=== PATIENT | female | born 1955 | race African-American/Black ===

== ENCOUNTER 2017-12-29 22:26 | Inpatient (IN) | payer OTHER ==
[~2017-12-29] VITALS: Ht 162.6 cm; Wt 47.7 kg
[2017-12-29] MEDS ORDERED: DAPTOmycin IV 0 MG in SODIUM CHLORIDE 0.9% 50ML 50 ML IV STA (22:41)
[2017-12-29] MEDS ORDERED: KETOROLAC TROMETHAMINE 30 MG/ML VIAL IV STA (22:41)
[2017-12-29] MEDS ORDERED: SODIUM CHLORIDE 0.9% 1000ML 1,000 ML IV ONE (22:41)
[2017-12-29] MEDS ORDERED: PIPERACILLIN/TAZOBACTAM 4.5 GM/100ML D5W IV STA (22:41)
[2017-12-29] MEDS ORDERED: ACETAMINOPHEN 500 MG TAB PO STA (22:41)
[2017-12-29] MEDS ORDERED: CLINDAMYCIN 600 MG/54 ML D5W IV ONE (22:45)
--- NOTE | 2017-12-29 22:45 | EMERGENCY ROOM VISIT NOTE ---
History Report prepared by Louis: Gaye Ford Under the Supervision of: Dr. Kamran Daniel M.D. First contact with patient: 22:35 Chief Complaint: OTHER COMPLAINT Stated Complaint: L SIDE PAIN, L LEG & KNEE SWELLING, NAUSEA, VOMIT History of Present Illness The patient is a 62 year old female who presents to the Emergency Room with complaints of worsening swelling to the left leg beginning yesterday. She states that she has had pain with this leg before, but denies ever being told that she had cellulitis or an infection in that leg. She denies any falls or injuries. The patient states that she was febrile at 102 today and states that she has also had the chills. Per nursing staff, the patient reports feeling nauseous and having abdominal pain. The patient states that she does not take any medications daily. Source of History: patient, nursing staff Onset: yesterday Position: leg (left) Quality: other (swelling) Timing: worsening Associated Symptoms: + fevers, + chills, + nausea, + abdominal pain Review of Systems See HPI for pertinent positives & negatives. A total of 10 systems reviewed and were otherwise negative. Past Medical & Surgical Denies any past medical history. Family History Reports no pertinent family history. Social History Marital Status: single Housing Status: assisted living Current/Historical Medications No Active Prescriptions or Reported Meds Allergies Coded Allergies: Sulfa Antibiotics (Verified Allergy, Unknown, swelling, 12/29/17) Physical Exam Vital Signs Date Time Temp Pulse Resp B/P (MAP) Pulse Ox O2 Delivery O2 Flow Rate FiO2 12/30/17 00:00 36.8 97 18 125/74 97 Room Air 12/29/17 23:30 102 20 126/75 99 Room Air 12/29/17 23:05 106 154/92 100 Room Air 12/29/17 22:46 99 Room Air 12/29/17 22:46 110 12/29/17 22:34 37.6 112 159/102 98 Room Air Physical Exam GENERAL: Patient is in no acute distress. HEENT: No acute trauma, normocephalic atraumatic, mucous membranes moist, no nasal congestion, no scleral icterus. NECK: No stridor, no adenopathy, no meningismus, trachea is midline. LUNGS: Clear to auscultation bilaterally, no wheeze, no rhonchi, breath sounds equal. HEART: Tachycardic with regular rhythm. No murmurs. ABDOMEN: Soft, nontender, bowel sounds positive, no hernias, no peritonitis. EXTREMITIES: Significant swelling and erythema to the left leg from the ankle to the groin with erythema tracking onto the left abdominal wall. No crepitus. The thigh in particular is quite tender and firm. No drainage. Any movement of the leg causes pain. NEUROLOGIC: Oriented x 3, no acute motor or sensory deficits, no focal weakness. SKIN: No rash, no jaundice, no diaphoresis. Medical Decision & Procedures ER Provider Diagnostic Interpretation: Radiology results as stated below per my review and [facility]. CT EXTREMITY LEFT LOWER: Small amount of free fluid in the pelvis partially visualized. Multiple phleboliths in the pelvis. Fat stranding involving the left thigh and about the left knee, most prominently medially, anteriorly, and posteriorly. Subcutaneous fat stranding also noted in the medial aspects of the partially visualized right thigh. No abscess or soft tissue gas. No acute osseous abnormality. Radiology results as stated below per my review and radiologist interpretation: Chest X-Ray: No pneumonia or pneumothorax. Mild cardiomegaly. No mediastinal widening. Laboratory Results 12/29/17 23:44 Red Blood Count 4.19, Mean Corpuscular Volume 82.8, Mean Corpuscular Hemoglobin 28.2, Mean Corpuscular Hemoglobin Concent 34.0, Mean Platelet Volume 11.2, Neutrophils (%) (Auto) 72.5, Lymphocytes (%) (Auto) 19.7, Monocytes (%) (Auto) 6.9, Eosinophils (%) (Auto) 0.7, Basophils (%) (Auto) 0.0, Neutrophils # (Auto) 3.16, Lymphocytes # (Auto) 0.86, Monocytes # (Auto) 0.30, Eosinophils # (Auto) 0.03, Basophils # (Auto) 0.00 12/29/17 22:45 Test 12/29/17 22:45 12/29/17 22:56 12/29/17 23:44 12/30/17 00:30 Prothrombin Time 13.0 SECONDS (9.0-12.0) Prothromb Time International Ratio 1.2 (0.9-1.1) Activated Partial Thromboplast Time 24.7 SECONDS (21.0-31.0) Partial Thromboplastin Ratio 1.0 Anion Gap 12.0 mmol/L (3-11) Est Creatinine Clear Calc Drug Dose 49.2 ml/min Estimated GFR () 76.4 Estimated GFR (Non- 65.9 BUN/Creatinine Ratio 24.7 (10-20) Calcium Level 9.0 mg/dl (8.5-10.1) Magnesium Level 1.7 mg/dl (1.8-2.4) Total Bilirubin 2.0 mg/dl (0.2-1) Aspartate Amino Transf (AST/SGOT) 44 U/L (15-37) Alanine Aminotransferase (ALT/SGPT) 32 U/L (12-78) Alkaline Phosphatase 100 U/L (45-117) Total Protein 6.8 gm/dl (6.4-8.2) Albumin 2.8 gm/dl (3.4-5.0) Globulin 4.0 gm/dl (2.5-4.0) Albumin/Globulin Ratio 0.7 (0.9-2) Chemistry Specimen Hemolysis Bedside Lactic Acid Venous 5.21 mmol/L (0.90-1.70) White Blood Count 4.36 K/uL (4.8-10.8) Red Blood Count 4.19 M/uL (4.2-5.4) Hemoglobin 11.8 g/dL (12.0-16.0) Hematocrit 34.7 % (37-47) Mean Corpuscular Volume 82.8 fL (80-100) Mean Corpuscular Hemoglobin 28.2 pg (25-34) Mean Corpuscular Hemoglobin Concent 34.0 g/dl (32-36) Platelet Count 128 K/uL (130-400) Mean Platelet Volume 11.2 fL (7.4-10.4) Neutrophils (%) (Auto) 72.5 % Lymphocytes (%) (Auto) 19.7 % Monocytes (%) (Auto) 6.9 % Eosinophils (%) (Auto) 0.7 % Basophils (%) (Auto) 0.0 % Neutrophils # (Auto) 3.16 K/uL (1.4-6.5) Lymphocytes # (Auto) 0.86 K/uL (1.2-3.4) Monocytes # (Auto) 0.30 K/uL (0.11-0.59) Eosinophils # (Auto) 0.03 K/uL (0-0.5) Basophils # (Auto) 0.00 K/uL (0-0.2) RDW Standard Deviation 38.6 fL (36.4-46.3) RDW Coefficient of Variation 12.9 % (11.5-14.5) Immature Granulocyte % (Auto) 0.2 % Immature Granulocyte # (Auto) 0.01 K/uL (0.00-0.02) Toxic Vacuolation 3+ Dohle Bodies 1+ Large Platelets 1+ Echinocytes 1+ Transferrin % Saturation % (15-50) Test 12/30/17 00:50 12/30/17 01:04 Absolute Reticulocyte Count 0.06 10^6/uL (0.02-0.10) Percent Reticulocyte Count 1.6 % (0.5-2.0) Laboratory results reviewed by me. Medications Administered Medications (Trade) Dose Ordered Sig/Sera Route Start Time Stop Time Status Last Admin Dose Admin Sodium Chloride 1,000 ml @ 999 mls/hr Q1H1M ONCE IV 12/29/17 22:41 12/29/17 23:41 DC 12/29/17 22:50 999 MLS/HR Piperacillin Sod/ Tazobactam Sod (Zosyn Iv) 4.5 gm ONE STAT IV 12/29/17 22:41 12/29/17 22:46 DC 12/29/17 22:57 4.5 GM Clindamycin Phosphate (Cleocin 600mg/ 54ml D5W) 600 mg ONE ONCE IV 12/29/17 22:45 12/29/17 22:46 DC 12/29/17 23:02 600 MG Acetaminophen (Tylenol Tab) 1,000 mg NOW STAT PO 12/29/17 22:41 12/29/17 22:46 DC 12/29/17 22:51 1,000 MG Ketorolac Tromethamine (Toradol Inj) 30 mg NOW STAT IV 12/29/17 22:41 12/29/17 22:46 DC 12/29/17 22:50 30 MG Ondansetron HCl (Zofran Inj) 4 mg NOW STAT IV 12/29/17 22:46 12/29/17 22:50 DC 12/29/17 23:42 4 MG Daptomycin 300 mg/ Syringe 6 ml @ 3 mls/min TODAY@2246 IV 12/29/17 22:46 12/29/17 23:15 DC 12/29/17 22:59 3 MLS/MIN Miscellaneous Information (Patient'S Allergy Info Needs Entered) 1 ea Q30M N/A 12/29/17 23:00 12/29/17 23:50 DC 12/29/17 23:42 1 EA Sodium Chloride 250 ml @ 999 mls/hr Q16M ONCE IV 12/29/17 23:07 12/29/17 23:22 DC 12/29/17 23:43 999 MLS/HR Sodium Chloride 250 ml @ 999 mls/hr Q16M ONCE IV 12/29/17 23:07 12/29/17 23:22 DC 12/29/17 23:44 999 MLS/HR Morphine Sulfate (MoRPHine SULFATE INJ) 2 mg NOW PRN IV 12/29/17 23:45 01/12/18 23:44 12/29/17 23:46 2 MG Sodium Chloride 500 ml @ 999 mls/hr Q31M STAT IV 12/30/17 00:13 12/30/17 00:43 DC 12/30/17 00:19 999 MLS/HR ECG Per My Interpretation Indication: weakness Rate (beats per minute): 108 Rhythm: sinus tachycardia Findings: other (LVH, biatrial enlargement, no ST elevation, no PVCs) ED Course 2235: The patient was evaluated in room B2. A complete history and physical exam was performed. 2241: Ordered Toradol Inj 30 mg IV, Tylenol Tab 1,000 mg PO, Zosyn Iv 4.5 gm IV , Sodium Chloride 1,000 ml @ 999 mls/hr IV. 2245: Ordered Clindamycin Phosphate 600 mg IV. 2246: Ordered Daptomycin 300 mg/Syringe 6 ml @ 3 mls/,in Protocol IV, Zofran Inj 4 mg IV. 2307: Ordered Sodium Chloride 250 ml @ 999 mls/hr IV, Sodium Chloride 250 ml @ 999 mls/hr IV. 2345: Ordered Morphine Sulfate 2 mg IV. 0011: I spoke to the patient and updated her on her results. 0013: Ordered Sodium Chloride 500 ml @ 999 mls/hr IV. 0016: Upon reexamination the patient is resting. I discussed results and treatment plan with the patient. She verbalizes agreement and understanding. I spoke with Dr. Puente of the [facility] hospitalist service. We discussed the patient's results and findings. The patient will be evaluated for further management. Medical Decision The patient is a 62 year old female who presents to the ED with complaints of left leg swelling. Differential diagnoses considered include necrotizing fasciitis, cellulitis, sepsis or bacteremia, dehydration, electrolyte imbalance , pneumonia, and UTI. Patient has a slightly low white count, platelet count and hemoglobin. No significant electrolyte abnormality, no kidney failure. There were a few mild liver enzyme elevations. No coagulopathy. Lactic acid level was quite elevated at over 5. Blood cultures are pending. Urinalysis result is pending. CT of the left thigh shows cellulitis, no evidence for gas or necrotizing fasciitis. Chest film did not show pneumonia or CHF. The patient was aggressively managed. She received over 30 cc of saline per kilogram. She received IV morphine for pain, she received IV Toradol. She was given oral Tylenol. Patient received IV Zosyn, IV daptomycin and IV clindamycin. Patient received IV Zofran. The patient's heart rate has improved, she is more comfortable. She will require a hospital stay as I do believe she is septic from this cellulitis. I spoke with the patient and her family. I talked with case management. I discussed the case with the on-call hospitalist. Medication Reconcilliation Current Medication List: was personally reviewed by me Blood Pressure Screening Patient's blood pressure: Elevated blood pressure will be monitored by hospitalist Consults Time Called: 2300 Consulting Physician: Dr. Artem Damon Returned Call: 0016 Discussed the patient's case. The patient will be evaluated for further management. Impression Primary Impression: Sepsis Additional Impressions: Left leg cellulitis Left leg pain Critical Care I have personally spent greater than 35 minutes of critical care time in the direct management of this patient. This includes bedside care, interpretation of diagnostic studies, and testing, discussion with consultants, patient, and family members, and other required patient management activities. This 35 minutes is in excess of all separately billable procedures. Scribe Attestation The scribe's documentation has been prepared under my direction and personally reviewed by me in its entirety. I confirm that the note above accurately reflects all work, treatment, procedures, and medical decision making performed by me. Departure Information Dispostion Being Evaluated By Hospitalist Prescriptions No Active Prescriptions or Reported Meds Referrals No Doctor, Assigned (PCP) Patient Instructions My [facility] Problem Qualifiers
[2017-12-29] MEDS ORDERED: ONDANSETRON INJ 2 MG/ML 2 ML VIAL IV STA (22:46)
[2017-12-29] MEDS ORDERED: DAPTOmycin IV 300 MG in SYRINGE 0 ML IV SCH (22:46)
[2017-12-29] MEDS ORDERED: PATIENT'S ALLERGY INFO NEEDS ENTERED SCH (23:00)
[2017-12-29] MEDS ORDERED: SODIUM CHLORIDE 0.9% 1000ML 250 ML IV ONE ×2 (23:07)
[2017-12-29 23:25] LABS: INR 1.2 (0.9-1.1); PTT PATIENT 24.7 SECONDS (21.0-31.0)
[2017-12-29] MEDS ORDERED: MoRPHine SULFATE 2 MG/ML CARP IV PRN (23:45)
[2017-12-29 23:46] LABS: ALBUMIN 2.8 gm/dl (3.4-5.0); CREATININE 0.94 mg/dl (0.60-1.20); POTASSIUM 3.5 mmol/L (3.5-5.1); TOTAL PROTEIN 6.8 gm/dl (6.4-8.2)
[2017-12-29 23:58] LABS: HEMATOCRIT 34.7 % (37-47); HEMOGLOBIN 11.8 g/dL (12.0-16.0); MEAN CELL VOLUME 82.8 fL (80-100); MEAN CORPUSCULAR HEMOGLOBIN 28.2 pg (25-34); MEAN PLATELET VOLUME 11.2 fL (7.4-10.4); PLATELET COUNT 128 K/uL (130-400); RED CELL DISTRIBUTION WIDTH CV 12.9 % (11.5-14.5); RED CELL DISTRIBUTION WIDTH SD 38.6 fL (36.4-46.3); WHITE BLOOD COUNT 4.36 K/uL (4.8-10.8)
[2017-12-30] VITALS (11 sets, daily range): BP systolic 95–120; BP diastolic 63–76; PULSE 88–143; TEMP 36.3–37.2; O2SAT 93–99; BMI 18.6
[2017-12-30] MEDS ORDERED: SODIUM CHLORIDE 0.9% 500ML 500 ML IV STA (00:13)
[2017-12-30 00:23] LABS: EOS % 0.7 %; EOS ABS # 0.03 K/uL (0-0.5); IG# 0.01 K/uL (0.00-0.02); LYMPH % 19.7 %; LYMPH ABS # 0.86 K/uL (1.2-3.4); MONO % 6.9 %; NEUT % 72.5 %; NEUT ABS # 3.16 K/uL (1.4-6.5)
[2017-12-30 01:01] LABS: RETIC COUNT % 1.6 % (0.5-2.0)
[2017-12-30] MEDS ORDERED: OPTIRAY 320 IV PRN (01:30)
[2017-12-30] MEDS ORDERED: NSS + 20MEQ KCL 1000ML 1,000 ML IV SCH (01:45)
[2017-12-30 01:52] LABS: TRANSFERRIN 226 mg/dl (200-360)
[2017-12-30] MEDS ORDERED: NSS + 20MEQ KCL 1000ML 1,000 ML IV ONE ×2 (02:00→06:30)
[2017-12-30] MEDS ORDERED: METHIMAZOLE 5 MG TAB PO ONE (03:01)
[2017-12-30] MEDS ORDERED: CEFEPIME CONSULT ACTIVE PRN (03:03)
[2017-12-30] MEDS ORDERED: PROCHLORPERAZINE INJ 5 MG in SYRINGE 4 ML IV PRN (03:15)
[2017-12-30] MEDS ORDERED: LORAZEPAM 2 MG/ML 1 ML VIAL IV PRN (03:15)
[2017-12-30] MEDS: TRAMADOL HCL 50 MG TAB PO PRN ×2 (04:11→19:12)
[2017-12-30] MEDS ORDERED: MAGNESIUM SULFATE 1GM / D5W 1 GM in PREMIXED IN D5W 100 ML IV ONE (04:15)
[2017-12-30] MEDS ORDERED: CEFEPIME IV 2,000 MG in SYRINGE 7.5 ML IV SCH (04:30)
[2017-12-30] MEDS ORDERED: ALBUMIN HUMAN 25% 12.5 GM/50 ML VIAL IV ONE (04:43)
[2017-12-30] MEDS ORDERED: POTASSIUM CHLORIDE 10 MEQ TABCR PO STA (04:58)
[2017-12-30] MEDS ORDERED: INFLUENZA ADMINISTRATION CHARGE ONE (05:00)
[2017-12-30] MEDS ORDERED: INFLUENZA VIRUS QUAD VACCINE 0.5 ML SYR IM. ONE (05:00)
[2017-12-30] MEDS ORDERED: ALBUMIN HUMAN 25% 12.5 GM/50 ML VIAL IV SCH (06:00)
[2017-12-30 06:14] LABS: HEMATOCRIT 34.6 % (37-47); HEMOGLOBIN 11.7 g/dL (12.0-16.0); MEAN CELL VOLUME 83.2 fL (80-100); MEAN CORPUSCULAR HEMOGLOBIN 28.1 pg (25-34); MEAN CORPUSCULAR HGB CONC 33.8 g/dl (32-36); MEAN PLATELET VOLUME 12.1 fL (7.4-10.4); PLATELET COUNT 132 K/uL (130-400); RED CELL DISTRIBUTION WIDTH CV 13.1 % (11.5-14.5); RED CELL DISTRIBUTION WIDTH SD 39.6 fL (36.4-46.3); WHITE BLOOD COUNT 8.57 K/uL (4.8-10.8)
[2017-12-30] MEDS ORDERED: METRONIDAZOLE / NSS 500 MG in PREMIXED NSS 100 ML IV ONE (06:30)
--- NOTE | 2017-12-30 06:43 | DIAGNOSTIC IMAGING REPORT ---
CHEST ONE VIEW PORTABLE CLINICAL HISTORY: Sepsis dyspnea COMPARISON STUDY: No previous studies for comparison. FINDINGS: Mild cardia megaly. Slight hilar fullness bilaterally. Mild emphysematous change. No focal infiltrate. IMPRESSION: Slight hilar fullness bilaterally. Mild emphysematous change. CT chest should be considered when the patient is able to exclude hilar adenopathy. The above report was generated using voice recognition software. It may contain grammatical, syntax or spelling errors. Electronically signed by: Adi Caldwell M.D. 12/30/2017 6:42 AM Dictated Date/Time: 12/30/2017 6:41 AM
--- NOTE | 2017-12-30 07:00 | DIAGNOSTIC IMAGING REPORT ---
L LOWER EXTREMITY WITHOUT CT DOSE: 323.06 mGy.cm HISTORY: Pain. Edema. poss nec fasc left thigh TECHNIQUE: Multiaxial CT images of the were performed and reformatted in the sagittal and coronal plane without the use of contrast. A dose lowering technique was utilized adhering to the principles of ALARA. COMPARISON: None. FINDINGS: Generalized soft tissue edema about the subcutaneous and to a lesser extent the soft tissues of left thigh. Appearance is nonspecific. Cellulitis is not excluded. No evidence for drainable abscess or collection is present based on the unenhanced exam. Osseous structures show no acute abnormality. IMPRESSION: Generalized diffuse soft tissue edematous change and/or cellulitis. No evidence for abscess or collection. Similar findings may be present on the right that region was not specifically scanned The above report was generated using voice recognition software. It may contain grammatical, syntax or spelling errors. Electronically signed by: Adi Caldwell M.D. 12/30/2017 6:59 AM Dictated Date/Time: 12/30/2017 6:55 AM
--- NOTE | 2017-12-30 07:05 | DIAGNOSTIC IMAGING REPORT ---
L VENOUS DOPP LOWER EXT UNILAT CLINICAL HISTORY: 62 years-old Female presenting with L leg swelling. TECHNIQUE: Real-time grayscale and color and spectral Doppler ultrasound imaging of the veins of the left lower extremity was performed. Compression and augmentation were also utilized. COMPARISON: None. FINDINGS: Left: Common femoral vein: Patent. Pulsatile waveforms evident, which may relate to elevated right heart pressure. Greater saphenous vein: Patent. Deep femoral vein: Patent. Femoral vein: Patent. Popliteal vein: Patent. Calf veins: Patent. Other: Several benign-appearing left inguinal lymph nodes noted. These are likely reactive. IMPRESSION: No evidence of deep venous thrombosis. Electronically signed by: Bill Branch M.D. 12/30/2017 7:03 AM Dictated Date/Time: 12/30/2017 7:02 AM
--- NOTE | 2017-12-30 07:23 | DIAGNOSTIC IMAGING REPORT ---
(CHEST FOR PE) ANGIO WITH CLINICAL HISTORY: 62 years-old Female presenting with shortness of breath, abdominal pain. TECHNIQUE: Multidetector CT angiography of the chest was performed after administration of intravenous contrast. 3-D volumetric and/or maximum intensity projection (MIP) images were subsequently reconstructed for review. IV contrast: 119 mL of Optiray 320. A dose lowering technique was used consistent with the principles of ALARA (as low as reasonably achievable). COMPARISON: Chest x-ray performed earlier the same day. CT DOSE (mGy.cm): The estimated cumulative dose is 470.[address] abdomen and pelvis. FINDINGS: Hop Farmer topogram: Cardiomegaly Pulmonary vasculature: The study is adequate for assessment of the pulmonary vascular tree. No filling defect within the pulmonary arteries to suggest embolus. Main pulmonary artery is not significantly enlarged though the segmental and subsegmental pulmonary arteries are slightly enlarged relative to their adjacent bronchi. No flattening of the interventricular septum. No intracardiac filling defect. Reflux of contrast into the intrahepatic IVC. Remaining chest: On soft tissue windows, normal thyroid and thoracic inlet. No axillary, supraclavicular, hilar, or mediastinal lymphadenopathy. Atherosclerosis of the aorta. Right atrial and right ventricular enlargement. No pericardial or pleural effusion. Diffuse periportal edema and trace perihepatic ascites. Anasarca suggested. On lung windows, minimal subpleural nodularity along the anterolateral right upper lobe (series 4 image 233). No other focal infiltrate or nodule. Central airways patent. On bone windows, normal osseous structures. IMPRESSION: 1. No evidence of pulmonary embolus. No acute intrathoracic pathology. Minimal subpleural nodularity in the right upper lobe, possibly scarring or atypical atelectasis. 2. Pulmonary arterial enlargement could suggest pulmonary hypertension. 3. Right heart enlargement. 4. Anasarca, periportal edema, and trace ascites. This suggests volume overload. Electronically signed by: Bill Branch M.D. 12/30/2017 7:21 AM Dictated Date/Time: 12/30/2017 6:48 AM
--- NOTE | 2017-12-30 07:26 | DIAGNOSTIC IMAGING REPORT ---
HEAD WITHOUT CONTRAST (CT) CLINICAL HISTORY: 62 years-old Female presenting with batres. TECHNIQUE: Multidetector CT imaging of the head was performed without the use of intravenous contrast. IV contrast: None. A dose lowering technique was used consistent with the principles of ALARA (as low as reasonably achievable). COMPARISON: None. CT DOSE (mGy.cm): The estimated cumulative dose is 537.48 mGy.cm. FINDINGS: Hemstitcher topogram: Unremarkable. Ventricles and sulci normal in size. Brain parenchyma normal in appearance with preserved rojas-white differentiation. No mass effect or midline shift. No hemorrhage or acute territorial infarct. No extra-axial fluid collection. Paranasal sinuses and mastoid air cells clear. Calvarium intact. Gas noted within the cavernous sinuses and soft tissues of the face, likely related to injection technique/IV catheter. IMPRESSION: 1. No acute intracranial abnormality. 2. Gas within the cavernous sinuses and soft tissues of the face, also likely intravascular, likely related to injection technique/IV catheter. Electronically signed by: Bill Branch M.D. 12/30/2017 7:24 AM Dictated Date/Time: 12/30/2017 6:47 AM
--- NOTE | 2017-12-30 07:53 | DIAGNOSTIC IMAGING REPORT ---
ABD/PELVIS IV CONTRAST ONLY CLINICAL HISTORY: 62 years-old Female presenting with abd pain. TECHNIQUE: Multidetector CT of the abdomen and pelvis was performed after the administration of intravenous contrast. IV contrast: 119 mL of Optiray 320. A dose lowering technique was used consistent with the principles of ALARA (as low as reasonably achievable). COMPARISON: None. CT DOSE (mGy.cm): The estimated cumulative dose is 470.21 mGy.cm. FINDINGS: Computer Hardware Engineer topogram: Cardiomegaly. Lung bases: Lungs and pleural spaces clear. Enlarged right atrium and right ventricle. No pericardial or pleural effusion. Liver: Normal morphology. Extensive periportal edema. No focal lesion. The liver is borderline enlarged. Patent hepatic vasculature. Engorgement of the intrahepatic IVC and hepatic veins. Biliary: No gross evidence of biliary ductal dilatation of the presence of severe periportal edema makes evaluation difficult. Normal gallbladder. Pancreas: Mild parenchymal atrophy. Mild prominence of the pancreatic duct. Suggestion of pancreas divisum. No gross evidence of a pancreatic head mass. Spleen: Normal. Adrenal glands: Intensely hyperemic adrenal glands. Kidneys and ureters: Hypodensity in the left kidney likely simple cyst. No hydronephrosis. Ureters poorly visualized secondary to diffuse edema. Bladder: Normal. Pelvic organs: Globular uterine fundus suggest the presence of fibroids. Ovaries somewhat prominent for age. Bowel: Mild diffuse wall thickening of the colon. Mucosal hyperenhancement of the stomach with mildly diffuse thickened gastric wall. The duodenum also demonstrates mucosal hyperenhancement in the slightly thick wall as do few additional loops of small bowel more distally. No bowel obstruction. Peritoneal cavity: Small amount of abdominal pelvic ascites, which is simple appearing. No intraperitoneal free gas. Diffuse mesenteric edema. Lymph nodes: Several enlarged bilateral external iliac lymph nodes, the largest on the left measuring 9 mm in the short axis (series 6 image 328). Enlarged bilateral common iliac lymph nodes, again the largest on the left measuring 10 mm in the short axis (series 6 image 247). Borderline enlarged pericaval and periaortic lymph nodes. Vasculature: Aorta and IVC patent and normal in caliber. Abdominal wall: Anasarca. Musculoskeletal: Normal. IMPRESSION: 1. Bilateral adrenal hyperenhancement can be seen in the setting of the CT hypoperfusion complex (shock bowel). CT hypoperfusion complex further evidenced by abdominal pelvic ascites, mesenteric edema, periportal edema, ascites, and evidence of right heart failure. Mild bowel wall thickening with mucosal hyperemia would also be compatible with hypoperfusion. 2. Enlarged retroperitoneal and pelvic lymph nodes, which are of uncertain etiology. Correlate clinically and consider follow-up to resolution. These may be reactive or related to congestive change and less there is a history of underlying malignancy or lymphoproliferative disease. The report will be called/faxed according to standard departmental protocol. Electronically signed by: Bill Branch M.D. 12/30/2017 7:52 AM Dictated Date/Time: 12/30/2017 6:48 AM
[2017-12-30] MEDS ORDERED: DOXYCYCLINE HYCLATE 100 MG CAP PO SCH (08:00)
[2017-12-30] MEDS: DOXYCYCLINE IV 100 MG in DEXTROSE 5% 100ML 100 ML IV SCH ×2 (08:25→20:00)
[2017-12-30 08:54] LABS: HEP C IGG 13 YRS+OLDER_RFLX NEG (NEG)
--- NOTE | 2017-12-30 09:25 | DIAGNOSTIC IMAGING REPORT ---
ASCITES-ABDOMEN LIMITED HISTORY: 62 years-old Female ascites ultrasound of the abdomen to assess for ascites. COMPARISON: CT abdomen and pelvis 12/30/2017 TECHNIQUE: Multiple real-time sonographic images of the abdomen were obtained assessing for ascites. FINDINGS/IMPRESSION: There is only a trace amount amount of ascites seen throughout the abdomen and pelvis without drainable fluid collections identified. The above report was generated using voice recognition software. It may contain grammatical, syntax or spelling errors. Electronically signed by: Luisito Mendoza M.D. 12/30/2017 9:24 AM Dictated Date/Time: 12/30/2017 9:21 AM
[2017-12-30] MEDS: ACETAMINOPHEN 325 MG TAB PO PRN ×2 (09:48→23:29)
--- NOTE | 2017-12-30 11:10 | HISTORY & PHYSICAL EXAMINATION ---
DATE OF ADMISSION: 12/30/2017 PRIMARY CARE PHYSICIAN: No primary care doctor. CHIEF COMPLAINT: Left leg pain, swelling, abdominal pain, nausea and vomiting. HISTORY OF PRESENT ILLNESS: History obtained from patient and records. Medical history significant for anemia. Patient is a resident of [facility] who has been staying with her daughter in [place] the last few months. She noted left leg swelling yesterday, achy abdominal pain all over, belly more distended than usual. Some nausea, achy headache symptoms. No chest pain, increasing shortness of breath. Denies diarrhea. No cough symptoms. No recent trauma. Patient brought to the Emergency Room. Received Zosyn, Daptomycin and Clindamycin for sepsis. MEDICAL HISTORY: As above. SURGERIES: None as per the patient. HOME MEDICATIONS: Just vitamin D supplements. ALLERGIES: SULFA. FAMILY HISTORY: Hypertension. PERSONAL AND SOCIAL HISTORY: Nonsmoker, no chronic intake of alcoholic beverages. 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 -[place] ethnicity. REVIEW OF SYSTEMS: As per HPI, all 10 systems reviewed, all other ROS negative. PHYSICAL EXAMINATION: VITAL SIGNS: Blood pressure was noted to be 159/102, later 100/70, pulse rate 110 later 90, RR 18, temperature 37.6 O2 98RA GENERAL: Noted to be hyposthenic, slightly anxious, no respiratory distress. SKIN: Pallor, warm. HEENT: Pale palpebral conjunctiva. Possible exophthalmos. Dry mucosa. NECK: Supple, short. CHEST: Decreased effort. No tenderness. HEART: RRR, no murmur. ABDOMEN: Some distention, mild tenderness on light palpation . EXTREMITIES: LLE edema/induration, tenderness. NEUROLOGIC: Coherent. no gross focality . LABORATORY DATA: Hemoglobin noted to be 11.3, hematocrit 31.7, white cell count 4.3, platelet count 128. Sodium noted to be 136, potassium 3.5, chloride 101, CO2 of 23, BUN 20, creatinine 0.9, glucose 99. Lactic acid was noted to be 3.7. AST 44, ALT 32. CT head, initially read, no acute pathology CTA, initial read, no PE, pulmonary hypertension, right heart enlargement, anasarca, periportal edema, fluid overload. CT abdomen and pelvis initial read : mild nodularity of liver contour, cirrhosis, small to moderate amount of ascites, distended IVC, colonic diverticulosis without evidence of acute diverticulitis, most colon nondistended, possible colitis, enteritis, enlarged retroperitoneal nodes. CT lower leg, small amount of pelvic fluid, fat stranding left thigh about the left knee. No abscess or soft tissue gas. EKG as per my interpretation, rate 105, sinus tachycardia, biatrial enlargement , short OH, no ischemia ASSESSMENT: 1. Severe sepsis SIRS plus lactic acidosis possible sources : left lower extremity cellulitis GI (colitis, SBP-ascites on CT) ro UTI 2. new diagnosis of cirrhosis. possibly from RSHF, passive congestion (unknown duration) 3. Hyperthyroidism (possible Graves disease) new diagnosis 4. Chronic anemia, unknown baseline. 5. Thrombocytopenia secondary to sepsis, cirrhosis. PLAN: GMF cultures, stool C. diff. ff UA Doxycycline for cellulitis Cefepime and Flagyl for abdominal sepsis IVF, follow lactic acid diagnostic/therapeutic paracentesis GI consult. Ascites. new diagnosis of cirrhosis. Initiate Methimazole outpatient Endocrinology follow-up Anemia workup. DVT prophylaxis, SCDs RE thrombocytopenia. Full code. Attempted to update the patient's daughter, Argelia Llamas over listed contact number ([phone]). No response. MTDD
[2017-12-30] MEDS: ALBUMIN HUMAN 25% 12.5 GM/50 ML VIAL IV SCH ×3 (11:59→23:26)
--- NOTE | 2017-12-30 13:37 | Gastrointestinal Consultation ---
Gastrointestinal Consultation Date of Consultation: Dec 30, 2017 Attending Physician: Manuelito Erwin Consulting Physician: Lilibeth Gonzalez Reason for Consultation: Ascites, cirrhosis workup History of Present Illness Patient is a 62 year old female currently seen for ascites and possible cirrhosis workup. She went to ED with c/o L leg pain and swelling. Also has generalized body ache symptoms, nausea, lower abd pain. Denies any bowel habit changes. Upon eval was noted to be febrile, L leg suspected to have cellulitis. Her blood culture is growing gram negative bacilli. She is currently started already on Cefepime, Flagyl, Doxycycline. She had imaging studies including CT chest/abd/pelvis which is concerning for R heart congestion, pulmonary HTN, anasarca, abd ascites. ? CT hypoperfusion complex suspected. There are also enlargd retroperitoneal and pelvic lymph nodes unclear etiology and may be related to congestive change or malignancy/lymphoproliferative disease. Pt is a limited historian. Moved several years ago to [place] and lives with daughter. She used to be a [place] resident but lost insurance and hasn't had medical care for years. All she could tell me is that she used to have a Thyroid disorder and given medicine for this. Her labs showed TSH of <0.005, T4 4.35, T3 0.49. She is on Methamazole now. She denies any hx of liver disease, autoimmune/hereditary liver diseases. Denies any hx of illicit drugs, tattoos, blood transfusion, ETOH abuse. Acute hepatitis panel so far negative for Hep B and C. LFTs showed Tbili 2, AST 44, ALT 32, AP 100. Liver on CT imaging normal in appearance. There was an order for diagnostic paracentesis but not enough ascites to tap. Past Medical/Surgical History Medical Problems: (1) Left leg cellulitis Status: Acute (2) Left leg pain Status: Acute (3) Sepsis Status: Acute Past Medical History: Hyperthyroid Past Surgical History: None Social History Smoking Status: Never Smoker Alcohol Use: none Drug Use: none Marital Status: single Housing Status: lives with family Allergies Coded Allergies: Sulfa Antibiotics (Verified Allergy, Unknown, swelling, 12/29/17) Current Medications Home Meds and Scripts Medications Dose Route/Sig Max Daily Dose Days Date Category No Active Prescriptions or Reported Medications Rx Review of Systems Constitutional: + fever, No chills Respiratory: No cough, No shortness of breath Cardiac: No chest pain Abdomen: + pain, + nausea, No vomiting, No diarrhea Skin: No rash, No itch, No jaundice Physical Exam Date Time Temp Pulse Resp B/P (MAP) Pulse Ox O2 Delivery O2 Flow Rate FiO2 12/30/17 12:01 36.6 90 22 95/63 (74) 96 Room Air 12/30/17 08:41 107/73 (84) 12/30/17 08:00 Room Air 12/30/17 05:19 37.1 90 16 108/71 (83) 97 Room Air 12/30/17 03:53 36.3 93 24 95/66 99 Room Air 12/30/17 02:55 86 16 110/66 98 12/30/17 02:09 91 12/30/17 02:00 90 18 118/83 98 Room Air 12/30/17 01:00 95 18 121/80 96 Room Air 12/30/17 00:30 98 18 127/84 97 Room Air 12/30/17 00:00 36.8 97 18 125/74 97 Room Air 12/29/17 23:30 102 20 126/75 99 Room Air 12/29/17 23:05 106 154/92 100 Room Air 12/29/17 22:46 99 Room Air 12/29/17 22:46 110 12/29/17 22:34 37.6 112 159/102 98 Room Air General Appearance: WD/WN, no apparent distress Eyes: normal inspection, PERRL, EOMI Neck: supple, no JVD, trachea midline Respiratory/Chest: normal breath sounds, no respiratory distress, no accessory muscle use Cardiovascular: regular rate, rhythm, no gallop, no murmur Abdomen: normal bowel sounds, + distended (mild), + tenderness (mid lower abd area ) Extremities: normal inspection, no pedal edema Neurologic/Psych: alert, normal mood/affect, oriented x 3 Skin: normal color, no jaundice, no rash Laboratory Results Last 24 Hours Test 12/29/17 22:45 12/29/17 22:56 12/29/17 23:44 12/30/17 00:30 Prothrombin Time 13.0 SECONDS Prothromb Time International Ratio 1.2 Activated Partial Thromboplast Time 24.7 SECONDS Partial Thromboplastin Ratio 1.0 Sodium Level 136 mmol/L Potassium Level 3.5 mmol/L Chloride Level 101 mmol/L Carbon Dioxide Level 23 mmol/L Anion Gap 12.0 mmol/L Blood Urea Nitrogen 23 mg/dl Creatinine 0.94 mg/dl Est Creatinine Clear Calc Drug Dose 49.2 ml/min Estimated GFR () 76.4 Estimated GFR (Non- 65.9 BUN/Creatinine Ratio 24.7 Random Glucose 99 mg/dl Calcium Level 9.0 mg/dl Magnesium Level 1.7 mg/dl Total Bilirubin 2.0 mg/dl Aspartate Amino Transf (AST/SGOT) 44 U/L Alanine Aminotransferase (ALT/SGPT) 32 U/L Alkaline Phosphatase 100 U/L Total Protein 6.8 gm/dl Albumin 2.8 gm/dl Globulin 4.0 gm/dl Albumin/Globulin Ratio 0.7 Chemistry Specimen Hemolysis Bedside Lactic Acid Venous 5.21 mmol/L White Blood Count 4.36 K/uL Red Blood Count 4.19 M/uL Hemoglobin 11.8 g/dL Hematocrit 34.7 % Mean Corpuscular Volume 82.8 fL Mean Corpuscular Hemoglobin 28.2 pg Mean Corpuscular Hemoglobin Concent 34.0 g/dl Platelet Count 128 K/uL Mean Platelet Volume 11.2 fL Neutrophils (%) (Auto) 72.5 % Lymphocytes (%) (Auto) 19.7 % Monocytes (%) (Auto) 6.9 % Eosinophils (%) (Auto) 0.7 % Basophils (%) (Auto) 0.0 % Neutrophils # (Auto) 3.16 K/uL Lymphocytes # (Auto) 0.86 K/uL Monocytes # (Auto) 0.30 K/uL Eosinophils # (Auto) 0.03 K/uL Basophils # (Auto) 0.00 K/uL RDW Standard Deviation 38.6 fL RDW Coefficient of Variation 12.9 % Immature Granulocyte % (Auto) 0.2 % Immature Granulocyte # (Auto) 0.01 K/uL Toxic Vacuolation 3+ Dohle Bodies 1+ Large Platelets 1+ Echinocytes 1+ Transferrin % Saturation % Test 12/30/17 00:50 12/30/17 05:56 12/30/17 05:57 12/30/17 07:50 Absolute Reticulocyte Count 0.06 10^6/uL Percent Reticulocyte Count 1.6 % Lactic Acid Level 3.7 mmol/L 3.3 mmol/L Iron Level mcg/dl 16 mcg/dl Total Iron Binding Capacity 290 mcg/dl Transferrin 226 mg/dl Ferritin 74.9 ng/ml Total Creatine Kinase 555 U/L 514 U/L Vitamin B12 Level 184 pg/mL Folate 13.65 ng/mL Procalcitonin 73.85 ng/ml Thyroid Stimulating Hormone (TSH) < 0.005 uIu/ml Free Thyroxine 3.45 ng/dl Chemistry Specimen Hemolysis Ethyl Alcohol mg/dL < 3.0 mg/dl White Blood Count 8.57 K/uL Red Blood Count 4.16 M/uL Hemoglobin 11.7 g/dL Hematocrit 34.6 % Mean Corpuscular Volume 83.2 fL Mean Corpuscular Hemoglobin 28.1 pg Mean Corpuscular Hemoglobin Concent 33.8 g/dl Platelet Count 132 K/uL Mean Platelet Volume 12.1 fL RDW Standard Deviation 39.6 fL RDW Coefficient of Variation 13.1 % Neutrophils % (Manual) 82.4 % Lymphocytes % (Manual) 12.3 % Monocytes % (Manual) 5.3 % Neutrophils # (Manual) 7.06 K/uL Total Absolute Neutrophils 7.06 K/uL Lymphocytes # (Manual) 1.05 K/uL Total Absolute Lymphocytes 1.05 K/uL Monocytes # (Manual) 0.45 K/uL Toxic Vacuolation 3+ Echinocytes 1+ Ammonia < 10.0 umol/L Lipase 56 U/L Total Triiodothyronine 0.49 ng/ml Hepatitis B Surface Antigen NEG Hepatitis C Antibody NEG Urine Color DK YELLOW Urine Appearance CLEAR Urine pH 5.0 Urine Specific [place] > 1.045 Urine Protein 2+ Urine Glucose (UA) NEG Urine Ketones TRACE Urine Occult Blood TRACE Urine Nitrite NEG Urine Bilirubin NEG Urine Urobilinogen NEG Urine Leukocyte Esterase NEG Urine WBC (Auto) 5-10 /hpf Urine RBC (Auto) 0-4 /hpf Urine Hyaline Casts (Auto) 5-10 /lpf Urine Epithelial Cells (Auto) >30 /lpf Urine Bacteria (Auto) NEG Test 12/30/17 12:03 Impression Patient is a 62 year old female currently admitted for sepsis (blood cx growing gram negative bacilli) ? L leg cellulitis related. She was suspected to have cirrhosis given ascites finding on CT scan though this is likely related to R heart congestion, pulmonary HTN. Ascites is too small in amt to perform diagnostic paracentesis. Liver appears normal in CT scan, and LFT were only mildly elevated (Tbili 2, AST 42). Plt and INR borderline abnormal. Doubt she has cirrhosis. Plan - F/U infectious workup; defer antibiotic management to primary team - Will f/u stool studies if obtained for diarrhea. - Recommend consulting Cardiology for R heart congestion, pulmonary HTN, volume overload. - Recommend consulting Endocrinology for Hyperthyroidism. I have seen and examined the patient with HARRIS Reese whose note reflects our findings and plan. Volume overload likely secondary to right heart /pulm HTN. Awaiting stool studies.
[2017-12-30] MEDS: METRONIDAZOLE / NSS 500 MG in PREMIXED NSS 100 ML IV SCH ×2 (13:54→22:08)
--- NOTE | 2017-12-30 14:23 | Progress Note ---
Internal Med Progress Note Date of Service: Dec 30, 2017. Provider Documentation: SUBJECTIVE: The patient was seen and examined She is recently moved from [place] without any significant past medical history. She has been complaining of bilateral leg swelling for the last 5 or 6 months. She has been complaining of more shortness of breath for the last 2 days associated with fever and chills. She also has frequency of urination but no dysuria She does not feel any better since admission OBJECTIVE: Vital Signs-as noted below Exam: General-mild to moderate distress at rest Eyes-normal ENT-normal Neck-supple Lungs-decreased breath sounds both sides without any crackles. Heart-S1 and S2 regular, no murmur appreciated Abdomen-mildly distended, mildly tender, moderate hypogastric tenderness, bowel sounds present Clinically difficult to feel for any acetic fluid Extremities-bilateral leg edema-1-2+ Edema is more pronounced on the left side along the thighs. Neuro-alert awake and oriented Generally weak but no focal neuro deficit. Lab data as noted below. ASSESSMENT & PLAN: Severe sepsis SIRS plus lactic acidosis Possible sources :left lower extremity cellulitis,GI (colitis, SBP-ascites on CT )or UTI Doxycycline for cellulitis Cefepime and Flagyl for possible intraabdominal infection if any Continue current antibiotics Blood cultures-Gm Negative Bacilli-sensitivity pending Urine culture-pending SOB with Omer Legs Swelling and Bowel edema Likely secondary to Right Sided Hearty Failure Will give small amount of fluid for ongoing sepsis and low urine output Cardiology consulted ECHO-ordered Possible Cirrhosis. Possibly from RSHF, passive congestion (unknown duration) Appreciate GI evaluation GI does not think the patient has Cirrhosis US abdomen -minimal ascites Hyperthyroidism (possible Graves disease) new diagnosis Started on Methimazole Will need OP Endocrine follow up Chronic anemia, unknown baseline. Work up Thrombocytopenia secondary to sepsis, cirrhosis. DVT prophylaxis, SCDs RE thrombocytopenia. Full code. Vital Signs: Date Time Temp Pulse Resp B/P (MAP) Pulse Ox O2 Delivery O2 Flow Rate FiO2 12/30/17 13:39 36.5 91 20 103/69 (80) 96 Room Air 12/30/17 12:01 36.6 90 22 95/63 (74) 96 Room Air 12/30/17 08:41 107/73 (84) 12/30/17 08:00 Room Air 12/30/17 05:19 37.1 90 16 108/71 (83) 97 Room Air 12/30/17 03:53 36.3 93 24 95/66 99 Room Air 12/30/17 02:55 86 16 110/66 98 12/30/17 02:09 91 12/30/17 02:00 90 18 118/83 98 Room Air 12/30/17 01:00 95 18 121/80 96 Room Air 12/30/17 00:30 98 18 127/84 97 Room Air 12/30/17 00:00 36.8 97 18 125/74 97 Room Air 12/29/17 23:30 102 20 126/75 99 Room Air 12/29/17 23:05 106 154/92 100 Room Air 12/29/17 22:46 99 Room Air 12/29/17 22:46 110 12/29/17 22:34 37.6 112 159/102 98 Room Air Lab Results: Results Past 24 Hours Test 12/29/17 22:45 12/29/17 22:56 12/29/17 23:44 12/30/17 00:30 Range/Units Prothrombin Time 13.0 9.0-12.0 SECONDS Prothromb Time International Ratio 1.2 0.9-1.1 Activated Partial Thromboplast Time 24.7 21.0-31.0 SECONDS Partial Thromboplastin Ratio 1.0 Sodium Level 136 136-145 mmol/L Potassium Level 3.5 3.5-5.1 mmol/L Chloride Level 101 98-107 mmol/L Carbon Dioxide Level 23 21-32 mmol/L Anion Gap 12.0 3-11 mmol/L Blood Urea Nitrogen 23 7-18 mg/dl Creatinine 0.94 0.60-1.20 mg/dl Est Creatinine Clear Calc Drug Dose 49.2 ml/min Estimated GFR () 76.4 Estimated GFR (Non- 65.9 BUN/Creatinine Ratio 24.7 10-20 Random Glucose 99 70-99 mg/dl Calcium Level 9.0 8.5-10.1 mg/dl Magnesium Level 1.7 1.8-2.4 mg/dl Total Bilirubin 2.0 0.2-1 mg/dl Aspartate Amino Transf (AST/SGOT) 44 15-37 U/L Alanine Aminotransferase (ALT/SGPT) 32 12-78 U/L Alkaline Phosphatase 100 45-117 U/L Total Protein 6.8 6.4-8.2 gm/dl Albumin 2.8 3.4-5.0 gm/dl Globulin 4.0 2.5-4.0 gm/dl Albumin/Globulin Ratio 0.7 0.9-2 Chemistry Specimen Hemolysis Bedside Lactic Acid Venous 5.21 0.90-1.70 mmol/L White Blood Count 4.36 4.8-10.8 K/uL Red Blood Count 4.19 4.2-5.4 M/uL Hemoglobin 11.8 12.0-16.0 g/dL Hematocrit 34.7 37-47 % Mean Corpuscular Volume 82.8 80-100 fL Mean Corpuscular Hemoglobin 28.2 25-34 pg Mean Corpuscular Hemoglobin Concent 34.0 32-36 g/dl Platelet Count 128 130-400 K/uL Mean Platelet Volume 11.2 7.4-10.4 fL Neutrophils (%) (Auto) 72.5 % Lymphocytes (%) (Auto) 19.7 % Monocytes (%) (Auto) 6.9 % Eosinophils (%) (Auto) 0.7 % Basophils (%) (Auto) 0.0 % Neutrophils # (Auto) 3.16 1.4-6.5 K/uL Lymphocytes # (Auto) 0.86 1.2-3.4 K/uL Monocytes # (Auto) 0.30 0.11-0.59 K/uL Eosinophils # (Auto) 0.03 0-0.5 K/uL Basophils # (Auto) 0.00 0-0.2 K/uL RDW Standard Deviation 38.6 36.4-46.3 fL RDW Coefficient of Variation 12.9 11.5-14.5 % Immature Granulocyte % (Auto) 0.2 % Immature Granulocyte # (Auto) 0.01 0.00-0.02 K/uL Toxic Vacuolation 3+ Dohle Bodies 1+ Large Platelets 1+ Echinocytes 1+ Transferrin % Saturation 15-50 % Test 12/30/17 00:50 12/30/17 05:56 12/30/17 05:57 12/30/17 07:50 Range/Units Absolute Reticulocyte Count 0.06 0.02-0.10 10^6/uL Percent Reticulocyte Count 1.6 0.5-2.0 % Lactic Acid Level 3.7 3.3 0.4-2.0 mmol/L Iron Level 16 35-150 mcg/dl Total Iron Binding Capacity 290 250-450 mcg/dl Transferrin 226 200-360 mg/dl Ferritin 74.9 8.0-388.0 ng/ml Total Creatine Kinase 555 514 26-192 U/L Vitamin B12 Level 184 211-911 pg/mL Folate 13.65 >5.38 ng/mL Procalcitonin 73.85 0-0.5 ng/ml Thyroid Stimulating Hormone (TSH) < 0.005 0.300-4.500 uIu/ml Free Thyroxine 3.45 0.80-1.60 ng/dl Chemistry Specimen Hemolysis Ethyl Alcohol mg/dL < 3.0 0-3 mg/dl White Blood Count 8.57 4.8-10.8 K/uL Red Blood Count 4.16 4.2-5.4 M/uL Hemoglobin 11.7 12.0-16.0 g/dL Hematocrit 34.6 37-47 % Mean Corpuscular Volume 83.2 80-100 fL Mean Corpuscular Hemoglobin 28.1 25-34 pg Mean Corpuscular Hemoglobin Concent 33.8 32-36 g/dl Platelet Count 132 130-400 K/uL Mean Platelet Volume 12.1 7.4-10.4 fL RDW Standard Deviation 39.6 36.4-46.3 fL RDW Coefficient of Variation 13.1 11.5-14.5 % Neutrophils % (Manual) 82.4 % Lymphocytes % (Manual) 12.3 % Monocytes % (Manual) 5.3 % Neutrophils # (Manual) 7.06 1.4-6.5 K/uL Total Absolute Neutrophils 7.06 1.4-6.5 K/uL Lymphocytes # (Manual) 1.05 1.2-3.4 K/uL Total Absolute Lymphocytes 1.05 1.2-3.4 K/uL Monocytes # (Manual) 0.45 0.11-0.59 K/uL Toxic Vacuolation 3+ Echinocytes 1+ Ammonia < 10.0 11-32 umol/L Lipase 56 73-393 U/L Total Triiodothyronine 0.49 0.60-1.81 ng/ml Hepatitis B Surface Antigen NEG NEG Hepatitis C Antibody NEG NEG Urine Color DK YELLOW Urine Appearance CLEAR CLEAR Urine pH 5.0 4.5-7.5 Urine Specific [place] > 1.045 1.000-1.030 Urine Protein 2+ NEG Urine Glucose (UA) NEG NEG Urine Ketones TRACE NEG Urine Occult Blood TRACE NEG Urine Nitrite NEG NEG Urine Bilirubin NEG NEG Urine Urobilinogen NEG NEG Urine Leukocyte Esterase NEG NEG Urine WBC (Auto) 5-10 0-5 /hpf Urine RBC (Auto) 0-4 0-4 /hpf Urine Hyaline Casts (Auto) 5-10 0-5 /lpf Urine Epithelial Cells (Auto) >30 0-5 /lpf Urine Bacteria (Auto) NEG NEG Test 12/30/17 12:03 Range/Units Lactic Acid Level 2.9 0.4-2.0 mmol/L Microbiology Results 12/29/17 Blood Culture - Preliminary, Resulted Gram Negative Bacilli 12/29/17 Blood Culture - Preliminary, Resulted Gram Negative Bacilli
[2017-12-30] MEDS ORDERED: NURSING VERBAL MED ORDER ONE (14:30)
[2017-12-30] MEDS: SODIUM CHLORIDE 0.9% 1000ML 1,000 ML IV SCH (14:47)
--- NOTE | 2017-12-30 15:49 | CARDIOLOGY CONSULTATION ---
DATE OF CONSULTATION: 12/30/2017 REFERRING PHYSICIAN: Dr. Erwin. REASON FOR CONSULTATION: Right heart failure. CHIEF COMPLAINT ON ADMISSION: Left-sided leg pain, knee swelling, nausea, vomiting, and fevers. HISTORY OF PRESENT ILLNESS: Ms. Recinos is a 62-year-old female who originally originates from [place]. She presented to the Emergency Department today with left lower extremity pain, fevers, and knee swelling. She was found to have left lower extremity cellulitis, and gram negative bacteremia. CT performed demonstrating right ventricular enlargement, right atrial enlargement, signs of right-sided heart failure. The patient denies any prior history of cardiac disease. She has had limited medical care for more than 10 years. There is a chart history of thyroid disease. She reports intermittent palpitations. Left lower extremity discomfort has been present for more than 5 days. Denies orthopnea or PND. Notes chronic dyspnea on exertion which has not recently changed. These symptoms have been present for many years. She is somewhat of a poor historian. Does not take any medications daily as an outpatient. There is no prior testing available for review. REVIEW OF SYSTEMS: The pertinent positive noted above, a comprehensive 10-system review is otherwise negative. PAST MEDICAL HISTORY: Thyroid disease. PAST SURGICAL HISTORY: Denied. FAMILY HISTORY: Negative for premature CAD or sudden cardiac . SOCIAL HISTORY: She is single and lives in assisted living. Denies alcohol or tobacco use. ALLERGIES: SULFA. HOME MEDICATIONS: None. DATA: ECG on admission - sinus tachycardia with biatrial enlargement, left anterior fascicular block, nonspecific T-wave abnormality, and left ventricular hypertrophy. IMAGING: CTA of the chest: No evidence of pulmonary embolus. Pulmonary arterial enlargement suggesting possible pulmonary hypertension, right heart enlargement, anasarca, trace ascites, periportal edema. CT of the abdomen and pelvis - bowel wall thickening, mucosal hyperemia, bilateral adrenal enhancement seen in the setting of CT hypoperfusion complex. CT hypoperfusion complex further evidenced by abdominal pelvic ascites, mesenteric edema, periportal edema, ascites, evidence of right heart failure and large retroperitoneal and pelvic lymph nodes. Abdominal ultrasound: Trace amount of ascites. LABORATORY DATA: Sodium 136, potassium 3.5, chloride 101, CO2 23, BUN is 23, and creatinine 0.94. Procalcitonin 73.85. Ethyl alcohol undetectable. Urinalysis: Negative nitrites, negative leukocyte esterase, concentrated. White blood cell count 8.57, hemoglobin 11.7, and platelet count is 132. Hepatitis B surface antigen negative, hepatitis C antibody negative. PT 13.0, INR 1.2. PHYSICAL EXAMINATION: VITAL SIGNS: Temperature is 36.5 degrees centigrade, pulse is 90 beats per minute and regular, respiratory rate 20 breaths per minute, blood pressure 103/69 and SaO2 is 96% on room air. GENERAL: NAD; awake, alert and oriented x3. HEENT: Mucous membranes are dry. No scleral icterus. Conjunctivae pink. NECK: Supple. Elevated jugular venous distention noted. HEART: Regular with a normal S1 and S2. RV heave is noted on exam. There is no murmur appreciated. LUNGS: Demonstrate clear breath sounds without rales, rhonchi, or wheeze. ABDOMEN: Mildly distended. There is no rebound or guarding, the abdomen is nontender. Hypoactive bowel sounds noted. EXTREMITIES: Demonstrate left lower extremity edema and induration. Left lower extremity is tender to palpation. NEUROLOGIC: No focal motor deficit. FINAL IMPRESSION: 1. A 62-year-old female admitted with left lower extremity cellulitis, and severe sepsis. 2. CT evidence of right heart enlargement with clinical signs and symptoms of right ventricular heart failure. 3. History of thyroid disease with undetectable free T4. 4. Lactic acidosis related to left lower extremity cellulitis and severe sepsis. PLAN AND RECOMMENDATIONS: The patient appears to have evidence of right ventricular dysfunction and right-sided heart failure, per testing and physical exam. She also demonstrates severe sepsis related to left lower extremity cellulitis. At this time, her urine output has been low. Agree with gentle hydration at this time. She may need a small dose of IV diuretic therapy as well. In the future, I would consider loop diuretic and Aldactone. A resting 2D transthoracic echocardiogram has been ordered with results pending at this time, which will help to guide further therapy. Recommend the patient be placed on telemetry to monitor for paroxysmal dysrhythmias. We will continue to follow closely during hospitalization. ZAK
--- NOTE | 2017-12-30 17:30 | ECHOCARDIOGRAM REPORT ---
*NOTICE TO RECEIVING REPUBLICAN AGENCY This information is strictly Confidential and protected under [place] law. [place] law prohibits you from making any further disclosure of this information unless further disclosure is expressly permitted by the written consent of the person to whom it pertains or is authorized by law. A general authorization for the release of medical or other information is not sufficient for this purpose. Hospital accepts no responsibility if the information is made available to any other person, INCLUDING THE PATIENT. Interpretation Summary * Name: ALLI ADAMES Study Date: 12/30/2017 03:42 PM BP: 95/63 mmHg * Patient Location: [facility] HR: 90 * : 1955 (M/d/yyyy) Gender: Female Height: 64 in * Age: 62 yrs Ethnicity: AA Weight: 108 lb * Ordering Physician: Yaima * Performed By: Teresa Bueno RCS * * Reason For Study: CHF * BSA: 1.5 m2 * The study was technically adequate. * There is no comparison study available. * -- Conclusions -- * The right ventricle is moderate to severely dilated. * The right ventricular systolic function is severely reduced. * The right atrium is severely dilated. * There is trace tricuspid regurgitation. * Flattened septum is consistent with RV volume overload. * Left ventricular systolic function is moderately reduced. * Ejection Fraction = 35-40%. * Moderate global hypokinesis of the left ventricle. * The inferior vena cava is severely dilated. * Trivial loculated posterior pericardial effusion. * There are no echocardiographic indications of cardiac tamponade. Procedure Details * A complete two-dimensional transthoracic echocardiogram was performed (2D, M-mode, Doppler and color flow Doppler). Left Ventricle * The left ventricle is normal in size. * Left ventricular systolic function is moderately reduced. * Ejection Fraction = 35-40%. * Flattened septum is consistent with RV volume overload. * Moderate global hypokinesis of the left ventricle. Right Ventricle * The right ventricle is moderate to severely dilated. * The right ventricular systolic function is severely reduced. Atria * The left atrial size is normal. * The right atrium is severely dilated. Mitral Valve * The mitral valve anatomy is normal. * There is no mitral valve stenosis. * Significant mitral regurgitation is absent. Tricuspid Valve * The tricuspid valve anatomy is normal. * There is no tricuspid stenosis. * There is trace tricuspid regurgitation. Aortic Valve * The aortic valve is trileaflet. * The aortic valve opens well. * No hemodynamically significant valvular aortic stenosis. * There is no significant aortic regurgitation. Pulmonic Valve * The pulmonary valve is inadequately visualized, but the Doppler data is adequate for interpretation. * There is no pulmonic valvular stenosis. * Trace pulmonic valvular regurgitation. Great Vessels * The aortic root is normal size. Pericardium/Pleural * Trivial loculated posterior pericardial effusion. * There are no echocardiographic indications of cardiac tamponade. Great Vessels * The inferior vena cava is severely dilated. Left Ventricular Diastolic Function * Diastolic dysfunction, Grade II (pseudonormalization pattern). MMode 2D Measurements and Calculations IVSd 1.0 cm IVSs 1.0 cm LVIDd 4.3 cm LVIDs 3.4 cm LVPWd 1.1 cm LVPWs 1.1 cm IVS/LVPW 0.93 FS 20.2 % EDV(Teich) 81.7 ml ESV(Teich) 47.8 ml EF(Teich) 41.6 % EDV(cubed) 77.9 ml ESV(cubed) 39.6 ml EF(cubed) 49.1 % % IVS thick 2.0 % % LVPW thick 6.4 % LV mass(C)d 148.0 grams LV mass(C)dI 98.3 grams/m\S\2 LV mass(C)s 111.4 grams LV mass(C)sI 74.0 grams/m\S\2 SV(Teich) 34.0 ml SI(Teich) 22.6 ml/m\S\2 SV(cubed) 38.3 ml SI(cubed) 25.4 ml/m\S\2 Ao root diam 3.0 cm Ao root area 7.2 cm\S\2 ACS 1.4 cm LA dimension 3.0 cm asc Aorta Diam 2.5 cm LA/Ao 0.99 EDV(MOD-sp4) 73.0 ml ESV(MOD-sp4) 47.0 ml EF(MOD-sp4) 35.6 % EDV(MOD-sp2) 105.0 ml ESV(MOD-sp2) 68.0 ml EF(MOD-sp2) 35.2 % SV(MOD-sp4) 26.0 ml SI(MOD-sp4) 17.3 ml/m\S\2 SV(MOD-sp2) 37.0 ml SI(MOD-sp2) 24.6 ml/m\S\2 Doppler Measurements and Calculations MV E max edward 69.3 cm/sec MV A max edward 80.9 cm/sec MV E/A 0.86 MV P1/2t max edward 98.7 cm/sec MV P1/2t 42.6 msec MVA(P1/2t) 5.2 cm\S\2 MV dec slope 678.0 cm/sec\S\2 MV dec time 0.11 sec Ao V2 max 103.0 cm/sec Ao max PG 4.2 mmHg Ao max PG (full) 0.38 mmHg LV V1 max PG 3.9 mmHg LV V1 max 98.2 cm/sec PA V2 max 63.4 cm/sec PA max PG 1.6 mmHg TR max edward 212.0 cm/sec
[2017-12-30] MEDS ORDERED: METHIMAZOLE 5 MG TAB PO SCH (20:00)
[2017-12-30] MEDS ORDERED: METOPROLOL TARTRATE 1 MG/ML VIAL IV STA ×2 (23:03→23:51)
[2017-12-30] MEDS ORDERED: METOPROLOL TARTRATE 1 MG/ML VIAL ONE (23:07)
[2017-12-30 23:25] LABS: HEMATOCRIT 32.1 % (37-47); HEMOGLOBIN 10.9 g/dL (12.0-16.0); MEAN CELL VOLUME 82.5 fL (80-100); PLATELET COUNT 137 K/uL (130-400); RED CELL DISTRIBUTION WIDTH CV 13.2 % (11.5-14.5); RED CELL DISTRIBUTION WIDTH SD 39.9 fL (36.4-46.3); WHITE BLOOD COUNT 16.42 K/uL (4.8-10.8)
--- NOTE | 2017-12-30 23:27 | Progress Note ---
Progress Note Date of Service Dec 30, 2017. Progress Note Around 10:50 PM, medical doctor was called that patient has been having atrial fibrillation with RVR. EKG obtained and on physical exam and telemetry monitoring, patient's heart rate above 140 beats per minute. Patient was seen and examined. She was not in obvious distress. Patient did not appear to feel palpitations as she was surprised when she was told that her heart rate is fast. Patient asymptomatic. Lung exam was clear. Patient has lower extremity edema which was documented in previous hospital course notes. Patient had IV fluids and antibiotics running. Labs were ordered for the patient. Lopressor 5 mg IV x 1 was ordered after confirming that patient's blood pressure is stable. Will continue to monitor heart rate for further beta luis vs calcium channel luis for rate control of atrial fibrillation with RVR as the blood pressure tolerates
[2017-12-30 23:56] LABS: ALBUMIN 2.4 gm/dl (3.4-5.0); CALCIUM 8.6 mg/dl (8.5-10.1); CREATININE 1.95 mg/dl (0.60-1.20); POTASSIUM 4.2 mmol/L (3.5-5.1); TOTAL PROTEIN 5.7 gm/dl (6.4-8.2)
[2017-12-31] VITALS (28 sets, daily range): BP systolic 74–123; BP diastolic 55–74; PULSE 55–142; TEMP 36.3–37.2; O2SAT 76–100
[2017-12-31] MEDS ORDERED: NURSING VERBAL MED ORDER ONE
[2017-12-31] MEDS ORDERED: HEPARIN IV LOW DOSE NO BOLUS SCH (00:09)
[2017-12-31] MEDS: MAGNESIUM SULFATE 1GM / D5W 1 GM in PREMIXED IN D5W 100 ML IV SCH ×2 (00:26→02:00)
[2017-12-31] MEDS ORDERED: HEPARIN 25000 UNIT/500 ML D5W ONE (00:31)
[2017-12-31 01:11] LABS: PTT PATIENT 45.5 SECONDS (21.0-31.0)
[2017-12-31] MEDS: HEPARIN 25,000 UNIT/500ML D5W 500 ML IV SCH (01:45)
[2017-12-31] MEDS ORDERED: METOPROLOL TARTRATE 1 MG/ML VIAL IV STA (02:06)
[2017-12-31] MEDS ORDERED: ICU PROTOCOL FOR HYPERGLYCEMIA PRN (02:15)
[2017-12-31] MEDS ORDERED: SODIUM CHLORIDE 0.9% 1000ML 250 ML IV SCH (03:00)
[2017-12-31] MEDS ORDERED: DILTIAZEM BOLUS / DRIP IV STA (04:02)
[2017-12-31] MEDS ORDERED: DILTIAZEM HCL INJ 125 MG in DEXTROSE 5% 100ML IV PRN (04:15)
[2017-12-31] MEDS: SODIUM CHLORIDE 0.9% 1000ML 1,000 ML IV SCH ×3 (04:32→20:05)
[2017-12-31] MEDS: CEFEPIME IV 2,000 MG in SYRINGE 7.5 ML IV SCH (05:08)
[2017-12-31] MEDS: ALBUMIN HUMAN 25% 12.5 GM/50 ML VIAL IV SCH ×4 (05:09→23:49)
[2017-12-31] MEDS: METRONIDAZOLE / NSS 500 MG in PREMIXED NSS 100 ML IV SCH ×3 (05:51→21:33)
[2017-12-31 05:54] LABS: HEPATITIS A IGM TC 51813E NON-REACTIVE (NON-REACTIVE); HEPATITIS B CORE IGM TC51854R NON-REACTIVE (NON-REACTIVE)
[2017-12-31 06:15] LABS: MEAN CORPUSCULAR HGB CONC 33.1 g/dl (32-36)
--- NOTE | 2017-12-31 06:32 | DIAGNOSTIC IMAGING REPORT ---
DUPLEX PORTAL HEPATIC VEINS CLINICAL HISTORY: ascites - eval portal vein, please ascites. Venous thrombosis. TECHNIQUE: Venous Doppler COMPARISON STUDY: None FINDINGS: Antegrade and patent flow within the portal and hepatic venous structures. Flow within the inferior vena cava is IMPRESSION: Negative study. All major venous structures are patent and antegrade in flow. The above report was generated using voice recognition software. It may contain grammatical, syntax or spelling errors. Electronically signed by: Adi Caldwell M.D. 12/31/2017 6:30 AM Dictated Date/Time: 12/31/2017 6:29 AM
--- NOTE | 2017-12-31 06:34 | Critical Care Consultation ---
Critical Care Consultation Date of Consultation: Dec 31, 2017. Attending Physician: Manuelito Erwin M.D. Reason for Consultation: 62-year-old female admitted for presumed sepsis from possible cellulitis to the LEFT lower extremity with RIGHT-sided heart failure and diffuse anasarca. Patient developed A. fib with RVR this evening which did not respond to IV metoprolol 2. Transfer to the ICU for further evaluation and management. History of Present Illness Patient is a 62-year-old female originally from [place], but most recently resided in [facility] who moved to the area in October to be closer to family. Over the past few weeks she has noticed increasing swelling to the lower extremities as well as some tightness in her abdomen. She developed a fever last evening and presented to the emergency department for further evaluation and management. The patient was presumed septic and placed on broad- spectrum antibiotics including a one-time dose of daptomycin, Zosyn, and clindamycin. She underwent chest x-ray which was concerning for pulmonary infiltrate recommending CT of the chest. On CT of the chest, the patient was noted to have severe dilation of the RIGHT ventricle. In addition, CT of the abdomen pelvis demonstrates moderate anasarca, engorgement of the IVC and hepatic veins as well as hypoperfusion complex of the abdomen. Lower extremity ultrasound was concerning for cellulitis. No DVT noted. The patient was started on cefepime as well as Flagyl and doxycycline. She tested positive for C. difficile earlier this evening. This evening, the patient went into rapid A. fib with RVR. She did not convert with metoprolol 2 doses. Repeat laboratory assessment does demonstrate increase troponin at greater than 2. She was started on a heparin drip and transferred to the ICU for continued management. She has no reported past medical history, however she does remember a discussion of thyroid disease in the past, however she is uncertain if it was hypo-or hyperthyroidism. She does not take any medications for this. Past Medical/Surgical History Thyroid Disease - Unknown Family History noncontributory Social History Smoking Status: Never Smoker Smokeless Tobacco Use: No Alcohol Use: none Drug Use: none Marital Status: single Housing Status: lives with family Occupation Status: other Allergies Coded Allergies: Sulfa Antibiotics (Verified Allergy, Unknown, swelling, 12/29/17) Home Medications No Active Prescriptions or Reported Meds Current Inpatient Medications Current Inpatient Medications Medications (Trade) Dose Ordered Sig/Sera Route Start Time Stop Time Status Last Admin Dose Admin Ioversol (Optiray 320) 100 ml UD PRN IV 12/30/17 01:30 01/03/18 01:29 Cefepime HCl (Consult) 1 ea DAILY PRN N/A 12/30/17 03:03 01/29/18 03:02 Methimazole (Methimazole Tab) 10 mg BID PO 12/30/17 20:00 01/29/18 20:59 12/30/17 20:01 10 MG Acetaminophen (Tylenol Tab) 325 mg Q6H PRN PO 12/30/17 03:15 01/29/18 03:14 12/30/17 23:29 325 MG Prochlorperazine Edisylate 5 mg/ Syringe 5 ml @ 5 mls/min Q6H PRN IV 12/30/17 03:15 01/29/18 03:14 Tramadol HCl (Ultram Tab) not relieved by tylenol @ Q6H PRN PO 12/30/17 03:15 01/29/18 03:14 12/30/17 19:12 50 MG Lorazepam (Ativan Inj) 0.5 mg Q4H PRN IV 12/30/17 03:15 01/29/18 03:14 Albumin Human (Albumin 25%) 12.5 gm Q6H IV 12/30/17 12:00 01/02/18 05:59 12/31/17 05:09 12.5 GM Cefepime HCl 2000 mg/Syringe 20 ml @ 5 mls/min Q24H IV 12/31/17 04:30 01/08/18 04:33 12/31/17 05:08 5 MLS/MIN Doxycycline Hyclate 100 mg/ Dextrose 110 ml @ 50 mls/hr BID IV 12/30/17 08:00 01/09/18 07:59 12/30/17 20:00 50 MLS/HR Metronidazole 500 mg/Prmx 100 ml @ 100 mls/hr Q8H IV 12/30/17 14:00 01/09/18 13:59 12/30/17 22:08 100 MLS/HR Sodium Chloride 1,000 ml @ 75 mls/hr [id number] IV 12/30/17 14:45 01/29/18 14:44 12/31/17 04:32 75 MLS/HR Heparin Sodium/ Dextrose 500 ml @ 12 mls/hr Q24H IV 12/31/17 01:45 01/30/18 01:44 Miscellaneous Information (Icu Protocol For Hyperglycemia) 1 ea PRN PRN N/A 12/31/17 02:15 01/02/18 02:14 Pantoprazole Sodium 40 mg/ Syringe 10 ml @ 5 mls/min DAILY@11 IV 12/31/17 11:00 01/30/18 10:59 Diltiazem HCl 125 mg/Dextrose 125 ml @ 0 mls/hr Q0M PRN IV 12/31/17 04:15 01/30/18 04:14 Review of Systems A complete 10-point Review of Systems was discussed with the patient, with pertinent positives and negatives listed in the History of Present Illness. All remaining Review of Systems questions can be considered negative unless otherwise specified. Physical Exam Date Time Temp Pulse Resp B/P (MAP) Pulse Ox O2 Delivery O2 Flow Rate FiO2 12/31/17 05:00 118 25 94 12/31/17 04:00 36.7 125 13 91/55 (67) 94 Room Air 12/31/17 04:00 Room Air 12/31/17 04:00 125 13 94 12/31/17 03:00 132 25 96 12/31/17 02:48 135 119/79 12/31/17 02:00 132 29 95 12/31/17 02:00 132 29 89/68 (75) 95 Room Air 12/31/17 01:30 Room Air 12/31/17 01:04 37.2 142 20 93 12/31/17 00:28 131 103/69 (80) 12/31/17 00:00 Room Air 12/30/17 23:59 129 98/62 12/30/17 23:43 139 99/71 (80) 103/65 (78) 12/30/17 23:31 143 18 105/76 (86) 93 Room Air 12/30/17 23:10 155 112/71 12/30/17 22:52 37.2 135 24 120/67 (84) 96 Room Air 12/30/17 19:25 36.8 94 20 118/74 (89) 95 Room Air 12/30/17 19:00 Room Air 12/30/17 16:00 36.5 88 16 96 12/30/17 15:45 36.5 88 16 106/66 (79) 96 12/30/17 15:30 Room Air 12/30/17 13:39 36.5 91 20 103/69 (80) 96 Room Air 12/30/17 12:01 36.6 90 22 95/63 (74) 96 Room Air 12/30/17 08:41 107/73 (84) 12/30/17 08:00 Room Air VITAL SIGNS - Vital signs and nursing notes were reviewed. GENERAL - 62-year-old female appearing her stated age who is in no acute distress. SKIN - Diffuse edema to the bilateral lower extremities - LEFT>right. HEAD - NC/AT. EYES - PERRL with EOMI bilaterally. Sclera anicteric. EARS - No deformities of external structures noted on gross examination bilaterally. NOSE - Midline and without cyanosis. MOUTH/OROPHARYNX - Without perioral cyanosis. Buccal mucosa pink and moist and without leukoplakia. NECK - Neck with FROM. Supple to palpation. LUNGS - Chest wall symmetric without accessory muscle use, intercostals retractions, or central cyanosis. Normal vesicular breath sounds CTA B/L. No wheezes, rales, or rhonchi appreciated. CARDIAC - RRR with S1/S2. No murmur, rubs, or gallops appreciated. ABDOMEN - Abdominal contour tight w/ palpable ascites. Without pulsations or visible masses. BS normoactive all four quadrants. EXTREMITIES - No clubbing or peripheral cyanosis. +3/5 radial, posterior tibial , and dorsalis pedis pulses palpated throughout. NEUROLOGIC - Cranial nerves II through XII grossly intact. PSYCH - A&Ox3 Laboratory Results Last 24 Hours Test 12/30/17 05:56 12/30/17 05:57 12/30/17 07:50 12/30/17 12:03 Lactic Acid Level 3.3 mmol/L 2.9 mmol/L White Blood Count 8.57 K/uL Red Blood Count 4.16 M/uL Hemoglobin 11.7 g/dL Hematocrit 34.6 % Mean Corpuscular Volume 83.2 fL Mean Corpuscular Hemoglobin 28.1 pg Mean Corpuscular Hemoglobin Concent 33.8 g/dl Platelet Count 132 K/uL Mean Platelet Volume 12.1 fL RDW Standard Deviation 39.6 fL RDW Coefficient of Variation 13.1 % Neutrophils % (Manual) 82.4 % Lymphocytes % (Manual) 12.3 % Monocytes % (Manual) 5.3 % Neutrophils # (Manual) 7.06 K/uL Total Absolute Neutrophils 7.06 K/uL Lymphocytes # (Manual) 1.05 K/uL Total Absolute Lymphocytes 1.05 K/uL Monocytes # (Manual) 0.45 K/uL Toxic Vacuolation 3+ Echinocytes 1+ Iron Level 16 mcg/dl Ammonia < 10.0 umol/L Total Creatine Kinase 514 U/L Lipase 56 U/L Total Triiodothyronine 0.49 ng/ml Hepatitis B Surface Antigen NEG Hepatitis C Antibody NEG Urine Color DK YELLOW Urine Appearance CLEAR Urine pH 5.0 Urine Specific [place] > 1.045 Urine Protein 2+ Urine Glucose (UA) NEG Urine Ketones TRACE Urine Occult Blood TRACE Urine Nitrite NEG Urine Bilirubin NEG Urine Urobilinogen NEG Urine Leukocyte Esterase NEG Urine WBC (Auto) 5-10 /hpf Urine RBC (Auto) 0-4 /hpf Urine Hyaline Casts (Auto) 5-10 /lpf Urine Epithelial Cells (Auto) >30 /lpf Urine Bacteria (Auto) NEG Test 12/30/17 22:45 12/30/17 23:13 12/31/17 01:36 12/31/17 02:38 Stool Occult Blood NEGATIVE White Blood Count 16.42 K/uL Red Blood Count 3.89 M/uL Hemoglobin 10.9 g/dL Hematocrit 32.1 % Mean Corpuscular Volume 82.5 fL Mean Corpuscular Hemoglobin 28.0 pg Mean Corpuscular Hemoglobin Concent 34.0 g/dl RDW Standard Deviation 39.9 fL RDW Coefficient of Variation 13.2 % Platelet Count 137 K/uL Mean Platelet Volume 12.0 fL Activated Partial Thromboplast Time 45.5 SECONDS Partial Thromboplastin Ratio 1.8 Sodium Level 135 mmol/L Potassium Level 4.2 mmol/L Chloride Level 105 mmol/L Carbon Dioxide Level 19 mmol/L Anion Gap 11.0 mmol/L Blood Urea Nitrogen 39 mg/dl Creatinine 1.95 mg/dl Est Creatinine Clear Calc Drug Dose 23.8 ml/min Estimated GFR () 31.6 Estimated GFR (Non- 27.3 BUN/Creatinine Ratio 19.9 Random Glucose 101 mg/dl Lactic Acid Level 2.6 mmol/L Calcium Level 8.6 mg/dl Magnesium Level 1.9 mg/dl Total Bilirubin 1.2 mg/dl Aspartate Amino Transf (AST/SGOT) 47 U/L Alanine Aminotransferase (ALT/SGPT) 33 U/L Alkaline Phosphatase 58 U/L Troponin I 2.980 ng/ml Total Protein 5.7 gm/dl Albumin 2.4 gm/dl Globulin 3.3 gm/dl Albumin/Globulin Ratio 0.7 Bedside Glucose 97 mg/dl Test 12/31/17 03:30 12/31/17 04:44 Urine Opiates Screen POS Urine Methadone, Qualitative NEG Urine Barbiturates NEG Urine Phencyclidine (PCP) Level NEG Ur Amphetamine/Methamphetamine NEG MDMA (Ecstasy) Screen NEG Urine Benzodiazepines Screen NEG Urine Cocaine Metabolite NEG Urine Marijuana (THC) NEG Creatine Kinase MB Ratio Diagnostic Results Radiological imaging and reports were reviewed by myself. Assessment & Plan (1) Atrial fibrillation with RVR (2) Hypotension (3) Right-sided heart failure (4) Anasarca (5) Elevated troponin (6) Hyperthyroidism (7) C. difficile diarrhea (8) Left leg pain (9) Left leg cellulitis (10) Sepsis Reason Critically Ill: 62-year-old female admitted for presumed sepsis from possible cellulitis to the LEFT lower extremity with RIGHT-sided heart failure and diffuse anasarca. Patient developed A. fib with RVR this evening which did not respond to IV metoprolol 2. Transfer to the ICU for further evaluation and management. Neuro - * CAM ICU: NEGATIVE * LLE Pain/Cellulitis - PRN Ultram Cardiac - * A. Fib w/ RVR: * Likely 2/2 sepsis picture coupled with RIGHT sided heart failure. * Received Metoprolol 5mg x3 w/o resolve. Added 250mL NSS bolus. Started on Cardizem gtt w/o bolus. Converted at 0522. * Started on Heparin per primary service. * Elevated troponin >2: * Concerning w/ new RIGHT heart failure. * Possibly related to demand ischemia in the setting of sepsis w/ new a fib w/ YI and poor clearance. * RIGHT sided heart failure: * No PE per CTA. * No h/o Pulm HTN * Added Portal Vein US for any other possible causes of anasarca. * Appreciate cardiology consultation. Respiratory - * No h/o pulmonary disease. * NC PRN O2 supplementation. GI - * Anasarca w/ portal congestion: * Likely 2/2 RIGHT heart failure from ??cause. * NPO RENAL/LYTES - * YI in the setting of sepsis: * Gentle hydration in the setting of RIGHT sided heart failure. - * Add Andrade for strict I&Os ENDO - * No h/o DM * ??h/o unknown thyroid disease: * Essentially undetectable TSH, however Free T4 not greatly abnormal. * Unable to completely rule out thyroid storm which could certainly help explain some of the above (i.e. RHF, Afib, etc.) * Will treat underlying sepsis first and reassess as clinically indicated. * Add random cortisol for ??utility of stress dose steroids. HEME - * Stable H&H at this point. * Will trend ID - * Gram NEGATIVE Bacilli Bacteremia w/ Sepsis: * Currently on Cefepime, Flagyl, Doxy for ?? LLE Cellulitis as source. * Waiting on Urine Culture. * Trend Lactate. * Repeat Procal * C. Diff POSITIVE: * IF Flagyl currently LINES/IV ACCESS - * PIVs intact. * Andrade Catheter DVT PROPHYLAXIS - * Heparin gtt I have personally spent 55 minutes of critical care time in the direct management of this patient. This is a life/limb threatening event. This includes time spent evaluating patient, direct bedside care, chart review, placing orders, interpretation of diagnostic studies, discussion with consultants, patient, and family members, as well as other required patient management activities. This time is exclusive of all separately billable procedures, and teaching time and separate from and in addition to any other critical care service time. Thank you for this consultation allow us to be part of this patient's care. Please refer to my attending physician's documentation for any further recommendations. Attending addendum, The patient was seen and examined, independently, case discussed with the daughter Dr. Llamas who is an oncologist, discussed also with the staff, all her labs and data has been reviewed on rounds as well. Assessment: 1. Septic shock secondary to C. difficile colitis. 2. Gram-negative bacteremia which could be translocated bacteria from the pancolitis the patient has. Identification of the bacteria has not been determined. 3. I did not appreciate acute cellulitis in the left lower extremity however, the patient leg edema is in the adjacent to the retroperitoneal lymphadenopathy affecting the takeoff of the left iliac vein. I have showed the views of the images with her daughter who is oncologist as well. 4. Altered mental status of unknown etiology, MRI revealed abnormality however could not comment on the findings due to artifacts from dental fillings. 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 5. New onset A. fib in a patient who has severe RV dilation with severe failure , both are representation of pulmonary hypertension. WHO class yet to be determined. Although CT angiomas negative, VQ scan is needed to determine CTEPH. Discussed with cardiology. 6. AK I on chronic kidney disease, highly likely secondary to sepsis, however contrast-induced nephropathy cannot be excluded. 7. To mention, this patient has no past medical history according to the daughter, but lately she has been having increasing shortness of breath even with walking short distances. But she does not have any neurologic deficit as well as of last night. Plan: 1. I will continue with the antibiotics and add Vanco via NG tube as the patient is nonverbal at the moment with altered mental status. 2. Place an NG tube. 3. Echocardiogram was reviewed with Dr. Mcnamara, appreciate his input. 4. Neurology consult due to altered mental status. 5. MRI of the head was done and reports limited study due to dental filling, findings are suspicious for osmotic demyelination syndrome however the patient did not have any altered sodium level. 6. Continue with IV hydration given her recent contrast receiving for CT, and ongoing sepsis. 7. Even with the absence of diarrhea, the patient should be treated for the C. difficile colitis given the findings on the CAT scan which showed pancolitis. 8. I will spare 24 hours prior to a decision to place PA catheter hopefully in the morning. 9. We will continue to follow the trend of the CBC as well as a BUN/creatinine. 10. Continue with DVT prophylaxis. And GI prophylaxis. 11. I will stop doxycycline and continue cefepime, Flagyl and Vanco p.o. 12. NIH score was not obtainable as the patient could not cooperate with the questionnaire. Case discussed with the staff and with the daughter and details. Critical care time spent with the patient was 60 minutes. Billing inquiry has been deferred due to professional courtesy. Problem Qualifiers (1) Right-sided heart failure: Heart failure chronicity: acute Qualified Codes: I50.811 - Acute right heart failure
[2017-12-31 06:48] LABS: ALBUMIN 2.7 gm/dl (3.4-5.0); CALCIUM 8.9 mg/dl (8.5-10.1); CREATININE 2.26 mg/dl (0.60-1.20); POTASSIUM 4.8 mmol/L (3.5-5.1)
[2017-12-31 06:52] LABS: HEMATOCRIT 37.2 % (37-47); HEMOGLOBIN 12.3 g/dL (12.0-16.0); MEAN CELL VOLUME 83.4 fL (80-100); MEAN CORPUSCULAR HEMOGLOBIN 27.6 pg (25-34); RED CELL DISTRIBUTION WIDTH CV 13.2 % (11.5-14.5); RED CELL DISTRIBUTION WIDTH SD 39.8 fL (36.4-46.3); WHITE BLOOD COUNT 18.13 K/uL (4.8-10.8)
[2017-12-31 06:54] LABS: PTT PATIENT 56.7 SECONDS (21.0-31.0)
[2017-12-31 06:57] LABS: CKMB 7.1 ng/ml (0.5-3.6); MEAN PLATELET VOLUME 12.1 fL (7.4-10.4); PHOSPHORUS 4.3 mg/dl (2.5-4.9); PLATELET COUNT 140 K/uL (130-400); TOTAL PROTEIN 6.2 gm/dl (6.4-8.2)
[2017-12-31 09:08] LABS: PTT PATIENT 52.9 SECONDS (21.0-31.0)
[2017-12-31] MEDS: RASPBERRY SYRUP 5 ML UDP PO SCH ×4 (09:30→20:03)
[2017-12-31] MEDS: VANCOMYCIN HCL 250 MG/5 ML SOLN PO SCH ×4 (09:30→20:03)
--- NOTE | 2017-12-31 10:56 | Gastroenterology Progress Note ---
Progress Note Date of Service: Dec 31, 2017 Subjective Pt evaluation today including: conversation w/ patient, physical exam, chart review, lab review, review of studies, review of inpatient medication list Pt transferred to ICU overnight for Afib, started on Cardizem gtt, but held this AM due to bradycardia (HR 50s). Currently NSR. She had been confused, has a sitter. Just fell asleep per sitter <1hr ago. Not easily aroused when name called. Breathing regular, HR regular. Unable to obtain ROS Reviewed chart - labs showed WBC up to 18. Blood cx still gram negative bacilli. Stool + for Cdiff, had been started on Flagyl IV. Liver doppler done yesterday normal. Review of Systems Constitutional: + see HPI Medications Current Inpatient Medications Medications (Trade) Dose Ordered Sig/Sera Route Start Time Stop Time Status Last Admin Dose Admin Ioversol (Optiray 320) 100 ml UD PRN IV 12/30/17 01:30 01/03/18 01:29 Cefepime HCl (Consult) 1 ea DAILY PRN N/A 12/30/17 03:03 01/29/18 03:02 Methimazole (Methimazole Tab) 10 mg BID PO 12/30/17 20:00 01/29/18 20:59 12/30/17 20:01 10 MG Acetaminophen (Tylenol Tab) 325 mg Q6H PRN PO 12/30/17 03:15 01/29/18 03:14 12/30/17 23:29 325 MG Prochlorperazine Edisylate 5 mg/ Syringe 5 ml @ 5 mls/min Q6H PRN IV 12/30/17 03:15 01/29/18 03:14 Tramadol HCl (Ultram Tab) not relieved by tylenol @ Q6H PRN PO 12/30/17 03:15 01/29/18 03:14 12/30/17 19:12 50 MG Lorazepam (Ativan Inj) 0.5 mg Q4H PRN IV 12/30/17 03:15 01/29/18 03:14 Albumin Human (Albumin 25%) 12.5 gm Q6H IV 12/30/17 12:00 01/02/18 05:59 12/31/17 05:09 12.5 GM Cefepime HCl 2000 mg/Syringe 20 ml @ 5 mls/min Q24H IV 12/31/17 04:30 01/08/18 04:33 12/31/17 05:08 5 MLS/MIN Doxycycline Hyclate 100 mg/ Dextrose 110 ml @ 50 mls/hr BID IV 12/30/17 08:00 01/09/18 07:59 12/30/17 20:00 50 MLS/HR Metronidazole 500 mg/Prmx 100 ml @ 100 mls/hr Q8H IV 12/30/17 14:00 01/09/18 13:59 12/31/17 05:51 100 MLS/HR Sodium Chloride 1,000 ml @ 75 mls/hr [id number] IV 12/30/17 14:45 01/29/18 14:44 12/31/17 04:32 75 MLS/HR Heparin Sodium/ Dextrose 500 ml @ 12 mls/hr Q24H IV 12/31/17 01:45 01/30/18 01:44 Miscellaneous Information (Icu Protocol For Hyperglycemia) 1 ea PRN PRN N/A 12/31/17 02:15 01/02/18 02:14 Pantoprazole Sodium 40 mg/ Syringe 10 ml @ 5 mls/min DAILY@11 IV 12/31/17 11:00 01/30/18 10:59 Vancomycin HCl (Vancomycin Oral Soln) 500 mg QID PO 12/31/17 09:30 01/14/18 09:29 Raspberry (Raspberry Syrup 5ml Cup) 5 ml QID PO 12/31/17 09:30 01/14/18 09:29 Objective Vital Signs Date Time Temp Pulse Resp B/P (MAP) Pulse Ox O2 Delivery O2 Flow Rate FiO2 12/31/17 10:00 55 18 114/62 (79) 94 Nasal Cannula 2.0 12/31/17 09:00 57 16 110/63 (79) 100 Nasal Cannula 2.0 12/31/17 08:32 58 0 110/68 (91) 100 12/31/17 08:01 59 18 102/64 (71) 12/31/17 08:00 36.7 57 22 107/63 (78) 87 Room Air 12/31/17 08:00 95 Nasal Cannula 2.0 12/31/17 08:00 56 0 93 3/21/18 07:31 63 1 90/64 (72) 76 12/31/17 07:05 66 12 105/63 (76) 12/31/17 07:02 69 19 74/58 (68) 12/31/17 07:00 66 8 12/31/17 07:00 66 8 12/31/17 06:00 71 1 95 12/31/17 05:00 118 25 94 12/31/17 04:00 36.7 125 13 91/55 (67) 94 Room Air 12/31/17 04:00 Room Air 12/31/17 04:00 125 13 94 12/31/17 03:00 132 25 96 12/31/17 02:48 135 119/79 12/31/17 02:00 132 29 95 12/31/17 02:00 132 29 89/68 (75) 95 Room Air 12/31/17 01:30 Room Air 12/31/17 01:04 37.2 142 20 93 12/31/17 00:28 131 103/69 (80) 12/31/17 00:00 Room Air 12/30/17 23:59 129 98/62 12/30/17 23:43 139 99/71 (80) 103/65 (78) 12/30/17 23:31 143 18 105/76 (86) 93 Room Air 12/30/17 23:10 155 112/71 12/30/17 22:52 37.2 135 24 120/67 (84) 96 Room Air 12/30/17 19:25 36.8 94 20 118/74 (89) 95 Room Air 12/30/17 19:00 Room Air 12/30/17 16:00 36.5 88 16 96 12/30/17 15:45 36.5 88 16 106/66 (79) 96 12/30/17 15:30 Room Air 12/30/17 13:39 36.5 91 20 103/69 (80) 96 Room Air 12/30/17 12:01 36.6 90 22 95/63 (74) 96 Room Air Physical Exam General Appearance: no apparent distress Neck: supple, no JVD, trachea midline Respiratory/Chest: normal breath sounds, no respiratory distress, no accessory muscle use Cardiovascular: regular rate, rhythm, no gallop, no murmur Abdomen: normal bowel sounds, + distended (mild) Extremities: + swelling (mild leg swelling bilaterally) Neurologic/Psych: + pertinent finding (asleep, had been confused per RN and sitter) Skin: normal color, no jaundice, no rash Laboratory Results Last 24 Hours Test 12/30/17 12:03 12/30/17 22:45 12/30/17 23:13 12/31/17 02:38 Lactic Acid Level 2.9 mmol/L 2.6 mmol/L Stool Occult Blood NEGATIVE White Blood Count 16.42 K/uL Red Blood Count 3.89 M/uL Hemoglobin 10.9 g/dL Hematocrit 32.1 % Mean Corpuscular Volume 82.5 fL Mean Corpuscular Hemoglobin 28.0 pg Mean Corpuscular Hemoglobin Concent 34.0 g/dl RDW Standard Deviation 39.9 fL RDW Coefficient of Variation 13.2 % Platelet Count 137 K/uL Mean Platelet Volume 12.0 fL Activated Partial Thromboplast Time 45.5 SECONDS Partial Thromboplastin Ratio 1.8 Sodium Level 135 mmol/L Potassium Level 4.2 mmol/L Chloride Level 105 mmol/L Carbon Dioxide Level 19 mmol/L Anion Gap 11.0 mmol/L Blood Urea Nitrogen 39 mg/dl Creatinine 1.95 mg/dl Est Creatinine Clear Calc Drug Dose 23.8 ml/min Estimated GFR () 31.6 Estimated GFR (Non- 27.3 BUN/Creatinine Ratio 19.9 Random Glucose 101 mg/dl Calcium Level 8.6 mg/dl Magnesium Level 1.9 mg/dl Total Bilirubin 1.2 mg/dl Aspartate Amino Transf (AST/SGOT) 47 U/L Alanine Aminotransferase (ALT/SGPT) 33 U/L Alkaline Phosphatase 58 U/L Troponin I 2.980 ng/ml Total Protein 5.7 gm/dl Albumin 2.4 gm/dl Globulin 3.3 gm/dl Albumin/Globulin Ratio 0.7 Bedside Glucose 97 mg/dl Test 12/31/17 03:30 12/31/17 04:44 12/31/17 05:53 12/31/17 08:38 Urine Opiates Screen POS Urine Methadone, Qualitative NEG Urine Barbiturates NEG Urine Phencyclidine (PCP) Level NEG Ur Amphetamine/Methamphetamine NEG MDMA (Ecstasy) Screen NEG Urine Benzodiazepines Screen NEG Urine Cocaine Metabolite NEG Urine Marijuana (THC) NEG Creatine Kinase MB Ratio 3.8 White Blood Count 18.13 K/uL Red Blood Count 4.46 M/uL Hemoglobin 12.3 g/dL Hematocrit 37.2 % Mean Corpuscular Volume 83.4 fL Mean Corpuscular Hemoglobin 27.6 pg Mean Corpuscular Hemoglobin Concent 33.1 g/dl RDW Standard Deviation 39.8 fL RDW Coefficient of Variation 13.2 % Platelet Count 140 K/uL Mean Platelet Volume 12.1 fL Activated Partial Thromboplast Time 56.7 SECONDS 52.9 SECONDS Partial Thromboplastin Ratio 2.2 2.0 Sodium Level 133 mmol/L Potassium Level 4.8 mmol/L Chloride Level 105 mmol/L Carbon Dioxide Level 17 mmol/L Anion Gap 11.0 mmol/L Blood Urea Nitrogen 42 mg/dl Creatinine 2.26 mg/dl Est Creatinine Clear Calc Drug Dose 22.7 ml/min Estimated GFR () 26.5 Estimated GFR (Non- 22.8 BUN/Creatinine Ratio 18.7 Random Glucose 92 mg/dl Lactic Acid Level 2.4 mmol/L Calcium Level 8.9 mg/dl Ionized Calcium 1.22 mmol/l Phosphorus Level 4.3 mg/dl Magnesium Level 2.6 mg/dl Total Bilirubin 1.5 mg/dl Aspartate Amino Transf (AST/SGOT) 52 U/L Alanine Aminotransferase (ALT/SGPT) 33 U/L Alkaline Phosphatase 62 U/L Ammonia < 10.0 umol/L Total Creatine Kinase 187 U/L Creatine Kinase MB 7.1 ng/ml Troponin I 1.930 ng/ml Total Protein 6.2 gm/dl Albumin 2.7 gm/dl Globulin 3.5 gm/dl Albumin/Globulin Ratio 0.8 Procalcitonin > 200.00 ng/ml Random Cortisol 59.81 mcg/dl Assessment and Plan Patient is a 62 year old female currently admitted for sepsis (blood cx growing gram negative bacilli) ? L leg cellulitis related. She was suspected to have cirrhosis given ascites finding on CT scan though this is likely related to R heart congestion, pulmonary HTN. Ascites is too small in amt to perform diagnostic paracentesis. Liver appears normal in CT scan, and LFT were only mildly elevated (Tbili 2, AST 42). Plt and INR borderline abnormal. Doubt she has cirrhosis. Transferred to ICU overnight for Afib w RVR, started on Cardizem gtt, now held for bradycardia. Currently NSR. She had been confused. WBC up to 18. Gm negative bacilli in blood cx, stool + for Cdiff currently on Flagyl IV. Liver doppler normal. Ammonia level low. Plans - F/U infectious workup; defer antibiotic management to primary team - Flagyl IV for Cdiff - Recommend consulting Cardiology for R heart congestion, pulmonary HTN, volume overload. - Recommend consulting Endocrinology for Hyperthyroidism. - No new GI plans; will watch peripherally, call if new questions/concerns arise.
[2017-12-31] MEDS: PANTOprazole INJ 40 MG in SYRINGE 0 ML IV SCH (11:00)
--- NOTE | 2017-12-31 11:04 | DIAGNOSTIC IMAGING REPORT ---
BRAIN WITHOUT CONTRAST CLINICAL HISTORY: 62 years-old Female presenting with altered mental status; concern for CVA given conversion fib -SR. TECHNIQUE: Multisequence, multiplanar MR imaging of the brain was performed without the use of intravenous contrast. IV contrast: None. COMPARISON: CT head performed the previous day. FINDINGS: Dental hardware results in significant susceptibility artifact degrading image quality, most severely degrading diffusion-weighted imaging. This limits diagnostic sensitivity the exam for ischemia. Ventricles and sulci normal in size. Limited white matter FLAIR hyperintensity evident in the brachium pontis bilaterally. No white matter changes in the kariem. Brain parenchyma otherwise normal in appearance with preserved rojas-white differentiation. No mass effect or midline shift. No restricted diffusion to suggest acute ischemia. No hemorrhage. No extra-axial fluid collection. T2 skull base flow voids preserved. Bone marrow signal intensity within the calvarium within normal limits. IMPRESSION: 1. Dental hardware results in significant susceptibility artifact degrading image quality, most severely degrading diffusion-weighted imaging. This limits diagnostic sensitivity the exam for ischemia. 2. Limited abnormal white matter signal intensity within the brachium pontis bilaterally. This is nonspecific and can be seen in the setting of osmotic demyelination syndrome, another a metabolic cause of encephalopathy or chronic small vessel ischemic change. 3. No other evidence of acute intracranial pathology. Electronically signed by: Bill Branch M.D. 12/31/2017 11:03 AM Dictated Date/Time: 12/31/2017 10:54 AM
--- NOTE | 2017-12-31 12:15 | DIAGNOSTIC IMAGING REPORT ---
KUB CLINICAL HISTORY: 62 years-old Female presenting with KUB FOR NG TUBE PLACEMENT. TECHNIQUE: Upright and supine views of the abdomen were obtained. COMPARISON: CT from 12/30/2017. FINDINGS: Interval placement of a nasogastric tube, which terminates in the body the stomach, sidehole also within the gastric lumen. No bowel obstruction. No gross pneumoperitoneum. Delayed nephrograms evidence of renal insufficiency. Multiple pelvic phleboliths noted. Osseous structures normal. Left basilar opacity suggested. IMPRESSION: 1. Nasogastric tube appropriately positioned. 2. Delayed nephrogram is evidence of renal insufficiency. 3. Left basilar atelectasis may be present. Electronically signed by: Bill Branch M.D. 12/31/2017 12:14 PM Dictated Date/Time: 12/31/2017 12:12 PM
--- NOTE | 2017-12-31 13:11 | Progress Note ---
Internal Med Progress Note Date of Service: Dec 31, 2017. Provider Documentation: SUBJECTIVE: The patient was seen and examined She is recently moved from [place] without any significant past medical history. She has been complaining of bilateral leg swelling for the last 5 or 6 months. She has been complaining of more shortness of breath for the last 2 days associated with fever and chills. She also has frequency of urination but no dysuria She does not feel any better since admission 12/31 Went into AF with RVR last night and was transferred to ICU AA this AM but drowsy and less communicative during my exam Reverted to SR OBJECTIVE: Vital Signs-as noted below Exam: General-Not communicating well Drowsy Eyes-normal and closed ENT-normal Neck-supple Lungs-decreased breath sounds both sides without any crackles. Heart-S1 and S2 regular, no murmur appreciated Abdomen-Moderately distended, mildly tender, moderate hypogastric tenderness, bowel sounds sluggish Clinically difficult to feel for any acetic fluid Extremities-bilateral leg edema-1-2+ Edema is more pronounced on the left side along the thighs. Neuro-alert awake Generally weak but no focal neuro deficit. Lab data as noted below. ASSESSMENT & PLAN: More Confused this AM MRI of the Head-unremarkable Normal Ammonia Will observe C Diff Colitis Seems to be Severe attack Likely the cause of Deterioration Started on Oral Vancomycin and already on IV Flagyl AF with RVR Likely secondary to Sepsis Contributed by Severely dilated Rt Atrium Started on IV Cardizem and IV Heparin Reverted to SR Increased Troponin likely due to CHF and Rate related Doubt any ACS ECHO as reported Severe sepsis-Gm Negative Bacteremia SIRS plus lactic acidosis Possible sources :left lower extremity cellulitis,GI (colitis, SBP-ascites on CT )or UTI Doxycycline for cellulitis Cefepime and Flagyl for possible intraabdominal infection if any Continue current antibiotics Blood cultures-Gm Negative Bacilli-sensitivity pending Urine culture-pending Clinically worse SOB with Omer Legs Swelling and Bowel edema Likely secondary to Right Sided Hearty Failure Will give small amount of fluid for ongoing sepsis and low urine output Cardiology consulted ECHO-The right ventricle is moderate to severely dilated. * The right ventricular systolic function is severely reduced. * The right atrium is severely dilated. * There is trace tricuspid regurgitation. * Flattened septum is consistent with RV volume overload. * Left ventricular systolic function is moderately reduced. * Ejection Fraction = 35-40%. * Moderate global hypokinesis of the left ventricle. * The inferior vena cava is severely dilated. * Trivial loculated posterior pericardial effusion. * There are no echocardiographic indications of cardiac tamponade. YI Deteriorated overnight Multifactorial Intervascular dehydration, hypotension,Embolic disease,and contrast induced Will give more IV fluid Monitor PRP Possible Cirrhosis. Possibly from RSHF, passive congestion (unknown duration) Appreciate GI evaluation GI does not think the patient has Cirrhosis US abdomen -minimal ascites Abnormal Thyroid Function Likely secondary to Acute illness .Reactive Hyperthyroidism (possible Graves disease) new diagnosis-doubt Started on Methimazole -stopped today after discussion with the Wharf Operator Will need OP Endocrine follow up Cortisone level unremarkable Chronic anemia, unknown baseline. Work up Thrombocytopenia secondary to sepsis, cirrhosis. DVT prophylaxis, SCDs RE thrombocytopenia. Full code. Discussed with the Daughter on 12/30/17 Vital Signs: Date Time Temp Pulse Resp B/P (MAP) Pulse Ox O2 Delivery O2 Flow Rate FiO2 12/31/17 13:00 61 17 95/58 (65) 100 12/31/17 12:31 61 17 95/58 (65) 100 12/31/17 12:01 61 17 107/61 (82) 100 12/31/17 12:00 60 17 100 12/31/17 12:00 36.3 63 22 95/58 (70) 100 Nasal Cannula 2.0 12/31/17 12:00 95 Nasal Cannula 2.0 12/31/17 11:31 90 4 117/70 (81) 12/31/17 11:10 58 15 118/66 (77) 12/31/17 10:01 60 14 114/62 (83) 99 12/31/17 10:00 61 22 98 12/31/17 10:00 55 18 114/62 (79) 94 Nasal Cannula 2.0 12/31/17 09:00 57 16 110/63 (79) 100 Nasal Cannula 2.0 12/31/17 08:32 58 0 110/68 (91) 100 12/31/17 08:01 59 18 102/64 (71) 12/31/17 08:00 36.7 57 22 107/63 (78) 87 Room Air 12/31/17 08:00 95 Nasal Cannula 2.0 12/31/17 08:00 56 0 93 12/31/17 07:31 63 1 90/64 (72) 76 12/31/17 07:05 66 12 105/63 (76) 12/31/17 07:02 69 19 74/58 (68) 12/31/17 07:00 66 8 12/31/17 07:00 66 8 12/31/17 06:00 71 1 95 12/31/17 05:00 118 25 94 12/31/17 04:00 36.7 125 13 91/55 (67) 94 Room Air 12/31/17 04:00 Room Air 12/31/17 04:00 125 13 94 12/31/17 03:00 132 25 96 12/31/17 02:48 135 119/79 12/31/17 02:00 132 29 95 12/31/17 02:00 132 29 89/68 (75) 95 Room Air 12/31/17 01:30 Room Air 12/31/17 01:04 37.2 142 20 93 12/31/17 00:28 131 103/69 (80) 12/31/17 00:00 Room Air 12/30/17 23:59 129 98/62 12/30/17 23:43 139 99/71 (80) 103/65 (78) 12/30/17 23:31 143 18 105/76 (86) 93 Room Air 12/30/17 23:10 155 112/71 12/30/17 22:52 37.2 135 24 120/67 (84) 96 Room Air 12/30/17 19:25 36.8 94 20 118/74 (89) 95 Room Air 12/30/17 19:00 Room Air 12/30/17 16:00 36.5 88 16 96 12/30/17 15:45 36.5 88 16 106/66 (79) 96 12/30/17 15:30 Room Air Lab Results: Results Past 24 Hours Test 12/30/17 22:45 12/30/17 23:13 12/31/17 02:38 12/31/17 03:30 Range/Units Stool Occult Blood NEGATIVE NEGATIVE White Blood Count 16.42 4.8-10.8 K/uL Red Blood Count 3.89 4.2-5.4 M/uL Hemoglobin 10.9 12.0-16.0 g/dL Hematocrit 32.1 37-47 % Mean Corpuscular Volume 82.5 80-100 fL Mean Corpuscular Hemoglobin 28.0 25-34 pg Mean Corpuscular Hemoglobin Concent 34.0 32-36 g/dl RDW Standard Deviation 39.9 36.4-46.3 fL RDW Coefficient of Variation 13.2 11.5-14.5 % Platelet Count 137 130-400 K/uL Mean Platelet Volume 12.0 7.4-10.4 fL Activated Partial Thromboplast Time 45.5 21.0-31.0 SECONDS Partial Thromboplastin Ratio 1.8 Sodium Level 135 136-145 mmol/L Potassium Level 4.2 3.5-5.1 mmol/L Chloride Level 105 98-107 mmol/L Carbon Dioxide Level 19 21-32 mmol/L Anion Gap 11.0 3-11 mmol/L Blood Urea Nitrogen 39 7-18 mg/dl Creatinine 1.95 0.60-1.20 mg/dl Est Creatinine Clear Calc Drug Dose 23.8 ml/min Estimated GFR () 31.6 Estimated GFR (Non- 27.3 BUN/Creatinine Ratio 19.9 10-20 Random Glucose 101 70-99 mg/dl Lactic Acid Level 2.6 0.4-2.0 mmol/L Calcium Level 8.6 8.5-10.1 mg/dl Magnesium Level 1.9 1.8-2.4 mg/dl Total Bilirubin 1.2 0.2-1 mg/dl Aspartate Amino Transf (AST/SGOT) 47 15-37 U/L Alanine Aminotransferase (ALT/SGPT) 33 12-78 U/L Alkaline Phosphatase 58 45-117 U/L Troponin I 2.980 0-0.045 ng/ml Total Protein 5.7 6.4-8.2 gm/dl Albumin 2.4 3.4-5.0 gm/dl Globulin 3.3 2.5-4.0 gm/dl Albumin/Globulin Ratio 0.7 0.9-2 Bedside Glucose 97 70-90 mg/dl Urine Opiates Screen POS NEG Urine Methadone, Qualitative NEG NEG Urine Barbiturates NEG NEG Urine Phencyclidine (PCP) Level NEG NEG Ur Amphetamine/Methamphetamine NEG NEG MDMA (Ecstasy) Screen NEG NEG Urine Benzodiazepines Screen NEG NEG Urine Cocaine Metabolite NEG NEG Urine Marijuana (THC) NEG NEG Test 12/31/17 04:44 12/31/17 05:53 12/31/17 06:17 12/31/17 08:38 Range/Units Creatine Kinase MB Ratio 3.8 0-3.0 White Blood Count 18.13 4.8-10.8 K/uL Red Blood Count 4.46 4.2-5.4 M/uL Hemoglobin 12.3 12.0-16.0 g/dL Hematocrit 37.2 37-47 % Mean Corpuscular Volume 83.4 80-100 fL Mean Corpuscular Hemoglobin 27.6 25-34 pg Mean Corpuscular Hemoglobin Concent 33.1 32-36 g/dl RDW Standard Deviation 39.8 36.4-46.3 fL RDW Coefficient of Variation 13.2 11.5-14.5 % Platelet Count 140 130-400 K/uL Mean Platelet Volume 12.1 7.4-10.4 fL Activated Partial Thromboplast Time 56.7 52.9 21.0-31.0 SECONDS Partial Thromboplastin Ratio 2.2 2.0 Sodium Level 133 136-145 mmol/L Potassium Level 4.8 3.5-5.1 mmol/L Chloride Level 105 98-107 mmol/L Carbon Dioxide Level 17 21-32 mmol/L Anion Gap 11.0 3-11 mmol/L Blood Urea Nitrogen 42 7-18 mg/dl Creatinine 2.26 0.60-1.20 mg/dl Est Creatinine Clear Calc Drug Dose 22.7 ml/min Estimated GFR () 26.5 Estimated GFR (Non- 22.8 BUN/Creatinine Ratio 18.7 10-20 Random Glucose 92 70-99 mg/dl Lactic Acid Level 2.4 0.4-2.0 mmol/L Calcium Level 8.9 8.5-10.1 mg/dl Ionized Calcium 1.22 1.12-1.32 mmol/l Phosphorus Level 4.3 2.5-4.9 mg/dl Magnesium Level 2.6 1.8-2.4 mg/dl Total Bilirubin 1.5 0.2-1 mg/dl Aspartate Amino Transf (AST/SGOT) 52 15-37 U/L Alanine Aminotransferase (ALT/SGPT) 33 12-78 U/L Alkaline Phosphatase 62 45-117 U/L Ammonia < 10.0 11-32 umol/L Total Creatine Kinase 187 26-192 U/L Creatine Kinase MB 7.1 0.5-3.6 ng/ml Troponin I 1.930 0-0.045 ng/ml Total Protein 6.2 6.4-8.2 gm/dl Albumin 2.7 3.4-5.0 gm/dl Globulin 3.5 2.5-4.0 gm/dl Albumin/Globulin Ratio 0.8 0.9-2 Procalcitonin > 200.00 0-0.5 ng/ml Random Cortisol 59.81 mcg/dl Bedside Glucose 84 70-90 mg/dl Test 12/31/17 14:01 Range/Units Microbiology Results 12/31/17 MRSA DNA Surveillance Screen - Final, Complete Specimen Negative for MRSA by DNA Probe 12/30/17 C.difficile Toxin B Gene (PCR) - Final, Complete Positive for C. difficile toxin B gene 12/31/17 Urine Culture, Received Pending
--- NOTE | 2017-12-31 14:26 | Cardiology Follow-Up ---
Subjective General Date of Service: Dec 31, 2017. Pt evaluation today including: conversation w/ patient, physical exam, chart review, lab review, review of studies, conversation w/ cosmetic sales consultant, review of inpatient medication list History of Present Illness The patient is a 62 year old female seen in follow-up. Developed paroxysmal atrial fibrillation with rapid ventricular response overnight. Patient treated with intravenous metoprolol and Cardizem. She spontaneously converted to normal sinus rhythm this morning. Intravenous heparin initiated. Change in mental status this morning as well. Patient is awake, however, unable to verbally respond to questions. MRI of the brain negative for acute ischemia. Patient now oliguric. Creatinine trending upward. Received IV contrast for CTA 12/29/17. Allergies Coded Allergies: Sulfa Antibiotics (Verified Allergy, Unknown, swelling, 12/29/17) Social History Smoking Status: Never Smoker Hx Alcohol Use - Type And Amou: No Problem List Medical Problems: (1) Anasarca Status: Acute (2) Atrial fibrillation with RVR Status: Acute (3) C. difficile diarrhea Status: Acute (4) Elevated troponin Status: Acute (5) Hyperthyroidism Status: Acute (6) Hypotension Status: Acute (7) Left leg cellulitis Status: Acute (8) Left leg pain Status: Acute (9) Right-sided heart failure Status: Acute (10) Sepsis Status: Acute Review of Systems Respiratory: No cough, No shortness of breath Cardiac: + edema, No chest pain, No orthopnea Physical Exam Vital Signs Last Vital Signs Documentation Date Time Temp Pulse Resp B/P (MAP) Pulse Ox O2 Delivery O2 Flow Rate FiO2 12/31/17 13:00 61 17 95/58 (65) 100 12/31/17 12:00 36.3 Nasal Cannula 2.0 Physical Exam Constitutional: General Apperance: well-nourished Level of Distress: NAD Lungs: Auscultation: breath sounds normal, no wheezing, no rales/crackles, no rhonchi Cardiovascular: Heart Auscultation: RRR, normal S1, normal S2, I/ WSM Peripheral Pulses: Radial Pulse: normal on the right Abdomen: Inspection & Palpation: no tenderness, guarding & rebound, distended Extremities: edema (anasarca) Assessment and Plan Assessment and Plan FINAL IMPRESSION: 1. Gram-negative sepsis -Potential sources include lower extremity cellulitis, SBP in the setting of ascites 2. Biventricular systolic heart failure with moderate to severe right ventricular dilatation and dysfunction and indirect evidence of right ventricular volume overload on resting 2D transthoracic echo. 3. Paroxysmal atrial fibrillation with rapid ventricular response with spontaneous conversion to normal sinus rhythm 4. Elevated troponin secondary to demand ischemia in the setting of atrial fibrillation with rapid ventricular response, severe sepsis, lactic acidosis, and CHF. 5. Change in mental status -No evidence of acute ischemia per MRI -Etiology not well defined, possibly related to severe sepsis 6. Acute renal insufficiency -Related to sepsis, hypoperfusion, and contrast-induced nephropathy 7. Lactic acidosis related to left lower extremity cellulitis and severe sepsis. PLAN AND RECOMMENDATIONS: Beta-luis and calcium channel luis therapy will remain on hold currently as patient remains in sinus rhythm with intermittent bradycardia. Recommend prn IV Lopressor for recurrent episodes of atrial fibrillation as blood pressure allows. Patient remains in sinus rhythm. Agree with intravenous heparin as patient is at high risk for recurrent atrial dysrhythmias. Agree with intravenous hydration at this time given severe sepsis, and acute renal insufficiency. Antibiotics and supportive care as per mobile paint specialist service. Laboratory Results Echo result 12/30/2017: The right ventricle is moderate to severely dilated. * The right ventricular systolic function is severely reduced. * The right atrium is severely dilated. * There is trace tricuspid regurgitation. * Flattened septum is consistent with RV volume overload. * Left ventricular systolic function is moderately reduced. * Ejection Fraction = 35-40%. * Moderate global hypokinesis of the left ventricle. * The inferior vena cava is severely dilated. * Trivial loculated posterior pericardial effusion. * There are no echocardiographic indications of cardiac tamponade. Last 24 Hours Test 12/30/17 22:45 12/30/17 23:13 12/31/17 02:38 12/31/17 03:30 Stool Occult Blood NEGATIVE White Blood Count 16.42 K/uL Red Blood Count 3.89 M/uL Hemoglobin 10.9 g/dL Hematocrit 32.1 % Mean Corpuscular Volume 82.5 fL Mean Corpuscular Hemoglobin 28.0 pg Mean Corpuscular Hemoglobin Concent 34.0 g/dl RDW Standard Deviation 39.9 fL RDW Coefficient of Variation 13.2 % Platelet Count 137 K/uL Mean Platelet Volume 12.0 fL Activated Partial Thromboplast Time 45.5 SECONDS Partial Thromboplastin Ratio 1.8 Sodium Level 135 mmol/L Potassium Level 4.2 mmol/L Chloride Level 105 mmol/L Carbon Dioxide Level 19 mmol/L Anion Gap 11.0 mmol/L Blood Urea Nitrogen 39 mg/dl Creatinine 1.95 mg/dl Est Creatinine Clear Calc Drug Dose 23.8 ml/min Estimated GFR () 31.6 Estimated GFR (Non- 27.3 BUN/Creatinine Ratio 19.9 Random Glucose 101 mg/dl Lactic Acid Level 2.6 mmol/L Calcium Level 8.6 mg/dl Magnesium Level 1.9 mg/dl Total Bilirubin 1.2 mg/dl Aspartate Amino Transf (AST/SGOT) 47 U/L Alanine Aminotransferase (ALT/SGPT) 33 U/L Alkaline Phosphatase 58 U/L Troponin I 2.980 ng/ml Total Protein 5.7 gm/dl Albumin 2.4 gm/dl Globulin 3.3 gm/dl Albumin/Globulin Ratio 0.7 Bedside Glucose 97 mg/dl Urine Opiates Screen POS Urine Methadone, Qualitative NEG Urine Barbiturates NEG Urine Phencyclidine (PCP) Level NEG Ur Amphetamine/Methamphetamine NEG MDMA (Ecstasy) Screen NEG Urine Benzodiazepines Screen NEG Urine Cocaine Metabolite NEG Urine Marijuana (THC) NEG Test 12/31/17 04:44 12/31/17 05:53 12/31/17 06:17 12/31/17 08:38 Creatine Kinase MB Ratio 3.8 White Blood Count 18.13 K/uL Red Blood Count 4.46 M/uL Hemoglobin 12.3 g/dL Hematocrit 37.2 % Mean Corpuscular Volume 83.4 fL Mean Corpuscular Hemoglobin 27.6 pg Mean Corpuscular Hemoglobin Concent 33.1 g/dl RDW Standard Deviation 39.8 fL RDW Coefficient of Variation 13.2 % Platelet Count 140 K/uL Mean Platelet Volume 12.1 fL Activated Partial Thromboplast Time 56.7 SECONDS 52.9 SECONDS Partial Thromboplastin Ratio 2.2 2.0 Sodium Level 133 mmol/L Potassium Level 4.8 mmol/L Chloride Level 105 mmol/L Carbon Dioxide Level 17 mmol/L Anion Gap 11.0 mmol/L Blood Urea Nitrogen 42 mg/dl Creatinine 2.26 mg/dl Est Creatinine Clear Calc Drug Dose 22.7 ml/min Estimated GFR () 26.5 Estimated GFR (Non- 22.8 BUN/Creatinine Ratio 18.7 Random Glucose 92 mg/dl Lactic Acid Level 2.4 mmol/L Calcium Level 8.9 mg/dl Ionized Calcium 1.22 mmol/l Phosphorus Level 4.3 mg/dl Magnesium Level 2.6 mg/dl Total Bilirubin 1.5 mg/dl Aspartate Amino Transf (AST/SGOT) 52 U/L Alanine Aminotransferase (ALT/SGPT) 33 U/L Alkaline Phosphatase 62 U/L Ammonia < 10.0 umol/L Total Creatine Kinase 187 U/L Creatine Kinase MB 7.1 ng/ml Troponin I 1.930 ng/ml Total Protein 6.2 gm/dl Albumin 2.7 gm/dl Globulin 3.5 gm/dl Albumin/Globulin Ratio 0.8 Procalcitonin > 200.00 ng/ml Random Cortisol 59.81 mcg/dl Bedside Glucose 84 mg/dl Test 12/31/17 14:01
[2017-12-31 15:01] LABS: CREATININE 2.68 mg/dl (0.60-1.20); POTASSIUM 4.9 mmol/L (3.5-5.1)
--- NOTE | 2017-12-31 19:23 | EEG Procedure Note ---
EEG Procedure Note Date of Service Dec 31, 2017. Start / End Times Start Time: 1757 End Time: [address] Morales History 62 year old with sepsis and mental status changes. Home Medication List No Active Prescriptions or Reported Meds Inpatient Medication List Current Inpatient Medications Medications (Trade) Dose Ordered Sig/Sera Route Start Time Stop Time Status Last Admin Dose Admin Ioversol (Optiray 320) 100 ml UD PRN IV 12/30/17 01:30 01/03/18 01:29 Cefepime HCl (Consult) 1 ea DAILY PRN N/A 12/30/17 03:03 01/29/18 03:02 Acetaminophen (Tylenol Tab) 325 mg Q6H PRN PO 12/30/17 03:15 01/29/18 03:14 12/30/17 23:29 325 MG Prochlorperazine Edisylate 5 mg/ Syringe 5 ml @ 5 mls/min Q6H PRN IV 12/30/17 03:15 01/29/18 03:14 Lorazepam (Ativan Inj) 0.5 mg Q4H PRN IV 12/30/17 03:15 01/29/18 03:14 Albumin Human (Albumin 25%) 12.5 gm Q6H IV 12/30/17 12:00 01/02/18 05:59 12/31/17 18:27 12.5 GM Cefepime HCl 2000 mg/Syringe 20 ml @ 5 mls/min Q24H IV 12/31/17 04:30 01/08/18 04:33 12/31/17 05:08 5 MLS/MIN Metronidazole 500 mg/Prmx 100 ml @ 100 mls/hr Q8H IV 12/30/17 14:00 01/09/18 13:59 12/31/17 14:46 100 MLS/HR Sodium Chloride 1,000 ml @ 75 mls/hr [id number] IV 12/30/17 14:45 01/29/18 14:44 12/31/17 18:29 75 MLS/HR Heparin Sodium/ Dextrose 500 ml @ 12 mls/hr Q24H IV 12/31/17 01:45 01/30/18 01:44 Miscellaneous Information (Icu Protocol For Hyperglycemia) 1 ea PRN PRN N/A 12/31/17 02:15 01/02/18 02:14 Pantoprazole Sodium 40 mg/ Syringe 10 ml @ 5 mls/min DAILY@11 IV 12/31/17 11:00 01/30/18 10:59 12/31/17 11:00 5 MLS/MIN Vancomycin HCl (Vancomycin Oral Soln) 500 mg QID PO 12/31/17 09:30 01/01/18 13:01 12/31/17 18:27 500 MG Raspberry (Raspberry Syrup 5ml Cup) 5 ml QID PO 12/31/17 09:30 01/14/18 09:29 12/31/17 18:26 5 ML Vancomycin HCl (Vancomycin Oral Soln) 500 mg QID PO 01/01/18 17:00 01/15/18 16:59 Description This is a 21 electrode EEG with a single channel dedicated to limited EKG. The electrodes were placed in accordance with the International 10-20 system. Interpretation The predominant background activity consists with of an irregular 6-7 Hz activity, seen over all head regions, of up to 100mcV in amplitude, lasting 1-3 seconds. Interspersed with this were irregular lower amplitude periods of 3-4 Hz activity lasting for 1-3 seconds. There were no focal abnormalities seen and no potentially epileptogenic discharges were present. Photic stimulation and hyperventilation were not performed on the routine, bedside EEG. A mild amount of movement artifact activity was present, but did not hinder interpretation. In summary, this study is remarkable for a moderate generalized dysrhythmia, without focal abnormalities or potentially epileptogenic discharges. Clinical Correlation Abnormalities of this type are generally consistent with a moderate encephalopathy, which could be due to a wide variety of causes (including sepsis ). Clinical correlation is required.
--- NOTE | 2017-12-31 20:44 | NEUROLOGY CONSULTATION ---
DATE OF CONSULTATION: 12/31/2017 REASON FOR CONSULTATION: Altered mental status. HISTORY OF PRESENT ILLNESS: Mrs. Recinos is a 62-year-old who was previously well, living in [place], she recently located to the area. Her daughter brought her into the hospital on 12/29/2017 for complaints of worsening swelling of the left lower extremity. She was febrile to 102 and had chills, nausea and abdominal pain. Her initial evaluation revealed mild cardiomegaly, no abscess or soft tissue gas in the left lower extremity, cellulitis not excluded. CTA of the chest - no evidence of pulmonary embolus, minimal subpleural nodularity, right upper lobe, pulmonary arterial enlargement could suggest pulmonary hypertension and right heart enlargement, anasarca. The patient's blood cultures were positive for gram negative bacilli and the patient was treated with antibiotic. Last evening, the patient went into atrial fibrillation with a rapid ventricular response. There are some recorded episodes of both bradycardia and tachycardia, low O2 sat and hypotension, lowest 74/58. She was treated with intravenous metoprolol, Cardizem, and intravenous heparin. She converted to a normal sinus rhythm this morning. At some point this morning, there was a change in her mental status where she was described as awake but unable to respond to questions. Her MRI of the brain, which I have reviewed with radiology was limited by dental amalgam, but showed white matter signal in the brachium pontis, most likely related to chronic small vessel vascular disease, no acute intracranial process such as stroke, no evidence of hyperacute hemorrhage. On 12/30/2017, she had had a CT of the head which showed no acute intracranial abnormality, gas within the cavernous sinus and soft tissues of the face also likely intravascular likely related to injection technique and catheter. Radiologist that I discussed with Dr. Mendoza felt this was intravenous, and that it would most likely be seen with an intravenous injection. LABORATORY DATA: Her white count today is 18, H&H normal. PTT currently 52.9, at baseline PT was 13 and INR 1.2, PTT 24.7. Urinalysis on admission - trace ketones, trace blood, 5-10 white cells, 5-10 hyaline casts, greater than 30 epithelial cells. Her tox screen was positive for opiates, negative for ethanol. I am assuming she received some narcotics for her significant pain in the Emergency Room. She did by the report of the wick and base assembler received one dose of tramadol. Her chemistry profile is notable for new renal insufficiency. Ammonia less than 10. Random cortisol 59, which is elevated. T3 is low, TSH 0.005. Folate normal, B12 low at 184. CURRENT MEDICATIONS: Vancomycin, pantoprazole, cefepime, heparin, sodium chloride, metronidazole, albumin, Tylenol, prochlorperazine; lorazepam p.r.n., although it appears that she has not received that. PAST MEDICAL HISTORY: None. Daughter indicates she has no history of stroke. No history of prior seizure. SURGICAL HISTORY: None. FAMILY HISTORY: No pertinent family history. SOCIAL HISTORY: She is single, does not smoke or drink. MEDICATIONS: No meds on admission. ALLERGIES: SULFA. REVIEW OF SYSTEMS: Unobtainable, but her daughter indicates she has otherwise been well and active. PHYSICAL EXAMINATION: VITAL SIGNS: 36.3, 61, 18, 116/62, 100% O2 on 2 liters. GENERAL: The patient is very sleepy, arousable to voice, inattentive. Follows no commands. Appreciates pain when palpating the head, moving the arms, moving the legs. NECK: Appears supple. NEUROLOGIC: Pupils are miotic but reactive. Unable to visualize optic nerves. There is no fixed gaze preference, although when in not entirely alert, gaze is disconjugate. There is no facial asymmetry. The patient is mute. Grimaces to painful stimulartion Follows no commands. There is increased tone in the upper and to a lesser extent lower. Reflexes are symmetric. Right toe up, left toe down. IMPRESSION AND PLAN: This patient appears to have a global encephalopathy. Her exam for the most part is nonlateralizing. This could be the effect of a global event such as a hypoxic ischemic event or metabolic encephalopathy. Brainstem stroke could behave similarly but would expect more localizing signs. An electroencephalography will be performed this evening to rule out subclinical seizures given that the MRI showed no acute abnormality such as stroke or evidence of hypoxic ischemic injury. I would recommend a followup CT of the head in the morning to rule out hemorrhage. Further optimization of metabolic parameters is appropriate. We could be seeing the effects of sepsis, renal insufficiency, some global hypoperfusion. We will follow with you. PREET Morales MD [facility]ITAL[facility]arc[facility]
[2018-01-01] VITALS (12 sets, daily range): BP systolic 109–186; BP diastolic 63–99; PULSE 67–79; TEMP 36.5–37.1; O2SAT 92–97
[2018-01-01] MEDS: CEFEPIME IV 2,000 MG in SYRINGE 7.5 ML IV SCH (04:38)
[2018-01-01 05:42] LABS: BASO % 0.1 %; BASO ABS # 0.02 K/uL (0-0.2); EOS % 0.1 %; EOS ABS # 0.02 K/uL (0-0.5); HEMOGLOBIN 10.5 g/dL (12.0-16.0); LYMPH % 11.1 %; LYMPH ABS # 2.28 K/uL (1.2-3.4); MEAN CELL VOLUME 82.4 fL (80-100); MEAN CORPUSCULAR HEMOGLOBIN 27.9 pg (25-34); MEAN CORPUSCULAR HGB CONC 33.9 g/dl (32-36); MEAN PLATELET VOLUME 11.5 fL (7.4-10.4); MONO % 9.8 %; MONO ABS # 2.01 K/uL (0.11-0.59); NEUT % 77.9 %; NEUT ABS # 15.92 K/uL (1.4-6.5); NUCLEATED RED BLOOD CELL ABS 0.07 K/uL (0-0); PLATELET COUNT 182 K/uL (130-400); RED CELL DISTRIBUTION WIDTH CV 13.4 % (11.5-14.5); RED CELL DISTRIBUTION WIDTH SD 40.8 fL (36.4-46.3); WHITE BLOOD COUNT 20.45 K/uL (4.8-10.8)
[2018-01-01] MEDS: METRONIDAZOLE / NSS 500 MG in PREMIXED NSS 100 ML IV SCH ×3 (05:49→21:51)
[2018-01-01] MEDS: ALBUMIN HUMAN 25% 12.5 GM/50 ML VIAL IV SCH ×4 (05:49→23:54)
[2018-01-01 06:14] LABS: ALBUMIN 2.9 gm/dl (3.4-5.0); CALCIUM 8.8 mg/dl (8.5-10.1); CREATININE 3.27 mg/dl (0.60-1.20); POTASSIUM 4.7 mmol/L (3.5-5.1)
[2018-01-01 06:15] LABS: PTT PATIENT 55.3 SECONDS (21.0-31.0)
[2018-01-01 06:22] LABS: TOTAL PROTEIN 6.4 gm/dl (6.4-8.2)
[2018-01-01] MEDS: HEPARIN 25,000 UNIT/500ML D5W 500 ML IV SCH (08:15)
[2018-01-01] MEDS: RASPBERRY SYRUP 5 ML UDP PO SCH ×4 (08:26→21:49)
[2018-01-01] MEDS: VANCOMYCIN HCL 250 MG/5 ML SOLN PO SCH ×2 (08:29→13:51)
[2018-01-01] MEDS: PANTOprazole INJ 40 MG in SYRINGE 0 ML IV SCH (11:26)
--- NOTE | 2018-01-01 11:37 | Cardiology Follow-Up ---
Subjective General Date of Service: Jan 01, 2018. Pt evaluation today including: conversation w/ patient, conversation w/ family , physical exam, chart review, lab review, review of studies, conversation w/ taxation consultant, review of inpatient medication list History of Present Illness The patient is a 62 year old female seen in follow-up. Mental status has improved today although she remains a poor historian. Responding yes or no to verbal cues. Denies chest pain or shortness of breath. Minimal urine output overnight. Creatinine continues to trend upward. Remained hemodynamically stable. Edema unchanged. Critical care medicine requesting right heart catheterization. Allergies Coded Allergies: Sulfa Antibiotics (Verified Allergy, Unknown, swelling, 12/29/17) Social History Smoking Status: Never Smoker Hx Alcohol Use - Type And Amou: No Problem List Medical Problems: (1) Anasarca Status: Acute (2) Atrial fibrillation with RVR Status: Acute (3) C. difficile diarrhea Status: Acute (4) Elevated troponin Status: Acute (5) Hyperthyroidism Status: Acute (6) Hypotension Status: Acute (7) Left leg cellulitis Status: Acute (8) Left leg pain Status: Acute (9) Right-sided heart failure Status: Acute (10) Sepsis Status: Acute Review of Systems Respiratory: + dyspnea on exertion, No cough, No sputum, No wheezing, No shortness of breath, No dyspnea at rest Cardiac: + edema, No chest pain, No orthopnea, No PND, No claudication, No palpitations Physical Exam Vital Signs Last Vital Signs Documentation Date Time Temp Pulse Resp B/P (MAP) Pulse Ox O2 Delivery O2 Flow Rate FiO2 01/01/18 10:00 76 20 141/95 (110) 95 Nasal Cannula 2.0 01/01/18 08:00 37.0 Physical Exam Constitutional: General Apperance: well-nourished Level of Distress: NAD Lungs: Auscultation: breath sounds normal, no wheezing, no rales/crackles, no rhonchi Cardiovascular: Heart Auscultation: RRR, normal S1, normal S2, I/ WSM Peripheral Pulses: Radial Pulse: normal on the right Femoral Pulse: normal on the right Abdomen: Inspection & Palpation: no tenderness, guarding & rebound, distended Extremities: edema (anasarca) Neurologic: Gait & Station: pertinent finding (No focal motor deficit) Cranial Nerves: grossly intact Assessment and Plan Assessment and Plan FINAL IMPRESSION: 1. E. coli sepsis/bacteremia -Potential sources include lower extremity cellulitis, SBP in the setting of ascites 2. Biventricular systolic heart failure (LVEF 35%) with moderate to severe right ventricular dilatation and dysfunction and indirect evidence of right ventricular volume overload on resting 2D transthoracic echo. 3. Paroxysmal atrial fibrillation with rapid ventricular response with spontaneous conversion to normal sinus rhythm 4. Elevated troponin secondary to demand ischemia in the setting of atrial fibrillation with rapid ventricular response, severe sepsis, lactic acidosis, and CHF. 5. Change in mental status -No evidence of acute ischemia per MRI -Etiology not well defined, possibly related to severe sepsis -Mental status improved today 6. Acute renal insufficiency with worsening creatinine -Related to sepsis, hypoperfusion, and contrast-induced nephropathy 7. Lactic acidosis related to left lower extremity cellulitis and severe sepsis. 8. Hyperthyroidism PLAN AND RECOMMENDATIONS: I long discussion with critical care medicine regarding risk versus benefit of right heart catheterization. I also discussed possible procedure with patient' s daughter, Dr. Alonso Llamas. Daughter gives consent for right heart catheterization. Beta-luis will remain on hold given sinus rhythm on telemetry and intermittent bradycardia. Continue intravenous hydration pending review of right heart catheterization result. Recommend intravenous Lopressor as needed for recurrent episodes of atrial fibrillation. Intravenous heparin will be remain on hold currently. Laboratory Results Last 24 Hours Test 12/31/17 14:07 12/31/17 14:10 12/31/17 20:47 01/01/18 05:23 Bedside Glucose 98 mg/dl 85 mg/dl Sodium Level 132 mmol/L 132 mmol/L Potassium Level 4.9 mmol/L 4.7 mmol/L Chloride Level 106 mmol/L 106 mmol/L Carbon Dioxide Level 15 mmol/L 15 mmol/L Anion Gap 11.0 mmol/L 11.0 mmol/L Blood Urea Nitrogen 51 mg/dl 65 mg/dl Creatinine 2.68 mg/dl 3.27 mg/dl Est Creatinine Clear Calc Drug Dose 19.2 ml/min 15.8 ml/min Estimated GFR () 21.5 16.9 Estimated GFR (Non- 18.6 14.6 BUN/Creatinine Ratio 18.8 19.9 Random Glucose 115 mg/dl 82 mg/dl Calcium Level 9.0 mg/dl 8.8 mg/dl White Blood Count 20.45 K/uL Red Blood Count 3.76 M/uL Hemoglobin 10.5 g/dL Hematocrit 31.0 % Mean Corpuscular Volume 82.4 fL Mean Corpuscular Hemoglobin 27.9 pg Mean Corpuscular Hemoglobin Concent 33.9 g/dl Platelet Count 182 K/uL Mean Platelet Volume 11.5 fL Neutrophils (%) (Auto) 77.9 % Lymphocytes (%) (Auto) 11.1 % Monocytes (%) (Auto) 9.8 % Eosinophils (%) (Auto) 0.1 % Basophils (%) (Auto) 0.1 % Neutrophils # (Auto) 15.92 K/uL Lymphocytes # (Auto) 2.28 K/uL Monocytes # (Auto) 2.01 K/uL Eosinophils # (Auto) 0.02 K/uL Basophils # (Auto) 0.02 K/uL RDW Standard Deviation 40.8 fL RDW Coefficient of Variation 13.4 % Immature Granulocyte % (Auto) 1.0 % Immature Granulocyte # (Auto) 0.20 K/uL Nucleated RBC Absolute Count (auto) 0.07 K/uL Nucleated Red Blood Cells % 0.4 % Activated Partial Thromboplast Time 55.3 SECONDS Partial Thromboplastin Ratio 2.1 Lactic Acid Level 1.5 mmol/L Total Bilirubin 1.0 mg/dl Aspartate Amino Transf (AST/SGOT) 51 U/L Alanine Aminotransferase (ALT/SGPT) 46 U/L Alkaline Phosphatase 65 U/L Troponin I 1.300 ng/ml Total Protein 6.4 gm/dl Albumin 2.9 gm/dl Globulin 3.5 gm/dl Albumin/Globulin Ratio 0.8 Procalcitonin > 200.00 ng/ml Test 01/01/18 05:31 Bedside Glucose 78 mg/dl
--- NOTE | 2018-01-01 14:11 | Progress Note ---
Progress Note Date of Service Jan 01, 2018. Progress Note ID Consult Dictated #[id number] A/P: 1. E. coli Septicemia 2. C. diff colitis 3. Leukocytosis -Continue ctx, cont po vanco -Follow wbc -Repeat blood cultures -If worsening clinical status, increased wbc, increased abd distention would repeat ct a/p, consider surgical eval -Will follow, thank you
--- NOTE | 2018-01-01 14:22 | Progress Note ---
Internal Med Progress Note Date of Service: Jan 01, 2018. Provider Documentation: SUBJECTIVE: The patient was seen and examined She is recently moved from [place] without any significant past medical history. She has been complaining of bilateral leg swelling for the last 5 or 6 months. She has been complaining of more shortness of breath for the last 2 days associated with fever and chills. She also has frequency of urination but no dysuria She does not feel any better since admission 12/31 Went into AF with RVR last night and was transferred to ICU AA this AM but drowsy and less communicative during my exam Reverted to SR] 01/01 Confused Trying to communicate Very weak and lethargic OBJECTIVE: Vital Signs-as noted below Exam: General-Very confused Drowsy Eyes-normal ENT-normal Neck-supple Lungs-decreased breath sounds both sides without any crackles. Heart-S1 and S2 regular, no murmur appreciated Abdomen-Moderately distended, moderately tender, bowel sounds sluggish Extremities-bilateral leg edema-1-2+ Edema is more pronounced on the left side along the thighs. Neuro-alert awake Generally weak but no focal neuro deficit. Lab data as noted below. ASSESSMENT & PLAN: Metabolic Encephalopathy Multifactorial -sepsis,Hypotensive episode,Hypoxemia and Renal impairment Remained Confused MRI of the Head-unremarkable Ammonia -normal Appreciate Neurology input C Diff Colitis Seems to be Severe attack Likely the cause of Deterioration Started on Oral Vancomycin and already on IV Flagyl May need Repeat CT of the Abd/Pel to r/o toxic megacolon/perforation AF with RVR Likely secondary to Sepsis Contributed by Severely dilated Rt Atrium Started on IV Cardizem and IV Heparin Reverted to SR Increased Troponin likely due to CHF and Rate related Doubt any ACS ECHO as reported Severe sepsis-Gm Negative Bacteremia SIRS plus lactic acidosis Possible sources :left lower extremity cellulitis,GI (colitis, SBP-ascites on CT )or UTI Doxycycline for cellulitis Cefepime and Flagyl for possible intraabdominal infection if any Continue current antibiotics Blood cultures-Gm Negative Bacilli-sensitivity pending Urine culture-pending Clinically worse Appreciate ID input SOB with Omer Legs Swelling and Bowel edema Likely secondary to Right Sided Hearty Failure Will give small amount of fluid for ongoing sepsis and low urine output Cardiology consulted ECHO-The right ventricle is moderate to severely dilated. * The right ventricular systolic function is severely reduced. * The right atrium is severely dilated. * There is trace tricuspid regurgitation. * Flattened septum is consistent with RV volume overload. * Left ventricular systolic function is moderately reduced. * Ejection Fraction = 35-40%. * Moderate global hypokinesis of the left ventricle. * The inferior vena cava is severely dilated. * Trivial loculated posterior pericardial effusion. * There are no echocardiographic indications of cardiac tamponade. YI Deteriorated overnight Multifactorial Intervascular dehydration, hypotension,Embolic disease,and contrast induced Will give more IV fluid Monitor PRP-worsening Kidney function Possible Cirrhosis. Possibly from RSHF, passive congestion (unknown duration) Appreciate GI evaluation GI does not think the patient has Cirrhosis US abdomen -minimal ascites Abnormal Thyroid Function Likely secondary to Acute illness .Reactive Hyperthyroidism (possible Graves disease) new diagnosis-doubt Started on Methimazole -stopped today after discussion with the Tire Technician Will need OP Endocrine follow up Cortisone level unremarkable Chronic anemia, unknown baseline. Work up Thrombocytopenia secondary to sepsis, cirrhosis. DVT prophylaxis, SCDs RE thrombocytopenia. Full code. Discussed with the Daughter on 12/30/17 and 12/31 Vital Signs: Date Time Temp Pulse Resp B/P (MAP) Pulse Ox O2 Delivery O2 Flow Rate FiO2 01/01/18 12:00 73 22 134/66 (88) 96 Nasal Cannula 2.0 01/01/18 12:00 95 Room Air 01/01/18 10:00 76 20 141/95 (110) 95 Nasal Cannula 2.0 01/01/18 08:00 37.0 68 17 144/77 (99) 94 Nasal Cannula 2.0 01/01/18 08:00 Room Air 01/01/18 06:00 69 15 135/72 (93) 95 Nasal Cannula 2.0 01/01/18 04:00 96 Nasal Cannula 2.0 01/01/18 04:00 36.8 70 20 136/63 (87) 96 Nasal Cannula 2.0 01/01/18 02:00 67 16 109/63 (78) 96 Nasal Cannula 2.0 01/01/18 00:01 36.8 70 20 117/66 (83) 94 Nasal Cannula 2.0 12/31/17 23:59 94 Nasal Cannula 2.0 12/31/17 22:00 65 20 123/74 (90) 96 Nasal Cannula 2.0 12/31/17 20:00 36.5 63 20 123/72 (89) 100 Nasal Cannula 2.0 12/31/17 20:00 100 Nasal Cannula 2.0 12/31/17 16:00 94 Nasal Cannula 2.0 12/31/17 16:00 61 18 116/62 (80) 100 Nasal Cannula 2.0 Lab Results: Results Past 24 Hours Test 12/31/17 20:47 01/01/18 05:23 01/01/18 05:31 Range/Units Bedside Glucose 85 78 70-90 mg/dl White Blood Count 20.45 4.8-10.8 K/uL Red Blood Count 3.76 4.2-5.4 M/uL Hemoglobin 10.5 12.0-16.0 g/dL Hematocrit 31.0 37-47 % Mean Corpuscular Volume 82.4 80-100 fL Mean Corpuscular Hemoglobin 27.9 25-34 pg Mean Corpuscular Hemoglobin Concent 33.9 32-36 g/dl Platelet Count 182 130-400 K/uL Mean Platelet Volume 11.5 7.4-10.4 fL Neutrophils (%) (Auto) 77.9 % Lymphocytes (%) (Auto) 11.1 % Monocytes (%) (Auto) 9.8 % Eosinophils (%) (Auto) 0.1 % Basophils (%) (Auto) 0.1 % Neutrophils # (Auto) 15.92 1.4-6.5 K/uL Lymphocytes # (Auto) 2.28 1.2-3.4 K/uL Monocytes # (Auto) 2.01 0.11-0.59 K/uL Eosinophils # (Auto) 0.02 0-0.5 K/uL Basophils # (Auto) 0.02 0-0.2 K/uL RDW Standard Deviation 40.8 36.4-46.3 fL RDW Coefficient of Variation 13.4 11.5-14.5 % Immature Granulocyte % (Auto) 1.0 % Immature Granulocyte # (Auto) 0.20 0.00-0.02 K/uL Nucleated RBC Absolute Count (auto) 0.07 0-0 K/uL Nucleated Red Blood Cells % 0.4 % Activated Partial Thromboplast Time 55.3 21.0-31.0 SECONDS Partial Thromboplastin Ratio 2.1 Sodium Level 132 136-145 mmol/L Potassium Level 4.7 3.5-5.1 mmol/L Chloride Level 106 98-107 mmol/L Carbon Dioxide Level 15 21-32 mmol/L Anion Gap 11.0 3-11 mmol/L Blood Urea Nitrogen 65 7-18 mg/dl Creatinine 3.27 0.60-1.20 mg/dl Est Creatinine Clear Calc Drug Dose 15.8 ml/min Estimated GFR () 16.9 Estimated GFR (Non- 14.6 BUN/Creatinine Ratio 19.9 10-20 Random Glucose 82 70-99 mg/dl Lactic Acid Level 1.5 0.4-2.0 mmol/L Calcium Level 8.8 8.5-10.1 mg/dl Total Bilirubin 1.0 0.2-1 mg/dl Aspartate Amino Transf (AST/SGOT) 51 15-37 U/L Alanine Aminotransferase (ALT/SGPT) 46 12-78 U/L Alkaline Phosphatase 65 45-117 U/L Troponin I 1.300 0-0.045 ng/ml Total Protein 6.4 6.4-8.2 gm/dl Albumin 2.9 3.4-5.0 gm/dl Globulin 3.5 2.5-4.0 gm/dl Albumin/Globulin Ratio 0.8 0.9-2 Procalcitonin > 200.00 0-0.5 ng/ml Microbiology Results 01/01/18 Blood Culture, Ordered Pending 01/01/18 Blood Culture, Ordered Pending
--- NOTE | 2018-01-01 14:39 | INFECT. DISEASE CONSULTATION ---
DATE OF CONSULTATION: 01/01/2018 HISTORY OF PRESENT ILLNESS: This is a 62-year-old female who was admitted secondary to worsening lower extremity pain. She is initially from [facility], but has been spending time with her daughter here in the [facility]. Since admission to the hospital, she has had worsening creatinine and worsening leukocytosis and also has been diagnosed with E. coli septicemia as well as C. diff infection. It is unclear if she was on antibiotics prior to admission. On my examination, the patient is confused and unable to provide any history. Her children are available at the bedside and states that she has had an acute change in mental status since admission to the hospital. She has seen neurology and had an MRI of the brain which was unremarkable. Her initial CAT scan of the lower extremities was negative but did show soft tissue swelling. She also had a CAT scan of the abdomen and pelvis on the 30 of December, which did not show any ductal dilation and normal gallbladder. There was mild diffuse thickening of the colon, but no free air. She has been on Rocephin and oral vancomycin and also Flagyl. She does have an NG tube in place. She is n.p.o. She has been afebrile since admission to the hospital with the exception of a mild temperature of 37.6 upon arrival. Her family denies any recent urinary complaints or lower extremity ulcerations. Her remaining review of systems is limited. Her only complaint on my examination is of abdominal pain and pain in the left lower extremity. The remaining is limited, but negative. PAST MEDICAL HISTORY: Significant only for anemia. PAST SURGICAL HISTORY: There is no surgical history. ALLERGIES: SHE HAS AN ALLERGY TO SULFA. FAMILY HISTORY: Noncontributory. SOCIAL HISTORY: Negative for tobacco use, alcohol use or drug use. She is originally from [facility]. MEDICATIONS: She is on Rocephin, oral vancomycin, Protonix, subQ heparin, Flagyl, Tylenol, and Ativan. PHYSICAL EXAMINATION: VITAL SIGNS: She is afebrile, pulse 73, respiratory rate 22, blood pressure 134/66, oxygen saturation is 96% on 2 liters. GENERAL: She is awake but confused. She does answer some questions, but also is speaking and not making sense. HEENT: Her mucous membranes are dry. NG tube is in place. HEART: Regular. She did develop aFib overnight. I do not auscultate a murmur. LUNGS: Decreased bilaterally. ABDOMEN: Distended and tender to light palpation. EXTREMITIES: There is minimal edema bilaterally. There are no ulcerations noted. LABORATORY STUDIES: CBC reveals a white blood cell count of 20.4, hemoglobin 10.5, and platelets are 182. Chemistry panel reveals a sodium of 132, potassium 4.9, chloride 106, bicarbonate 15, BUN 51; creatinine yesterday was 2.6, this is increased to 3.2 today. Her lactic acid is improved to 1.5. Her procalcitonin is greater than 300. Her troponin is positive at 1.3. LFTs this morning were normal with the exception of a mildly elevated AST at 51. Urinalysis was unremarkable with 5-10 wbc's and no bacteria. Urine drug screen on the was positive only for opiates. Alcohol level was negative. On exam, hepatitis antibodies are negative. Blood cultures again are growing E. coli from the with resistance only to ampicillin. Repeat blood cultures have not been obtained. A C. diff was positive on the . Urine culture on the is negative. IMAGING DATA: Brain MRI was found was negative. Liver ultrasound was negative. Abdominal CT is as above. CT of the chest on the was negative. Lower extremity CT on admission was significant only for soft tissue edema. She did have an echocardiogram on the which was negative for vegetation. ASSESSMENT AND PLAN: 1. Escherichia coli septicemia. I suspect GI translocation. Repeat blood cultures will be obtained. 2. Clostridium difficile colitis. She is currently on maximized oral therapy. If she continues to have worsening leukocytosis or abdominal distention, a repeat CAT scan and potentially a surgical evaluation would be suggested. 3. Leukocytosis. This will be followed. We will follow along with you. Thank you for this consultation.
[2018-01-01] MEDS ORDERED: NURSING VERBAL MED ORDER ONE (16:00)
--- NOTE | 2018-01-01 16:27 | Neurology Progress Notes ---
Neurology Progress Note Date of Service Jan 01, 2018. Sekou Coleman is a 62 year old female who presented to the ED with c/o L leg pain and swelling. She was also having generalized body ache symptoms, nausea, lower abd pain and was febrile, L leg suspected to have cellulitis. Her blood culture is growing gram negative bacilli. She was started on Cefepime, Flagyl, Doxycycline. She had imaging studies including CT chest/abd/pelvis which is concerning for R heart congestion, pulmonary HTN, anasarca, abd ascites. CT hypoperfusion complex suspected and enlarged retroperitoneal and pelvic lymph nodes unclear etiology and may be related to congestive change or malignancy/ lymphoproliferative disease. She moved several years ago to [place] and lives with daughter. She used to be a [place] resident but lost insurance and hasn't had medical care for years. Today her daughter thinks she is more responsive. She is sitting up in bed. Objective Date Time Temp Pulse Resp B/P (MAP) Pulse Ox O2 Delivery O2 Flow Rate FiO2 01/01/18 14:00 73 20 149/99 (116) 97 Nasal Cannula 2.0 01/01/18 12:00 73 22 134/66 (88) 96 Nasal Cannula 2.0 01/01/18 12:00 95 Room Air 01/01/18 10:00 76 20 141/95 (110) 95 Nasal Cannula 2.0 01/01/18 08:00 37.0 68 17 144/77 (99) 94 Nasal Cannula 2.0 01/01/18 08:00 Room Air 01/01/18 06:00 69 15 135/72 (93) 95 Nasal Cannula 2.0 01/01/18 04:00 96 Nasal Cannula 2.0 01/01/18 04:00 36.8 70 20 136/63 (87) 96 Nasal Cannula 2.0 01/01/18 02:00 67 16 109/63 (78) 96 Nasal Cannula 2.0 01/01/18 00:01 36.8 70 20 117/66 (83) 94 Nasal Cannula 2.0 12/31/17 23:59 94 Nasal Cannula 2.0 12/31/17 22:00 65 20 123/74 (90) 96 Nasal Cannula 2.0 12/31/17 20:00 36.5 63 20 123/72 (89) 100 Nasal Cannula 2.0 3/21/18 20:00 100 Nasal Cannula 2.0 Last 24 Hours Test 12/31/17 20:47 01/01/18 05:23 01/01/18 05:31 01/01/18 15:25 Bedside Glucose 85 mg/dl 78 mg/dl 65 mg/dl White Blood Count 20.45 K/uL Red Blood Count 3.76 M/uL Hemoglobin 10.5 g/dL Hematocrit 31.0 % Mean Corpuscular Volume 82.4 fL Mean Corpuscular Hemoglobin 27.9 pg Mean Corpuscular Hemoglobin Concent 33.9 g/dl Platelet Count 182 K/uL Mean Platelet Volume 11.5 fL Neutrophils (%) (Auto) 77.9 % Lymphocytes (%) (Auto) 11.1 % Monocytes (%) (Auto) 9.8 % Eosinophils (%) (Auto) 0.1 % Basophils (%) (Auto) 0.1 % Neutrophils # (Auto) 15.92 K/uL Lymphocytes # (Auto) 2.28 K/uL Monocytes # (Auto) 2.01 K/uL Eosinophils # (Auto) 0.02 K/uL Basophils # (Auto) 0.02 K/uL RDW Standard Deviation 40.8 fL RDW Coefficient of Variation 13.4 % Immature Granulocyte % (Auto) 1.0 % Immature Granulocyte # (Auto) 0.20 K/uL Nucleated RBC Absolute Count (auto) 0.07 K/uL Nucleated Red Blood Cells % 0.4 % Activated Partial Thromboplast Time 55.3 SECONDS Partial Thromboplastin Ratio 2.1 Sodium Level 132 mmol/L Potassium Level 4.7 mmol/L Chloride Level 106 mmol/L Carbon Dioxide Level 15 mmol/L Anion Gap 11.0 mmol/L Blood Urea Nitrogen 65 mg/dl Creatinine 3.27 mg/dl Est Creatinine Clear Calc Drug Dose 15.8 ml/min Estimated GFR () 16.9 Estimated GFR (Non- 14.6 BUN/Creatinine Ratio 19.9 Random Glucose 82 mg/dl Lactic Acid Level 1.5 mmol/L Calcium Level 8.8 mg/dl Total Bilirubin 1.0 mg/dl Aspartate Amino Transf (AST/SGOT) 51 U/L Alanine Aminotransferase (ALT/SGPT) 46 U/L Alkaline Phosphatase 65 U/L Troponin I 1.300 ng/ml Total Protein 6.4 gm/dl Albumin 2.9 gm/dl Globulin 3.5 gm/dl Albumin/Globulin Ratio 0.8 Procalcitonin > 200.00 ng/ml Test 01/01/18 16:00 01/01/18 16:01 Blood Gas Sample Site L Radial Bedside Blood Gas pH (LAB) 7.27 Bedside Blood Gas pCO2 (LAB) 28 mmHg Bedside Blood Gas pO2 (LAB) 61 mmHg Bedside Blood Gas HCO3 (LAB) 13 meq/L Bedside Blood Gas Total CO2 14 mEq/l Bedside Blood Gas Base Excess (LAB) -14.0 meq/L Bedside Blood Gas O2 Saturation 88.0 % Ambrocio Test Pass Oxygen Delivery Device Cannula Imaging: no new imaging Exam: gen: alert NAD lungs course breath sounds CV RRR does not follow commands or respond to simple questions moves arms spontaneously Current Inpatient Medications Medications (Trade) Dose Ordered Sig/Sera Route Start Time Stop Time Status Last Admin Dose Admin Ioversol (Optiray 320) 100 ml UD PRN IV 12/30/17 01:30 01/03/18 01:29 Acetaminophen (Tylenol Tab) 325 mg Q6H PRN PO 12/30/17 03:15 01/29/18 03:14 12/30/17 23:29 325 MG Prochlorperazine Edisylate 5 mg/ Syringe 5 ml @ 5 mls/min Q6H PRN IV 12/30/17 03:15 01/29/18 03:14 Lorazepam (Ativan Inj) 0.5 mg Q4H PRN IV 12/30/17 03:15 01/29/18 03:14 Albumin Human (Albumin 25%) 12.5 gm Q6H IV 12/30/17 12:00 01/02/18 05:59 01/01/18 11:26 12.5 GM Metronidazole 500 mg/Prmx 100 ml @ 100 mls/hr Q8H IV 12/30/17 14:00 01/09/18 13:59 01/01/18 13:55 100 MLS/HR Heparin Sodium/ Dextrose 500 ml @ 12 mls/hr Q24H IV 12/31/17 01:45 01/30/18 01:44 Miscellaneous Information (Icu Protocol For Hyperglycemia) 1 ea PRN PRN N/A 12/31/17 02:15 01/02/18 02:14 Pantoprazole Sodium 40 mg/ Syringe 10 ml @ 5 mls/min DAILY@11 IV 12/31/17 11:00 01/30/18 10:59 01/01/18 11:26 5 MLS/MIN Raspberry (Raspberry Syrup 5ml Cup) 5 ml QID PO 12/31/17 09:30 01/14/18 09:29 01/01/18 13:51 5 ML Vancomycin HCl (Vancomycin Oral Soln) 500 mg QID PO 01/01/18 17:00 01/15/18 16:59 Ceftriaxone Sodium 1 gm/ Dextrose 50 ml @ 100 mls/hr Q24H IV 01/01/18 18:00 01/11/18 17:59 Sodium Bicarbonate 75 meq/Dextrose/ Sodium Chloride 1,075 ml @ 75 mls/hr [id number] IV 01/01/18 16:20 01/31/18 16:19 UNV Miscellaneous Information (Nursing Verbal Med Order) 1 ea ONE ONCE N/A 01/01/18 16:00 01/01/18 16:01 UNV Impression 62 year old female with complex medical issues -confusion Plan 1. medical management per primary team and ICU 2. repeat CT head is still pending 3. metabolic encephalopathy 4. further recommendations to follow I have seen and discussed above patient with Dr Eli Morales, neurology Pt eeg last PM slow, but not epileptogenic. Pt is somewhat more interactive today, still little or no speech, opens eyes to voice, moves UE purposefully and LE to painful stim. Imp encephalopathy, polyfactorial rel sepsis, renal insuff, poss hypotension with hypoxemia, duration unknown. CT not done today, can be done tomorr. If pt fails to continue to improve consider repeat MRI brain .Will continue to follow, PREET Morales MD
[2018-01-01] MEDS: SODIUM BICARBONATE 8.4% INJ 75 MEQ in D5W AND 1/2NSS 1,000 ML IV SCH (16:47)
[2018-01-01] MEDS: VANCOMYCIN HCL 500 MG/10ML SOLN PO SCH ×2 (16:47→21:49)
--- NOTE | 2018-01-01 17:25 | NEPHROLOGY CONSULTATION ---
DATE OF CONSULTATION: 01/01/2018 ATTENDING OF RECORD: Dr. Erwin. REASON FOR CONSULTATION: YI and oliguria. HISTORY OF PRESENT ILLNESS: This is a 62-year-old female who was doing well with a significant past medical history of anemia who was only on vitamin D supplementation, admits the last time she saw a doctor was about 2 years ago; however, prior to that was regularly following with a physician who presents with sepsis and found to have E. coli bacteremia as well as C. diff positive. Urine culture was negative. Currently on ceftriaxone 1 gram IV daily as well as oral vancomycin 500 mg 4 times a day and raspberry syrup 5 mL 4 times a day and Flagyl 500 mg IV q. 8. The patient currently on albumin 12.5 grams IV q. 6, and I recently switched the patient from normal saline to half normal with 75 mEq of bicarbonate at 75 mL an hour. The patient had an echocardiogram that showed an EF of 35-40%, moderate global hypokinesis of the left ventricle, IVC is severely dilated, right ventricle is moderate to severely dilated, right atrium is severely dilated, flattened septum consistent with RV volume overload. Cardiology evaluated the patient and is planning on doing a right heart catheterization. The patient also had an episode of paroxysmal aFib with RVR, which spontaneously converted to normal sinus. GI evaluated the patient and platelets and INR borderline abnormal, but did not feel that the patient had cirrhosis with the liver appearing normal and CAT scan and LFTs only mildly elevated and there is an enough ascites to consider doing a diagnostic paracentesis and ammonia levels are normal. TSH is undetectable, cortisol appears appropriate close to 60, procalcitonin is greater than 200. The patient's kidney function has continued to worsen was 0.94 on admission and went up to 1.95 and up to 2.26 now up to 3.27. Urine output has been trending down from 425 to 250 to 157. The patient is up 7 kilograms with an abdomen that is becoming more distended. The patient also becoming more confused, did have an ABG done showed a pH of 7.27, pCO2 of 28, pO2 of 61 and a bicarbonate of 13. Urine is a very concentrated at this time. INR was normal at 1.2. White count has been trending up. PAST MEDICAL HISTORY: Anemia. PAST SURGICAL HISTORY: None. HOME MEDICATIONS: Vitamin D supplementation. FAMILY HISTORY: Significant for hypertension. SOCIAL HISTORY: Nonsmoker, occasional alcohol, no drugs. 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 REVIEW OF SYSTEMS: Positive weak, lethargic, distended abdomen. Unable to get a reliable 10-point review of systems. CURRENT MEDICATIONS: Ceftriaxone 1 gram IV daily, oral vancomycin 500 mg 4 times a day, half NS with 75 of bicarbonate at 75 mL an hour, Protonix 40 mg IV daily, raspberry syrup 5 mL 4 times a day, heparin drip, Flagyl 500 IV q. 8, albumin 25% 12.5 grams IV q. 6 hours. PHYSICAL EXAMINATION: VITAL SIGNS: Temperature 37, pulse 73, respiratory rate is 20, blood pressure is 149/99, satting 97% on 2 liters. GENERAL: Awake, lethargic. EYES: No scleral icterus. HEENT: Moist mucous membranes. NECK: Supple. PULMONARY: Decreased breath sounds at the bases. CARDIAC: Regular rate and rhythm. ABDOMEN: Significantly distended. EXTREMITIES: +1 edema. NEUROLOGICALLY: Alert but lethargic. LABORATORY DATA: White count is 20, H&H 10 and 31, platelet count is 182. Blood gas shows a pH 7.27, pCO2 28, pO2 of 61 and bicarbonate of 13. Urine random sodium is pending. Hepatitis negative. Sodium level 132, potassium 4.7, chloride is 106, bicarbonate is 15, BUN 65, creatinine is 3.27, glucose 82, calcium is 8.8. T-bili is 1, AST 51, ALT 46. Troponin 1.3 and trending down. Albumin 2.9. ASSESSMENT AND PLAN: Acute kidney injury with oliguria in the setting of acute tubular necrosis with escherichia coli bacteremia and Clostridium difficile infection with significant right-sided heart failure, currently on appropriate antibiotics, may eventually need dialysis. Potassium levels are stable; however, the patient is becoming more acidotic. ABG shows though that she is compensating for now, likely to need dialysis tomorrow. Will check INR again tomorrow and follow the lab work and consider starting dialysis tomorrow if things continue to progress. For now, potassium level is fine. The patient does have significant right-sided heart failure with significant worsening abdominal distention in the setting of Clostridium difficile and Escherichia coli bacteremia. However, the patient is oxygenating well on 2 liters nasal cannula and likely will need dialysis tomorrow with possible fluid removal, depending on how well blood pressure tolerates dialysis, if needed tomorrow. Case was discussed with Dr. Sosa of pulmonary critical care and discussed thoroughly with the family. All questions answered. The patient with significant acute tubular necrosis who likely has a possible infiltrative disease that may be affecting the heart. I would like to check SSA, SSB as well as SPEP and immunofixation, looking for possible infiltrative granulomatous diseases that might be affecting the heart and contributing the right-sided heart failure. For now, will treat the underlying Clostridium difficile and Escherichia coli bacteremia and treat supportively with the possibility of needing a dialysis tomorrow, if the clinical situation continues to deteriorate. Appreciate consultation. ZAK
[2018-01-01] MEDS ORDERED: HYDROmorphone INJ 0.5 MG/0.5 ML SYR ONE (17:29)
--- NOTE | 2018-01-01 17:42 | Critical Care Progress Note ---
Critical Care Progress Note Date of Service Jan 01, 2018. Attending Dr. Sosa Subjective The patient is more awake but continued to be confused and delirious although she is answering simple questions but she cannot carry a conversation. Appears very lethargic. She continue to maintain her airways. Complaining of leg pain. Abdominal pain also mainly in the pelvic area. No nausea or vomiting. Remains n.p.o. Objective Her physical exam on 01/01/2018 revealed no fever, O2 saturation is 95%, blood pressure elevated to 186/96, probably due to agony. Respiratory rate is 18. Positive JVP, S1-S2 regular rate and rhythm. Distant breath sounds bilaterally. Abdomen is distended and tender diffusely. Left leg is more edematous than the right leg. No pain. Except below the knee area. No calves pain. Neurologically she is nonfocal but continued to be confused. Assessment & Plan 1. Sepsis secondary to gram-negative katie in the blood from UTI and C. difficile colitis. 2. C. difficile colitis. 3. UTI resulted in severe dehydration. 4. Acute kidney insufficiency with a creatinine in the range of 5. 5. Pulmonary hypertension and RV failure. 6. Non-ST elevation UT in the face of the above type II. 7. Metabolic acidosis secondary to acute renal failure. 8. Left leg edema with retroperitoneal lymphadenopathy possibly contributing to the left leg edema. Plan: 1. Continue with current antibiotics including Vanco p.o. and ceftriaxone instead of cefepime given the fact patient had E. coli which was pansensitive. 2. Appreciate renal consult, started the patient on bicarb drip, potential hemodialysis if the patient continued to be oliguric. 3. Appreciate Dr. Mcnamara input, plan for PA catheter hopefully in the morning. Evaluation for pulmonary hypertension. 4. Add D5W to the IV fluid as the patient become hypoglycemic. Part of it is related to the bacteremia. 5. DVT prophylaxis. 6. GI prophylaxis. 7. Discussed with the daughter Dr. Llamas regarding her future plan. She is in agreement with aggressive treatment we are providing. She raised the question of possibility of connective tissue disease which needs to be addressed once the patient is more stable. Workup was sent also by nephrology for scleroderma. The patient does have features in her fingers suggestive of Raynaud's syndrome however I do not see any abnormality in the lung to account for her pulmonary hypertension. 8. Electrolytes follow-up. 9. Watch for leukocytosis. As it is an indicator for progressing of C. difficile colitis. Case discussed with the staff on rounds and details, critical care time spent with the patient was 60 minutes including discussion with the family. All their questions been answered. Data Medications: Current Inpatient Medications Medications (Trade) Dose Ordered Sig/Sera Route Start Time Stop Time Status Last Admin Dose Admin Ioversol (Optiray 320) 100 ml UD PRN IV 12/30/17 01:30 01/03/18 01:29 Acetaminophen (Tylenol Tab) 325 mg Q6H PRN PO 12/30/17 03:15 01/29/18 03:14 12/30/17 23:29 325 MG Prochlorperazine Edisylate 5 mg/ Syringe 5 ml @ 5 mls/min Q6H PRN IV 12/30/17 03:15 01/29/18 03:14 Lorazepam (Ativan Inj) 0.5 mg Q4H PRN IV 12/30/17 03:15 01/29/18 03:14 Albumin Human (Albumin 25%) 12.5 gm Q6H IV 12/30/17 12:00 01/02/18 05:59 01/01/18 16:48 12.5 GM Metronidazole 500 mg/Prmx 100 ml @ 100 mls/hr Q8H IV 12/30/17 14:00 01/09/18 13:59 01/01/18 13:55 100 MLS/HR Heparin Sodium/ Dextrose 500 ml @ 12 mls/hr Q24H IV 12/31/17 01:45 01/30/18 01:44 Miscellaneous Information ([facility] Protocol For Hyperglycemia) 1 ea PRN PRN N/A 12/31/17 02:15 01/02/18 02:14 Pantoprazole Sodium 40 mg/ Syringe 10 ml @ 5 mls/min DAILY@11 IV 12/31/17 11:00 01/30/18 10:59 01/01/18 11:26 5 MLS/MIN Raspberry (Raspberry Syrup 5ml Cup) 5 ml QID PO 12/31/17 09:30 01/14/18 09:29 01/01/18 16:47 5 ML Vancomycin HCl (Vancomycin Oral Soln) 500 mg QID PO 01/01/18 17:00 4/5/18 16:59 01/01/18 16:47 500 MG Ceftriaxone Sodium 1 gm/ Dextrose 50 ml @ 100 mls/hr Q24H IV 01/01/18 18:00 01/11/18 17:59 01/01/18 16:47 100 MLS/HR Sodium Bicarbonate 75 meq/Dextrose/ Sodium Chloride 1,075 ml @ 75 mls/hr [id number] IV 01/01/18 16:20 01/31/18 16:19 01/01/18 16:47 75 MLS/HR I & O: 24-Hour Column 01/02/18 07:59 Intake Total 693 ml Output Total 150 ml Balance 543 ml Vital Signs: Date Time Temp Pulse Resp B/P (MAP) Pulse Ox O2 Delivery O2 Flow Rate FiO2 01/01/18 14:00 73 20 149/99 (116) 97 Nasal Cannula 2.0 01/01/18 12:00 73 22 134/66 (88) 96 Nasal Cannula 2.0 01/01/18 12:00 95 Room Air 01/01/18 10:00 76 20 141/95 (110) 95 Nasal Cannula 2.0 01/01/18 08:00 37.0 68 17 144/77 (99) 94 Nasal Cannula 2.0 01/01/18 08:00 Room Air 01/01/18 06:00 69 15 135/72 (93) 95 Nasal Cannula 2.0 01/01/18 04:00 96 Nasal Cannula 2.0 01/01/18 04:00 36.8 70 20 136/63 (87) 96 Nasal Cannula 2.0 01/01/18 02:00 67 16 109/63 (78) 96 Nasal Cannula 2.0 01/01/18 00:01 36.8 70 20 117/66 (83) 94 Nasal Cannula 2.0 12/31/17 23:59 94 Nasal Cannula 2.0 12/31/17 22:00 65 20 123/74 (90) 96 Nasal Cannula 2.0 12/31/17 20:00 36.5 63 20 123/72 (89) 100 Nasal Cannula 2.0 12/31/17 20:00 100 Nasal Cannula 2.0 Laboratory Results: Last 24 Hours Test 12/31/17 20:47 01/01/18 05:23 01/01/18 05:31 01/01/18 15:25 Bedside Glucose 85 mg/dl 78 mg/dl 65 mg/dl White Blood Count 20.45 K/uL Red Blood Count 3.76 M/uL Hemoglobin 10.5 g/dL Hematocrit 31.0 % Mean Corpuscular Volume 82.4 fL Mean Corpuscular Hemoglobin 27.9 pg Mean Corpuscular Hemoglobin Concent 33.9 g/dl Platelet Count 182 K/uL Mean Platelet Volume 11.5 fL Neutrophils (%) (Auto) 77.9 % Lymphocytes (%) (Auto) 11.1 % Monocytes (%) (Auto) 9.8 % Eosinophils (%) (Auto) 0.1 % Basophils (%) (Auto) 0.1 % Neutrophils # (Auto) 15.92 K/uL Lymphocytes # (Auto) 2.28 K/uL Monocytes # (Auto) 2.01 K/uL Eosinophils # (Auto) 0.02 K/uL Basophils # (Auto) 0.02 K/uL RDW Standard Deviation 40.8 fL RDW Coefficient of Variation 13.4 % Immature Granulocyte % (Auto) 1.0 % Immature Granulocyte # (Auto) 0.20 K/uL Nucleated RBC Absolute Count (auto) 0.07 K/uL Nucleated Red Blood Cells % 0.4 % Activated Partial Thromboplast Time 55.3 SECONDS Partial Thromboplastin Ratio 2.1 Sodium Level 132 mmol/L Potassium Level 4.7 mmol/L Chloride Level 106 mmol/L Carbon Dioxide Level 15 mmol/L Anion Gap 11.0 mmol/L Blood Urea Nitrogen 65 mg/dl Creatinine 3.27 mg/dl Est Creatinine Clear Calc Drug Dose 15.8 ml/min Estimated GFR () 16.9 Estimated GFR (Non- 14.6 BUN/Creatinine Ratio 19.9 Random Glucose 82 mg/dl Lactic Acid Level 1.5 mmol/L Calcium Level 8.8 mg/dl Total Bilirubin 1.0 mg/dl Aspartate Amino Transf (AST/SGOT) 51 U/L Alanine Aminotransferase (ALT/SGPT) 46 U/L Alkaline Phosphatase 65 U/L Troponin I 1.300 ng/ml Total Protein 6.4 gm/dl Albumin 2.9 gm/dl Globulin 3.5 gm/dl Albumin/Globulin Ratio 0.8 Procalcitonin > 200.00 ng/ml Test 01/01/18 16:00 01/01/18 16:01 Urine Random Sodium 16 mEq/L Blood Gas Sample Site L Radial Bedside Blood Gas pH (LAB) 7.27 Bedside Blood Gas pCO2 (LAB) 28 mmHg Bedside Blood Gas pO2 (LAB) 61 mmHg Bedside Blood Gas HCO3 (LAB) 13 meq/L Bedside Blood Gas Total CO2 14 mEq/l Bedside Blood Gas Base Excess (LAB) -14.0 meq/L Bedside Blood Gas O2 Saturation 88.0 % [facility] Test Pass Oxygen Delivery Device Cannula
[2018-01-01] MEDS ORDERED: CEFTRIAXONE SOD INJ 1 GM in DEXTROSE 5% ADD-VANTAGE 50ML 50 ML IV SCH (18:00)
[2018-01-02] VITALS (47 sets, daily range): BP systolic 138–192; BP diastolic 76–121; PULSE 73–164; TEMP 36.4–36.8; O2SAT 85–100; BMI 21.2
[2018-01-02] MEDS: HEPARIN 25,000 UNIT/500ML D5W 500 ML IV SCH ×3 (01:45→19:43)
[2018-01-02] MEDS ORDERED: HYDROmorphone INJ 0.5 MG/0.5 ML SYR IV ONE (02:15)
[2018-01-02] MEDS: METRONIDAZOLE / NSS 500 MG in PREMIXED NSS 100 ML IV SCH ×3 (05:29→20:56)
[2018-01-02 05:48] LABS: HEMATOCRIT 32.7 % (37-47); HEMOGLOBIN 11.2 g/dL (12.0-16.0); MEAN CELL VOLUME 82.6 fL (80-100); MEAN CORPUSCULAR HEMOGLOBIN 28.3 pg (25-34); MEAN CORPUSCULAR HGB CONC 34.3 g/dl (32-36); MEAN PLATELET VOLUME 11.9 fL (7.4-10.4); NUCLEATED RED BLOOD CELL ABS 0.08 K/uL (0-0); PLATELET COUNT 209 K/uL (130-400); RED CELL DISTRIBUTION WIDTH CV 13.7 % (11.5-14.5); RED CELL DISTRIBUTION WIDTH SD 41.6 fL (36.4-46.3); WHITE BLOOD COUNT 22.95 K/uL (4.8-10.8)
[2018-01-02 06:01] LABS: INR 1.2 (0.9-1.1); PTT PATIENT 41.7 SECONDS (21.0-31.0)
--- NOTE | 2018-01-02 06:04 | Nephrology Progress Note ---
Nephrology Progress Note Date of Service: Jan 02, 2018. Subjective 62 yo female with moody, ecoli bacteremia, cdiff, with right sided heart failure who urinated more overnight and appears more awake this morning. Objective Date Time Temp Pulse Resp B/P (MAP) Pulse Ox O2 Delivery O2 Flow Rate FiO2 01/02/18 04:00 36.5 77 14 164/79 (107) 95 Oxymask 5.0 01/02/18 04:00 Oxymask 5.0 01/02/18 02:00 80 22 192/109 (136) 95 Oxymask 4.0 01/02/18 00:01 36.4 73 18 174/99 (124) 95 Oxymask 4.0 01/01/18 23:59 Oxymask 4.0 01/01/18 22:00 79 17 115/84 (94) 97 Oxymask 4.0 01/01/18 20:00 36.5 70 19 153/89 (110) 94 Oxymask 4.0 01/01/18 20:00 94 Oxymask 4.0 01/01/18 18:00 71 26 161/95 (117) 95 Nasal Cannula 6.0 01/01/18 16:00 37.1 75 20 186/96 (126) 92 Nasal Cannula 2.0 01/01/18 16:00 95 Nasal Cannula 2.0 01/01/18 14:00 73 20 149/99 (116) 97 Nasal Cannula 2.0 01/01/18 12:00 73 22 134/66 (88) 96 Nasal Cannula 2.0 01/01/18 12:00 95 Room Air 01/01/18 10:00 76 20 141/95 (110) 95 Nasal Cannula 2.0 01/01/18 08:00 37.0 68 17 144/77 (99) 94 Nasal Cannula 2.0 01/01/18 08:00 Room Air 01/01/18 06:00 69 15 135/72 (93) 95 Nasal Cannula 2.0 Physical Exam: General-aaox1, restless, more awake Eyes-no scleral icterus ENT-mmm Neck-supple Lungs-decreased at bases Heart-regular Abdomen-distended, hypoactive bowel sounds Extremities-+1 edema left>right, tender Neuro- confused Current Inpatient Medications Medications (Trade) Dose Ordered Sig/Sera Route Start Time Stop Time Status Last Admin Dose Admin Ioversol (Optiray 320) 100 ml UD PRN IV 12/30/17 01:30 01/03/18 01:29 Acetaminophen (Tylenol Tab) 325 mg Q6H PRN PO 12/30/17 03:15 01/29/18 03:14 12/30/17 23:29 325 MG Prochlorperazine Edisylate 5 mg/ Syringe 5 ml @ 5 mls/min Q6H PRN IV 12/30/17 03:15 01/29/18 03:14 Lorazepam (Ativan Inj) 0.5 mg Q4H PRN IV 12/30/17 03:15 01/29/18 03:14 Albumin Human (Albumin 25%) 12.5 gm Q6H IV 12/30/17 12:00 01/02/18 05:59 01/01/18 23:54 12.5 GM Metronidazole 500 mg/Prmx 100 ml @ 100 mls/hr Q8H IV 12/30/17 14:00 01/09/18 13:59 01/02/18 05:29 100 MLS/HR Heparin Sodium/ Dextrose 500 ml @ 12 mls/hr Q24H IV 12/31/17 01:45 01/30/18 01:44 Pantoprazole Sodium 40 mg/ Syringe 10 ml @ 5 mls/min DAILY@11 IV 12/31/17 11:00 01/30/18 10:59 01/01/18 11:26 5 MLS/MIN Raspberry (Raspberry Syrup 5ml Cup) 5 ml QID PO 12/31/17 09:30 01/14/18 09:29 01/01/18 21:49 5 ML Vancomycin HCl (Vancomycin Oral Soln) 500 mg QID PO 01/01/18 17:00 01/15/18 16:59 01/01/18 21:49 500 MG Ceftriaxone Sodium 1 gm/ Dextrose 50 ml @ 100 mls/hr Q24H IV 01/01/18 18:00 01/11/18 17:59 01/01/18 16:47 100 MLS/HR Sodium Bicarbonate 75 meq/Dextrose/ Sodium Chloride 1,075 ml @ 75 mls/hr [id number] IV 01/01/18 16:20 01/31/18 16:19 01/01/18 16:47 75 MLS/HR Last 24 Hours Test 01/01/18 15:25 01/01/18 16:00 01/01/18 16:01 01/01/18 21:43 Bedside Glucose 65 mg/dl 96 mg/dl Urine Random Sodium 16 mEq/L Blood Gas Sample Site L Radial Bedside Blood Gas pH (LAB) 7.27 Bedside Blood Gas pCO2 (LAB) 28 mmHg Bedside Blood Gas pO2 (LAB) 61 mmHg Bedside Blood Gas HCO3 (LAB) 13 meq/L Bedside Blood Gas Total CO2 14 mEq/l Bedside Blood Gas Base Excess (LAB) -14.0 meq/L Bedside Blood Gas O2 Saturation 88.0 % [facility] Test Pass Oxygen Delivery Device Cannula Test 01/02/18 05:36 White Blood Count 22.95 K/uL Red Blood Count 3.96 M/uL Hemoglobin 11.2 g/dL Hematocrit 32.7 % Mean Corpuscular Volume 82.6 fL Mean Corpuscular Hemoglobin 28.3 pg Mean Corpuscular Hemoglobin Concent 34.3 g/dl RDW Standard Deviation 41.6 fL RDW Coefficient of Variation 13.7 % Platelet Count 209 K/uL Mean Platelet Volume 11.9 fL Nucleated RBC Absolute Count (auto) 0.08 K/uL Nucleated Red Blood Cells % 0.4 % Arterial Blood pH 7.31 Arterial Blood Partial Pressure CO2 33 mmHg Arterial Blood Partial Pressure O2 76 mm/Hg Arterial Blood HCO3 16 mmol/L Arterial Blood Oxygen Saturation 93.4 % Arterial Blood Base Excess -9.4 mEq/L Arterial Blood Gas Delivery 5L [facility] Test POS Date/Time Source Procedure Growth Status 01/01/18 14:35 Blood Blood Culture Pending Received 01/01/18 14:28 Blood Blood Culture Pending Received Assessment & Plan [id number] with urination of 350 overnight which is an improvement and pt appears more awake today compared to yesterday. labs for this am are pending. still may require dialysis. continue fluids. will discuss further with critical care. ck trended down. metabolic acidosis-on bicarb drip and will follow bicarb and calcium levels and replete calcium accordingly. calcium likely to drop in the setting of bicarb.
[2018-01-02 06:17] LABS: ALBUMIN 3.3 gm/dl (3.4-5.0); CALCIUM 8.8 mg/dl (8.5-10.1); CREATININE 2.62 mg/dl (0.60-1.20); POTASSIUM 4.5 mmol/L (3.5-5.1)
[2018-01-02 06:35] LABS: TOTAL PROTEIN 6.8 gm/dl (6.4-8.2)
[2018-01-02] MEDS: SODIUM BICARBONATE 8.4% INJ 75 MEQ in D5W AND 1/2NSS 1,000 ML IV SCH ×2 (06:43→20:56)
[2018-01-02] MEDS ORDERED: DILTIAZEM HCL 5 MG/ML 5 ML VIAL ONE (07:49)
[2018-01-02] MEDS: VANCOMYCIN HCL 500 MG/10ML SOLN PO SCH ×4 (08:00→19:48)
[2018-01-02] MEDS: RASPBERRY SYRUP 5 ML UDP PO SCH ×4 (08:00→19:48)
[2018-01-02] MEDS ORDERED: NURSING VERBAL MED ORDER ONE ×3 (08:00→11:15)
[2018-01-02] MEDS ORDERED: DILTIAZEM HCL INJ 125 MG in DEXTROSE 5% 100ML IV PRN (08:15)
[2018-01-02] MEDS ORDERED: DILTIAZEM HCL 5 MG/ML 5 ML VIAL BOLUS/OMNI IV ONE (08:15)
--- NOTE | 2018-01-02 10:02 | Surgery Consultation ---
Consultation Date of Consultation: Jan 02, 2018. Attending Physician: Manuelito Erwin M.D. Reason for Consultation: C. Diff Colitis (Tatianna Selby PA-C) History of Present Illness History obtained via computer systems software architect, Nurse, and medical chart as patient confused and unable to obtain history. No family at bedside on examination. Patient is a 62-year-old female recently resided in [facility] who moved to the area in October. Presented to the emergency room for lower extremity swelling and pain. The patient was presumed septic and placed on broad- spectrum antibiotics including a one-time dose of daptomycin, Zosyn, and clindamycin. She underwent chest x-ray which was concerning for pulmonary infiltrate recommending CT of the chest. On CT of the chest, the patient was noted to have severe dilation of the RIGHT ventricle. CT of the abdomen pelvis demonstrates moderate anasarca, engorgement of the IVC and hepatic veins as well as hypoperfusion complex of the abdomen. Lower extremity ultrasound was concerning for cellulitis. No DVT noted. The patient was started on cefepime as well as Flagyl and doxycycline. She tested positive for C. difficile and started on oral vancomycin. Originally white count low but now with leukocytosis of 22K. Has been afebrile since admission. Now currently hypertensive with RVR and afib. Abdominal distention present. Repeat CT scan today showing no evidence of pneumoperitoneum and the previously described bowel wall thickening not clearly identified however limited study due to no contrast. (Tatianna Selby PA-C) Past Medical/Surgical History Medical Problems: (1) Anasarca Status: Acute (2) Atrial fibrillation with RVR Status: Acute (3) C. difficile diarrhea Status: Acute (4) Elevated troponin Status: Acute (5) Hyperthyroidism Status: Acute (6) Hypotension Status: Acute (7) Left leg cellulitis Status: Acute (8) Left leg pain Status: Acute (9) Right-sided heart failure Status: Acute (10) Sepsis Status: Acute No significant past medical history Past Surgical History: (Tatianna Selby PA-C) Social History Smoking Status: Never Smoker Smokeless Tobacco Use: No Alcohol Use: none Drug Use: none Marital Status: single Housing Status: lives with family Occupation Status: other (Tatianna Selby PA-C) Allergies Coded Allergies: Sulfa Antibiotics (Verified Allergy, Unknown, swelling, 12/29/17) Home Medications No Active Prescriptions or Reported Meds Current Inpatient Medications Current Inpatient Medications Medications (Trade) Dose Ordered Sig/Sera Route Start Time Stop Time Status Last Admin Dose Admin Ioversol (Optiray 320) 100 ml UD PRN IV 12/30/17 01:30 01/03/18 01:29 Acetaminophen (Tylenol Tab) 325 mg Q6H PRN PO 12/30/17 03:15 01/29/18 03:14 12/30/17 23:29 325 MG Prochlorperazine Edisylate 5 mg/ Syringe 5 ml @ 5 mls/min Q6H PRN IV 12/30/17 03:15 01/29/18 03:14 Lorazepam (Ativan Inj) 0.5 mg Q4H PRN IV 12/30/17 03:15 01/29/18 03:14 Metronidazole 500 mg/Prmx 100 ml @ 100 mls/hr Q8H IV 12/30/17 14:00 01/09/18 13:59 01/02/18 05:29 100 MLS/HR Heparin Sodium/ Dextrose 500 ml @ 12 mls/hr Q24H IV 12/31/17 01:45 01/30/18 01:44 Pantoprazole Sodium 40 mg/ Syringe 10 ml @ 5 mls/min DAILY@11 IV 12/31/17 11:00 01/30/18 10:59 01/01/18 11:26 5 MLS/MIN Raspberry (Raspberry Syrup 5ml Cup) 5 ml QID PO 12/31/17 09:30 01/14/18 09:29 01/02/18 08:00 5 ML Vancomycin HCl (Vancomycin Oral Soln) 500 mg QID PO 01/01/18 17:00 01/15/18 16:59 01/02/18 08:00 500 MG Ceftriaxone Sodium 1 gm/ Dextrose 50 ml @ 100 mls/hr Q24H IV 01/01/18 18:00 01/11/18 17:59 01/01/18 16:47 100 MLS/HR Sodium Bicarbonate 75 meq/Dextrose/ Sodium Chloride 1,075 ml @ 75 mls/hr [id number] IV 01/01/18 16:20 01/31/18 16:19 01/02/18 06:43 75 MLS/HR Diltiazem HCl 125 mg/Dextrose 125 ml @ 0 mls/hr Q0M PRN IV 01/02/18 08:15 02/01/18 08:14 01/02/18 09:09 5 MLS/HR (Tatianna Selby ., DARON) Review of Systems unable to obtain ROS, patient confused (Tatianna Selby ., DARON) Physical Exam Date Time Temp Pulse Resp B/P (MAP) Pulse Ox O2 Delivery O2 Flow Rate FiO2 01/02/18 06:00 80 20 184/95 (124) 97 Oxymask 5.0 01/02/18 04:00 36.5 77 14 164/79 (107) 95 Oxymask 5.0 01/02/18 04:00 Oxymask 5.0 01/02/18 02:00 80 22 192/109 (136) 95 Oxymask 4.0 01/02/18 00:01 36.4 73 18 174/99 (124) 95 Oxymask 4.0 01/01/18 23:59 Oxymask 4.0 01/01/18 22:00 79 17 115/84 (94) 97 Oxymask 4.0 01/01/18 20:00 36.5 70 19 153/89 (110) 94 Oxymask 4.0 01/01/18 20:00 94 Oxymask 4.0 01/01/18 18:00 71 26 161/95 (117) 95 Nasal Cannula 6.0 01/01/18 16:00 37.1 75 20 186/96 (126) 92 Nasal Cannula 2.0 01/01/18 16:00 95 Nasal Cannula 2.0 01/01/18 14:00 73 20 149/99 (116) 97 Nasal Cannula 2.0 01/01/18 12:00 73 22 134/66 (88) 96 Nasal Cannula 2.0 01/01/18 12:00 95 Room Air 01/01/18 10:00 76 20 141/95 (110) 95 Nasal Cannula 2.0 General Appearance: + moderate distress, + thin Head: normocephalic, atraumatic ENT: hearing grossly normal Neck: trachea midline Respiratory/Chest: no respiratory distress, no accessory muscle use, + decreased breath sounds (bilateral lower lobes) Cardiovascular: no murmur, + tachycardia Abdomen/GI: no organomegaly, no pulsatile mass, + abnormal bowel sounds ( hypoactive bowel sounds), + distended, + guarding (involuntary guarding on palpation, unable to assess for tenderness but patient moaning with pain throughout entire examination. Bedside aid states she started this since coming back from CT scan.) Neurologic/Psych: + disoriented Skin: warm/dry, no rash (Tatianna Selby ., DARON) Laboratory Results Last 24 Hours Test 01/01/18 15:25 01/01/18 16:00 01/01/18 16:01 01/01/18 21:43 Bedside Glucose 65 mg/dl 96 mg/dl Urine Random Sodium 16 mEq/L Blood Gas Sample Site L Radial Bedside Blood Gas pH (LAB) 7.27 Bedside Blood Gas pCO2 (LAB) 28 mmHg Bedside Blood Gas pO2 (LAB) 61 mmHg Bedside Blood Gas HCO3 (LAB) 13 meq/L Bedside Blood Gas Total CO2 14 mEq/l Bedside Blood Gas Base Excess (LAB) -14.0 meq/L Bedside Blood Gas O2 Saturation 88.0 % Ambrocio Test Pass Oxygen Delivery Device Cannula Test 01/02/18 05:32 01/02/18 05:36 Bedside Glucose 105 mg/dl White Blood Count 22.95 K/uL Red Blood Count 3.96 M/uL Hemoglobin 11.2 g/dL Hematocrit 32.7 % Mean Corpuscular Volume 82.6 fL Mean Corpuscular Hemoglobin 28.3 pg Mean Corpuscular Hemoglobin Concent 34.3 g/dl RDW Standard Deviation 41.6 fL RDW Coefficient of Variation 13.7 % Platelet Count 209 K/uL Mean Platelet Volume 11.9 fL Nucleated RBC Absolute Count (auto) 0.08 K/uL Nucleated Red Blood Cells % 0.4 % Prothrombin Time 13.0 SECONDS Prothromb Time International Ratio 1.2 Activated Partial Thromboplast Time 41.7 SECONDS Partial Thromboplastin Ratio 1.6 Arterial Blood pH 7.31 Arterial Blood Partial Pressure CO2 33 mmHg Arterial Blood Partial Pressure O2 76 mm/Hg Arterial Blood HCO3 16 mmol/L Arterial Blood Oxygen Saturation 93.4 % Arterial Blood Base Excess -9.4 mEq/L Arterial Blood Gas Delivery 5L Ambrocio Test POS Sodium Level 134 mmol/L Potassium Level 4.5 mmol/L Chloride Level 106 mmol/L Carbon Dioxide Level 16 mmol/L Anion Gap 12.0 mmol/L Blood Urea Nitrogen 73 mg/dl Creatinine 2.62 mg/dl Est Creatinine Clear Calc Drug Dose 19.7 ml/min Estimated GFR () 22.1 Estimated GFR (Non- 19.1 BUN/Creatinine Ratio 27.7 Random Glucose 101 mg/dl Calcium Level 8.8 mg/dl Total Bilirubin 1.0 mg/dl Aspartate Amino Transf (AST/SGOT) 44 U/L Alanine Aminotransferase (ALT/SGPT) 43 U/L Alkaline Phosphatase 96 U/L Troponin I 0.742 ng/ml Total Protein 6.8 gm/dl Albumin 3.3 gm/dl Globulin 3.5 gm/dl Albumin/Globulin Ratio 0.9 Procalcitonin 93.42 ng/ml ABD/PELVIS IV CONTRAST ONLY 12/30/2017 CLINICAL HISTORY: 62 years-old Female presenting with abd pain. TECHNIQUE: Multidetector CT of the abdomen and pelvis was performed after the administration of intravenous contrast. IV contrast: 119 mL of Optiray 320. A dose lowering technique was used consistent with the principles of ALARA (as low as reasonably achievable). COMPARISON: None. CT DOSE (mGy.cm): The estimated cumulative dose is 470.21 mGy.cm. FINDINGS: Coal Inspector topogram: Cardiomegaly. Lung bases: Lungs and pleural spaces clear. Enlarged right atrium and right ventricle. No pericardial or pleural effusion. Liver: Normal morphology. Extensive periportal edema. No focal lesion. The liver is borderline enlarged. Patent hepatic vasculature. Engorgement of the intrahepatic IVC and hepatic veins. Biliary: No gross evidence of biliary ductal dilatation of the presence of severe periportal edema makes evaluation difficult. Normal gallbladder. Pancreas: Mild parenchymal atrophy. Mild prominence of the pancreatic duct. Suggestion of pancreas divisum. No gross evidence of a pancreatic head mass. Spleen: Normal. Adrenal glands: Intensely hyperemic adrenal glands. Kidneys and ureters: Hypodensity in the left kidney likely simple cyst. No hydronephrosis. Ureters poorly visualized secondary to diffuse edema. Bladder: Normal. Pelvic organs: Globular uterine fundus suggest the presence of fibroids. Ovaries somewhat prominent for age. Bowel: Mild diffuse wall thickening of the colon. Mucosal hyperenhancement of the stomach with mildly diffuse thickened gastric wall. The duodenum also demonstrates mucosal hyperenhancement in the slightly thick wall as do few additional loops of small bowel more distally. No bowel obstruction. Peritoneal cavity: Small amount of abdominal pelvic ascites, which is simple appearing. No intraperitoneal free gas. Diffuse mesenteric edema. Lymph nodes: Several enlarged bilateral external iliac lymph nodes, the largest on the left measuring 9 mm in the short axis (series 6 image 328). Enlarged bilateral common iliac lymph nodes, again the largest on the left measuring 10 mm in the short axis (series 6 image 247). Borderline enlarged pericaval and periaortic lymph nodes. Vasculature: Aorta and IVC patent and normal in caliber. Abdominal wall: Anasarca. Musculoskeletal: Normal. IMPRESSION: 1. Bilateral adrenal hyperenhancement can be seen in the setting of the CT hypoperfusion complex (shock bowel). CT hypoperfusion complex further evidenced by abdominal pelvic ascites, mesenteric edema, periportal edema, ascites, and evidence of right heart failure. Mild bowel wall thickening with mucosal hyperemia would also be compatible with hypoperfusion. 2. Enlarged retroperitoneal and pelvic lymph nodes, which are of uncertain etiology. Correlate clinically and consider follow-up to resolution. These may be reactive or related to congestive change and less there is a history of underlying malignancy or lymphoproliferative disease. CT ABD AND PELVIS WITHOUT CONTRAST 01/02/2018 IMPRESSION: 1. Limited study without the use of IV contrast. The previously described bowel wall thickening is not well seen on today's study. 2. Fluid overload manifested by small to moderate bilateral pleural effusions, moderate diffuse body wall edema, and abdominal pelvic ascites. 3. Cortical medullary enhancement of the bilateral kidneys is compatible with retained contrast from prior contrast enhanced study. These findings are most compatible with decreased renal function and/or acute kidney injury. Vicarious excretion of contrast is also noted within the gallbladder. 4. Indeterminate hyperattenuating 8 mm lesion of the super pole left kidney. 5. Bibasilar dependent consolidation favors compressive atelectasis. 6. Cardiomegaly. (Tatianna Selby ., RADHA-C) Assessment & Plan 62 year-old female with no significant past medical history who presented to emergency department with complaint of worsening lower extremity swelling and pain. Presumed sepsis from possible lower extremity cellulitis. Found to have right sided heart failure with evidence of fluid overload with anasarca and CT scan of the abdomen and pelvis showing evidence of hypoperfusion and mild diffuse wall thickening of the colon and few loops of small bowel and stomach. Tested positive for C. diff. - White count originally low now elevated at 22K today. - Troponin elevated at 2.980 on 12/30 today 0.742 - Lactic acid elevated at 3.7 on admission, normalized at 1.5 on 01/01 - Todays Vitals show HR in the 80's with hypertension , has now gone into afib with RVR with HR in the 140's on exam ,now on Cardizem IV infusion - afebrile - Repeat CT scan showing no evidence of peritoneum or bowel perforation. limited study without IV contrast. Plan: Stat lactic acid No evidence of colonic perforation or pneumoperitoneum on repeat CT scan however there is abdominal distention and increase in leukocytosis. Raises concern for need of total colectomy with end ileostomy if fails medical treatment. Given patent's newly diagnosed right heart failure, afib with RVR, acute kidney injury she is at increased risk of any surgical intervention. Will await results of lactic acid. Continue close monitoring in ICU Continue current antibiotics Continue current ICU management Discussed with Dr. Villalpando who agrees with above. Addendum: 01/02/2018 11:58 am Lactic acid at 1.7. Will continue close monitoring and medical management Dr. Villalpando to evaluate patient this afternoon (Tatianna Selby .DARON) Patient seen and examined with Tatianna Selby PA-C. Agree with above will follow exams and monitor response to antibiotics and supportive care. If fails will need exploration with total abdominal colectomy and diverting ileostomy, likely permanent. Poor surgical candidate but if sepsis worsens will be forced to operate. Seems to be slowly improving with improved CT scan and stable lactate level. (Meet Villalpando M.D.)
[2018-01-02] MEDS ORDERED: HYDROmorphone INJ 0.5 MG/0.5 ML SYR ONE (10:16)
--- NOTE | 2018-01-02 10:19 | DIAGNOSTIC IMAGING REPORT ---
ABD/PELVIS WITHOUT FOR STONE HISTORY: 62 years-old Female follow up c diff colitis. Follow-up study in a patient with colitis COMPARISON: CT abdomen and pelvis 12/30/2017 TECHNIQUE: Multiple axial CT images of the abdomen and pelvis were obtained without IV contrast. A dose lowering technique was used consistent with the principals of APRIL. FINDINGS: Small to moderate bilateral pleural effusions with bibasilar dependent consolidation is new from comparison CT. The inferior cardiac chambers are enlarged, notably the right heart structures. Trace pericardial effusion suspected. Study is limited without the use of IV contrast and also secondary to patient motion and positioning. Within the limitations of the study, the liver, spleen and adrenal glands are unremarkable. Layering contrast is seen within the gallbladder lumen suggesting vicarious excretion. There is increased attenuation of the bilateral kidneys suggesting retention of contrast. Hyperattenuating 7 x 8 mm lesion involves the superior pole left kidney. No definite renal calculi or hydronephrosis. There are a few low attenuating lesions of the left kidney measuring up to 5 mm, too small to characterize however suggesting renal cysts. Andrade catheter is noted within a decompressed or bladder lumen. Air within the nondependent bladder is likely from instrumentation. Indeterminate 1.6 cm cystic lesion about the left adnexum. No aortic aneurysm. Left pelvic sidewall enlarged lymph nodes are again noted measuring up to 2.5 x 1.2 cm. Left iliac adenopathy is also seen measuring up to 1.0 cm in short axis, unchanged. Moderate body wall edema with mild abdominal pelvic ascites. An enteric tube terminates within the mid gastric lumen. No definite bowel wall thickening appreciated on this noncontrast study. Colonic diverticulosis without diverticulitis. Bones appear intact. IMPRESSION: 1. Limited study without the use of IV contrast. The previously described bowel wall thickening is not well seen on today's study. 2. Fluid overload manifested by small to moderate bilateral pleural effusions, moderate diffuse body wall edema, and abdominal pelvic ascites. 3. Cortical medullary enhancement of the bilateral kidneys is compatible with retained contrast from prior contrast enhanced study. These findings are most compatible with decreased renal function and/or acute kidney injury. Vicarious excretion of contrast is also noted within the gallbladder. 4. Indeterminate hyperattenuating 8 mm lesion of the super pole left kidney. 5. Bibasilar dependent consolidation favors compressive atelectasis. 6. Cardiomegaly. The above report was generated using voice recognition software. It may contain grammatical, syntax or spelling errors. Electronically signed by: Luisito Mendoza M.D. 01/02/2018 10:18 AM Dictated Date/Time: 01/02/2018 10:03 AM
--- NOTE | 2018-01-02 10:32 | Cardiology Follow-Up ---
Subjective General Date of Service: Jan 02, 2018. Pt evaluation today including: conversation w/ patient, physical exam, chart review, lab review, review of studies, conversation w/ political consultant, review of inpatient medication list History of Present Illness The patient is a 62 year old female seen in follow up. Converted to AF with RVR this AM. Received 20mg IV cardizem with two 3.5 sec pauses. Remains in AF at 100 - 120 BPM. Complains of abdominal pain. Surgical evaluation pending. Allergies Coded Allergies: Sulfa Antibiotics (Verified Allergy, Unknown, swelling, 12/29/17) Social History Smoking Status: Never Smoker Hx Alcohol Use - Type And Amou: No Problem List Medical Problems: (1) Anasarca Status: Acute (2) Atrial fibrillation with RVR Status: Acute (3) C. difficile diarrhea Status: Acute (4) Elevated troponin Status: Acute (5) Hyperthyroidism Status: Acute (6) Hypotension Status: Acute (7) Left leg cellulitis Status: Acute (8) Left leg pain Status: Acute (9) Right-sided heart failure Status: Acute (10) Sepsis Status: Acute Review of Systems Respiratory: + dyspnea on exertion, No cough, No wheezing, No shortness of breath, No dyspnea at rest, No hemoptysis Cardiac: + edema, No chest pain, No orthopnea, No PND, No claudication, No palpitations Physical Exam Vital Signs Last Vital Signs Documentation Date Time Temp Pulse Resp B/P (MAP) Pulse Ox O2 Delivery O2 Flow Rate FiO2 01/02/18 06:00 80 20 184/95 (124) 97 Oxymask 5.0 01/02/18 04:00 36.5 Physical Exam Constitutional: General Apperance: well-nourished Level of Distress: NAD Lungs: Auscultation: breath sounds normal, no wheezing, no rales/crackles, no rhonchi Cardiovascular: Heart Auscultation: RRR, normal S1, normal S2, I/ WSM Peripheral Pulses: Radial Pulse: normal on the right Femoral Pulse: normal on the right Abdomen: Bowel Sounds: absent Inspection & Palpation: distended, pertinent finding (diffuse abdominal tenderness) Extremities: edema (anasarca) Neurologic: Gait & Station: pertinent finding (No focal motor deficit) Cranial Nerves: grossly intact Assessment and Plan Assessment and Plan FINAL IMPRESSION: 1. Acute abdominal pain with worsening distention - surgical evaluation and repeat CT pending. 2. E. coli sepsis/bacteremia -Potential sources include lower extremity cellulitis, SBP in the setting of ascites -WBC trending upward 3. Biventricular systolic heart failure (LVEF 35%) with moderate to severe right ventricular dilatation and severe dysfunction and indirect evidence of right ventricular volume overload on resting 2D transthoracic echo. 4. Paroxysmal atrial fibrillation with rapid ventricular response. - two 3.5 sec pauses after 20mg IV cardizem - Rate 100 - 120 BPM on 5mg/hr cardizem infusion - recurrent atrial fibrillation driven by inflammatory state, sepsis, hyperthyroidism noted with undetectable TSH and elevated T4 in setting of structural disease. 5. Elevated troponin secondary to demand ischemia in the setting of atrial fibrillation with rapid ventricular response, severe sepsis, lactic acidosis, and CHF. 6. Change in mental status -No evidence of acute ischemia per MRI -Etiology not well defined, possibly related to severe sepsis -Mental status improved 7. Acute renal insufficiency -Related to sepsis, hypoperfusion, and contrast-induced nephropathy -Creatinine improving -on Bicarbonate infusion -Nephrology following - no HD planned for today 8. Lactic acidosis PLAN AND RECOMMENDATIONS: Surgical consultation pending regarding possible acute abdomen. Continue low dose cardiazem infusion and IV heparin. Right heart catheterization canceled today. Consider endocrinology evaluation of hyperthyroidism. Addendum: Called to see patient secondary to 4-6 second post-conversion pauses. Patient remains in AF with intermittent sinus rhythm. Patient reports intermittent lightheadedness. No syncope. Cardizem infusion discontinued. Post-conversion pauses less frequent and reduced duration (3 sec) after discontinuing IV cardiazem. Although maintaining sinus rhythm is preferable, I will not add amiodarone secondary to hyperthyroidism. Consider endocrinology consultation. Will add low dose lopressor 2.5mg Q6 hours and continue to monitor. Continue IV heparin. Yovany Mcnamara DO, [facility] Laboratory Results Last 24 Hours Test 01/01/18 15:25 01/01/18 16:00 01/01/18 16:01 01/01/18 21:43 Bedside Glucose 65 mg/dl 96 mg/dl Urine Random Sodium 16 mEq/L Blood Gas Sample Site L Radial Bedside Blood Gas pH (LAB) 7.27 Bedside Blood Gas pCO2 (LAB) 28 mmHg Bedside Blood Gas pO2 (LAB) 61 mmHg Bedside Blood Gas HCO3 (LAB) 13 meq/L Bedside Blood Gas Total CO2 14 mEq/l Bedside Blood Gas Base Excess (LAB) -14.0 meq/L Bedside Blood Gas O2 Saturation 88.0 % Ambrocio Test Pass Oxygen Delivery Device Cannula Test 01/02/18 05:32 01/02/18 05:36 Bedside Glucose 105 mg/dl White Blood Count 22.95 K/uL Red Blood Count 3.96 M/uL Hemoglobin 11.2 g/dL Hematocrit 32.7 % Mean Corpuscular Volume 82.6 fL Mean Corpuscular Hemoglobin 28.3 pg Mean Corpuscular Hemoglobin Concent 34.3 g/dl RDW Standard Deviation 41.6 fL RDW Coefficient of Variation 13.7 % Platelet Count 209 K/uL Mean Platelet Volume 11.9 fL Nucleated RBC Absolute Count (auto) 0.08 K/uL Nucleated Red Blood Cells % 0.4 % Prothrombin Time 13.0 SECONDS Prothromb Time International Ratio 1.2 Activated Partial Thromboplast Time 41.7 SECONDS Partial Thromboplastin Ratio 1.6 Arterial Blood pH 7.31 Arterial Blood Partial Pressure CO2 33 mmHg Arterial Blood Partial Pressure O2 76 mm/Hg Arterial Blood HCO3 16 mmol/L Arterial Blood Oxygen Saturation 93.4 % Arterial Blood Base Excess -9.4 mEq/L Arterial Blood Gas Delivery 5L Ambrocio Test POS Sodium Level 134 mmol/L Potassium Level 4.5 mmol/L Chloride Level 106 mmol/L Carbon Dioxide Level 16 mmol/L Anion Gap 12.0 mmol/L Blood Urea Nitrogen 73 mg/dl Creatinine 2.62 mg/dl Est Creatinine Clear Calc Drug Dose 19.7 ml/min Estimated GFR () 22.1 Estimated GFR (Non- 19.1 BUN/Creatinine Ratio 27.7 Random Glucose 101 mg/dl Calcium Level 8.8 mg/dl Total Bilirubin 1.0 mg/dl Aspartate Amino Transf (AST/SGOT) 44 U/L Alanine Aminotransferase (ALT/SGPT) 43 U/L Alkaline Phosphatase 96 U/L Troponin I 0.742 ng/ml Total Protein 6.8 gm/dl Albumin 3.3 gm/dl Globulin 3.5 gm/dl Albumin/Globulin Ratio 0.9 Procalcitonin 93.42 ng/ml
[2018-01-02] MEDS ORDERED: HEPARIN 25000 UNIT/500 ML D5W IV STA (11:02)
[2018-01-02] MEDS ORDERED: FUROSEMIDE INJ 40 MG in SYRINGE 0 ML IV ONE ×2 (11:13→20:00)
--- NOTE | 2018-01-02 11:17 | Progress Note ---
Subjective Date of Service: Jan 02, 2018. Subjective Pt evaluation today including: conversation w/ patient, physical exam, chart review, lab review pt seen in followup, remains confused. unable to answer questions but does say yes to abd pain. afebrile. remains on ctx for E. coli bsi, repeat cultures pending. urine culture negative. also on po vanco and cotton for + c diff. remains with ngt. Repeat ct scan done this am, no free air noted, no increased bowel thickening noted, surgery eval pending. WBC continues to increase, 22 today. creat remains elevated as well. uto ros from patient due to confusion Problem List Medical Problems: (1) Anasarca Status: Acute (2) Atrial fibrillation with RVR Status: Acute (3) C. difficile diarrhea Status: Acute (4) Elevated troponin Status: Acute (5) Hyperthyroidism Status: Acute (6) Hypotension Status: Acute (7) Left leg cellulitis Status: Acute (8) Left leg pain Status: Acute (9) Right-sided heart failure Status: Acute (10) Sepsis Status: Acute Objective Vital Signs Date Time Temp Pulse Resp B/P (MAP) Pulse Ox O2 Delivery O2 Flow Rate FiO2 01/02/18 06:00 80 20 184/95 (124) 97 Oxymask 5.0 01/02/18 04:00 36.5 77 14 164/79 (107) 95 Oxymask 5.0 01/02/18 04:00 Oxymask 5.0 01/02/18 02:00 80 22 192/109 (136) 95 Oxymask 4.0 01/02/18 00:01 36.4 73 18 174/99 (124) 95 Oxymask 4.0 01/01/18 23:59 Oxymask 4.0 01/01/18 22:00 79 17 115/84 (94) 97 Oxymask 4.0 01/01/18 20:00 36.5 70 19 153/89 (110) 94 Oxymask 4.0 01/01/18 20:00 94 Oxymask 4.0 01/01/18 18:00 71 26 161/95 (117) 95 Nasal Cannula 6.0 01/01/18 16:00 37.1 75 20 186/96 (126) 92 Nasal Cannula 2.0 01/01/18 16:00 95 Nasal Cannula 2.0 01/01/18 14:00 73 20 149/99 (116) 97 Nasal Cannula 2.0 01/01/18 12:00 73 22 134/66 (88) 96 Nasal Cannula 2.0 01/01/18 12:00 95 Room Air Physical Exam General Appearance: + moderate distress Eyes: normal inspection Neck: supple Respiratory/Chest: + decreased breath sounds Cardiovascular: no edema, no murmur Abdomen: + distended, + tenderness, + pertinent finding (firm) Extremities: non-tender, no pedal edema Neurologic/Psychiatric: + pertinent finding (confused, agitiated) Skin: normal color Laboratory Results Item Value Date Time Blood Culture - Final Complete 12/29/17 2250 Blood Escherichia Coli Blood Culture - Final Complete 12/29/17 2245 Blood Escherichia Coli C.difficile Toxin B Gene (PCR) - Final Complete 12/30/17 2245 Stool Positive for C. difficile toxin B gene Urine Culture - Final Complete 12/31/17 0330 Urine , Clean Catch NO GROWTH - LESS THAN 1,000 COLONIES/ML Last 24 Hours Test 01/01/18 15:25 01/01/18 16:00 01/01/18 16:01 01/01/18 21:43 Bedside Glucose 65 mg/dl 96 mg/dl Urine Random Sodium 16 mEq/L Blood Gas Sample Site L Radial Bedside Blood Gas pH (LAB) 7.27 Bedside Blood Gas pCO2 (LAB) 28 mmHg Bedside Blood Gas pO2 (LAB) 61 mmHg Bedside Blood Gas HCO3 (LAB) 13 meq/L Bedside Blood Gas Total CO2 14 mEq/l Bedside Blood Gas Base Excess (LAB) -14.0 meq/L Bedside Blood Gas O2 Saturation 88.0 % Ambrocio Test Pass Oxygen Delivery Device Cannula Test 01/02/18 05:32 01/02/18 05:36 01/02/18 10:47 Bedside Glucose 105 mg/dl White Blood Count 22.95 K/uL Red Blood Count 3.96 M/uL Hemoglobin 11.2 g/dL Hematocrit 32.7 % Mean Corpuscular Volume 82.6 fL Mean Corpuscular Hemoglobin 28.3 pg Mean Corpuscular Hemoglobin Concent 34.3 g/dl RDW Standard Deviation 41.6 fL RDW Coefficient of Variation 13.7 % Platelet Count 209 K/uL Mean Platelet Volume 11.9 fL Nucleated RBC Absolute Count (auto) 0.08 K/uL Nucleated Red Blood Cells % 0.4 % Prothrombin Time 13.0 SECONDS Prothromb Time International Ratio 1.2 Activated Partial Thromboplast Time 41.7 SECONDS Partial Thromboplastin Ratio 1.6 Arterial Blood pH 7.31 Arterial Blood Partial Pressure CO2 33 mmHg Arterial Blood Partial Pressure O2 76 mm/Hg Arterial Blood HCO3 16 mmol/L Arterial Blood Oxygen Saturation 93.4 % Arterial Blood Base Excess -9.4 mEq/L Arterial Blood Gas Delivery 5L Abmrocio Test POS Sodium Level 134 mmol/L Potassium Level 4.5 mmol/L Chloride Level 106 mmol/L Carbon Dioxide Level 16 mmol/L Anion Gap 12.0 mmol/L Blood Urea Nitrogen 73 mg/dl Creatinine 2.62 mg/dl Est Creatinine Clear Calc Drug Dose 19.7 ml/min Estimated GFR () 22.1 Estimated GFR (Non- 19.1 BUN/Creatinine Ratio 27.7 Random Glucose 101 mg/dl Calcium Level 8.8 mg/dl Total Bilirubin 1.0 mg/dl Aspartate Amino Transf (AST/SGOT) 44 U/L Alanine Aminotransferase (ALT/SGPT) 43 U/L Alkaline Phosphatase 96 U/L Troponin I 0.742 ng/ml Total Protein 6.8 gm/dl Albumin 3.3 gm/dl Globulin 3.5 gm/dl Albumin/Globulin Ratio 0.9 Procalcitonin 93.42 ng/ml Assessment and Plan (1) C. difficile diarrhea Assessment & Plan: will continue on current therapy and follow repeat cultures. Suspect E. coli from GI translocation, no other clear source. Await surgical eval.
[2018-01-02] MEDS: PANTOprazole INJ 40 MG in SYRINGE 0 ML IV SCH (11:53)
[2018-01-02 13:36] LABS: CALCIUM 8.8 mg/dl (8.5-10.1); CREATININE 2.19 mg/dl (0.60-1.20); PHOSPHORUS 4.5 mg/dl (2.5-4.9); POTASSIUM 4.2 mmol/L (3.5-5.1)
--- NOTE | 2018-01-02 13:37 | Critical Care Progress Note ---
Critical Care Progress Note Date of Service Jan 02, 2018. Attending Dr. Sosa Subjective The patient had episodes of tachycardia overnight, the patient remains confused , in the morning the patient tachycardia has been persistent in the range of 160 , appeared to be in rapid A. fib, the patient was started on Cardizem drip. The patient denies any abdominal pain or shortness of breath although she has been occasionally tachypneic, fluid overloaded as well. Review of system was limited due to the patient confusion. Objective Her physical exam on 01/01/2018 revealed no fever, O2 saturation is 95%, blood pressure elevated to 186/96, probably due to agony. Respiratory rate is 18. Positive JVP, S1-S2 regular rate and rhythm. Distant breath sounds bilaterally. Abdomen is distended and tender diffusely. Left leg is more edematous than the right leg. No pain. Except below the knee area. No calves pain. Neurologically she is nonfocal but continued to be confused. Her physical exam on 01/02/2018 revealed, no fever but her O2 saturation is variable between 88-93% on nasal cannula currently on oxygen mask. The patient heart examination S1-S2 irregularly irregular with tachycardia accompanied with areas of pauses. Bilateral lower ex extremity edema, the lungs actually with bilateral diminished breath sounds and minimal crackles. Abdomen is still distended and tender mainly in the left lower quadrant. Her labs were reviewed as well as a CAT scan of the abdomen which showed bowel wall thickening mainly in the ascending colon, ascites was noted and anasarca. Bilateral pleural effusion with compressive atelectasis also noted. Assessment & Plan 1. Sepsis secondary to gram-negative katie in the blood from UTI and C. difficile colitis. 2. C. difficile colitis. 3. UTI resulted in severe dehydration. After hydrating the patient, the patient currently is fluid overloaded. 4. Acute kidney insufficiency with a creatinine in the range of 3.6. Improving to creatinine of 2.6, the patient started becoming less oliguric, her urine output is supported now by IV bicarb with a rate of 50 mL an hour as well as responded to the Lasix. 5. Pulmonary hypertension and RV failure. 6. Non-ST elevation AR in the face of the above type II. 7. Metabolic acidosis secondary to acute renal failure. 8. Left leg edema with retroperitoneal lymphadenopathy possibly contributing to the left leg edema. 9. Sinus pause noted on multiple occasions while she is on Cardizem drip, the patient remains in and out A. fib, Cardizem drip was stopped, Dr. Mcnamara from cardiology evaluated the patient, electrolytes were sent, appreciate his input. Pacer pads were placed. Plan: 1. Continue with current antibiotics including Vanco p.o. and ceftriaxone instead of cefepime given the fact patient had E. coli which was pansensitive. I have increased the dose to 2 g daily due to bacteremia. 2. Appreciate renal consult, started the patient on bicarb drip, will hold off on dialysis, induce the patient with Lasix in which she responded well and was able to diurese approximately [address] Mcnamara input, plan for PA catheter was canceled due to the patient current events with rapid A. fib, evaluation can be taken place for her pulmonary hypertension while she is stable. 4. The patient IV fluid has been reduced to 50 mL of half bicarb and saline with D5W. 5. DVT prophylaxis, however, the patient started on heparin drip for A. fib.. 6. GI prophylaxis. 7. Consult surgery, Dr. Villalpando input appreciated. Just in case the patient intra-abdominal pressure has increased to the point that she would need laparotomy. 8. We will transfuse intra-abdominal pressure every shift. 9. I will stop Ativan due to the patient renal failure. 10. Continue with Dilaudid for pain control. 11. Her pH has improved to 7.31 and possibly we can stop the bicarb later. 12. Diltiazem was stopped although it was started after bolus to control her heart rate. 13. Abdominal CT was done and results were noted and reviewed personally. 14. Watch for leukocytosis. As it is an indicator for progressing of C. difficile colitis. Case discussed with the staff on rounds and details, critical care time spent with the patient was 60 minutes including discussion with the family. All their questions been answered. Data Medications: Current Inpatient Medications Medications (Trade) Dose Ordered Sig/Sera Route Start Time Stop Time Status Last Admin Dose Admin Ioversol (Optiray 320) 100 ml UD PRN IV 12/30/17 01:30 01/03/18 01:29 Acetaminophen (Tylenol Tab) 325 mg Q6H PRN PO 12/30/17 03:15 01/29/18 03:14 12/30/17 23:29 325 MG Prochlorperazine Edisylate 5 mg/ Syringe 5 ml @ 5 mls/min Q6H PRN IV 12/30/17 03:15 01/29/18 03:14 Metronidazole 500 mg/Prmx 100 ml @ 100 mls/hr Q8H IV 12/30/17 14:00 01/09/18 13:59 01/02/18 05:29 100 MLS/HR Pantoprazole Sodium 40 mg/ Syringe 10 ml @ 5 mls/min DAILY@11 IV 12/31/17 11:00 01/30/18 10:59 01/02/18 11:53 5 MLS/MIN Raspberry (Raspberry Syrup 5ml Cup) 5 ml QID PO 12/31/17 09:30 01/14/18 09:29 01/02/18 08:00 5 ML Vancomycin HCl (Vancomycin Oral Soln) 500 mg QID PO 01/01/18 17:00 01/15/18 16:59 01/02/18 08:00 500 MG Sodium Bicarbonate 75 meq/Dextrose/ Sodium Chloride 1,075 ml @ 75 mls/hr [id number] IV 01/01/18 16:20 01/31/18 16:19 01/02/18 06:43 75 MLS/HR Diltiazem HCl 125 mg/Dextrose 125 ml @ 0 mls/hr Q0M PRN IV 01/02/18 08:15 02/01/18 08:14 01/02/18 09:09 5 MLS/HR Hydromorphone HCl (Dilaudid Inj) 0.5 mg Q3H PRN IV 01/02/18 10:45 01/16/18 10:44 Ceftriaxone Sodium 2 gm/ Dextrose 50 ml @ 100 mls/hr Q24H IV 01/02/18 18:00 01/11/18 17:59 Heparin Sodium/ Dextrose 500 ml @ 12 mls/hr Q24H IV 01/02/18 11:30 02/01/18 11:29 01/02/18 11:56 12 MLS/HR Vital Signs: Date Time Temp Pulse Resp B/P (MAP) Pulse Ox O2 Delivery O2 Flow Rate FiO2 01/02/18 13:01 114 23 172/89 (116) 92 Oxymask 5.0 01/02/18 13:00 126 25 93 01/02/18 12:50 106 23 175/83 (113) 94 01/02/18 12:46 119 25 92 Oxymask 5.0 01/02/18 12:31 127 24 90 01/02/18 12:30 121 22 90 Oxymask 5.0 01/02/18 12:16 132 21 92 01/02/18 12:01 36.7 134 22 93 Oxymask 5.0 01/02/18 12:00 124 92 01/02/18 11:47 124 22 92 Oxymask 5.0 01/02/18 11:31 132 30 91 01/02/18 11:30 140 19 92 01/02/18 11:16 143 31 90 Oxymask 5.0 01/02/18 11:01 98 18 85 01/02/18 11:00 117 36 90 Oxymask 5.0 01/02/18 10:31 136 20 91 01/02/18 10:30 133 23 92 Oxymask 5.0 01/02/18 10:16 164 29 92 01/02/18 10:13 121 27 92 Oxymask 5.0 01/02/18 10:09 109 25 01/02/18 09:31 111 22 98 Oxymask 5.0 01/02/18 09:30 112 23 100 01/02/18 09:16 129 24 91 Oxymask 5.0 01/02/18 09:01 131 26 94 01/02/18 09:00 119 31 94 Oxymask 5.0 01/02/18 08:46 126 31 91 01/02/18 08:30 147 25 91 Oxymask 5.0 01/02/18 08:16 115 28 01/02/18 08:02 105 28 93 Oxymask 5.0 01/02/18 08:01 100 28 90 01/02/18 08:00 107 27 158/76 (103) 92 Oxymask 5.0 01/02/18 07:45 36.6 01/02/18 07:30 84 22 100 01/02/18 07:01 80 20 98 Oxymask 5.0 01/02/18 07:00 79 16 98 01/02/18 06:00 80 20 184/95 (124) 97 Oxymask 5.0 01/02/18 04:00 36.5 77 14 164/79 (107) 95 Oxymask 5.0 01/02/18 04:00 Oxymask 5.0 01/02/18 02:00 80 22 192/109 (136) 95 Oxymask 4.0 01/02/18 00:01 36.4 73 18 174/99 (124) 95 Oxymask 4.0 01/01/18 23:59 Oxymask 4.0 01/01/18 22:00 79 17 115/84 (94) 97 Oxymask 4.0 01/01/18 20:00 36.5 70 19 153/89 (110) 94 Oxymask 4.0 01/01/18 20:00 94 Oxymask 4.0 01/01/18 18:00 71 26 161/95 (117) 95 Nasal Cannula 6.0 01/01/18 16:00 37.1 75 20 186/96 (126) 92 Nasal Cannula 2.0 01/01/18 16:00 95 Nasal Cannula 2.0 01/01/18 14:00 73 20 149/99 (116) 97 Nasal Cannula 2.0 Laboratory Results: Last 24 Hours Test 01/01/18 15:25 01/01/18 16:00 01/01/18 16:01 01/01/18 21:43 Bedside Glucose 65 mg/dl 96 mg/dl Urine Random Sodium 16 mEq/L Blood Gas Sample Site L Radial Bedside Blood Gas pH (LAB) 7.27 Bedside Blood Gas pCO2 (LAB) 28 mmHg Bedside Blood Gas pO2 (LAB) 61 mmHg Bedside Blood Gas HCO3 (LAB) 13 meq/L Bedside Blood Gas Total CO2 14 mEq/l Bedside Blood Gas Base Excess (LAB) -14.0 meq/L Bedside Blood Gas O2 Saturation 88.0 % Ambrocio Test Pass Oxygen Delivery Device Cannula Test 01/02/18 05:32 01/02/18 05:36 01/02/18 10:47 01/02/18 11:50 Bedside Glucose 105 mg/dl 112 mg/dl White Blood Count 22.95 K/uL Red Blood Count 3.96 M/uL Hemoglobin 11.2 g/dL Hematocrit 32.7 % Mean Corpuscular Volume 82.6 fL Mean Corpuscular Hemoglobin 28.3 pg Mean Corpuscular Hemoglobin Concent 34.3 g/dl RDW Standard Deviation 41.6 fL RDW Coefficient of Variation 13.7 % Platelet Count 209 K/uL Mean Platelet Volume 11.9 fL Nucleated RBC Absolute Count (auto) 0.08 K/uL Nucleated Red Blood Cells % 0.4 % Prothrombin Time 13.0 SECONDS Prothromb Time International Ratio 1.2 Activated Partial Thromboplast Time 41.7 SECONDS Partial Thromboplastin Ratio 1.6 Arterial Blood pH 7.31 Arterial Blood Partial Pressure CO2 33 mmHg Arterial Blood Partial Pressure O2 76 mm/Hg Arterial Blood HCO3 16 mmol/L Arterial Blood Oxygen Saturation 93.4 % Arterial Blood Base Excess -9.4 mEq/L Arterial Blood Gas Delivery 5L Ambrocio Test POS Sodium Level 134 mmol/L Potassium Level 4.5 mmol/L Chloride Level 106 mmol/L Carbon Dioxide Level 16 mmol/L Anion Gap 12.0 mmol/L Blood Urea Nitrogen 73 mg/dl Creatinine 2.62 mg/dl Est Creatinine Clear Calc Drug Dose 19.7 ml/min Estimated GFR () 22.1 Estimated GFR (Non- 19.1 BUN/Creatinine Ratio 27.7 Random Glucose 101 mg/dl Calcium Level 8.8 mg/dl Total Bilirubin 1.0 mg/dl Aspartate Amino Transf (AST/SGOT) 44 U/L Alanine Aminotransferase (ALT/SGPT) 43 U/L Alkaline Phosphatase 96 U/L Troponin I 0.742 ng/ml Total Protein 6.8 gm/dl Albumin 3.3 gm/dl Globulin 3.5 gm/dl Albumin/Globulin Ratio 0.9 Procalcitonin 93.42 ng/ml Lactic Acid Level 1.7 mmol/L Test 01/02/18 12:57
[2018-01-02] MEDS: METOPROLOL TARTRATE 1 MG/ML VIAL IV. SCH ×2 (17:10→23:28)
--- NOTE | 2018-01-02 17:14 | Progress Note ---
Internal Med Progress Note Date of Service: Jan 02, 2018. Provider Documentation: SUBJECTIVE: The patient was seen and examined She is recently moved from [place] without any significant past medical history. She has been complaining of bilateral leg swelling for the last 5 or 6 months. She has been complaining of more shortness of breath for the last 2 days associated with fever and chills. She also has frequency of urination but no dysuria She does not feel any better since admission 12/31 Went into AF with RVR last night and was transferred to ICU AA this AM but drowsy and less communicative during my exam Reverted to SR] 01/01 Confused Trying to communicate Very weak and lethargic 01/02 Worse this am but much better this afternoon Talking almost normally Discussed with the family members OBJECTIVE: Vital Signs-as noted below Exam: General-AA,pleasantly confused Drowsiness improves Eyes-normal ENT-normal Neck-supple Lungs-decreased breath sounds both sides without any crackles. Heart-S1 and S2 regular, no murmur appreciated Abdomen-Moderately distended, moderately tender, bowel sounds sluggish Extremities-bilateral leg edema-1-2+ Edema is more pronounced on the left side along the thighs. Neuro-alert awake Generally weak but no focal neuro deficit. Lab data as noted below. ASSESSMENT & PLAN: Metabolic Encephalopathy Multifactorial -sepsis,Hypotensive episode,Hypoxemia and Renal impairment Remained pleasantly confused-a little better today MRI of the Head-unremarkable Ammonia -normal Appreciate Neurology input Clinically better now C Diff Colitis Seems to be Severe attack Likely the cause of Deterioration Started on Oral Vancomycin and already on IV Flagyl May need Repeat CT of the Abd/Pel to r/o toxic megacolon/perforation-reasonably OK Appreciate Surgery input-no indication for surgery AF with RVR -recurrent Likely secondary to Sepsis Contributed by Severely dilated Rt Atrium Started on IV Cardizem and IV Heparin Reverted to SR Increased Troponin likely due to CHF and Rate related Doubt any ACS ECHO as reported Sinus pauses on Cardizem drip-NO MORE CARDIZEM May use BB may require Amiodarone Severe sepsis-Gm Negative Bacteremia SIRS plus lactic acidosis Possible sources :left lower extremity cellulitis,GI (colitis, SBP-ascites on CT )or UTI Doxycycline for cellulitis Cefepime and Flagyl for possible intraabdominal infection if any Continue current antibiotics Blood cultures-Gm Negative Bacilli-sensitivity pending Urine culture-pending Clinically worse Appreciate ID input-continue current medication SOB with Omer Legs Swelling and Bowel edema Likely secondary to Right Sided Hearty Failure Will give small amount of fluid for ongoing sepsis and low urine output Cardiology consulted ECHO-The right ventricle is moderate to severely dilated. * The right ventricular systolic function is severely reduced. * The right atrium is severely dilated. * There is trace tricuspid regurgitation. * Flattened septum is consistent with RV volume overload. * Left ventricular systolic function is moderately reduced. * Ejection Fraction = 35-40%. * Moderate global hypokinesis of the left ventricle. * The inferior vena cava is severely dilated. * Trivial loculated posterior pericardial effusion. * There are no echocardiographic indications of cardiac tamponade. YI Deteriorated overnight Multifactorial Intervascular dehydration, hypotension,Embolic disease,and contrast induced Will give more IV fluid Monitor PRP-worsening Kidney function A Liitel better-not for Dialysis yet Possible Cirrhosis. Possibly from RSHF, passive congestion (unknown duration) Appreciate GI evaluation GI does not think the patient has Cirrhosis US abdomen -minimal ascites Abnormal Thyroid Function Likely secondary to Acute illness .Reactive Hyperthyroidism (possible Graves disease) new diagnosis-doubt Started on Methimazole -stopped today after discussion with the Cargo Surveyor Will need OP Endocrine follow up Cortisone level unremarkable Chronic anemia, unknown baseline. Work up Thrombocytopenia secondary to sepsis, cirrhosis. DVT prophylaxis, SCDs RE thrombocytopenia. Full code. Discussed with the Daughter on 12/30/17 and 12/31 and 01/02 Vital Signs: Date Time Temp Pulse Resp B/P (MAP) Pulse Ox O2 Delivery O2 Flow Rate FiO2 01/02/18 16:00 Oxymask 5.0 01/02/18 16:00 36.5 80 16 177/87 (117) 94 Oxymask 5.0 01/02/18 14:00 125 24 138/86 (103) 94 Oxymask 5.0 01/02/18 13:01 114 23 172/89 (116) 92 Oxymask 5.0 01/02/18 13:00 126 25 93 01/02/18 12:50 106 23 175/83 (113) 94 01/02/18 12:46 119 25 92 Oxymask 5.0 01/02/18 12:31 127 24 90 01/02/18 12:30 121 22 90 Oxymask 5.0 01/02/18 12:16 132 21 92 01/02/18 12:01 36.7 134 22 93 Oxymask 5.0 01/02/18 12:00 Oxymask 5.0 01/02/18 12:00 124 92 01/02/18 11:47 124 22 92 Oxymask 5.0 01/02/18 11:31 132 30 91 01/02/18 11:30 140 19 92 01/02/18 11:16 143 31 90 Oxymask 5.0 01/02/18 11:01 98 18 85 01/02/18 11:00 117 36 90 Oxymask 5.0 01/02/18 10:31 136 20 91 01/02/18 10:30 133 23 92 Oxymask 5.0 01/02/18 10:16 164 29 92 01/02/18 10:13 121 27 92 Oxymask 5.0 01/02/18 10:09 109 25 01/02/18 09:31 111 22 98 Oxymask 5.0 01/02/18 09:30 112 23 100 01/02/18 09:16 129 24 91 Oxymask 5.0 01/02/18 09:01 131 26 94 01/02/18 09:00 119 31 94 Oxymask 5.0 01/02/18 08:46 126 31 91 01/02/18 08:30 147 25 91 Oxymask 5.0 01/02/18 08:16 115 28 01/02/18 08:15 Oxymask 5.0 01/02/18 08:02 105 28 93 Oxymask 5.0 01/02/18 08:01 100 28 90 01/02/18 08:00 107 27 158/76 (103) 92 Oxymask 5.0 01/02/18 07:45 36.6 01/02/18 07:30 84 22 100 01/02/18 07:01 80 20 98 Oxymask 5.0 01/02/18 07:00 79 16 98 01/02/18 06:00 80 20 184/95 (124) 97 Oxymask 5.0 01/02/18 04:00 36.5 77 14 164/79 (107) 95 Oxymask 5.0 01/02/18 04:00 Oxymask 5.0 01/02/18 02:00 80 22 192/109 (136) 95 Oxymask 4.0 01/02/18 00:01 36.4 73 18 174/99 (124) 95 Oxymask 4.0 01/01/18 23:59 Oxymask 4.0 01/01/18 22:00 79 17 115/84 (94) 97 Oxymask 4.0 01/01/18 20:00 36.5 70 19 153/89 (110) 94 Oxymask 4.0 01/01/18 20:00 94 Oxymask 4.0 01/01/18 18:00 71 26 161/95 (117) 95 Nasal Cannula 6.0 Lab Results: Results Past 24 Hours Test 01/01/18 21:43 01/02/18 05:32 01/02/18 05:36 01/02/18 10:47 Range/Units Bedside Glucose 96 105 70-90 mg/dl White Blood Count 22.95 4.8-10.8 K/uL Red Blood Count 3.96 4.2-5.4 M/uL Hemoglobin 11.2 12.0-16.0 g/dL Hematocrit 32.7 37-47 % Mean Corpuscular Volume 82.6 80-100 fL Mean Corpuscular Hemoglobin 28.3 25-34 pg Mean Corpuscular Hemoglobin Concent 34.3 32-36 g/dl RDW Standard Deviation 41.6 36.4-46.3 fL RDW Coefficient of Variation 13.7 11.5-14.5 % Platelet Count 209 130-400 K/uL Mean Platelet Volume 11.9 7.4-10.4 fL Nucleated RBC Absolute Count (auto) 0.08 0-0 K/uL Nucleated Red Blood Cells % 0.4 % Prothrombin Time 13.0 9.0-12.0 SECONDS Prothromb Time International Ratio 1.2 0.9-1.1 Activated Partial Thromboplast Time 41.7 21.0-31.0 SECONDS Partial Thromboplastin Ratio 1.6 Arterial Blood pH 7.31 7.35-7.45 Arterial Blood Partial Pressure CO2 33 35-46 mmHg Arterial Blood Partial Pressure O2 76 80-95 mm/Hg Arterial Blood HCO3 16 19-24 mmol/L Arterial Blood Oxygen Saturation 93.4 90-95 % Arterial Blood Base Excess -9.4 -9-1.8 mEq/L Arterial Blood Gas Delivery 5L Ambrocio Test POS POS Sodium Level 134 136-145 mmol/L Potassium Level 4.5 3.5-5.1 mmol/L Chloride Level 106 98-107 mmol/L Carbon Dioxide Level 16 21-32 mmol/L Anion Gap 12.0 3-11 mmol/L Blood Urea Nitrogen 73 7-18 mg/dl Creatinine 2.62 0.60-1.20 mg/dl Est Creatinine Clear Calc Drug Dose 19.7 ml/min Estimated GFR () 22.1 Estimated GFR (Non- 19.1 BUN/Creatinine Ratio 27.7 10-20 Random Glucose 101 70-99 mg/dl Calcium Level 8.8 8.5-10.1 mg/dl Total Bilirubin 1.0 0.2-1 mg/dl Aspartate Amino Transf (AST/SGOT) 44 15-37 U/L Alanine Aminotransferase (ALT/SGPT) 43 12-78 U/L Alkaline Phosphatase 96 45-117 U/L Troponin I 0.742 0-0.045 ng/ml Total Protein 6.8 6.4-8.2 gm/dl Albumin 3.3 3.4-5.0 gm/dl Globulin 3.5 2.5-4.0 gm/dl Albumin/Globulin Ratio 0.9 0.9-2 Procalcitonin 93.42 0-0.5 ng/ml Lactic Acid Level 1.7 0.4-2.0 mmol/L Test 01/02/18 11:50 01/02/18 12:57 Range/Units Bedside Glucose 112 70-90 mg/dl Sodium Level 138 136-145 mmol/L Potassium Level 4.2 3.5-5.1 mmol/L Chloride Level 109 98-107 mmol/L Carbon Dioxide Level 19 21-32 mmol/L Anion Gap 10.0 3-11 mmol/L Blood Urea Nitrogen 73 7-18 mg/dl Creatinine 2.19 0.60-1.20 mg/dl Est Creatinine Clear Calc Drug Dose 23.6 ml/min Estimated GFR () 27.5 Estimated GFR (Non- 23.7 BUN/Creatinine Ratio 33.1 10-20 Random Glucose 110 70-99 mg/dl Calcium Level 8.8 8.5-10.1 mg/dl Phosphorus Level 4.5 2.5-4.9 mg/dl Magnesium Level 3.0 1.8-2.4 mg/dl
[2018-01-02] MEDS: CEFTRIAXONE SOD INJ 2 GM in DEXTROSE 5% ADD-VANTAGE 50ML 50 ML IV SCH (18:13)
[2018-01-02] MEDS: HYDROmorphone INJ 0.5 MG/0.5 ML SYR IV PRN (18:14)
[2018-01-02 18:55] LABS: PTT PATIENT 45.5 SECONDS (21.0-31.0)
[2018-01-02] MEDS ORDERED: HEPARIN IV BOLUS 2,000 UNIT in SYRINGE 0 ML IV ONE (19:15)
[2018-01-02] MEDS: HydrALAZINE HCL 20 MG/ML VIAL IV. PRN (22:27)
[2018-01-03] VITALS (43 sets, daily range): BP systolic 150–190; BP diastolic 73–108; PULSE 79–107; TEMP 36.4–36.9; O2SAT 91–98
[2018-01-03] MEDS: HydrALAZINE HCL 20 MG/ML VIAL IV. PRN ×3 (02:42→16:44)
[2018-01-03] MEDS: HYDROmorphone INJ 0.5 MG/0.5 ML SYR IV PRN ×2 (03:37→08:34)
[2018-01-03] MEDS: METOPROLOL TARTRATE 1 MG/ML VIAL IV. SCH ×2 (05:42→12:14)
[2018-01-03] MEDS: METRONIDAZOLE / NSS 500 MG in PREMIXED NSS 100 ML IV SCH ×3 (05:42→21:13)
[2018-01-03 06:26] LABS: BASO % 0.1 %; BASO ABS # 0.02 K/uL (0-0.2); EOS % 0.1 %; EOS ABS # 0.02 K/uL (0-0.5); HEMOGLOBIN 11.9 g/dL (12.0-16.0); LYMPH % 10.9 %; LYMPH ABS # 2.14 K/uL (1.2-3.4); MEAN CELL VOLUME 79.5 fL (80-100); MEAN PLATELET VOLUME 11.3 fL (7.4-10.4); MONO % 13.1 %; MONO ABS # 2.56 K/uL (0.11-0.59); NEUT % 74.3 %; NEUT ABS # 14.55 K/uL (1.4-6.5); PLATELET COUNT 252 K/uL (130-400); RED CELL DISTRIBUTION WIDTH CV 13.2 % (11.5-14.5); RED CELL DISTRIBUTION WIDTH SD 38.2 fL (36.4-46.3); WHITE BLOOD COUNT 19.59 K/uL (4.8-10.8)
[2018-01-03 06:59] LABS: PTT PATIENT 48.7 SECONDS (21.0-31.0)
[2018-01-03 07:10] LABS: CALCIUM 8.7 mg/dl (8.5-10.1); CREATININE 1.13 mg/dl (0.60-1.20); PHOSPHORUS 2.8 mg/dl (2.5-4.9); POTASSIUM 3.3 mmol/L (3.5-5.1)
[2018-01-03] MEDS: VANCOMYCIN HCL 500 MG/10ML SOLN PO SCH ×4 (08:33→21:13)
[2018-01-03] MEDS: RASPBERRY SYRUP 5 ML UDP PO SCH ×4 (08:33→21:13)
[2018-01-03] MEDS ORDERED: POTASSIUM PHOS 3 MMOL/1 ML INFUSION IV STA (08:53)
[2018-01-03] MEDS ORDERED: METOPROLOL TARTRATE 25 MG TAB PO SCH (09:15)
[2018-01-03] MEDS ORDERED: POTASSIUM PHOSPHATE INJ 30 MMOL in SODIUM CHLORIDE 0.9% 500ML 500 ML IV ONE (09:45)
[2018-01-03] MEDS: PANTOprazole INJ 40 MG in SYRINGE 0 ML IV SCH (10:00)
[2018-01-03] MEDS: SODIUM BICARBONATE 8.4% INJ 75 MEQ in D5W AND 1/2NSS 1,000 ML IV SCH (10:41)
--- NOTE | 2018-01-03 10:43 | PROGRESS NOTE ---
DATE: 01/03/2018 CARDIOLOGY CONSULTATION FOLLOWUP NOTE The patient seen and examined. Chart, medications, telemetry reviewed. Hemodynamically and laboratory studies demonstrate clinical improvement. SUBJECTIVE: The patient does respond to some questions without accurate replies. Notes no specific complaints. OBJECTIVE: VITAL SIGNS: Heart rate is 100, blood pressure is 167/80. NECK: Thin. There is no distinct jugular venous distention. LUNGS: Reveal mildly diminished breath sounds. CARDIOVASCULAR: Regular. There is no S3 gallop. Right ventricular heave. ABDOMEN: Soft, nontender. EXTREMITIES: Without cyanosis or clubbing. There is no peripheral edema. LABORATORY DATA: White cell count is 19.5, hemoglobin is 11.9. Sodium is 142, potassium is 3.3, chloride is 108, bicarbonate is 25, BUN is 46, creatinine is 1.1. I's and O's reflect a brisk diuresis overnight of greater than 4 liters. Telemetry reveals sinus and sinus tachycardia. No further pauses. IMPRESSION: A 62-year-old acutely ill female with issues of sepsis, paroxysmal atrial fibrillation, and [id number] renal failure. The patient appears to have "turned the corner." Atrial arrhythmias have settled with use of IV metoprolol. No further pauses since discontinuation of diltiazem. Volume status appears to be improving with diuresis. RECOMMENDATIONS: We will once again titrate beta luis, resuming oral metoprolol 25 mg twice per day as prehospital dosing. There is room to increase IV metoprolol if patient unable to take oral. If blood pressures remain elevated, we would add low dose topical nitrates to regimen for afterload reduction and preload reduction in combination with hydralazine. We would switch hydralazine to p.o. promptly as well as it can aggravate sinus tachycardia and arrhythmias as well. Hopefully, as bowel begins to work more efficiently, we will see better tolerance of medications in rhythm. If hypotension is induced by topical nitrates, we would discontinue. We will repeat echocardiogram on Friday.
--- NOTE | 2018-01-03 11:05 | Surgery Progress Note ---
Surgery Progress Note Date of Service Jan 03, 2018. Subjective Post OP Day: HD 5 still confused but more alert Objective Vital Signs: Date Time Temp Pulse Resp B/P (MAP) Pulse Ox O2 Delivery O2 Flow Rate FiO2 01/03/18 10:31 96 12 164/81 (108) 95 Nasal Cannula 3.0 01/03/18 10:30 95 5 95 01/03/18 10:01 98 19 171/83 (112) 96 Nasal Cannula 3.0 01/03/18 10:00 98 12 95 01/03/18 09:31 100 22 167/80 (109) 95 Nasal Cannula 3.0 01/03/18 09:30 101 22 95 Nasal Cannula 3.0 01/03/18 09:00 101 20 167/80 (109) 94 Nasal Cannula 3.0 01/03/18 09:00 101 20 94 01/03/18 08:31 93 22 188/96 (126) 98 Oxymask 01/03/18 08:00 93 21 96 Oxymask 01/03/18 08:00 96 Oxymask 5.0 01/03/18 07:31 92 20 178/97 (124) 96 Oxymask 01/03/18 07:00 90 24 96 Oxymask 01/03/18 06:01 87 21 166/85 (112) 96 Oxymask 5.0 01/03/18 05:42 97 171/94 01/03/18 05:31 97 21 171/94 (119) 97 01/03/18 05:01 97 25 175/89 (117) 97 01/03/18 04:31 96 8 161/83 (109) 91 01/03/18 04:01 36.9 100 13 164/78 (106) 95 Oxymask 5.0 01/03/18 04:00 Oxymask 5.0 01/03/18 03:31 107 17 173/94 (120) 94 01/03/18 03:01 103 25 178/73 (108) 95 01/03/18 02:31 92 23 190/79 (116) 91 01/03/18 02:02 91 29 183/92 (122) 91 01/03/18 01:32 90 28 166/79 (108) 92 01/03/18 01:01 87 23 174/83 (113) 91 01/03/18 00:01 36.6 83 4 164/79 (107) 95 Oxymask 5.0 01/02/18 23:59 Oxymask 5.0 01/02/18 23:33 85 20 157/121 (133) 96 5.0 01/02/18 23:28 96 178/82 01/02/18 23:16 95 9 178/82 (114) 89 5.0 01/02/18 23:01 95 30 182/81 (114) 96 5.0 01/02/18 22:00 82 18 183/98 (126) 98 Oxymask 5.0 01/02/18 20:00 Oxymask 5.0 01/02/18 20:00 36.8 76 17 162/84 (110) 95 Oxymask 5.0 01/02/18 18:00 74 15 165/86 (112) 97 Oxymask 5.0 01/02/18 17:10 80 177/87 01/02/18 16:00 Oxymask 5.0 01/02/18 16:00 36.5 80 16 177/87 (117) 94 Oxymask 5.0 01/02/18 14:00 125 24 138/86 (103) 94 Oxymask 5.0 01/02/18 13:01 114 23 172/89 (116) 92 Oxymask 5.0 01/02/18 13:00 126 25 93 01/02/18 12:50 106 23 175/83 (113) 94 01/02/18 12:46 119 25 92 Oxymask 5.0 01/02/18 12:31 127 24 90 01/02/18 12:30 121 22 90 Oxymask 5.0 01/02/18 12:16 132 21 92 01/02/18 12:01 36.7 134 22 93 Oxymask 5.0 01/02/18 12:00 Oxymask 5.0 01/02/18 12:00 124 92 01/02/18 11:47 124 22 92 Oxymask 5.0 01/02/18 11:31 132 30 91 01/02/18 11:30 140 19 92 01/02/18 11:16 143 31 90 Oxymask 5.0 General Appearance: WD/WN, no apparent distress Head: normocephalic, atraumatic Neck: supple, trachea midline Respiratory/Chest: chest non-tender, lungs clear Cardiovascular: regular rate, rhythm Abdomen: soft, + abnormal bowel sounds (few sounds), + distended, + tenderness Extremities: non-tender, + pedal edema Laboratory Results: Results Past 24 Hours Test 01/02/18 11:50 01/02/18 12:57 01/02/18 18:08 01/02/18 18:23 Range/Units Bedside Glucose 112 124 70-90 mg/dl Sodium Level 138 136-145 mmol/L Potassium Level 4.2 3.5-5.1 mmol/L Chloride Level 109 98-107 mmol/L Carbon Dioxide Level 19 21-32 mmol/L Anion Gap 10.0 3-11 mmol/L Blood Urea Nitrogen 73 7-18 mg/dl Creatinine 2.19 0.60-1.20 mg/dl Est Creatinine Clear Calc Drug Dose 23.6 ml/min Estimated GFR () 27.5 Estimated GFR (Non- 23.7 BUN/Creatinine Ratio 33.1 10-20 Random Glucose 110 70-99 mg/dl Calcium Level 8.8 8.5-10.1 mg/dl Phosphorus Level 4.5 2.5-4.9 mg/dl Magnesium Level 3.0 1.8-2.4 mg/dl Activated Partial Thromboplast Time 45.5 21.0-31.0 SECONDS Partial Thromboplastin Ratio 1.8 Test 01/03/18 01:45 01/03/18 05:45 Range/Units Activated Partial Thromboplast Time 52.0 48.7 21.0-31.0 SECONDS Partial Thromboplastin Ratio 2.0 1.9 White Blood Count 19.59 4.8-10.8 K/uL Red Blood Count 4.40 4.2-5.4 M/uL Hemoglobin 11.9 12.0-16.0 g/dL Hematocrit 35.0 37-47 % Mean Corpuscular Volume 79.5 80-100 fL Mean Corpuscular Hemoglobin 27.0 25-34 pg Mean Corpuscular Hemoglobin Concent 34.0 32-36 g/dl Platelet Count 252 130-400 K/uL Mean Platelet Volume 11.3 7.4-10.4 fL Neutrophils (%) (Auto) 74.3 % Lymphocytes (%) (Auto) 10.9 % Monocytes (%) (Auto) 13.1 % Eosinophils (%) (Auto) 0.1 % Basophils (%) (Auto) 0.1 % Neutrophils # (Auto) 14.55 1.4-6.5 K/uL Lymphocytes # (Auto) 2.14 1.2-3.4 K/uL Monocytes # (Auto) 2.56 0.11-0.59 K/uL Eosinophils # (Auto) 0.02 0-0.5 K/uL Basophils # (Auto) 0.02 0-0.2 K/uL RDW Standard Deviation 38.2 36.4-46.3 fL RDW Coefficient of Variation 13.2 11.5-14.5 % Immature Granulocyte % (Auto) 1.5 % Immature Granulocyte # (Auto) 0.30 0.00-0.02 K/uL Sodium Level 142 136-145 mmol/L Potassium Level 3.3 3.5-5.1 mmol/L Chloride Level 108 98-107 mmol/L Carbon Dioxide Level 25 21-32 mmol/L Anion Gap 9.0 3-11 mmol/L Blood Urea Nitrogen 46 7-18 mg/dl Creatinine 1.13 0.60-1.20 mg/dl Est Creatinine Clear Calc Drug Dose 45.7 ml/min Estimated GFR () 61.2 Estimated GFR (Non- 52.8 BUN/Creatinine Ratio 41.1 10-20 Random Glucose 139 70-99 mg/dl Calcium Level 8.7 8.5-10.1 mg/dl Phosphorus Level 2.8 2.5-4.9 mg/dl Magnesium Level 2.2 1.8-2.4 mg/dl Procalcitonin 30.26 0-0.5 ng/ml Assessment & Plan Sepsis from c.diff colitis -responding to abx -WBC down -bladder pressures improved -UOP OK -slow progress
--- NOTE | 2018-01-03 11:45 | Progress Note ---
Internal Med Progress Note Date of Service: Jan 03, 2018. Provider Documentation: SUBJECTIVE: The patient was seen and examined She is recently moved from [place] without any significant past medical history. She has been complaining of bilateral leg swelling for the last 5 or 6 months. She has been complaining of more shortness of breath for the last 2 days associated with fever and chills. She also has frequency of urination but no dysuria She does not feel any better since admission 12/31 Went into AF with RVR last night and was transferred to ICU AA this AM but drowsy and less communicative during my exam Reverted to SR] 01/01 Confused Trying to communicate Very weak and lethargic 01/02 Worse this am but much better this afternoon Talking almost normally Discussed with the family members 01/03 Clinically a little better Trying to communicate OBJECTIVE: Vital Signs-as noted below Exam: General-AA,pleasantly confused Drowsiness improves Remains shaky Eyes-normal ENT-normal Neck-supple Lungs-decreased breath sounds both sides without any crackles. Heart-S1 and S2 regular, no murmur appreciated Abdomen-Moderately distended, moderately tender, bowel sounds sluggish Extremities-bilateral leg edema-1-2+ Edema is more pronounced on the left side along the thighs. Neuro-alert awake,pleasantly confused Generally weak Lab data as noted below. ASSESSMENT & PLAN: Metabolic Encephalopathy Multifactorial -sepsis,Hypotensive episode,Hypoxemia and Renal impairment Remained pleasantly confused-a little better today MRI of the Head-unremarkable Ammonia -normal Appreciate Neurology input Clinically a little better today Remains pleasantly confused C Diff Colitis Seems to be Severe attack Likely the cause of Deterioration Started on Oral Vancomycin and already on IV Flagyl May need Repeat CT of the Abd/Pel to r/o toxic megacolon/perforation-reasonably OK Appreciate Surgery input-no indication for surgery Abdominal fullness and tenderness are better AF with RVR -recurrent Likely secondary to Sepsis Contributed by Severely dilated Rt Atrium Started on IV Cardizem and IV Heparin Reverted to SR Increased Troponin likely due to CHF and Rate related Doubt any ACS ECHO as reported Sinus pauses on Cardizem drip-NO MORE CARDIZEM May use BB may require Amiodarone Reasonably controlled with BB Severe sepsis-Gm Negative Bacteremia SIRS plus lactic acidosis Possible sources :left lower extremity cellulitis,GI (colitis, SBP-ascites on CT )or UTI Doxycycline for cellulitis Cefepime and Flagyl for possible intraabdominal infection if any Continue current antibiotics Blood cultures-Gm Negative Bacilli-sensitivity pending Urine culture-pending Clinically worse Appreciate ID input-continue current medication WCC is improving ,repeat Blood cultures -negative SOB with Omer Legs Swelling and Bowel edema Likely secondary to Right Sided Hearty Failure Will give small amount of fluid for ongoing sepsis and low urine output Cardiology consulted ECHO-The right ventricle is moderate to severely dilated. * The right ventricular systolic function is severely reduced. * The right atrium is severely dilated. * There is trace tricuspid regurgitation. * Flattened septum is consistent with RV volume overload. * Left ventricular systolic function is moderately reduced. * Ejection Fraction = 35-40%. * Moderate global hypokinesis of the left ventricle. * The inferior vena cava is severely dilated. * Trivial loculated posterior pericardial effusion. * There are no echocardiographic indications of cardiac tamponade. YI Deteriorated overnight Multifactorial Intervascular dehydration, hypotension,Embolic disease,and contrast induced Will give more IV fluid Monitor PRP-worsening Kidney function A Little better-not for Dialysis yet Renal function is Normalized HTN On BB,Hydralazine and need small dose of Nitro Possible Cirrhosis. Possibly from RSHF, passive congestion (unknown duration) Appreciate GI evaluation GI does not think the patient has Cirrhosis US abdomen -minimal ascites Abnormal Thyroid Function Likely secondary to Acute illness .Reactive Hyperthyroidism (possible Graves disease) new diagnosis-doubt Started on Methimazole -stopped today after discussion with the Phd Internship Will need OP Endocrine follow up Cortisone level unremarkable Chronic anemia, unknown baseline. Work up Thrombocytopenia secondary to sepsis, cirrhosis. DVT prophylaxis, SCDs RE thrombocytopenia. Full code. Discussed with the Daughter on 12/30/17 and 12/31 and 01/02 Vital Signs: Date Time Temp Pulse Resp B/P (MAP) Pulse Ox O2 Delivery O2 Flow Rate FiO2 01/03/18 10:31 96 12 164/81 (108) 95 Nasal Cannula 3.0 01/03/18 10:30 95 5 95 01/03/18 10:01 98 19 171/83 (112) 96 Nasal Cannula 3.0 01/03/18 10:00 98 12 95 01/03/18 09:31 100 22 167/80 (109) 95 Nasal Cannula 3.0 01/03/18 09:30 101 22 95 Nasal Cannula 3.0 01/03/18 09:00 101 20 167/80 (109) 94 Nasal Cannula 3.0 01/03/18 09:00 101 20 94 01/03/18 08:31 93 22 188/96 (126) 98 Oxymask 01/03/18 08:00 93 21 96 Oxymask 01/03/18 08:00 96 Oxymask 5.0 01/03/18 07:31 92 20 178/97 (124) 96 Oxymask 01/03/18 07:00 90 24 96 Oxymask 01/03/18 06:01 87 21 166/85 (112) 96 Oxymask 5.0 01/03/18 05:42 97 171/94 01/03/18 05:31 97 21 171/94 (119) 97 01/03/18 05:01 97 25 175/89 (117) 97 01/03/18 04:31 96 8 161/83 (109) 91 01/03/18 04:01 36.9 100 13 164/78 (106) 95 Oxymask 5.0 01/03/18 04:00 Oxymask 5.0 01/03/18 03:31 107 17 173/94 (120) 94 01/03/18 03:01 103 25 178/73 (108) 95 01/03/18 02:31 92 23 190/79 (116) 91 01/03/18 02:02 91 29 183/92 (122) 91 01/03/18 01:32 90 28 166/79 (108) 92 01/03/18 01:01 87 23 174/83 (113) 91 01/03/18 00:01 36.6 83 4 164/79 (107) 95 Oxymask 5.0 01/02/18 23:59 Oxymask 5.0 01/02/18 23:33 85 20 157/121 (133) 96 5.0 01/02/18 23:28 96 178/82 01/02/18 23:16 95 9 178/82 (114) 89 5.0 01/02/18 23:01 95 30 182/81 (114) 96 5.0 01/02/18 22:00 82 18 183/98 (126) 98 Oxymask 5.0 01/02/18 20:00 Oxymask 5.0 01/02/18 20:00 36.8 76 17 162/84 (110) 95 Oxymask 5.0 01/02/18 18:00 74 15 165/86 (112) 97 Oxymask 5.0 01/02/18 17:10 80 177/87 01/02/18 16:00 Oxymask 5.0 01/02/18 16:00 36.5 80 16 177/87 (117) 94 Oxymask 5.0 01/02/18 14:00 125 24 138/86 (103) 94 Oxymask 5.0 01/02/18 13:01 114 23 172/89 (116) 92 Oxymask 5.0 01/02/18 13:00 126 25 93 01/02/18 12:50 106 23 175/83 (113) 94 01/02/18 12:46 119 25 92 Oxymask 5.0 01/02/18 12:31 127 24 90 01/02/18 12:30 121 22 90 Oxymask 5.0 01/02/18 12:16 132 21 92 01/02/18 12:01 36.7 134 22 93 Oxymask 5.0 01/02/18 12:00 Oxymask 5.0 01/02/18 12:00 124 92 01/02/18 11:47 124 22 92 Oxymask 5.0 Lab Results: Results Past 24 Hours Test 01/02/18 11:50 01/02/18 12:57 01/02/18 18:08 01/02/18 18:23 Range/Units Bedside Glucose 112 124 70-90 mg/dl Sodium Level 138 136-145 mmol/L Potassium Level 4.2 3.5-5.1 mmol/L Chloride Level 109 98-107 mmol/L Carbon Dioxide Level 19 21-32 mmol/L Anion Gap 10.0 3-11 mmol/L Blood Urea Nitrogen 73 7-18 mg/dl Creatinine 2.19 0.60-1.20 mg/dl Est Creatinine Clear Calc Drug Dose 23.6 ml/min Estimated GFR () 27.5 Estimated GFR (Non- 23.7 BUN/Creatinine Ratio 33.1 10-20 Random Glucose 110 70-99 mg/dl Calcium Level 8.8 8.5-10.1 mg/dl Phosphorus Level 4.5 2.5-4.9 mg/dl Magnesium Level 3.0 1.8-2.4 mg/dl Activated Partial Thromboplast Time 45.5 21.0-31.0 SECONDS Partial Thromboplastin Ratio 1.8 Test 01/03/18 01:45 01/03/18 05:45 Range/Units Activated Partial Thromboplast Time 52.0 48.7 21.0-31.0 SECONDS Partial Thromboplastin Ratio 2.0 1.9 White Blood Count 19.59 4.8-10.8 K/uL Red Blood Count 4.40 4.2-5.4 M/uL Hemoglobin 11.9 12.0-16.0 g/dL Hematocrit 35.0 37-47 % Mean Corpuscular Volume 79.5 80-100 fL Mean Corpuscular Hemoglobin 27.0 25-34 pg Mean Corpuscular Hemoglobin Concent 34.0 32-36 g/dl Platelet Count 252 130-400 K/uL Mean Platelet Volume 11.3 7.4-10.4 fL Neutrophils (%) (Auto) 74.3 % Lymphocytes (%) (Auto) 10.9 % Monocytes (%) (Auto) 13.1 % Eosinophils (%) (Auto) 0.1 % Basophils (%) (Auto) 0.1 % Neutrophils # (Auto) 14.55 1.4-6.5 K/uL Lymphocytes # (Auto) 2.14 1.2-3.4 K/uL Monocytes # (Auto) 2.56 0.11-0.59 K/uL Eosinophils # (Auto) 0.02 0-0.5 K/uL Basophils # (Auto) 0.02 0-0.2 K/uL RDW Standard Deviation 38.2 36.4-46.3 fL RDW Coefficient of Variation 13.2 11.5-14.5 % Immature Granulocyte % (Auto) 1.5 % Immature Granulocyte # (Auto) 0.30 0.00-0.02 K/uL Sodium Level 142 136-145 mmol/L Potassium Level 3.3 3.5-5.1 mmol/L Chloride Level 108 98-107 mmol/L Carbon Dioxide Level 25 21-32 mmol/L Anion Gap 9.0 3-11 mmol/L Blood Urea Nitrogen 46 7-18 mg/dl Creatinine 1.13 0.60-1.20 mg/dl Est Creatinine Clear Calc Drug Dose 45.7 ml/min Estimated GFR () 61.2 Estimated GFR (Non- 52.8 BUN/Creatinine Ratio 41.1 10-20 Random Glucose 139 70-99 mg/dl Calcium Level 8.7 8.5-10.1 mg/dl Phosphorus Level 2.8 2.5-4.9 mg/dl Magnesium Level 2.2 1.8-2.4 mg/dl Procalcitonin 30.26 0-0.5 ng/ml
--- NOTE | 2018-01-03 11:55 | PROGRESS NOTE ---
DATE: 01/03/2018 SUBJECTIVE: Virginia looks much better today than she did yesterday when I briefly saw her and much better than the day before. Mentally, she is clearing nicely. Her family is conversing with her and she is oriented to place , at least and her sepsis, her right-sided heart failure, her atrial fibrillation and her hypertension all seem to be coming back under control and the brain is clearing up as well. We do not have any repeat imaging studies as yet, but frankly as long as she is doing this well, I really do not think to do another CT scan of the head unless her progress is attenuated or things change. I will check by and look at her periodically, but for now, her exam is pretty normal with the exception of a little low-grade confusion and there is a little tremulousness of the hands, worse on the left, and she is obviously globally weak and lethargic. I will look at her again tomorrow, but for now I have no further suggestions and again I do not think imaging of the brain and another EEG are going to be required as long as she continues to progress. ZAK
[2018-01-03] MEDS: PROSOURCE NOCARB 30ML/PKT NG SCH (12:26)
[2018-01-03] MEDS: PEPTAMEN 1.5 CAL 1000ML BAG NG SCH (12:26)
--- NOTE | 2018-01-03 12:52 | Critical Care Progress Note ---
Critical Care Progress Note Date of Service Jan 03, 2018. Attending Dr. Sosa Subjective The patient is marginally improving however her mental status is still borderline. The patient was able to answer questions. Very lethargic and fatigued. Part of it being without nutrition for the past 3 days. In addition to her overall picture with sepsis as well as right ventricular failure. No events occurred overnight. Her urine output however improved as well as her kidney function. Objective Her physical exam on 01/01/2018 revealed no fever, O2 saturation is 95%, blood pressure elevated to 186/96, probably due to agony. Respiratory rate is 18. Positive JVP, S1-S2 regular rate and rhythm. Distant breath sounds bilaterally. Abdomen is distended and tender diffusely. Left leg is more edematous than the right leg. No pain. Except below the knee area. No calves pain. Neurologically she is nonfocal but continued to be confused. Her physical exam on 01/02/2018 revealed, no fever but her O2 saturation is variable between 88-93% on nasal cannula currently on oxygen mask. The patient heart examination S1-S2 irregularly irregular with tachycardia accompanied with areas of pauses. Bilateral lower ex extremity edema, the lungs actually with bilateral diminished breath sounds and minimal crackles. Abdomen is still distended and tender mainly in the left lower quadrant. Her labs were reviewed as well as a CAT scan of the abdomen which showed bowel wall thickening mainly in the ascending colon, ascites was noted and anasarca. Bilateral pleural effusion with compressive atelectasis also noted. Physical exam on 01/03/2018 revealed lethargic patient, vital signs are stable, no recurrence of abnormal rhythm, heart rate in the range of 83, but the blood pressure remains in the range of 153, S1-S2 regular rate and rhythm, bilateral crackles mainly at the bases, abdomen is soft nontender except in the pelvic area, swelling in her left lower extremity has resolved, the patient overall is just lethargic but nonfocal. Laboratory and imaging also were reviewed and her potassium was repleted. I have reviewed all the data myself with Dr. Llamas who is her daughter. Assessment & Plan 1. Sepsis, improving, due to E. coli bacteremia with pansensitive to antibiotics as well as C. difficile colitis. 2. Right ventricular failure. Was severe pulmonary hypertension, etiology is unknown. 3. C. difficile colitis, intra-abdominal pressure is improving and now down to 11. 4. Left leg edema with left sided retroperitoneal lymphadenopathy of unknown etiology, to be addressed in the future. 5. Persistent hypertension. 6. Cardiomyopathy with ejection fraction of 35%, fluid overload that responded to Lasix. 7. Likely the patient has sick euthyroid syndrome. This does not require any treatment. 8. Difficulty swallowing due to lethargy, her mental status was altered and remains altered with marginal improvement on a daily basis. 9. Acute kidney insufficiency, likely related to contrast-induced nephropathy. Plan: 1. I will continue with Lopressor, adjust the dose and start the patient on Lopressor via the NG tube in addition to as needed IV. In 24 hours I will recalculated the NG tube dose. And I will escalate the dose slowly to avoid sinus pause which occurred with calcium channel luis earlier. She is no longer on diltiazem. 2. Continue with hydralazine for blood pressure control to keep systolic blood pressure less than 140. 3. If the above is inadequate, we will start the patient on Nitropaste. 4. Appreciate Dr. Newell input from cardiology. 5. Swallow eval at the bedside was unsuccessful in this patient, will continue treatment and tube feeding through the NG tube. 6. Her BUN/creatinine has been improving significantly. I will continue the diuresis at the moment. 7. Leukocytosis is slowly improving as well. 8. Continue with vancomycin via the NG tube. 9. Continue with ceftriaxone.. 10. Tube feeding. 11. Nutrition consult, appreciated. 12. CVP was in the range of 4 and the patient received IV fluids, however given the fact that she is improving, and we are managing with diuresis, I will stop the IV fluids at this point. I will substituted it for tube feeding. 13. Physical therapy for ambulation and walking out of bed. 14. Continue to follow the intra-abdominal pressure. 15. Appreciate all consults involved. 16. I will repeat the echo on Friday to evaluate for pulmonary hypertension after aggressive diuresis. 17. Replete electrolytes. Case discussed with the staff on rounds. With Dr. Llamas who is her daughter. All their questions been answered. Critical care time spent with the patient was 45 minutes. Data Medications: Current Inpatient Medications Medications (Trade) Dose Ordered Sig/Sera Route Start Time Stop Time Status Last Admin Dose Admin Acetaminophen (Tylenol Tab) 325 mg Q6H PRN PO 12/30/17 03:15 01/29/18 03:14 12/30/17 23:29 325 MG Prochlorperazine Edisylate 5 mg/ Syringe 5 ml @ 5 mls/min Q6H PRN IV 12/30/17 03:15 01/29/18 03:14 Metronidazole 500 mg/Prmx 100 ml @ 100 mls/hr Q8H IV 12/30/17 14:00 01/09/18 13:59 01/03/18 05:42 100 MLS/HR Pantoprazole Sodium 40 mg/ Syringe 10 ml @ 5 mls/min DAILY@11 IV 12/31/17 11:00 01/30/18 10:59 01/03/18 10:00 5 MLS/MIN Raspberry (Raspberry Syrup 5ml Cup) 5 ml QID PO 12/31/17 09:30 01/14/18 09:29 01/03/18 12:14 5 ML Vancomycin HCl (Vancomycin Oral Soln) 500 mg QID PO 01/01/18 17:00 01/15/18 16:59 01/03/18 12:16 500 MG Sodium Bicarbonate 75 meq/Dextrose/ Sodium Chloride 1,075 ml @ 75 mls/hr [id number] IV 01/01/18 16:20 01/31/18 16:19 01/03/18 10:41 75 MLS/HR Diltiazem HCl 125 mg/Dextrose 125 ml @ 0 mls/hr Q0M PRN IV 01/02/18 08:15 02/01/18 08:14 01/02/18 09:09 5 MLS/HR Hydromorphone HCl (Dilaudid Inj) 0.5 mg Q3H PRN IV 01/02/18 10:45 01/16/18 10:44 01/03/18 08:34 0.5 MG Ceftriaxone Sodium 2 gm/ Dextrose 50 ml @ 100 mls/hr Q24H IV 01/02/18 18:00 01/11/18 17:59 01/02/18 18:13 100 MLS/HR Heparin Sodium/ Dextrose 500 ml @ 13 mls/hr Q24H IV 01/02/18 11:30 02/01/18 11:29 01/02/18 19:43 13 MLS/HR Metoprolol Tartrate (Lopressor Iv) 2.5 mg Q6 IV. 01/02/18 18:00 02/01/18 17:59 01/03/18 12:14 2.5 MG Hydralazine HCl (HydrALAZINE INJ) 10 mg Q4 PRN IV. 01/02/18 17:15 02/01/18 17:14 01/03/18 08:33 10 MG Metoprolol Tartrate (Lopressor Tab) 25 mg BID PO 01/03/18 09:15 02/02/18 09:14 01/03/18 09:59 25 MG Potassium Phosphate 30 mmol/ Sodium Chloride 510 ml @ 102 mls/hr 0945 ONCE IV 01/03/18 09:45 01/03/18 14:44 01/03/18 09:59 102 MLS/HR Enteral Nutritional Formula (Peptamen 1.5) 1,000 ml UD NG 01/03/18 11:45 02/02/18 11:44 01/03/18 12:26 1,000 ML Enteral Nutritional Formula (Prosource No Carb) 30 ml DAILY@0900 NG 01/03/18 12:30 02/02/18 12:29 01/03/18 12:26 30 ML Vital Signs: Date Time Temp Pulse Resp B/P (MAP) Pulse Ox O2 Delivery O2 Flow Rate FiO2 01/03/18 12:14 81 163/84 01/03/18 12:01 80 21 163/84 (110) 96 01/03/18 12:00 96 Nasal Cannula 3.0 01/03/18 11:31 79 16 158/74 (102) 95 01/03/18 11:01 80 16 150/78 (102) 96 01/03/18 10:31 96 12 164/81 (108) 95 Nasal Cannula 3.0 01/03/18 10:30 95 5 95 01/03/18 10:30 95 5 95 01/03/18 10:01 98 19 171/83 (112) 96 Nasal Cannula 3.0 01/03/18 10:00 98 12 95 01/03/18 09:31 100 22 167/80 (109) 95 Nasal Cannula 3.0 01/03/18 09:30 101 22 95 Nasal Cannula 3.0 01/03/18 09:00 101 20 167/80 (109) 94 Nasal Cannula 3.0 01/03/18 09:00 101 20 94 01/03/18 08:31 93 22 188/96 (126) 98 Oxymask 01/03/18 08:00 93 21 96 Oxymask 01/03/18 08:00 96 Oxymask 5.0 01/03/18 07:31 92 20 178/97 (124) 96 Oxymask 01/03/18 07:00 90 24 96 Oxymask 01/03/18 06:01 87 21 166/85 (112) 96 Oxymask 5.0 01/03/18 05:42 97 171/94 01/03/18 05:31 97 21 171/94 (119) 97 01/03/18 05:01 97 25 175/89 (117) 97 01/03/18 04:31 96 8 161/83 (109) 91 01/03/18 04:01 36.9 100 13 164/78 (106) 95 Oxymask 5.0 01/03/18 04:00 Oxymask 5.0 01/03/18 03:31 107 17 173/94 (120) 94 01/03/18 03:01 103 25 178/73 (108) 95 01/03/18 02:31 92 23 190/79 (116) 91 01/03/18 02:02 91 29 183/92 (122) 91 01/03/18 01:32 90 28 166/79 (108) 92 01/03/18 01:01 87 23 174/83 (113) 91 01/03/18 00:01 36.6 83 4 164/79 (107) 95 Oxymask 5.0 01/02/18 23:59 Oxymask 5.0 01/02/18 23:33 85 20 157/121 (133) 96 5.0 01/02/18 23:28 96 178/82 01/02/18 23:16 95 9 178/82 (114) 89 5.0 01/02/18 23:01 95 30 182/81 (114) 96 5.0 01/02/18 22:00 82 18 183/98 (126) 98 Oxymask 5.0 01/02/18 20:00 Oxymask 5.0 01/02/18 20:00 36.8 76 17 162/84 (110) 95 Oxymask 5.0 01/02/18 18:00 74 15 165/86 (112) 97 Oxymask 5.0 01/02/18 17:10 80 177/87 01/02/18 16:00 Oxymask 5.0 01/02/18 16:00 36.5 80 16 177/87 (117) 94 Oxymask 5.0 01/02/18 14:00 125 24 138/86 (103) 94 Oxymask 5.0 01/02/18 13:01 114 23 172/89 (116) 92 Oxymask 5.0 01/02/18 13:00 126 25 93 01/02/18 12:50 106 23 175/83 (113) 94 01/02/18 12:46 119 25 92 Oxymask 5.0 Laboratory Results: Last 24 Hours Test 01/02/18 12:57 01/02/18 18:08 01/02/18 18:23 01/03/18 01:45 Sodium Level 138 mmol/L Potassium Level 4.2 mmol/L Chloride Level 109 mmol/L Carbon Dioxide Level 19 mmol/L Anion Gap 10.0 mmol/L Blood Urea Nitrogen 73 mg/dl Creatinine 2.19 mg/dl Est Creatinine Clear Calc Drug Dose 23.6 ml/min Estimated GFR () 27.5 Estimated GFR (Non- 23.7 BUN/Creatinine Ratio 33.1 Random Glucose 110 mg/dl Calcium Level 8.8 mg/dl Phosphorus Level 4.5 mg/dl Magnesium Level 3.0 mg/dl Activated Partial Thromboplast Time 45.5 SECONDS 52.0 SECONDS Partial Thromboplastin Ratio 1.8 2.0 Bedside Glucose 124 mg/dl Test 01/03/18 05:45 White Blood Count 19.59 K/uL Red Blood Count 4.40 M/uL Hemoglobin 11.9 g/dL Hematocrit 35.0 % Mean Corpuscular Volume 79.5 fL Mean Corpuscular Hemoglobin 27.0 pg Mean Corpuscular Hemoglobin Concent 34.0 g/dl Platelet Count 252 K/uL Mean Platelet Volume 11.3 fL Neutrophils (%) (Auto) 74.3 % Lymphocytes (%) (Auto) 10.9 % Monocytes (%) (Auto) 13.1 % Eosinophils (%) (Auto) 0.1 % Basophils (%) (Auto) 0.1 % Neutrophils # (Auto) 14.55 K/uL Lymphocytes # (Auto) 2.14 K/uL Monocytes # (Auto) 2.56 K/uL Eosinophils # (Auto) 0.02 K/uL Basophils # (Auto) 0.02 K/uL RDW Standard Deviation 38.2 fL RDW Coefficient of Variation 13.2 % Immature Granulocyte % (Auto) 1.5 % Immature Granulocyte # (Auto) 0.30 K/uL Activated Partial Thromboplast Time 48.7 SECONDS Partial Thromboplastin Ratio 1.9 Sodium Level 142 mmol/L Potassium Level 3.3 mmol/L Chloride Level 108 mmol/L Carbon Dioxide Level 25 mmol/L Anion Gap 9.0 mmol/L Blood Urea Nitrogen 46 mg/dl Creatinine 1.13 mg/dl Est Creatinine Clear Calc Drug Dose 45.7 ml/min Estimated GFR () 61.2 Estimated GFR (Non- 52.8 BUN/Creatinine Ratio 41.1 Random Glucose 139 mg/dl Calcium Level 8.7 mg/dl Phosphorus Level 2.8 mg/dl Magnesium Level 2.2 mg/dl Procalcitonin 30.26 ng/ml
[2018-01-03] MEDS ORDERED: METOPROLOL TARTRATE 1 MG/ML VIAL IV PRN (14:15)
[2018-01-03] MEDS ORDERED: NURSING VERBAL MED ORDER ONE (14:15)
--- NOTE | 2018-01-03 17:09 | Nephrology Progress Note ---
Nephrology Progress Note Date of Service: Jan 03, 2018. Subjective seen on rounds this am at about 0945; uop has picked up markedly; had received pain meds for L leg pain and participates minimally in ros Objective Date Time Temp Pulse Resp B/P (MAP) Pulse Ox O2 Delivery O2 Flow Rate FiO2 01/03/18 06:01 87 21 166/85 (112) 96 Oxymask 5.0 01/03/18 05:42 97 171/94 01/03/18 05:31 97 21 171/94 (119) 97 01/03/18 05:01 97 25 175/89 (117) 97 01/03/18 04:31 96 8 161/83 (109) 91 01/03/18 04:01 36.9 100 13 164/78 (106) 95 Oxymask 5.0 01/03/18 04:00 Oxymask 5.0 01/03/18 03:31 107 17 173/94 (120) 94 01/03/18 03:01 103 25 178/73 (108) 95 01/03/18 02:31 92 23 190/79 (116) 91 01/03/18 02:02 91 29 183/92 (122) 91 01/03/18 01:32 90 28 166/79 (108) 92 01/03/18 01:01 87 23 174/83 (113) 91 01/03/18 00:01 36.6 83 4 164/79 (107) 95 Oxymask 5.0 01/02/18 23:59 Oxymask 5.0 01/02/18 23:33 85 20 157/121 (133) 96 5.0 01/02/18 23:28 96 178/82 01/02/18 23:16 95 9 178/82 (114) 89 5.0 01/02/18 23:01 95 30 182/81 (114) 96 5.0 01/02/18 22:00 82 18 183/98 (126) 98 Oxymask 5.0 01/02/18 20:00 Oxymask 5.0 01/02/18 20:00 36.8 76 17 162/84 (110) 95 Oxymask 5.0 01/02/18 18:00 74 15 165/86 (112) 97 Oxymask 5.0 01/02/18 17:10 80 177/87 01/02/18 16:00 Oxymask 5.0 01/02/18 16:00 36.5 80 16 177/87 (117) 94 Oxymask 5.0 01/02/18 14:00 125 24 138/86 (103) 94 Oxymask 5.0 01/02/18 13:01 114 23 172/89 (116) 92 Oxymask 5.0 01/02/18 13:00 126 25 93 01/02/18 12:50 106 23 175/83 (113) 94 01/02/18 12:46 119 25 92 Oxymask 5.0 01/02/18 12:31 127 24 90 01/02/18 12:30 121 22 90 Oxymask 5.0 01/02/18 12:16 132 21 92 01/02/18 12:01 36.7 134 22 93 Oxymask 5.0 01/02/18 12:00 Oxymask 5.0 01/02/18 12:00 124 92 01/02/18 11:47 124 22 92 Oxymask 5.0 01/02/18 11:31 132 30 91 01/02/18 11:30 140 19 92 01/02/18 11:16 143 31 90 Oxymask 5.0 01/02/18 11:01 98 18 85 01/02/18 11:00 117 36 90 Oxymask 5.0 01/02/18 10:31 136 20 91 01/02/18 10:30 133 23 92 Oxymask 5.0 01/02/18 10:16 164 29 92 01/02/18 10:13 121 27 92 Oxymask 5.0 01/02/18 10:09 109 25 01/02/18 09:31 111 22 98 Oxymask 5.0 01/02/18 09:30 112 23 100 01/02/18 09:16 129 24 91 Oxymask 5.0 Physical Exam: General-ox1, restless but lethargic; on oxymask Eyes-no scleral icterus ENT-dry mm; NGT + Neck-supple Lungs-decreased at bases Heart-regular in 90s Abdomen-distended, hypoactive bowel sounds w/ aldrich Extremities-+2 dependent/prox edema left>right, tender Neuro- confused Current Inpatient Medications Medications (Trade) Dose Ordered Sig/Sera Route Start Time Stop Time Status Last Admin Dose Admin Acetaminophen (Tylenol Tab) 325 mg Q6H PRN PO 12/30/17 03:15 01/29/18 03:14 12/30/17 23:29 325 MG Prochlorperazine Edisylate 5 mg/ Syringe 5 ml @ 5 mls/min Q6H PRN IV 12/30/17 03:15 01/29/18 03:14 Metronidazole 500 mg/Prmx 100 ml @ 100 mls/hr Q8H IV 12/30/17 14:00 01/09/18 13:59 01/03/18 05:42 100 MLS/HR Pantoprazole Sodium 40 mg/ Syringe 10 ml @ 5 mls/min DAILY@11 IV 12/31/17 11:00 01/30/18 10:59 01/02/18 11:53 5 MLS/MIN Raspberry (Raspberry Syrup 5ml Cup) 5 ml QID PO 12/31/17 09:30 01/14/18 09:29 01/03/18 08:33 5 ML Vancomycin HCl (Vancomycin Oral Soln) 500 mg QID PO 01/01/18 17:00 01/15/18 16:59 01/03/18 08:33 500 MG Sodium Bicarbonate 75 meq/Dextrose/ Sodium Chloride 1,075 ml @ 75 mls/hr [id number] IV 01/01/18 16:20 01/31/18 16:19 01/02/18 20:56 75 MLS/HR Diltiazem HCl 125 mg/Dextrose 125 ml @ 0 mls/hr Q0M PRN IV 01/02/18 08:15 02/01/18 08:14 01/02/18 09:09 5 MLS/HR Hydromorphone HCl (Dilaudid Inj) 0.5 mg Q3H PRN IV 01/02/18 10:45 01/16/18 10:44 01/03/18 08:34 0.5 MG Ceftriaxone Sodium 2 gm/ Dextrose 50 ml @ 100 mls/hr Q24H IV 01/02/18 18:00 01/11/18 17:59 01/02/18 18:13 100 MLS/HR Heparin Sodium/ Dextrose 500 ml @ 13 mls/hr Q24H IV 01/02/18 11:30 02/01/18 11:29 01/02/18 19:43 13 MLS/HR Metoprolol Tartrate (Lopressor Iv) 2.5 mg Q6 IV. 01/02/18 18:00 02/01/18 17:59 01/03/18 05:42 2.5 MG Hydralazine HCl (HydrALAZINE INJ) 10 mg Q4 PRN IV. 01/02/18 17:15 02/01/18 17:14 01/03/18 08:33 10 MG Metoprolol Tartrate (Lopressor Tab) 25 mg BID PO 01/03/18 09:00 02/02/18 08:59 UNV Potassium Phosphate (Potassium Phosphate Replacement) 30 mmol NOW STAT IV 01/03/18 08:53 01/03/18 08:54 UNV Last 24 Hours Test 01/02/18 10:47 01/02/18 11:50 01/02/18 12:57 01/02/18 18:08 Lactic Acid Level 1.7 mmol/L Bedside Glucose 112 mg/dl Sodium Level 138 mmol/L Potassium Level 4.2 mmol/L Chloride Level 109 mmol/L Carbon Dioxide Level 19 mmol/L Anion Gap 10.0 mmol/L Blood Urea Nitrogen 73 mg/dl Creatinine 2.19 mg/dl Est Creatinine Clear Calc Drug Dose 23.6 ml/min Estimated GFR () 27.5 Estimated GFR (Non- 23.7 BUN/Creatinine Ratio 33.1 Random Glucose 110 mg/dl Calcium Level 8.8 mg/dl Phosphorus Level 4.5 mg/dl Magnesium Level 3.0 mg/dl Activated Partial Thromboplast Time 45.5 SECONDS Partial Thromboplastin Ratio 1.8 Test 01/02/18 18:23 01/03/18 01:45 01/03/18 05:45 Bedside Glucose 124 mg/dl Activated Partial Thromboplast Time 52.0 SECONDS 48.7 SECONDS Partial Thromboplastin Ratio 2.0 1.9 White Blood Count 19.59 K/uL Red Blood Count 4.40 M/uL Hemoglobin 11.9 g/dL Hematocrit 35.0 % Mean Corpuscular Volume 79.5 fL Mean Corpuscular Hemoglobin 27.0 pg Mean Corpuscular Hemoglobin Concent 34.0 g/dl Platelet Count 252 K/uL Mean Platelet Volume 11.3 fL Neutrophils (%) (Auto) 74.3 % Lymphocytes (%) (Auto) 10.9 % Monocytes (%) (Auto) 13.1 % Eosinophils (%) (Auto) 0.1 % Basophils (%) (Auto) 0.1 % Neutrophils # (Auto) 14.55 K/uL Lymphocytes # (Auto) 2.14 K/uL Monocytes # (Auto) 2.56 K/uL Eosinophils # (Auto) 0.02 K/uL Basophils # (Auto) 0.02 K/uL RDW Standard Deviation 38.2 fL RDW Coefficient of Variation 13.2 % Immature Granulocyte % (Auto) 1.5 % Immature Granulocyte # (Auto) 0.30 K/uL Sodium Level 142 mmol/L Potassium Level 3.3 mmol/L Chloride Level 108 mmol/L Carbon Dioxide Level 25 mmol/L Anion Gap 9.0 mmol/L Blood Urea Nitrogen 46 mg/dl Creatinine 1.13 mg/dl Est Creatinine Clear Calc Drug Dose 45.7 ml/min Estimated GFR () 61.2 Estimated GFR (Non- 52.8 BUN/Creatinine Ratio 41.1 Random Glucose 139 mg/dl Calcium Level 8.7 mg/dl Phosphorus Level 2.8 mg/dl Magnesium Level 2.2 mg/dl Procalcitonin 30.26 ng/ml Assessment & Plan 62 yo female with moody, ecoli bacteremia, cdiff, with right sided heart failure. [id number] with 4L UOP net negative yesterday, suggestive of late atn phase and creatinien improved too. chemistries improved/acceptable>> ck trended down. -for one more day if possible diuretics prn only metabolic acidosis resolved now w/ lower K and higher / uncontrolled BP >> changed D5 1/2 NS w/ 75 bicarbonate to D5 1/2 NS at 75 ml hourly; daily bmp; agree w/ TF HTN per critical care; has multiple prn meds
[2018-01-03] MEDS: CEFTRIAXONE SOD INJ 2 GM in DEXTROSE 5% ADD-VANTAGE 50ML 50 ML IV SCH (17:47)
[2018-01-03] MEDS: D5W AND 1/2NSS 1,000 ML IV SCH (18:15)
[2018-01-03] MEDS ORDERED: ONDANSETRON INJ 2 MG/ML 2 ML VIAL ONE (19:43)
[2018-01-03] MEDS: NYSTATIN SUSP 500,000 U/5 ML UDC PO SCH (21:13)
[2018-01-03] MEDS: METOPROLOL TARTRATE 50 MG TAB PO SCH (21:13)
[2018-01-03 22:17] LABS: CALCIUM 8.1 mg/dl (8.5-10.1); CREATININE 0.86 mg/dl (0.60-1.20); PHOSPHORUS 2.7 mg/dl (2.5-4.9); POTASSIUM 3.4 mmol/L (3.5-5.1)
[2018-01-04] VITALS (19 sets, daily range): BP systolic 126–177; BP diastolic 78–111; PULSE 67–135; TEMP 36.7–37.2; O2SAT 91–100
--- NOTE | 2018-01-04 00:27 | Critical Care Progress Note ---
Critical Care Progress Note Date of Service Jan 03, 2018. Critical Care Progress Note On reevaluation, patient's daughters present at bedside. I discussed with family regarding continued care and current status. Went over laboratory results to this point. Patient complaining of severe nausea and actively attempting to vomit. She was provided one-time dose of 4 mg Zofran intravenously. In addition, we did temporarily stop the tube feeds and I requested nursing staff to perform residuals which were found to be approximately 5 cc. On review of labs, the patient did have a potassium of 3.3. Given that the patient had been on bicarb drip as well as Lasix recently, I did elect to perform repeat PRP to evaluate potassium levels in the setting of recent dysrhythmias. Will continue to monitor.
[2018-01-04] MEDS: METOPROLOL TARTRATE 1 MG/ML VIAL IV PRN ×2 (00:29→06:47)
[2018-01-04] MEDS ORDERED: ONDANSETRON INJ 6 MG in DEXTROSE 5% 50ML 50 ML IV PRN (00:30)
[2018-01-04] MEDS: METRONIDAZOLE / NSS 500 MG in PREMIXED NSS 100 ML IV SCH ×3 (05:54→21:53)
[2018-01-04 06:13] LABS: HEMATOCRIT 33.5 % (37-47); HEMOGLOBIN 11.5 g/dL (12.0-16.0); MEAN CELL VOLUME 81.3 fL (80-100); MEAN CORPUSCULAR HEMOGLOBIN 27.9 pg (25-34); MEAN CORPUSCULAR HGB CONC 34.3 g/dl (32-36); MEAN PLATELET VOLUME 11.3 fL (7.4-10.4); NUCLEATED RED BLOOD CELL ABS 0.06 K/uL (0-0); PLATELET COUNT 296 K/uL (130-400); RED CELL DISTRIBUTION WIDTH CV 13.7 % (11.5-14.5); RED CELL DISTRIBUTION WIDTH SD 40.5 fL (36.4-46.3); WHITE BLOOD COUNT 17.67 K/uL (4.8-10.8)
[2018-01-04 06:32] LABS: CALCIUM 8.5 mg/dl (8.5-10.1); CREATININE 0.77 mg/dl (0.60-1.20); PHOSPHORUS 2.6 mg/dl (2.5-4.9); POTASSIUM 3.1 mmol/L (3.5-5.1)
[2018-01-04 06:45] LABS: PTT PATIENT 50.7 SECONDS (21.0-31.0)
--- NOTE | 2018-01-04 07:01 | Progress Note ---
Subjective Date of Service: Jan 04, 2018. Subjective afebrile, tolerating abx. repeat blood cultures negative. wbc much improved. Problem List Medical Problems: (1) Anasarca Status: Acute (2) Atrial fibrillation with RVR Status: Acute (3) C. difficile diarrhea Status: Acute (4) Elevated troponin Status: Acute (5) Hyperthyroidism Status: Acute (6) Hypotension Status: Acute (7) Left leg cellulitis Status: Acute (8) Left leg pain Status: Acute (9) Right-sided heart failure Status: Acute (10) Sepsis Status: Acute Objective Vital Signs Date Time Temp Pulse Resp B/P (MAP) Pulse Ox O2 Delivery O2 Flow Rate FiO2 01/04/18 06:47 120 145/111 01/04/18 06:00 120 23 145/111 (122) 97 01/04/18 04:07 Nasal Cannula 3.0 01/04/18 04:00 86 22 177/94 (121) 97 01/04/18 02:00 89 27 176/90 (118) 96 01/04/18 00:32 Nasal Cannula 3.0 01/04/18 00:29 84 167/94 01/04/18 00:01 86 26 167/94 (118) 94 Nasal Cannula 3.0 01/03/18 22:00 84 23 153/78 (103) 96 Nasal Cannula 4.0 01/03/18 20:58 Nasal Cannula 3.0 01/03/18 19:31 36.4 01/03/18 18:01 36.8 95 23 169/76 (107) 95 01/03/18 17:31 97 28 163/75 (104) 95 01/03/18 17:01 93 29 162/74 (103) 96 01/03/18 16:44 140 180/97 01/03/18 16:31 85 31 180/97 (124) 98 01/03/18 16:31 85 31 180/97 (124) 98 01/03/18 16:30 83 25 183/97 (125) 97 01/03/18 16:30 83 25 183/97 (125) 97 01/03/18 16:01 83 22 183/108 (133) 95 01/03/18 16:00 96 Nasal Cannula 3.0 01/03/18 15:01 84 22 163/87 (112) 96 01/03/18 14:31 85 18 156/80 (105) 96 01/03/18 14:01 36.9 88 29 155/79 (104) 95 3.0 01/03/18 14:01 88 29 155/79 (104) 95 01/03/18 13:31 85 18 162/82 (108) 96 3.0 01/03/18 13:01 82 16 157/82 (107) 96 3.0 01/03/18 12:31 83 20 174/99 (124) 97 3.0 01/03/18 12:14 81 163/84 01/03/18 12:01 36.7 80 21 163/84 (110) 96 01/03/18 12:00 96 Nasal Cannula 3.0 01/03/18 11:31 79 16 158/74 (102) 95 01/03/18 11:01 80 16 150/78 (102) 96 01/03/18 10:31 96 12 164/81 (108) 95 Nasal Cannula 3.0 01/03/18 10:30 95 5 95 01/03/18 10:30 95 5 95 01/03/18 10:01 98 19 171/83 (112) 96 Nasal Cannula 3.0 01/03/18 10:00 98 12 95 01/03/18 09:31 100 22 167/80 (109) 95 Nasal Cannula 3.0 01/03/18 09:30 101 22 95 Nasal Cannula 3.0 01/03/18 09:00 101 20 167/80 (109) 94 Nasal Cannula 3.0 01/03/18 09:00 101 20 94 01/03/18 08:31 93 22 188/96 (126) 98 Oxymask 01/03/18 08:00 93 21 96 Oxymask 01/03/18 08:00 96 Oxymask 5.0 01/03/18 07:31 92 20 178/97 (124) 96 Oxymask Laboratory Results Item Value Date Time Blood Culture - Final Complete 12/29/17 2245 Blood Escherichia Coli Blood Culture - Final Complete 12/29/17 2250 Blood Escherichia Coli C.difficile Toxin B Gene (PCR) - Final Complete 12/30/17 2245 Stool Positive for C. difficile toxin B gene Blood Culture - Preliminary Resulted 01/01/18 1428 Blood NO GROWTH TO DATE. Blood Culture - Preliminary Resulted 01/01/18 1435 Blood NO GROWTH TO DATE. Last 24 Hours Test 01/03/18 21:22 01/04/18 05:46 Sodium Level 144 mmol/L 144 mmol/L Potassium Level 3.4 mmol/L 3.1 mmol/L Chloride Level 109 mmol/L 108 mmol/L Carbon Dioxide Level 29 mmol/L 27 mmol/L Anion Gap 6.0 mmol/L 9.0 mmol/L Blood Urea Nitrogen 34 mg/dl 28 mg/dl Creatinine 0.86 mg/dl 0.77 mg/dl Est Creatinine Clear Calc Drug Dose 58.4 ml/min 64.8 ml/min Estimated GFR () 85.1 97.3 Estimated GFR (Non- 73.4 83.9 BUN/Creatinine Ratio 39.4 36.9 Random Glucose 151 mg/dl 156 mg/dl Calcium Level 8.1 mg/dl 8.5 mg/dl Phosphorus Level 2.7 mg/dl 2.6 mg/dl Magnesium Level 1.8 mg/dl 2.1 mg/dl White Blood Count 17.67 K/uL Red Blood Count 4.12 M/uL Hemoglobin 11.5 g/dL Hematocrit 33.5 % Mean Corpuscular Volume 81.3 fL Mean Corpuscular Hemoglobin 27.9 pg Mean Corpuscular Hemoglobin Concent 34.3 g/dl RDW Standard Deviation 40.5 fL RDW Coefficient of Variation 13.7 % Platelet Count 296 K/uL Mean Platelet Volume 11.3 fL Nucleated RBC Absolute Count (auto) 0.06 K/uL Nucleated Red Blood Cells % 0.3 % Activated Partial Thromboplast Time 50.7 SECONDS Partial Thromboplastin Ratio 2.0 Assessment and Plan (1) C. difficile diarrhea Assessment & Plan: continue po vanco. continue ctx x 14 days from first negative cultures. would give 28 days po vanco.
[2018-01-04] MEDS: PROSOURCE NOCARB 30ML/PKT NG SCH (07:42)
[2018-01-04] MEDS: METOPROLOL TARTRATE 50 MG TAB PO SCH ×3 (07:42→21:52)
[2018-01-04] MEDS: RASPBERRY SYRUP 5 ML UDP PO SCH ×4 (07:43→21:53)
[2018-01-04] MEDS: NYSTATIN SUSP 500,000 U/5 ML UDC PO SCH ×4 (07:43→21:53)
[2018-01-04] MEDS: VANCOMYCIN HCL 500 MG/10ML SOLN PO SCH ×4 (07:44→21:53)
--- NOTE | 2018-01-04 07:44 | Surgery Progress Note ---
Surgery Progress Note Date of Service Jan 04, 2018. Subjective Post OP Day: HD 6 + complaints (abdominal pain), + bowel movement, + flatus, + diet (TF via ngt) Objective Vital Signs: Date Time Temp Pulse Resp B/P (MAP) Pulse Ox O2 Delivery O2 Flow Rate FiO2 01/04/18 06:47 120 145/111 01/04/18 06:00 120 23 145/111 (122) 97 01/04/18 04:07 Nasal Cannula 3.0 01/04/18 04:00 86 22 177/94 (121) 97 01/04/18 02:00 89 27 176/90 (118) 96 01/04/18 00:32 Nasal Cannula 3.0 01/04/18 00:29 84 167/94 01/04/18 00:01 86 26 167/94 (118) 94 Nasal Cannula 3.0 01/03/18 22:00 84 23 153/78 (103) 96 Nasal Cannula 4.0 01/03/18 20:58 Nasal Cannula 3.0 01/03/18 19:31 36.4 01/03/18 18:01 36.8 95 23 169/76 (107) 95 01/03/18 17:31 97 28 163/75 (104) 95 01/03/18 17:01 93 29 162/74 (103) 96 01/03/18 16:44 140 180/97 01/03/18 16:31 85 31 180/97 (124) 98 01/03/18 16:31 85 31 180/97 (124) 98 01/03/18 16:30 83 25 183/97 (125) 97 01/03/18 16:30 83 25 183/97 (125) 97 01/03/18 16:01 83 22 183/108 (133) 95 01/03/18 16:00 96 Nasal Cannula 3.0 01/03/18 15:01 84 22 163/87 (112) 96 01/03/18 14:31 85 18 156/80 (105) 96 01/03/18 14:01 36.9 88 29 155/79 (104) 95 3.0 01/03/18 14:01 88 29 155/79 (104) 95 01/03/18 13:31 85 18 162/82 (108) 96 3.0 01/03/18 13:01 82 16 157/82 (107) 96 3.0 01/03/18 12:31 83 20 174/99 (124) 97 3.0 01/03/18 12:14 81 163/84 01/03/18 12:01 36.7 80 21 163/84 (110) 96 01/03/18 12:00 96 Nasal Cannula 3.0 01/03/18 11:31 79 16 158/74 (102) 95 01/03/18 11:01 80 16 150/78 (102) 96 01/03/18 10:31 96 12 164/81 (108) 95 Nasal Cannula 3.0 01/03/18 10:30 95 5 95 01/03/18 10:30 95 5 95 01/03/18 10:01 98 19 171/83 (112) 96 Nasal Cannula 3.0 01/03/18 10:00 98 12 95 01/03/18 09:31 100 22 167/80 (109) 95 Nasal Cannula 3.0 01/03/18 09:30 101 22 95 Nasal Cannula 3.0 01/03/18 09:00 101 20 167/80 (109) 94 Nasal Cannula 3.0 01/03/18 09:00 101 20 94 01/03/18 08:31 93 22 188/96 (126) 98 Oxymask 01/03/18 08:00 93 21 96 Oxymask 01/03/18 08:00 96 Oxymask 5.0 General Appearance: WD/WN, no apparent distress Head: normocephalic, atraumatic Neck: supple, trachea midline Respiratory/Chest: lungs clear Cardiovascular: + tachycardia Abdomen: normal bowel sounds, soft, + distended (less), + tenderness (less) Extremities: non-tender, no pedal edema Laboratory Results: Results Past 24 Hours Test 01/03/18 21:22 01/04/18 05:46 Range/Units Sodium Level 144 144 136-145 mmol/L Potassium Level 3.4 3.1 3.5-5.1 mmol/L Chloride Level 109 108 98-107 mmol/L Carbon Dioxide Level 29 27 21-32 mmol/L Anion Gap 6.0 9.0 3-11 mmol/L Blood Urea Nitrogen 34 28 7-18 mg/dl Creatinine 0.86 0.77 0.60-1.20 mg/dl Est Creatinine Clear Calc Drug Dose 58.4 64.8 ml/min Estimated GFR () 85.1 97.3 Estimated GFR (Non- 73.4 83.9 BUN/Creatinine Ratio 39.4 36.9 10-20 Random Glucose 151 156 70-99 mg/dl Calcium Level 8.1 8.5 8.5-10.1 mg/dl Phosphorus Level 2.7 2.6 2.5-4.9 mg/dl Magnesium Level 1.8 2.1 1.8-2.4 mg/dl White Blood Count 17.67 4.8-10.8 K/uL Red Blood Count 4.12 4.2-5.4 M/uL Hemoglobin 11.5 12.0-16.0 g/dL Hematocrit 33.5 37-47 % Mean Corpuscular Volume 81.3 80-100 fL Mean Corpuscular Hemoglobin 27.9 25-34 pg Mean Corpuscular Hemoglobin Concent 34.3 32-36 g/dl RDW Standard Deviation 40.5 36.4-46.3 fL RDW Coefficient of Variation 13.7 11.5-14.5 % Platelet Count 296 130-400 K/uL Mean Platelet Volume 11.3 7.4-10.4 fL Nucleated RBC Absolute Count (auto) 0.06 0-0 K/uL Nucleated Red Blood Cells % 0.3 % Activated Partial Thromboplast Time 50.7 21.0-31.0 SECONDS Partial Thromboplastin Ratio 2.0 Procalcitonin 11.75 0-0.5 ng/ml Assessment & Plan Sepsis from c.diff colitis -responding to abx -WBC down -more alert -slow progress
[2018-01-04] MEDS: HYDROmorphone INJ 0.5 MG/0.5 ML SYR IV PRN (07:47)
[2018-01-04] MEDS: D5W AND 1/2NSS 1,000 ML IV SCH ×2 (07:47→21:52)
--- NOTE | 2018-01-04 11:14 | PROGRESS NOTE ---
DATE: 01/04/2018 CARDIOLOGY CONSULTATION FOLLOWUP NOTE SUBJECTIVE: The patient appears brighter this morning, does answer some questions. Notes no focal complaints, is receiving tube feedings. Abdomen appears to be working better per her description. OBJECTIVE: VITAL SIGNS: Heart rate is 73, blood pressure is 154/88. Telemetry revealed transient run of atrial fibrillation with rapid ventricular response earlier this morning. NECK: Thin. There is no jugular venous distention. LUNGS: Notable for mildly diminished breath sounds. ABDOMEN: Soft. EXTREMITIES: Without cyanosis or clubbing. There is no peripheral edema. LABORATORY STUDIES: Sodium is 144, potassium is 3.1, chloride is 108, BUN is 28, creatinine is 0.77. White cell count is 17.6, hemoglobin is 11.5. IMPRESSION: A 62-year-old female critically ill, admitted with acute sepsis, E. coli/C. difficile with echocardiogram demonstrating biventricular systolic heart failure, evidence of acute renal insufficiency. The patient is now demonstrating post-acute tubular necrosis diuresis, transient atrial fibrillation occurs. She is tolerating beta luis and we would continue so, avoid diltiazem in this patient. Potassium has been ordered for replacement as appropriate. We will review echocardiogram.
--- NOTE | 2018-01-04 11:19 | PROGRESS NOTE ---
DATE: 01/04/2018 SUBJECTIVE: [place] looks even brighter than she did yesterday. She is oriented to place, little vague about what town we are in, a little soft on the year and the date, but things are better. She is more active. Family is pleased with her progress and while she is not nearly at her baseline, the direction seems to be that of daily improvement. Apparently, she had a little run of atrial fibrillation which is now back to sinus rhythm. She is being treated by cardiology is being seen by infectious disease and multiple specialists and at this point, I do not think neurology has a whole lot more to offer as long as she continues to improve. We will probably make another visit in a day or two, but for now I do not think we really need to do a CAT scan and I certainly do not think we need to do a repeat EEG as the first one showed only mild diffuse slowing and nothing, suggestive of ongoing nonconvulsive status epilepticus or potential seizure activity. KWESID
--- NOTE | 2018-01-04 11:20 | Progress Note ---
Internal Med Progress Note Date of Service: Jan 04, 2018. Provider Documentation: SUBJECTIVE: The patient was seen and examined She is recently moved from [place] without any significant past medical history. She has been complaining of bilateral leg swelling for the last 5 or 6 months. She has been complaining of more shortness of breath for the last 2 days associated with fever and chills. She also has frequency of urination but no dysuria She does not feel any better since admission 12/31 Went into AF with RVR last night and was transferred to ICU AA this AM but drowsy and less communicative during my exam Reverted to SR] 01/01 Confused Trying to communicate Very weak and lethargic 01/02 Worse this am but much better this afternoon Talking almost normally Discussed with the family members 01/03 Clinically a little better Trying to communicate 01/04 Much better today Rate is controlled with increasing dose of BB OBJECTIVE: Vital Signs-as noted below Exam: General-AA,pleasantly confused Drowsiness improves Remains shaky and weak Eyes-normal ENT-normal Neck-supple Lungs-decreased breath sounds both sides without any crackles. Heart-S1 and S2 regular, no murmur appreciated Abdomen-Moderately distended, moderately tender, bowel sounds sluggish Extremities-bilateral leg edema-1-2+ Edema is more pronounced on the left side along the thighs. Neuro-alert awake,pleasantly confused Generally weak Lab data as noted below. ASSESSMENT & PLAN: Metabolic Encephalopathy Multifactorial -sepsis,Hypotensive episode,Hypoxemia and Renal impairment Remained pleasantly confused-a little better today MRI of the Head-unremarkable Ammonia -normal Appreciate Neurology input Clinically a little better today Remains pleasantly confused-a little better C Diff Colitis Seems to be Severe attack Likely the cause of Deterioration Started on Oral Vancomycin and already on IV Flagyl May need Repeat CT of the Abd/Pel to r/o toxic megacolon/perforation-reasonably OK Appreciate Surgery input-no indication for surgery Abdominal fullness and tenderness are better Will need 28 days of PO Vancomycin in total AF with RVR -recurrent Likely secondary to Sepsis Contributed by Severely dilated Rt Atrium Started on IV Cardizem and IV Heparin Reverted to SR Increased Troponin likely due to CHF and Rate related Doubt any ACS ECHO as reported Sinus pauses on Cardizem drip-NO MORE CARDIZEM May use BB may require Amiodarone Reasonably controlled with BB-dose increased to 50mg BID Severe sepsis-Gm Negative Bacteremia SIRS plus lactic acidosis Possible sources :left lower extremity cellulitis,GI (colitis, SBP-ascites on CT )or UTI Doxycycline for cellulitis Cefepime and Flagyl for possible intraabdominal infection if any Continue current antibiotics Blood cultures-Gm Negative Bacilli-sensitivity pending Urine culture-pending Clinically worse Appreciate ID input-continue current medication WCC is improving ,repeat Blood cultures -negative Will need 14 days of IV Ceftriaxone from Neg Blood culture date SOB with Omer Legs Swelling and Bowel edema Likely secondary to Right Sided Hearty Failure Will give small amount of fluid for ongoing sepsis and low urine output Cardiology consulted ECHO-The right ventricle is moderate to severely dilated. * The right ventricular systolic function is severely reduced. * The right atrium is severely dilated. * There is trace tricuspid regurgitation. * Flattened septum is consistent with RV volume overload. * Left ventricular systolic function is moderately reduced. * Ejection Fraction = 35-40%. * Moderate global hypokinesis of the left ventricle. * The inferior vena cava is severely dilated. * Trivial loculated posterior pericardial effusion. * There are no echocardiographic indications of cardiac tamponade. YI Deteriorated overnight Multifactorial Intervascular dehydration, hypotension,Embolic disease,and contrast induced Will give more IV fluid Monitor PRP-worsening Kidney function A Little better-not for Dialysis yet Renal function is Normalized HTN On BB,Hydralazine and need small dose of Nitro Possible Cirrhosis. Possibly from RSHF, passive congestion (unknown duration) Appreciate GI evaluation GI does not think the patient has Cirrhosis US abdomen -minimal ascites Abnormal Thyroid Function Likely secondary to Acute illness .Reactive Hyperthyroidism (possible Graves disease) new diagnosis-doubt Started on Methimazole -stopped today after discussion with the Green Plumber Will need OP Endocrine follow up Cortisone level unremarkable Chronic anemia, unknown baseline. Work up Thrombocytopenia secondary to sepsis, cirrhosis. DVT prophylaxis, SCDs RE thrombocytopenia. Full code. Discussed with the Daughter on 12/30/17 and 12/31 and 01/02 Vital Signs: Date Time Temp Pulse Resp B/P (MAP) Pulse Ox O2 Delivery O2 Flow Rate FiO2 01/04/18 10:01 73 19 154/88 (110) 97 01/04/18 09:31 78 20 158/93 (114) 96 01/04/18 09:01 80 19 157/99 (118) 96 01/04/18 08:01 37.2 89 25 170/94 (119) 98 Nasal Cannula 2.0 3/25/18 08:00 Nasal Cannula 2.0 01/04/18 07:45 82 24 158/93 (114) 97 01/04/18 07:01 135 28 143/102 (116) 97 01/04/18 06:47 120 145/111 01/04/18 06:00 120 23 145/111 (122) 97 01/04/18 04:07 Nasal Cannula 3.0 01/04/18 04:00 86 22 177/94 (121) 97 01/04/18 02:00 89 27 176/90 (118) 96 01/04/18 00:32 Nasal Cannula 3.0 01/04/18 00:29 84 167/94 01/04/18 00:01 86 26 167/94 (118) 94 Nasal Cannula 3.0 01/03/18 22:00 84 23 153/78 (103) 96 Nasal Cannula 4.0 01/03/18 20:58 Nasal Cannula 3.0 01/03/18 19:31 36.4 01/03/18 18:01 36.8 95 23 169/76 (107) 95 01/03/18 17:31 97 28 163/75 (104) 95 01/03/18 17:01 93 29 162/74 (103) 96 01/03/18 16:44 140 180/97 01/03/18 16:31 85 31 180/97 (124) 98 01/03/18 16:31 85 31 180/97 (124) 98 01/03/18 16:30 83 25 183/97 (125) 97 01/03/18 16:30 83 25 183/97 (125) 97 01/03/18 16:01 83 22 183/108 (133) 95 01/03/18 16:00 96 Nasal Cannula 3.0 01/03/18 15:01 84 22 163/87 (112) 96 01/03/18 14:31 85 18 156/80 (105) 96 01/03/18 14:01 36.9 88 29 155/79 (104) 95 3.0 01/03/18 14:01 88 29 155/79 (104) 95 01/03/18 13:31 85 18 162/82 (108) 96 3.0 01/03/18 13:01 82 16 157/82 (107) 96 3.0 01/03/18 12:31 83 20 174/99 (124) 97 3.0 01/03/18 12:14 81 163/84 01/03/18 12:01 36.7 80 21 163/84 (110) 96 01/03/18 12:00 96 Nasal Cannula 3.0 01/03/18 11:31 79 16 158/74 (102) 95 Lab Results: Results Past 24 Hours Test 01/03/18 21:22 01/04/18 05:46 Range/Units Sodium Level 144 144 136-145 mmol/L Potassium Level 3.4 3.1 3.5-5.1 mmol/L Chloride Level 109 108 98-107 mmol/L Carbon Dioxide Level 29 27 21-32 mmol/L Anion Gap 6.0 9.0 3-11 mmol/L Blood Urea Nitrogen 34 28 7-18 mg/dl Creatinine 0.86 0.77 0.60-1.20 mg/dl Est Creatinine Clear Calc Drug Dose 58.4 64.8 ml/min Estimated GFR () 85.1 97.3 Estimated GFR (Non- 73.4 83.9 BUN/Creatinine Ratio 39.4 36.9 10-20 Random Glucose 151 156 70-99 mg/dl Calcium Level 8.1 8.5 8.5-10.1 mg/dl Phosphorus Level 2.7 2.6 2.5-4.9 mg/dl Magnesium Level 1.8 2.1 1.8-2.4 mg/dl White Blood Count 17.67 4.8-10.8 K/uL Red Blood Count 4.12 4.2-5.4 M/uL Hemoglobin 11.5 12.0-16.0 g/dL Hematocrit 33.5 37-47 % Mean Corpuscular Volume 81.3 80-100 fL Mean Corpuscular Hemoglobin 27.9 25-34 pg Mean Corpuscular Hemoglobin Concent 34.3 32-36 g/dl RDW Standard Deviation 40.5 36.4-46.3 fL RDW Coefficient of Variation 13.7 11.5-14.5 % Platelet Count 296 130-400 K/uL Mean Platelet Volume 11.3 7.4-10.4 fL Nucleated RBC Absolute Count (auto) 0.06 0-0 K/uL Nucleated Red Blood Cells % 0.3 % Activated Partial Thromboplast Time 50.7 21.0-31.0 SECONDS Partial Thromboplastin Ratio 2.0 Procalcitonin 11.75 0-0.5 ng/ml
[2018-01-04] MEDS: PANTOprazole INJ 40 MG in SYRINGE 0 ML IV SCH (12:10)
[2018-01-04] MEDS: HEPARIN 25,000 UNIT/500ML D5W 500 ML IV SCH (12:10)
--- NOTE | 2018-01-04 12:37 | Critical Care Progress Note ---
Critical Care Progress Note Date of Service Jan 04, 2018. Attending Dr. Sosa Subjective The patient is becoming more awake, following commands and answering questions, she denies any pain, no events occurred overnight, one episode of rapid A. fib responded to a single dose of addition of Lopressor IV. Objective Her physical exam on 01/01/2018 revealed no fever, O2 saturation is 95%, blood pressure elevated to 186/96, probably due to agony. Respiratory rate is 18. Positive JVP, S1-S2 regular rate and rhythm. Distant breath sounds bilaterally. Abdomen is distended and tender diffusely. Left leg is more edematous than the right leg. No pain. Except below the knee area. No calves pain. Neurologically she is nonfocal but continued to be confused. Her physical exam on 01/02/2018 revealed, no fever but her O2 saturation is variable between 88-93% on nasal cannula currently on oxygen mask. The patient heart examination S1-S2 irregularly irregular with tachycardia accompanied with areas of pauses. Bilateral lower ex extremity edema, the lungs actually with bilateral diminished breath sounds and minimal crackles. Abdomen is still distended and tender mainly in the left lower quadrant. Her labs were reviewed as well as a CAT scan of the abdomen which showed bowel wall thickening mainly in the ascending colon, ascites was noted and anasarca. Bilateral pleural effusion with compressive atelectasis also noted. Physical exam on 01/03/2018 revealed lethargic patient, vital signs are stable, no recurrence of abnormal rhythm, heart rate in the range of 83, but the blood pressure remains in the range of 153, S1-S2 regular rate and rhythm, bilateral crackles mainly at the bases, abdomen is soft nontender except in the pelvic area, swelling in her left lower extremity has resolved, the patient overall is just lethargic but nonfocal. Laboratory and imaging also were reviewed and her potassium was repleted. I have reviewed all the data myself with Dr. Llamas who is her daughter. Physical exam on 01/04/2018 revealed more awake female currently does not have any pain or agony, vital signs remained stable, O2 saturation has been 93% on nasal cannula, NG tube in place, positive JVP, S1-S2 regular rate and rhythm, distant breath sounds bilaterally, abdomen is soft and benign, no swelling in her left leg anymore. Her laboratory also were reviewed showing reduction in her WBC, potassium has been on the low side, the rest of her labs are nonrevealing. No new microbiology. Assessment & Plan 1. Sepsis, improving, due to E. coli bacteremia with pansensitive to antibiotics as well as C. difficile colitis. 2. Right ventricular failure. WITH severe pulmonary hypertension, etiology is unknown. 3. C. difficile colitis, intra-abdominal pressure is improving and now down to 11. 4. Left leg edema with left sided retroperitoneal lymphadenopathy of unknown etiology, to be addressed in the future. 5. Persistent hypertension. 6. Cardiomyopathy with ejection fraction of 35%, fluid overload that responded to Lasix. 7. Likely the patient has sick euthyroid syndrome. This does not require any treatment. 8. Difficulty swallowing due to lethargy, her mental status was altered and remains altered with marginal improvement on a daily basis. 9. Acute kidney insufficiency, likely related to contrast-induced nephropathy. Plan: 1. continue with Vanco via the NG tube. 2. Continue ceftriaxone 2 g daily for E. coli bacteremia. This can be translocation from the GI tract but most likely from UTI recently. 3. Increase Lopressor to 50 mg NG tube 3 times daily. 4. Continue with Lopressor IV as needed. For heart rate more than 120. 5. Discussed with Dr. Llamas who is her daughter and notified about the plan. She is in agreement. 6. Replacement of potassium with potassium chloride 40 mEq 2 doses. 7. Continue to trend leukocytosis as it has been improving significantly. 8. The patient swallowing has been problematic. We will ask speech pathology in the morning to evaluate. 9. Appreciate Dr. Newell input from cardiology. 10. Continue with heparin drip. 11. I will start the patient empirically on Eliquis as she is not going for a procedure soon. 12. Once the patient started on Eliquis, I will stop heparin drip. 13. The patient is on Peptamen tube feeding and we will advance it to goal at 40 mL an hour. Appreciate nutrition consult. 14. Renal function has returned to normal and improved. The patient is not oliguric anymore. 15. No need for additional Lasix. 16. Once the patient at goal with the tube feeding, no need for further IV fluid. Case discussed with the staff on rounds and details. And with the patient's daughter Dr. Llamas. All questions been answered. Critical care time spent with the patient was 45 minutes. Data Medications: Current Inpatient Medications Medications (Trade) Dose Ordered Sig/Sera Route Start Time Stop Time Status Last Admin Dose Admin Acetaminophen (Tylenol Tab) 325 mg Q6H PRN PO 12/30/17 03:15 01/29/18 03:14 12/30/17 23:29 325 MG Prochlorperazine Edisylate 5 mg/ Syringe 5 ml @ 5 mls/min Q6H PRN IV 12/30/17 03:15 01/29/18 03:14 Metronidazole 500 mg/Prmx 100 ml @ 100 mls/hr Q8H IV 12/30/17 14:00 01/09/18 13:59 01/04/18 05:54 100 MLS/HR Pantoprazole Sodium 40 mg/ Syringe 10 ml @ 5 mls/min DAILY@11 IV 12/31/17 11:00 01/30/18 10:59 01/04/18 12:10 5 MLS/MIN Raspberry (Raspberry Syrup 5ml Cup) 5 ml QID PO 12/31/17 09:30 01/14/18 09:29 01/04/18 12:11 5 ML Vancomycin HCl (Vancomycin Oral Soln) 500 mg QID PO 01/01/18 17:00 01/15/18 16:59 01/04/18 12:12 500 MG Hydromorphone HCl (Dilaudid Inj) 0.5 mg Q3H PRN IV 01/02/18 10:45 01/16/18 10:44 01/04/18 07:47 0.5 MG Ceftriaxone Sodium 2 gm/ Dextrose 50 ml @ 100 mls/hr Q24H IV 01/02/18 18:00 01/11/18 17:59 01/03/18 17:47 100 MLS/HR Heparin Sodium/ Dextrose 500 ml @ 13 mls/hr Q24H IV 01/02/18 11:30 02/01/18 11:29 01/02/18 19:43 13 MLS/HR Hydralazine HCl (HydrALAZINE INJ) 10 mg Q4 PRN IV. 01/02/18 17:15 02/01/18 17:14 01/03/18 16:44 10 MG Enteral Nutritional Formula (Peptamen 1.5) 1,000 ml UD NG 01/03/18 11:45 02/02/18 11:44 01/03/18 12:26 1,000 ML Enteral Nutritional Formula (Prosource No Carb) 30 ml DAILY@0900 NG 01/03/18 12:30 02/02/18 12:29 01/04/18 07:42 30 ML Nystatin (Mycostatin Susp) 5 ml QID PO 01/03/18 19:30 01/10/18 19:29 01/04/18 12:11 5 ML Dextrose/Sodium Chloride 1,000 ml @ 75 mls/hr [id number] IV 01/03/18 18:15 02/02/18 18:14 01/04/18 07:47 75 MLS/HR Metoprolol Tartrate (Lopressor Iv) 5 mg Q6H PRN IV 01/03/18 18:45 02/02/18 18:44 01/04/18 06:47 5 MG Ondansetron HCl 6 mg/Dextrose 53 ml @ 200 mls/hr Q6H PRN IV 01/04/18 00:30 02/03/18 00:29 01/04/18 07:48 200 MLS/HR Metoprolol Tartrate (Lopressor Tab) 50 mg TID PO 01/04/18 14:00 02/02/18 20:59 01/04/18 12:12 50 MG Potassium Chloride (Elvia Ciel Elix) 40 meq BID PO 01/04/18 21:00 02/03/18 20:59 Vital Signs: Date Time Temp Pulse Resp B/P (MAP) Pulse Ox O2 Delivery O2 Flow Rate FiO2 01/04/18 10:01 73 19 154/88 (110) 97 01/04/18 09:31 78 20 158/93 (114) 96 01/04/18 09:01 80 19 157/99 (118) 96 01/04/18 08:01 37.2 89 25 170/94 (119) 98 Nasal Cannula 2.0 01/04/18 08:00 Nasal Cannula 2.0 01/04/18 07:45 82 24 158/93 (114) 97 01/04/18 07:01 135 28 143/102 (116) 97 01/04/18 06:47 120 145/111 01/04/18 06:00 120 23 145/111 (122) 97 01/04/18 04:07 Nasal Cannula 3.0 01/04/18 04:00 86 22 177/94 (121) 97 01/04/18 02:00 89 27 176/90 (118) 96 01/04/18 00:32 Nasal Cannula 3.0 01/04/18 00:29 84 167/94 01/04/18 00:01 86 26 167/94 (118) 94 Nasal Cannula 3.0 01/03/18 22:00 84 23 153/78 (103) 96 Nasal Cannula 4.0 01/03/18 20:58 Nasal Cannula 3.0 01/03/18 19:31 36.4 01/03/18 18:01 36.8 95 23 169/76 (107) 95 01/03/18 17:31 97 28 163/75 (104) 95 01/03/18 17:01 93 29 162/74 (103) 96 01/03/18 16:44 140 180/97 01/03/18 16:31 85 31 180/97 (124) 98 01/03/18 16:31 85 31 180/97 (124) 98 01/03/18 16:30 83 25 183/97 (125) 97 01/03/18 16:30 83 25 183/97 (125) 97 01/03/18 16:01 83 22 183/108 (133) 95 01/03/18 16:00 96 Nasal Cannula 3.0 01/03/18 15:01 84 22 163/87 (112) 96 01/03/18 14:31 85 18 156/80 (105) 96 01/03/18 14:01 36.9 88 29 155/79 (104) 95 3.0 01/03/18 14:01 88 29 155/79 (104) 95 01/03/18 13:31 85 18 162/82 (108) 96 3.0 01/03/18 13:01 82 16 157/82 (107) 96 3.0 Laboratory Results: Last 24 Hours Test 01/03/18 21:22 01/04/18 05:46 01/04/18 11:43 Sodium Level 144 mmol/L 144 mmol/L Potassium Level 3.4 mmol/L 3.1 mmol/L Chloride Level 109 mmol/L 108 mmol/L Carbon Dioxide Level 29 mmol/L 27 mmol/L Anion Gap 6.0 mmol/L 9.0 mmol/L Blood Urea Nitrogen 34 mg/dl 28 mg/dl Creatinine 0.86 mg/dl 0.77 mg/dl Est Creatinine Clear Calc Drug Dose 58.4 ml/min 64.8 ml/min Estimated GFR () 85.1 97.3 Estimated GFR (Non- 73.4 83.9 BUN/Creatinine Ratio 39.4 36.9 Random Glucose 151 mg/dl 156 mg/dl Calcium Level 8.1 mg/dl 8.5 mg/dl Phosphorus Level 2.7 mg/dl 2.6 mg/dl Magnesium Level 1.8 mg/dl 2.1 mg/dl White Blood Count 17.67 K/uL Red Blood Count 4.12 M/uL Hemoglobin 11.5 g/dL Hematocrit 33.5 % Mean Corpuscular Volume 81.3 fL Mean Corpuscular Hemoglobin 27.9 pg Mean Corpuscular Hemoglobin Concent 34.3 g/dl RDW Standard Deviation 40.5 fL RDW Coefficient of Variation 13.7 % Platelet Count 296 K/uL Mean Platelet Volume 11.3 fL Nucleated RBC Absolute Count (auto) 0.06 K/uL Nucleated Red Blood Cells % 0.3 % Activated Partial Thromboplast Time 50.7 SECONDS Partial Thromboplastin Ratio 2.0 Procalcitonin 11.75 ng/ml Bedside Glucose 187 mg/dl
[2018-01-04] MEDS ORDERED: NURSING VERBAL MED ORDER ONE (15:30)
[2018-01-04] MEDS ORDERED: STOP HEPARIN DRIP ONE ×2 (16:00→21:00)
[2018-01-04] MEDS: APIXABAN 2.5 MG TAB PO SCH (16:17)
[2018-01-04] MEDS: POTASSIUM CHLORIDE 20 MEQ/15 ML UDC PO SCH (16:19)
[2018-01-04] MEDS: CEFTRIAXONE SOD INJ 2 GM in DEXTROSE 5% ADD-VANTAGE 50ML 50 ML IV SCH (17:39)
[2018-01-04] MEDS ORDERED: APIXABAN 2.5 MG TAB PO SCH (21:00)
[2018-01-05] VITALS (9 sets, daily range): BP systolic 131–205; BP diastolic 82–145; PULSE 66–84; TEMP 36.3–36.7; O2SAT 95–98
--- NOTE | 2018-01-05 01:36 | Progress Note ---
Post ICU Progress Note Date & Time Jan 05, 2018 at 01:30 Vital Signs Vital Signs Past 12 Hours Date Time Temp Pulse Resp B/P (MAP) Pulse Ox O2 Delivery O2 Flow Rate FiO2 01/05/18 00:06 Nasal Cannula 2.0 01/04/18 23:58 36.7 69 26 158/93 (114) 91 01/04/18 20:24 Nasal Cannula 2.0 01/04/18 19:04 36.8 74 22 169/95 (119) 96 Nasal Cannula 2.5 01/04/18 16:02 36.7 72 26 126/79 (95) 97 Nasal Cannula 2.0 01/04/18 16:00 Nasal Cannula 2.0 01/04/18 15:01 70 25 150/79 (102) 95 Nasal Cannula 2.0 01/04/18 14:01 68 23 136/81 (99) 96 Nasal Cannula 2.0 Notes Mental Status: see Notes Nausea / Vomiting: adequately controlled Pain: adequately controlled Airway Patency, RR, SpO2: see Notes BP & HR: stable & adequate Patient is a 62-year-old female who initially was admitted to the ICU in A. fib with rapid RVR in the setting of sepsis with decompensated RIGHT-sided heart failure with anasarca. Eventually, she converted after IV Cardizem drip. Since that time, her symptomatic paroxysmal A. fib has been controlled with as needed doses of metoprolol. The patient has continued with aggressive antibiotic therapies as well as oral antibiotics for a C. difficile infection. Repeat blood cultures were unremarkable from initial cultures that were both positive for E. coli bacteremia. Her white count continues to steadily improve as does pro-Jose Angel. Initially, patient with acute renal failure with a creatinine greater than 3. She eventually began to diuresis and has since improved her volume status. Additionally, her kidney function has rebounded to a near normal state. Mentally, the patient continues to improve, however very slowly. On evaluation, the patient is resting comfortably. She is asleep but easily wakes. She is unable to offer any complaints at this point. Consider outpatient follow up in 1 to 2 weeks with: PCP, Cardiology Repeat imaging needed: Would consider repeat images of Abd/Pelvis if abd pain returns in the setting of C.diff infection. Follow up cultures: None at this point as her repeat cultures were found to be unremarkable. Reviewed progress notes, labs, and inpatient medication list Continue current management Additional recommendations: Continue to monitor the patient's K+ closely as she was aggressively diuresed and had previously been on a HCO3 gtt. Thank you for allowing us to participate in the care of this patient. At this time, Critical Care Services will sign off on this case. Please feel free to reconsult as needed.
[2018-01-05] MEDS: HydrALAZINE HCL 20 MG/ML VIAL IV. PRN ×2 (03:49→09:57)
[2018-01-05] MEDS: METRONIDAZOLE / NSS 500 MG in PREMIXED NSS 100 ML IV SCH ×3 (05:50→20:42)
[2018-01-05] MEDS: APIXABAN 2.5 MG TAB PO SCH ×2 (05:51→20:42)
[2018-01-05] MEDS: METOPROLOL TARTRATE 1 MG/ML VIAL IV PRN (05:51)
[2018-01-05 06:38] LABS: PTT PATIENT 35.4 SECONDS (21.0-31.0)
[2018-01-05 07:35] LABS: HEMATOCRIT 35.3 % (37-47); HEMOGLOBIN 11.8 g/dL (12.0-16.0); MEAN CELL VOLUME 83.3 fL (80-100); MEAN CORPUSCULAR HEMOGLOBIN 27.8 pg (25-34); MEAN CORPUSCULAR HGB CONC 33.4 g/dl (32-36); MEAN PLATELET VOLUME 11.2 fL (7.4-10.4); NUCLEATED RED BLOOD CELL ABS 0.07 K/uL (0-0); PLATELET COUNT 364 K/uL (130-400); RED CELL DISTRIBUTION WIDTH CV 13.9 % (11.5-14.5); RED CELL DISTRIBUTION WIDTH SD 41.9 fL (36.4-46.3); WHITE BLOOD COUNT 17.75 K/uL (4.8-10.8)
[2018-01-05 07:49] LABS: CALCIUM 8.4 mg/dl (8.5-10.1); CREATININE 0.81 mg/dl (0.60-1.20); POTASSIUM 3.6 mmol/L (3.5-5.1)
--- NOTE | 2018-01-05 09:01 | ECHOCARDIOGRAM REPORT ---
*NOTICE TO RECEIVING [employer] This information is strictly Confidential and protected under [place] law. [place] law prohibits you from making any further disclosure of this information unless further disclosure is expressly permitted by the written consent of the person to whom it pertains or is authorized by law. A general authorization for the release of medical or other information is not sufficient for this purpose. Hospital accepts no responsibility if the information is made available to any other person, INCLUDING THE PATIENT. Interpretation Summary * Name: ALLI ADAMES Study Date: 01/05/2018 06:23 AM BP: 171/96 mmHg * Patient Location: C.2E\S\E201\S\1 HR: 87 * : 1955 (M/d/yyyy) Gender: Female Height: 64 in * Age: 62 yrs Ethnicity: AA Weight: 116 lb * Ordering Physician: Abril Sosa * Referring Physician: Self, Referred * Performed By: Henrietta Bueno RCS * * Reason For Study: Pulmonary HTN * BSA: 1.6 m2 * -- Conclusions -- * The left ventricle is normal in size. * There is mild concentric left ventricular hypertrophy. * There is mild global hypokinesis of the left ventricle. * Ejection Fraction = 40-45%. * The left atrium is mildly dilated. * The right atrium is severely dilated. * The right ventricular systolic function is mildly reduced. * There is trace mitral regurgitation. * There is moderate tricuspid regurgitation. * Right ventricular systolic pressure is elevated at 50-60mmHg. * Moderate size left pleural effusion. * In comparison to prior, overal LV and RV systolic function has improved Procedure Details * A complete two-dimensional transthoracic echocardiogram was performed (2D, M-mode, Doppler and color flow Doppler). Left Ventricle * The left ventricle is normal in size. * There is mild concentric left ventricular hypertrophy. * Ejection Fraction = 40-45%. * There is mild global hypokinesis of the left ventricle. Right Ventricle * The right ventricle is mildly dilated. * The right ventricular systolic function is mildly reduced. Atria * The left atrium is mildly dilated. * The right atrium is severely dilated. * No ASD detected; PFO is not assessed. Mitral Valve * The mitral valve anatomy is normal. * There is no mitral valve stenosis. * There is trace mitral regurgitation. Tricuspid Valve * The tricuspid valve anatomy is normal. * There is no tricuspid stenosis. * There is moderate tricuspid regurgitation. * Right ventricular systolic pressure is elevated at 50-60mmHg. Aortic Valve * The aortic valve is trileaflet. * No hemodynamically significant valvular aortic stenosis. * No aortic regurgitation is present. Pulmonic Valve * The pulmonic valve is not well visualized. Great Vessels * The aortic root is normal size. Pericardium/Pleural * There is a trivial pericardial effusion. * Moderate size left pleural effusion. Great Vessels * Normal inferior vena cava diameter and respiratory variation suggests normal central venous pressure. MMode 2D Measurements and Calculations IVSd 1.1 cm IVSs 1.3 cm LVIDd 3.7 cm LVIDs 2.9 cm LVPWd 1.5 cm LVPWs 2.8 cm IVS/LVPW 0.77 FS 23.1 % EDV(Teich) 59.4 ml ESV(Teich) 31.4 ml EF(Teich) 47.2 % EDV(cubed) 52.0 ml ESV(cubed) 23.6 ml EF(cubed) 54.6 % % IVS thick 19.0 % % LVPW thick 94.8 % LV mass(C)d 166.6 grams LV mass(C)dI 107.3 grams/m\S\2 LV mass(C)s 271.6 grams LV mass(C)sI 175.0 grams/m\S\2 SV(Teich) 28.0 ml SI(Teich) 18.1 ml/m\S\2 SV(cubed) 28.4 ml SI(cubed) 18.3 ml/m\S\2 Ao root diam 3.1 cm Ao root area 7.3 cm\S\2 ACS 1.7 cm EDV(MOD-sp4) 69.0 ml ESV(MOD-sp4) 37.0 ml EF(MOD-sp4) 46.4 % EDV(MOD-sp2) 69.0 ml ESV(MOD-sp2) 43.0 ml EF(MOD-sp2) 37.7 % SV(MOD-sp4) 32.0 ml SI(MOD-sp4) 20.6 ml/m\S\2 SV(MOD-sp2) 26.0 ml SI(MOD-sp2) 16.8 ml/m\S\2 Doppler Measurements and Calculations MV E max edward 122.4 cm/sec MV A max edward 67.4 cm/sec MV E/A 1.8 MV dec time 0.16 sec Ao V2 max 151.4 cm/sec Ao max PG 9.2 mmHg Ao max PG (full) 3.1 mmHg LV V1 max PG 6.1 mmHg LV V1 max 123.5 cm/sec PA V2 max 88.6 cm/sec PA max PG 3.2 mmHg PI max edward 273.4 cm/sec PI max PG 29.9 mmHg PI dec slope 507.3 cm/sec\S\2 PI P1/2t 157.8 msec TR max edward 305.6 cm/sec
[2018-01-05] MEDS: NYSTATIN SUSP 500,000 U/5 ML UDC PO SCH ×4 (09:56→20:42)
[2018-01-05] MEDS: VANCOMYCIN HCL 500 MG/10ML SOLN PO SCH ×4 (09:56→20:55)
[2018-01-05] MEDS: PROSOURCE NOCARB 30ML/PKT NG SCH (09:56)
[2018-01-05] MEDS: RASPBERRY SYRUP 5 ML UDP PO SCH ×4 (09:56→20:41)
[2018-01-05] MEDS: POTASSIUM CHLORIDE 20 MEQ/15 ML UDC PO SCH ×2 (09:57→20:41)
[2018-01-05] MEDS ORDERED: METOPROLOL TARTRATE 50 MG TAB PO ONE (10:00)
[2018-01-05] MEDS: PEPTAMEN 1.5 CAL 1000ML BAG NG SCH (10:04)
[2018-01-05] MEDS: D5W AND 1/2NSS 1,000 ML IV SCH ×2 (10:21→23:24)
--- NOTE | 2018-01-05 10:31 | PROGRESS NOTE ---
DATE: 01/05/2018 The patient seen and examined. Chart, medications, telemetry reviewed. SUBJECTIVE: The patient appears slightly more alert and conversant this morning. She continues to receive tube feeds via nasogastric tube. Denies any specific complaints. Blood pressures have been trending higher over the past 24 hours. She has had no further atrial arrhythmias of significance. Notes no abdominal pain or discomfort. Has had some mild swelling in her feet. OBJECTIVE: VITAL SIGNS: Heart rate 78, blood pressure is 174/114. NECK: Thin. There is no distinct jugular venous distention. There are brisk, prompt carotid pulses. LUNGS: Reveal diminished breath sounds, bibasilar, left slightly greater than right. CARDIOVASCULAR: Regular. There is no S3 gallop. ABDOMEN: Soft. EXTREMITIES: Without cyanosis or clubbing. There is no peripheral edema. LABORATORY DATA: Sodium is 142, potassium is 3.6, chloride is 109, bicarbonate is 27, BUN is 32, creatinine 0.8. Echocardiogram today demonstrates slightly improved LV systolic function, EF approximately 45% with left atrial and right atrial dilatation. Pulmonary pressures appeared to have decreased slightly. There is a moderate-sized left pleural effusion. Right ventricular overall function appears to be improved. There is moderate to severe tricuspid insufficiency. IMPRESSION: Complex 62-year-old female, gradually improving after presentation with E. coli sepsis as well as C. difficile colitis. Course complicated by paroxysmal atrial arrhythmias, transient acute renal insufficiency, encephalopathy. The patient is gradually manifesting improvement, though blood pressures are now becoming hypertensive. Concerns regarding thyroid abnormalities on laboratory studies remain present. PLAN: We will increase metoprolol to 50 mg q. 6 hours via NG. Topical nitrates will be added for hypertension control with afterload reduction via hydralazine, also to be administered via NG initially at 12.5 mg t.i.d. We may titrate this for blood pressure control. We plan on maintaining neutral fluid balance at this time. Again gradually increasing activity levels, out of bed to chair, etc. Consideration may be made for endocrinology evaluation of thyroid disorder.
[2018-01-05] MEDS: PANTOprazole INJ 40 MG in SYRINGE 0 ML IV SCH (11:02)
[2018-01-05] MEDS: NITROGLYCERIN 2% OINTMENT 30GM TUBE EXT SCH ×3 (11:03→20:55)
[2018-01-05] MEDS: HYDROmorphone INJ 0.5 MG/0.5 ML SYR IV PRN (11:24)
--- NOTE | 2018-01-05 11:30 | Progress Note ---
Subjective Date of Service: Jan 05, 2018. Subjective Pt evaluation today including: conversation w/ patient, physical exam, chart review, lab review transfered from ICU. much more awake and appropriate. remains with tube feeds and po vanco. c/o abd pain. denies f/c. also on ctx for E. coli bsi. repeat blood cultures negative to date. wbc improved, 17 today. all remaining ros reviewed and are negative. Problem List Medical Problems: (1) Anasarca Status: Acute (2) Atrial fibrillation with RVR Status: Acute (3) C. difficile diarrhea Status: Acute (4) Elevated troponin Status: Acute (5) Hyperthyroidism Status: Acute (6) Hypotension Status: Acute (7) Left leg cellulitis Status: Acute (8) Left leg pain Status: Acute (9) Right-sided heart failure Status: Acute (10) Sepsis Status: Acute Objective Vital Signs Date Time Temp Pulse Resp B/P (MAP) Pulse Ox O2 Delivery O2 Flow Rate FiO2 01/05/18 08:00 Nasal Cannula 2.0 01/05/18 07:00 36.4 84 28 174/114 (134) 95 Nasal Cannula 2.0 01/05/18 05:51 87 171/96 01/05/18 04:53 167/99 (121) 01/05/18 04:05 Nasal Cannula 2.0 01/05/18 02:50 36.7 83 26 205/127 (153) 98 201/145 (163) 01/05/18 00:06 Nasal Cannula 2.0 01/04/18 23:58 36.7 69 26 158/93 (114) 91 01/04/18 20:24 Nasal Cannula 2.0 01/04/18 19:04 36.8 74 22 169/95 (119) 96 Nasal Cannula 2.5 01/04/18 16:02 36.7 72 26 126/79 (95) 97 Nasal Cannula 2.0 01/04/18 16:00 Nasal Cannula 2.0 01/04/18 15:01 70 25 150/79 (102) 95 Nasal Cannula 2.0 01/04/18 14:01 68 23 136/81 (99) 96 Nasal Cannula 2.0 01/04/18 13:01 67 15 136/78 (97) 96 01/04/18 12:31 72 19 142/83 (102) 95 01/04/18 12:02 36.8 74 35 159/88 (111) 100 Nasal Cannula 2.0 01/04/18 12:00 Nasal Cannula 2.0 01/04/18 11:31 74 30 150/83 (105) 95 Physical Exam General Appearance: WD/WN, no apparent distress Eyes: normal inspection, EOMI Neck: supple Respiratory/Chest: + decreased breath sounds Cardiovascular: regular rate, rhythm, no edema Abdomen: soft, + pertinent finding (less distened, softer) Extremities: non-tender, no pedal edema Neurologic/Psychiatric: alert Skin: normal color Laboratory Results Item Value Date Time Blood Culture - Preliminary Resulted 01/01/18 1435 Blood NO GROWTH TO DATE. Blood Culture - Preliminary Resulted 01/01/18 1428 Blood NO GROWTH TO DATE. C.difficile Toxin B Gene (PCR) - Final Complete 12/30/17 2245 Stool Positive for C. difficile toxin B gene Blood Culture - Final Complete 12/29/17 2250 Blood Escherichia Coli Blood Culture - Final Complete 12/29/17 2245 Blood Escherichia Coli Last 24 Hours Test 01/04/18 11:43 01/05/18 05:19 01/05/18 05:23 Bedside Glucose 187 mg/dl Activated Partial Thromboplast Time 35.4 SECONDS Partial Thromboplastin Ratio 1.4 White Blood Count 17.75 K/uL Red Blood Count 4.24 M/uL Hemoglobin 11.8 g/dL Hematocrit 35.3 % Mean Corpuscular Volume 83.3 fL Mean Corpuscular Hemoglobin 27.8 pg Mean Corpuscular Hemoglobin Concent 33.4 g/dl RDW Standard Deviation 41.9 fL RDW Coefficient of Variation 13.9 % Platelet Count 364 K/uL Mean Platelet Volume 11.2 fL Nucleated RBC Absolute Count (auto) 0.07 K/uL Nucleated Red Blood Cells % 0.4 % Sodium Level 142 mmol/L Potassium Level 3.6 mmol/L Chloride Level 109 mmol/L Carbon Dioxide Level 27 mmol/L Anion Gap 7.0 mmol/L Blood Urea Nitrogen 32 mg/dl Creatinine 0.81 mg/dl Est Creatinine Clear Calc Drug Dose 61.0 ml/min Estimated GFR () 91.5 Estimated GFR (Non- 78.9 BUN/Creatinine Ratio 39.8 Random Glucose 242 mg/dl Calcium Level 8.4 mg/dl Assessment and Plan (1) C. difficile diarrhea Assessment & Plan: continue po vanco. continue ctx x 14 days from first negative cultures. would give 28 days po vanco.
--- NOTE | 2018-01-05 11:54 | [facility] Post Operative Brief Note ---
Preliminary Procedure Note Procedure Date Jan 05, 2018. Pre-Procedure Diagnosis Non STEMI AUC Score 8 Post-Procedure Diagnosis Severe CAD (Single vessel), Decreased LV Systolic Function Procedure(s) Performed Coronary Angiography, Left Heart Cath, LV Angiography Chief Technologist Dr. Curtis Newell [employer] Founder(s) None ([place]) Estimated Blood Loss <15cc Medication(s) Fentanyl (12.5 mcg IV), Heparin (2500 u IV), Versed (1mg), Lidocaine 1% (local infiltration) Preliminary Findings Right dominant coronary anatomy LM normal length and caliber LAD Large Type 3 with large bifurcating diagonal. Eccentric 40% proximal stenosis LCX Single large OM reaching to apex, 80% proximal lesion RCA Very large dominant with large long PDA and PV mild irreg diffusely LV Basal akinesis with diffuse hypokinesis, EF 30% EDP20 Recommendations PCI without planned CABG Specimens None Fluids (cc crystalloids) 50 Anesthesia Start 1107 End 1131 Margaret Cornelius RN Procedural Complication(s) None Disposition
--- NOTE | 2018-01-05 12:27 | Progress Note ---
Internal Med Progress Note Date of Service: Jan 05, 2018. Provider Documentation: SUBJECTIVE: The patient was seen and examined She is recently moved from [place] without any significant past medical history. She has been complaining of bilateral leg swelling for the last 5 or 6 months. She has been complaining of more shortness of breath for the last 2 days associated with fever and chills. She also has frequency of urination but no dysuria She does not feel any better since admission 12/31 Went into AF with RVR last night and was transferred to ICU AA this AM but drowsy and less communicative during my exam Reverted to SR] 01/01 Confused Trying to communicate Very weak and lethargic 01/02 Worse this am but much better this afternoon Talking almost normally Discussed with the family members 01/03 Clinically a little better Trying to communicate 01/04 Much better today Rate is controlled with increasing dose of BB 01/05 Not so well this AM,again seen in presence of the Daughter has had CP add BP was very high OBJECTIVE: Vital Signs-as noted below Exam: General-AA,pleasantly confused Moderate SOB at rest Eyes-normal ENT-normal Neck-supple Lungs-decreased breath sounds bilaterally Heart-S1 and S2 regular, no murmur appreciated Abdomen-Mildly distended, mildly tender, bowel sounds sluggish Extremities-bilateral leg edema-1-2+ Edema is more pronounced on the left side along the thighs. Neuro-alert awake,pleasantly confused Generally weak but no focal neuro deficit Lab data as noted below. ASSESSMENT & PLAN: Metabolic Encephalopathy Multifactorial -sepsis,Hypotensive episode,Hypoxemia and Renal impairment Remained pleasantly confused-a little better today MRI of the Head-unremarkable Ammonia -normal Appreciate Neurology input Remains pleasantly confused Very slow improvement C Diff Colitis Seems to be Severe attack Likely the cause of Deterioration Started on Oral Vancomycin and already on IV Flagyl May need Repeat CT of the Abd/Pel to r/o toxic megacolon/perforation-reasonably OK Appreciate Surgery input-no indication for surgery Abdominal fullness and tenderness are better Will need 28 days of PO Vancomycin in total Diarrhea is controlled AF with RVR -recurrent Likely secondary to Sepsis Contributed by Severely dilated Rt Atrium Started on IV Cardizem and IV Heparin Reverted to SR Increased Troponin likely due to CHF and Rate related Doubt any ACS ECHO as reported Sinus pauses on Cardizem drip-NO MORE CARDIZEM May use BB may require Amiodarone Reasonably controlled with BB-dose increased to 50mg QID Started on Eliquis Severe sepsis-Gm Negative Bacteremia SIRS plus lactic acidosis Possible sources :left lower extremity cellulitis,GI (colitis, SBP-ascites on CT )or UTI Doxycycline for cellulitis Cefepime and Flagyl for possible intraabdominal infection if any Continue current antibiotics Blood cultures-Gm Negative Bacilli-sensitivity pending Urine culture-pending Clinically worse Appreciate ID input-continue current medication WCC is improving ,repeat Blood cultures -negative Will need 14 days of IV Ceftriaxone from Neg Blood culture date WCC -improving SOB with Omer Legs Swelling and Bowel edema Likely secondary to Right Sided Hearty Failure Will give small amount of fluid for ongoing sepsis and low urine output Cardiology consulted ECHO-The right ventricle is moderate to severely dilated. * The right ventricular systolic function is severely reduced. * The right atrium is severely dilated. * There is trace tricuspid regurgitation. * Flattened septum is consistent with RV volume overload. * Left ventricular systolic function is moderately reduced. * Ejection Fraction = 35-40%. * Moderate global hypokinesis of the left ventricle. * The inferior vena cava is severely dilated. * Trivial loculated posterior pericardial effusion. * There are no echocardiographic indications of cardiac tamponade. Repeat ECHO::The left ventricle is normal in size. * There is mild concentric left ventricular hypertrophy. * There is mild global hypokinesis of the left ventricle. * Ejection Fraction = 40-45%. * The left atrium is mildly dilated. * The right atrium is severely dilated. * The right ventricular systolic function is mildly reduced. * There is trace mitral regurgitation. * There is moderate tricuspid regurgitation. * Right ventricular systolic pressure is elevated at 50-60mmHg. * Moderate size left pleural effusion. * In comparison to prior, overal LV and RV systolic function has improved ECHO-shows improvement YI Deteriorated overnight Multifactorial Intervascular dehydration, hypotension,Embolic disease,and contrast induced Will give more IV fluid Monitor PRP-worsening Kidney function A Little better-not for Dialysis yet Renal function is Normalized HTN On BB,Hydralazine and need small dose of Nitro Fluctuating Blood Pressure Possible Cirrhosis. Possibly from RSHF, passive congestion (unknown duration) Appreciate GI evaluation GI does not think the patient has Cirrhosis US abdomen -minimal ascites Abnormal Thyroid Function Likely secondary to Acute illness .Reactive Hyperthyroidism (possible Graves disease) new diagnosis-doubt Started on Methimazole -stopped today after discussion with the Rn Relief Charge Will need OP Endocrine follow up Cortisone level unremarkable Chronic anemia, unknown baseline. Work up Thrombocytopenia secondary to sepsis, cirrhosis. DVT prophylaxis, SCDs RE thrombocytopenia. Full code. Discussed with the Daughter on 12/30/17 and 12/31 and 01/02 and again 01/05/18 Vital Signs: Date Time Temp Pulse Resp B/P (MAP) Pulse Ox O2 Delivery O2 Flow Rate FiO2 01/05/18 11:38 140/83 (102) 01/05/18 08:00 Nasal Cannula 2.0 01/05/18 07:00 36.4 84 28 174/114 (134) 95 Nasal Cannula 2.0 01/05/18 05:51 87 171/96 01/05/18 04:53 167/99 (121) 01/05/18 04:05 Nasal Cannula 2.0 01/05/18 02:50 36.7 83 26 205/127 (153) 98 201/145 (163) 01/05/18 00:06 Nasal Cannula 2.0 01/04/18 23:58 36.7 69 26 158/93 (114) 91 01/04/18 20:24 Nasal Cannula 2.0 01/04/18 19:04 36.8 74 22 169/95 (119) 96 Nasal Cannula 2.5 01/04/18 16:02 36.7 72 26 126/79 (95) 97 Nasal Cannula 2.0 01/04/18 16:00 Nasal Cannula 2.0 01/04/18 15:01 70 25 150/79 (102) 95 Nasal Cannula 2.0 01/04/18 14:01 68 23 136/81 (99) 96 Nasal Cannula 2.0 01/04/18 13:01 67 15 136/78 (97) 96 01/04/18 12:31 72 19 142/83 (102) 95 Lab Results: Results Past 24 Hours Test 01/05/18 05:19 01/05/18 05:23 Range/Units Activated Partial Thromboplast Time 35.4 21.0-31.0 SECONDS Partial Thromboplastin Ratio 1.4 White Blood Count 17.75 4.8-10.8 K/uL Red Blood Count 4.24 4.2-5.4 M/uL Hemoglobin 11.8 12.0-16.0 g/dL Hematocrit 35.3 37-47 % Mean Corpuscular Volume 83.3 80-100 fL Mean Corpuscular Hemoglobin 27.8 25-34 pg Mean Corpuscular Hemoglobin Concent 33.4 32-36 g/dl RDW Standard Deviation 41.9 36.4-46.3 fL RDW Coefficient of Variation 13.9 11.5-14.5 % Platelet Count 364 130-400 K/uL Mean Platelet Volume 11.2 7.4-10.4 fL Nucleated RBC Absolute Count (auto) 0.07 0-0 K/uL Nucleated Red Blood Cells % 0.4 % Sodium Level 142 136-145 mmol/L Potassium Level 3.6 3.5-5.1 mmol/L Chloride Level 109 98-107 mmol/L Carbon Dioxide Level 27 21-32 mmol/L Anion Gap 7.0 3-11 mmol/L Blood Urea Nitrogen 32 7-18 mg/dl Creatinine 0.81 0.60-1.20 mg/dl Est Creatinine Clear Calc Drug Dose 61.0 ml/min Estimated GFR () 91.5 Estimated GFR (Non- 78.9 BUN/Creatinine Ratio 39.8 10-20 Random Glucose 242 70-99 mg/dl Calcium Level 8.4 8.5-10.1 mg/dl
--- NOTE | 2018-01-05 12:52 | Surgery Progress Note ---
Surgery Progress Note Date of Service Jan 05, 2018. Subjective Post OP Day: HD # 6 sleeping on , more alert compared to Friday however still pleasantly confused. When asked about abdominal pain slowly nods no However Unable to obtain complete ROS Objective Vital Signs: Date Time Temp Pulse Resp B/P (MAP) Pulse Ox O2 Delivery O2 Flow Rate FiO2 01/05/18 11:38 140/83 (102) 01/05/18 08:00 Nasal Cannula 2.0 01/05/18 07:00 36.4 84 28 174/114 (134) 95 Nasal Cannula 2.0 01/05/18 05:51 87 171/96 01/05/18 04:53 167/99 (121) 01/05/18 04:05 Nasal Cannula 2.0 01/05/18 02:50 36.7 83 26 205/127 (153) 98 201/145 (163) 01/05/18 00:06 Nasal Cannula 2.0 01/04/18 23:58 36.7 69 26 158/93 (114) 91 01/04/18 20:24 Nasal Cannula 2.0 01/04/18 19:04 36.8 74 22 169/95 (119) 96 Nasal Cannula 2.5 01/04/18 16:02 36.7 72 26 126/79 (95) 97 Nasal Cannula 2.0 01/04/18 16:00 Nasal Cannula 2.0 01/04/18 15:01 70 25 150/79 (102) 95 Nasal Cannula 2.0 01/04/18 14:01 68 23 136/81 (99) 96 Nasal Cannula 2.0 01/04/18 13:01 67 15 136/78 (97) 96 General Appearance: WD/WN, no apparent distress Head: normocephalic, atraumatic, + pertinent finding (TF via NGT) Neck: trachea midline Respiratory/Chest: no respiratory distress, no accessory muscle use, + decreased breath sounds Cardiovascular: regular rate, rhythm, no murmur Abdomen: soft, no organomegaly, + distended (mild distention), + tenderness Laboratory Results: Results Past 24 Hours Test 01/05/18 05:19 01/05/18 05:23 Range/Units Activated Partial Thromboplast Time 35.4 21.0-31.0 SECONDS Partial Thromboplastin Ratio 1.4 White Blood Count 17.75 4.8-10.8 K/uL Red Blood Count 4.24 4.2-5.4 M/uL Hemoglobin 11.8 12.0-16.0 g/dL Hematocrit 35.3 37-47 % Mean Corpuscular Volume 83.3 80-100 fL Mean Corpuscular Hemoglobin 27.8 25-34 pg Mean Corpuscular Hemoglobin Concent 33.4 32-36 g/dl RDW Standard Deviation 41.9 36.4-46.3 fL RDW Coefficient of Variation 13.9 11.5-14.5 % Platelet Count 364 130-400 K/uL Mean Platelet Volume 11.2 7.4-10.4 fL Nucleated RBC Absolute Count (auto) 0.07 0-0 K/uL Nucleated Red Blood Cells % 0.4 % Sodium Level 142 136-145 mmol/L Potassium Level 3.6 3.5-5.1 mmol/L Chloride Level 109 98-107 mmol/L Carbon Dioxide Level 27 21-32 mmol/L Anion Gap 7.0 3-11 mmol/L Blood Urea Nitrogen 32 7-18 mg/dl Creatinine 0.81 0.60-1.20 mg/dl Est Creatinine Clear Calc Drug Dose 61.0 ml/min Estimated GFR () 91.5 Estimated GFR (Non- 78.9 BUN/Creatinine Ratio 39.8 10-20 Random Glucose 242 70-99 mg/dl Calcium Level 8.4 8.5-10.1 mg/dl Assessment & Plan C. diff colitis - afebrile - leukocytosis stable (same as yesterday 17K) - abdominal distention and tenderness - more alert but still confused, lethargic Plan: No acute surgical intervention required Continue Oral Vancomycin Continue IV antibiotics Continue current medical ICU management Repeat am labs Dr. Still has seen and examined patient, agrees with above
[2018-01-05] MEDS: METOPROLOL TARTRATE 50 MG TAB PO SCH ×3 (14:13→23:24)
[2018-01-05] MEDS: CEFTRIAXONE SOD INJ 2 GM in DEXTROSE 5% ADD-VANTAGE 50ML 50 ML IV SCH (17:39)
[2018-01-06] VITALS (10 sets, daily range): BP systolic 146–194; BP diastolic 84–117; PULSE 60–78; TEMP 36.4–36.9; O2SAT 94–100
[2018-01-06] MEDS: HYDROmorphone INJ 0.5 MG/0.5 ML SYR IV PRN ×2 (01:49→07:56)
[2018-01-06] MEDS: NITROGLYCERIN 2% OINTMENT 30GM TUBE EXT SCH ×4 (03:15→20:43)
[2018-01-06] MEDS: HydrALAZINE HCL 20 MG/ML VIAL IV. PRN (03:15)
[2018-01-06 05:55] LABS: ANTI-SS-A <1.0 NEG AI (<1.0 NEG); ANTI-SS-B <1.0 NEG AI (<1.0 NEG)
[2018-01-06] MEDS: METOPROLOL TARTRATE 50 MG TAB PO SCH ×3 (06:05→18:00)
[2018-01-06] MEDS: METRONIDAZOLE / NSS 500 MG in PREMIXED NSS 100 ML IV SCH ×3 (06:05→20:43)
[2018-01-06 07:39] LABS: HEMATOCRIT 35.9 % (37-47); HEMOGLOBIN 11.7 g/dL (12.0-16.0); MEAN CELL VOLUME 84.9 fL (80-100); MEAN CORPUSCULAR HEMOGLOBIN 27.7 pg (25-34); MEAN CORPUSCULAR HGB CONC 32.6 g/dl (32-36); MEAN PLATELET VOLUME 10.9 fL (7.4-10.4); PLATELET COUNT 444 K/uL (130-400); RED CELL DISTRIBUTION WIDTH CV 14.2 % (11.5-14.5); RED CELL DISTRIBUTION WIDTH SD 43.7 fL (36.4-46.3)
[2018-01-06 07:46] LABS: PTT PATIENT 35.5 SECONDS (21.0-31.0)
[2018-01-06] MEDS: APIXABAN 2.5 MG TAB PO SCH (08:00)
[2018-01-06] MEDS: POTASSIUM CHLORIDE 20 MEQ/15 ML UDC PO SCH (08:00)
[2018-01-06] MEDS: PANTOprazole INJ 40 MG in SYRINGE 0 ML IV SCH (08:01)
[2018-01-06] MEDS: NYSTATIN SUSP 500,000 U/5 ML UDC PO SCH ×4 (08:02→20:16)
[2018-01-06] MEDS: RASPBERRY SYRUP 5 ML UDP PO SCH ×4 (08:02→20:16)
[2018-01-06] MEDS: PROSOURCE NOCARB 30ML/PKT NG SCH (08:03)
[2018-01-06] MEDS: VANCOMYCIN HCL 500 MG/10ML SOLN PO SCH ×4 (08:04→20:16)
[2018-01-06] MEDS: PEPTAMEN 1.5 CAL 1000ML BAG NG SCH (08:09)
[2018-01-06 08:11] LABS: CALCIUM 8.6 mg/dl (8.5-10.1); CREATININE 0.8 mg/dl (0.60-1.20); PHOSPHORUS 2.6 mg/dl (2.5-4.9)
--- NOTE | 2018-01-06 09:25 | Progress Note ---
Progress Note Date of Service Jan 06, 2018. Progress Note This is a 62 year old female with no past medical history prior to arrival. Clinical course obtained from chart review: December 29, 2017 Presented on 12/29 with significant bilateral lower extremity edema, fevers, chills, abdominal distention, nausea. December 30, 2017 Patient admitted on 12/30 due to meeting severe sepsis criteria. She had significant lactic acidosis, tachycardia; later developed hypotension, leukocytosis, and elevated procalcitonin. She was started on broad spectrum antibiotics, initially to cover cellulitis. Imaging suggested shock bowel, hypotensive bowel - initial concern of liver cirrhosis. Further testing suggested significant R heart failure with hepatic congestion. Edematous lower extremities likely from the biventricular heart failure noted. Echo was done to confirm this diagnosis. LVEF at the time noted to be 35-40%. Dilatation of R atrium and R ventricle noted as well. Late on 12/30 , patient developed A. Fib with RVR and transferred to the ICU. December 31, 2017 Patient spontaneously converted to sinus rhythm after being given IV Lopressor x2 and Cardizem ggt, which had to be stopped due to low blood pressure. Troponin elevation noted, likely type 2 demand ischemia from infection, arrhythmia, sepsis. Patient was started on IV heparin. Patient was found to be positive for C. Diff Infection; CT suggested colitis. NGT was placed in the ICU and Vanco solution was given to treat this. Blood cultures were positive at this time for gram negative organism. Patient's mental status acutely worsened. Neurology was consulted and an MRI and EEG were performed. Attributed mental status change to metabolic encephalopathy. Kidney function also acutely worsened; possibly from IV contrast from imaging done prior. January 01, 2018 Nephrology consulted due to acute kidney injury and acute tubular necrosis. Consideration made for dialysis; though this was never required. ID consulted - E. coli septicemia noted on blood cultures x2, repeat cultures were ordered. Nephrology consulted - metabolic acidosis - possibly from sepsis and YI. January 02, 2018 General surgery consulted regarding C. Diff colitis, conservative management decided. Patient at this time was going in and out of A. fib; initially started on IV Cardizem, but due to post-conversion pauses, this was stopped. Was started on bicarb drip due to acidosis. ID following for UTI, C. Diff colitis, E. coli septicemia. January 03, 2018 Clinical improvement made on March 24 mentally. Hypertension was still an issue and cardiology worked on getting this down by increasing b-luis dose and adding hydralazine. January 04, 2018 continuing PO Vancomycin and IV Rocephin IV heparin stopped at this time. Eliquis had been started. clinical picture continued to improve as per records. January 05, 2018 Repeat TTE was done; improving biventricular heart failure noted. Hypertensive Urgency still an issue on this day; cardiology adjusted meds to add nitropaste and Hydralazine, as well as an increase in Lopressor dose.
[2018-01-06] MEDS ORDERED: INSULIN GLARGINE SOLOSTAR 100 UNITS/ML 3 ML PEN SC ONE (09:30)
[2018-01-06] MEDS ORDERED: PHARMACY GLYCEMIC MGMT CONSULT PRN (09:32)
--- NOTE | 2018-01-06 09:55 | Progress Note ---
Subjective Date of Service: Jan 06, 2018. Subjective Pt evaluation today including: conversation w/ patient, physical exam, lab review, review of studies, review of inpatient medication list Saw/examined the patient in room 201 She is lethargic and tired, mumbling to answer questions. As per nursing, she received Dilaudid this morning. NGT still in place. Unable to obtain ROS. Problem List Medical Problems: (1) Anasarca Status: Acute (2) Atrial fibrillation with RVR Status: Acute (3) C. difficile diarrhea Status: Acute (4) Elevated troponin Status: Acute (5) Hyperthyroidism Status: Acute (6) Hypotension Status: Acute (7) Left leg cellulitis Status: Acute (8) Left leg pain Status: Acute (9) Right-sided heart failure Status: Acute (10) Sepsis Status: Acute Medications Current Inpatient Medications Medications (Trade) Dose Ordered Sig/Sera Route Start Time Stop Time Status Last Admin Dose Admin Acetaminophen (Tylenol Tab) 325 mg Q6H PRN PO 12/30/17 03:15 01/29/18 03:14 12/30/17 23:29 325 MG Prochlorperazine Edisylate 5 mg/ Syringe 5 ml @ 5 mls/min Q6H PRN IV 12/30/17 03:15 01/29/18 03:14 01/06/18 07:57 5 MLS/MIN Metronidazole 500 mg/Prmx 100 ml @ 100 mls/hr Q8H IV 12/30/17 14:00 01/09/18 13:59 01/06/18 06:05 100 MLS/HR Pantoprazole Sodium 40 mg/ Syringe 10 ml @ 5 mls/min DAILY@11 IV 12/31/17 11:00 01/30/18 10:59 01/06/18 08:01 5 MLS/MIN Raspberry (Raspberry Syrup 5ml Cup) 5 ml QID PO 12/31/17 09:30 01/14/18 09:29 01/06/18 08:02 5 ML Vancomycin HCl (Vancomycin Oral Soln) 500 mg QID PO 01/01/18 17:00 01/15/18 16:59 01/06/18 08:04 500 MG Hydromorphone HCl (Dilaudid Inj) 0.5 mg Q3H PRN IV 01/02/18 10:45 01/16/18 10:44 01/06/18 07:56 0.5 MG Ceftriaxone Sodium 2 gm/ Dextrose 50 ml @ 100 mls/hr Q24H IV 01/02/18 18:00 01/11/18 17:59 01/05/18 17:39 100 MLS/HR Hydralazine HCl (HydrALAZINE INJ) 10 mg Q4 PRN IV. 01/02/18 17:15 02/01/18 17:14 01/06/18 03:15 10 MG Enteral Nutritional Formula (Peptamen 1.5) 1,000 ml UD NG 01/03/18 11:45 02/02/18 11:44 01/06/18 08:09 1,000 ML Enteral Nutritional Formula (Prosource No Carb) 30 ml DAILY@0900 NG 01/03/18 12:30 02/02/18 12:29 01/06/18 08:03 30 ML Nystatin (Mycostatin Susp) 5 ml QID PO 01/03/18 19:30 01/10/18 19:29 01/06/18 08:02 5 ML Dextrose/Sodium Chloride 1,000 ml @ 75 mls/hr [id number] IV 01/03/18 18:15 02/02/18 18:14 01/05/18 23:24 75 MLS/HR Metoprolol Tartrate (Lopressor Iv) 5 mg Q6H PRN IV 01/03/18 18:45 02/02/18 18:44 01/05/18 05:51 5 MG Ondansetron HCl 6 mg/Dextrose 53 ml @ 200 mls/hr Q6H PRN IV 01/04/18 00:30 02/03/18 00:29 01/04/18 07:48 200 MLS/HR Potassium Chloride (Elvia Ciel Elix) 40 meq BID PO 01/04/18 21:00 02/03/18 20:59 Future Hold 01/06/18 08:00 40 MEQ Apixaban (Eliquis Tab) 5 mg BID PO 01/04/18 16:00 02/03/18 15:59 01/06/18 08:00 5 MG Metoprolol Tartrate (Lopressor Tab) 50 mg Q6 PO 01/05/18 12:00 02/02/18 20:59 01/06/18 06:05 50 MG Nitroglycerin (Nitroglycerin 2% Oint) 1 inch Q6H EXT 01/05/18 10:00 02/04/18 09:59 01/06/18 03:15 1 INCH Hydralazine HCl (Apresoline Tab) 12.5 mg TID PO 01/05/18 14:00 02/04/18 13:59 01/06/18 08:03 12.5 MG Miscellaneous Information (Consult Glycemic Management Pharmacy) 1 ea NOW STAT N/A 01/06/18 09:09 01/06/18 09:10 UNV Objective Vital Signs Date Time Temp Pulse Resp B/P (MAP) Pulse Ox O2 Delivery O2 Flow Rate FiO2 01/06/18 07:26 36.6 63 28 182/106 (131) 94 Nasal Cannula 2.0 01/06/18 04:08 74 168/95 (119) 01/06/18 04:00 Nasal Cannula 1.0 01/06/18 03:44 70 179/100 (126) 01/06/18 03:04 36.6 67 27 175/101 (125) 94 Nasal Cannula 1.0 01/05/18 23:59 96 Nasal Cannula 1.0 01/05/18 23:45 36.3 68 28 176/94 (121) 95 Nasal Cannula 1.0 01/05/18 20:00 Nasal Cannula 1.0 01/05/18 19:48 36.6 66 24 149/85 (106) 95 2.0 01/05/18 16:00 Nasal Cannula 2.0 01/05/18 15:30 36.7 66 22 131/82 (98) 96 2.0 01/05/18 12:00 Nasal Cannula 2.0 01/05/18 12:00 36.4 72 24 95 Nasal Cannula 2.0 01/05/18 11:38 140/83 (102) Physical Exam General Appearance: + mild distress (+/- shallow respirations at times), + thin , + pertinent finding (lethargic, mumbling answers) Respiratory/Chest: no respiratory distress, no accessory muscle use, + decreased breath sounds Cardiovascular: regular rate, rhythm, no murmur Abdomen: + pertinent finding (somewhat firm, normoactive BS) Extremities: + swelling (+pitting hand swelling b/l, no edema in the b/l LE), + pertinent finding Neurologic/Psychiatric: alert, + disoriented, + pertinent finding Laboratory Results Last 24 Hours Test 01/06/18 06:58 White Blood Count 19.60 K/uL Red Blood Count 4.23 M/uL Hemoglobin 11.7 g/dL Hematocrit 35.9 % Mean Corpuscular Volume 84.9 fL Mean Corpuscular Hemoglobin 27.7 pg Mean Corpuscular Hemoglobin Concent 32.6 g/dl RDW Standard Deviation 43.7 fL RDW Coefficient of Variation 14.2 % Platelet Count 444 K/uL Mean Platelet Volume 10.9 fL Activated Partial Thromboplast Time 35.5 SECONDS Partial Thromboplastin Ratio 1.4 Sodium Level 141 mmol/L Potassium Level 5.0 mmol/L Chloride Level 109 mmol/L Carbon Dioxide Level 26 mmol/L Anion Gap 6.0 mmol/L Blood Urea Nitrogen 34 mg/dl Creatinine 0.80 mg/dl Est Creatinine Clear Calc Drug Dose 64.6 ml/min Estimated GFR () 92.9 Estimated GFR (Non- 80.1 BUN/Creatinine Ratio 42.1 Random Glucose 292 mg/dl Calcium Level 8.6 mg/dl Phosphorus Level 2.6 mg/dl Magnesium Level 2.0 mg/dl Assessment and Plan This is a 62 year old female with no past medical history prior to arrival. Metabolic Encephalopathy - patient with confusion, disorientation - possibly related to Dilaudid use, also has had sepsis, hypotension episodes, YI earlier in the admission - appreciate neurology input on this matter, no need for further imaging - Brain MRI, Head CT already performed, EEG reviewed by neurology - slow improvement - may need Ativan for significant anxiety as well Severe Sepsis, E. coli Septicemia Severe C. Diff Colitis - blood cultures positive for E. coli - C. Diff positive, colitis noted on imaging - started on IV Flagyl initially, converted to PO Vanco - appreciate ID input - will need PO Vanco for 28 days total - will need Rocephin for 14 days since the negative blood culture on 01/01 - appreciate general surgery input regarding C. Diff - no surgical intervention at this time - will monitor abdominal firmness/distention - if no improvement, repeat abd/ pelvis CT can be done Paroxysmal A. Fib with RVR - intermittent A. fib and rapid ventricular response; likely from sepsis - currently in NSR - appreciate cardiology input - continue Lopressor for rate control - Eliquis for anticoagulation - had required IV Lopressor and Cardizem ggt - no longer should receive Cardizem due to pauses noted earlier in the admission Biventricular Heart Failure - patient presented with worsening lower extremity edema, hepatic congestion - echo initially suggested significant R ventricular systolic function and decreased LVEF - started on b-luis, treated for infection, etc. - repeat echo was performed on 01/05 with improvement of both ventricular function - further management as per cardiology Type 2 Demand Ischemia - troponin elevation when she first came in - likely secondary to infection, anemia, etc. - initially was on IV heparin, now discontinued - currently on Eliquis for A. fib episodes - continue b-luis - treating underlying infection Hypertensive Urgency - BP yesterday >200/100 - appreciate cardiology input - started on Lopressor 50mg q6, Hydralazine and topical nitrates added - anxiety may also be playing a part in elevated blood pressure - will add low dose Ativan PRN Hyperglycemia - likely due to dextrose in tube feeds - consult speech - consult pharmacy glycemic control Acute Kidney Injury - resolved now; initially due to acute tubular necrosis, possible medication or IV contrast induced - was given IVFs due to sepsis - currently would like to maintain fluid balance Hepatic Congestion - from biventricular heart failure - monitor for fluid overload Anemia - improving - likely iron deficiency - H/H stable Thrombocytopenia - resolved Abnormal Thyroid Function Test - possibly due to acute illness, severe sepsis, etc. - initially on methimazole; now d/c'd - will need outpatient TSH, Free T4, T3; may need thyroid ultrasound and further testing - outpatient endocrinology input DVT ppx - Eliquis FULL CODE PT/OT/speech ordered Clinical course obtained from chart review: December 29, 2017 Presented on 12/29 with significant bilateral lower extremity edema, fevers, chills, abdominal distention, nausea. December 30, 2017 Patient admitted on 12/30 due to meeting severe sepsis criteria. She had significant lactic acidosis, tachycardia; later developed hypotension, leukocytosis, and elevated procalcitonin. She was started on broad spectrum antibiotics, initially to cover cellulitis. Imaging suggested shock bowel, hypotensive bowel - initial concern of liver cirrhosis. Further testing suggested significant R heart failure with hepatic congestion. Edematous lower extremities likely from the biventricular heart failure noted. Echo was done to confirm this diagnosis. LVEF at the time noted to be 35-40%. Dilatation of R atrium and R ventricle noted as well. Late on 12/30 , patient developed A. Fib with RVR and transferred to the ICU. December 31, 2017 Patient spontaneously converted to sinus rhythm after being given IV Lopressor x2 and Cardizem ggt, which had to be stopped due to low blood pressure. Troponin elevation noted, likely type 2 demand ischemia from infection, arrhythmia, sepsis. Patient was started on IV heparin. Patient was found to be positive for C. Diff Infection; CT suggested colitis. NGT was placed in the ICU and Vanco solution was given to treat this. Blood cultures were positive at this time for gram negative organism. Patient's mental status acutely worsened. Neurology was consulted and an MRI and EEG were performed. Attributed mental status change to metabolic encephalopathy. Kidney function also acutely worsened; possibly from IV contrast from imaging done prior. January 01, 2018 Nephrology consulted due to acute kidney injury and acute tubular necrosis. Consideration made for dialysis; though this was never required. ID consulted - E. coli septicemia noted on blood cultures x2, repeat cultures were ordered. Nephrology consulted - metabolic acidosis - possibly from sepsis and YI. January 02, 2018 General surgery consulted regarding C. Diff colitis, conservative management decided. Patient at this time was going in and out of A. fib; initially started on IV Cardizem, but due to post-conversion pauses, this was stopped. Was started on bicarb drip due to acidosis. ID following for UTI, C. Diff colitis, E. coli septicemia. January 03, 2018 Clinical improvement made on January 03 mentally. Hypertension was still an issue and cardiology worked on getting this down by increasing b-luis dose and adding hydralazine. January 04, 2018 continuing PO Vancomycin and IV Rocephin IV heparin stopped at this time. Eliquis had been started. clinical picture continued to improve as per records. January 05, 2018 Repeat TTE was done; improving biventricular heart failure noted. Hypertensive Urgency still an issue on this day; cardiology adjusted meds to add nitropaste and Hydralazine, as well as an increase in Lopressor dose.
[2018-01-06] MEDS: INSULIN ASPART 100 UNITS/ML 3 ML PEN SC SCH ×5 (10:36→23:53)
--- NOTE | 2018-01-06 10:53 | PROGRESS NOTE ---
DATE: 01/06/2018 CARDIOLOGY CONSULTATION FOLLOWUP NOTE The patient seen and examined. Chart, medications, telemetry reviewed. SUBJECTIVE: The patient appears more breathless on auscultation examination on prior days. Notes no chest pains. Notes no tachy palpitations. Hands appear more edematous. Blood pressures have been labile and are trending slightly towards improved. OBJECTIVE: VITAL SIGNS: Heart rate is 68, blood pressure is 146/84, blood pressure is 170s-180s throughout the night. I's and O's are positive times greater than 3 liters for the past 2 days. On examination, there is mild jugular venous distention. The patient is breathless with augmentation of respiratory accessory muscles. LUNGS: Reveal diminished breath sounds at the bases. CARDIOVASCULAR: Regular. There is no S3 gallop. ABDOMEN: Soft, minimal distention. EXTREMITIES: Without cyanosis or clubbing. There is mild pedal and hand edema. LABORATORY DATA: White cell count is 19.6, hemoglobin is 11.7. Sodium is 141, potassium is 5.0, chloride is 109, bicarbonate is 26, BUN is 34, creatinine is 0.8. IMPRESSION: A 62-year-old female with complex history as well outlined presenting with multiple issues including E. coli sepsis, C. difficile colitis, paroxysmal atrial fibrillation, marked hypertension and transient left ventricular and right ventricular dysfunction by echocardiogram, improving slowly. RECOMMENDATIONS: Given the positive fluid balance and breathlessness this morning, a chest x-ray will be ordered and a single dose of furosemide 20 mg will be administered. We will increase hydralazine to 25 mg t.i.d. for blood pressure control. Continue current dose of metoprolol and topical nitrates. White cell count is once again trending slightly upward, will need to be followed closely.
[2018-01-06] MEDS ORDERED: FUROSEMIDE INJ 20 MG in SYRINGE 0 ML IV ONE ×2 (11:00→14:15)
--- NOTE | 2018-01-06 11:20 | DIAGNOSTIC IMAGING REPORT ---
CHEST ONE VIEW PORTABLE CLINICAL HISTORY: Dyspnea. COMPARISON STUDY: Chest CT December 30, 2017. FINDINGS: Tip of nasogastric tube is below the lower aspect of this image but at least within the distal body of the stomach. There is no pneumothorax. There are moderate to large bilateral pleural effusions with associated bibasilar opacities. There is pulmonary vascular congestion with suspected pulmonary edema. Cardiomegaly is noted. IMPRESSION: 1. Moderate to large bilateral pleural fusions with associated bibasilar opacities which favor atelectasis. Consolidation could appear similar. 2. Pulmonary vascular congestion with mild pulmonary edema. Electronically signed by: Andrés Charles M.D. 01/06/2018 11:19 AM Dictated Date/Time: 01/06/2018 11:17 AM
--- NOTE | 2018-01-06 11:57 | Surgery Progress Note ---
Surgery Progress Note Date of Service Jan 06, 2018. Subjective Post OP Day: HD # 7 Patient more alert today, when asked about any chest pain, palpitations, abdominal pain, nausea or vomiting patient states no. Per nursing staff her systolic blood pressure has been in the 170's-180's overnight now improved in the 140-150's after morning medications. She had loose bowel movements yesterday, no blood. She seems to be more short of breath with accessory muscle use and abdominal breathing this morning compared to yesterday. Objective Vital Signs: Date Time Temp Pulse Resp B/P (MAP) Pulse Ox O2 Delivery O2 Flow Rate FiO2 01/06/18 08:47 60 22 146/84 (104) 95 Nasal Cannula 25.0 01/06/18 08:00 Nasal Cannula 2.0 01/06/18 07:26 36.6 63 28 182/106 (131) 94 Nasal Cannula 2.0 01/06/18 04:08 74 168/95 (119) 01/06/18 04:00 Nasal Cannula 1.0 01/06/18 03:44 70 179/100 (126) 01/06/18 03:04 36.6 67 27 175/101 (125) 94 Nasal Cannula 1.0 01/05/18 23:59 96 Nasal Cannula 1.0 01/05/18 23:45 36.3 68 28 176/94 (121) 95 Nasal Cannula 1.0 01/05/18 20:00 Nasal Cannula 1.0 01/05/18 19:48 36.6 66 24 149/85 (106) 95 2.0 01/05/18 16:00 Nasal Cannula 2.0 01/05/18 15:30 36.7 66 22 131/82 (98) 96 2.0 01/05/18 12:00 Nasal Cannula 2.0 01/05/18 12:00 36.4 72 24 95 Nasal Cannula 2.0 General Appearance: WD/WN, + mild distress Head: normocephalic, atraumatic, + pertinent finding (NGT with Tube feeds) Neck: trachea midline Respiratory/Chest: + accessory muscle use Abdomen: non tender, soft, no organomegaly, no pulsatile mass, + abnormal bowel sounds (hypoactive bowel sounds), + distended (mild distention) Laboratory Results: Results Past 24 Hours Test 01/06/18 06:58 01/06/18 10:03 Range/Units White Blood Count 19.60 4.8-10.8 K/uL Red Blood Count 4.23 4.2-5.4 M/uL Hemoglobin 11.7 12.0-16.0 g/dL Hematocrit 35.9 37-47 % Mean Corpuscular Volume 84.9 80-100 fL Mean Corpuscular Hemoglobin 27.7 25-34 pg Mean Corpuscular Hemoglobin Concent 32.6 32-36 g/dl RDW Standard Deviation 43.7 36.4-46.3 fL RDW Coefficient of Variation 14.2 11.5-14.5 % Platelet Count 444 130-400 K/uL Mean Platelet Volume 10.9 7.4-10.4 fL Activated Partial Thromboplast Time 35.5 21.0-31.0 SECONDS Partial Thromboplastin Ratio 1.4 Sodium Level 141 136-145 mmol/L Potassium Level 5.0 3.5-5.1 mmol/L Chloride Level 109 98-107 mmol/L Carbon Dioxide Level 26 21-32 mmol/L Anion Gap 6.0 3-11 mmol/L Blood Urea Nitrogen 34 7-18 mg/dl Creatinine 0.80 0.60-1.20 mg/dl Est Creatinine Clear Calc Drug Dose 64.6 ml/min Estimated GFR () 92.9 Estimated GFR (Non- 80.1 BUN/Creatinine Ratio 42.1 10-20 Random Glucose 292 70-99 mg/dl Calcium Level 8.6 8.5-10.1 mg/dl Phosphorus Level 2.6 2.5-4.9 mg/dl Magnesium Level 2.0 1.8-2.4 mg/dl Bedside Glucose 296 70-90 mg/dl Assessment & Plan C. diff colitis - afebrile - leukocytosis increased to 19K (yesterday 17K) - abdominal distention improved, no tenderness on examination, abdominal muscle use with breathing today - more alert today on examination - + bowel movements, no blood, H&H stable Plan: Given increase in leukocytosis will need to closely follow, repeat labs tomorrow. if increase in WBC will need to repeat CT scan of abdomen and pelvis. Abdomen soft, patient denies of any abdominal pain and no grimacing on exam. She currently looks short of breath with accessory muscle use and abdominal muscle use for breathing. (cardiology plan for CXR and one time dose of Lasix) Continue Oral Vancomycin Continue IV antibiotics Continue current medical ICU management Repeat am labs Dr. Still has seen and examined patient, agrees with above
[2018-01-06] MEDS: LORAZEPAM 2 MG/ML 1 ML VIAL IV PRN ×2 (12:02→15:22)
--- NOTE | 2018-01-06 13:46 | Pharmacy Progress Note ---
Glycemic Control Intl Consult Date of Service Jan 06, 2018. Scope Glycemic Pharmacist consulted by Dr Norman on 01/06/18 for glycemic control and to write orders per [facility] inpatient glycemic control protocol Objective Weight (Kilograms): 57.300 Accuchecks BSG (last 24hrs): Test 01/06/18 06:58 Random Glucose 292 mg/dl (70-99) Laboratory Data (last 24hrs) Test 01/06/18 06:58 Anion Gap 6.0 mmol/L BUN/Creatinine Ratio 42.1 Blood Urea Nitrogen 34 mg/dl Creatinine 0.80 mg/dl Potassium Level 5.0 mmol/L Sodium Level 141 mmol/L White Blood Count 19.60 K/uL Recent Pertinent Medications Outpatient Anti-diabetic Regimen: * no known home medications Risk Factors for Insulin Resistance: * Infection: E coli bacteremia on Rocephin + severe C difficile infection on IV Flagyl and PO vancomycin * IVF: D51/2 NS @ 75 mLs/hr (spoke with Dr Norman, discontinued fluids at 0930 today) * Diet: Peptamen @ 40 cc/hr Assessment & Plan ASSESSMENT: * Ms Recinos is a 62 y/o F with no significant PMH who presented with abdominal pain and lower extremity swelling. She has had a complicated hospitalization with Afib with RVR, development of severe Clostridium difficile infection, E coli bacteremia on Rocephin, and now severe hyperglycemia. This morning's blood sugar on PRP was 292 mg/dL compared to 242 mg/dL yesterday. * The patient does not have a documented history of diabetes therefore ordered HbA1C. Ordered full weight-based stress of 2 Lantus dose as a "loading dose" of Lantus. Will schedule Lantus 10 units twice daily starting this evening. For correctional insulin, started slightly tighter than weight-based stress of 2 Novolog. Utilize every 4 hour dosing to ensure adequate coverage. Utilize a higher goal range as uncertain how patient will respond to insulin and uncertain what patient's HbA1C currently is. PLAN FOR INPATIENT GLYCEMIC CONTROL: * Basal insulin with LANTUS 22 units SQ x 1 then 10 units SQ BID * Correctional Insulin with NOVOLOG per scale ACHS or Q6hrs while NPO * Goal Range: Low 140 mg/dL - High 180 mg/dL * Correction Factor: 35 mg/dL/unit * Nutritional / Prandial insulin per carb ratio of 1 unit per 12 grams CHO consumed * Please note that the plan above was derived based on current level of insulin resistance and hospital stress. These recommendations are appropriate for inpatient admission only. Plan of care upon discharge will need to be reassessed to avoid potential outpatient hypo/hyperglycemia. Thank you.
[2018-01-06] MEDS ORDERED: FUROSEMIDE 40 MG/4 ML VIAL ONE (14:05)
--- NOTE | 2018-01-06 15:55 | PROGRESS NOTE ---
DATE: 01/06/2018 SUBJECTIVE: [place] earlier today was described as much more alert and interactive than she is now when I am evaluating her. She has been moved up to room 201. She is mumbling, some of her speech is unclear. She appears a little agitated, but she states she is in [facility] and I believe she states she lives now in [place], but the rest of her conversation is a little vague. She can identify my fingers and hand. There is no real motor dysfunction, although she is a little tremulous and there is a subtle right facial asymmetry. I am not sure this reflects an acute change, but at this point, I am going to order a noncontrast CT and I will get an EEG tomorrow just to be sure that in her atrial fibrillation episodes, she has not had some cerebral infarctions which may now be demonstrable on ct or any subclinical seizure acivity. We may end up having to do an MRI if this new confusional state persists. We will check back with her tomorrow. [email or web address]
--- NOTE | 2018-01-06 17:14 | DIAGNOSTIC IMAGING REPORT ---
CT HEAD WITHOUT CONTRAST (CT) CLINICAL HISTORY: Stroke COMPARISON STUDY: 12/30/2017, MRI the brain dated 12/31/2017 TECHNIQUE: Axial CT of the brain is performed from the vertex to the skull base. IV contrast was not administered for this examination. A dose lowering technique was utilized adhering to the principles of ALARA. CT DOSE: 638.56 mGycm FINDINGS: No intra or extra-axial mass lesions are visualized. There is a hypodensity present within the right cerebellum/inferior aspect of the right middle cerebral peduncle. This may represent a subacute infarct. There is no midline shift. There is no acute hemorrhage. There is no evidence of pathologic ventricular dilatation. There is no evidence of acute sinusitis IMPRESSION: 1. 14 mm focal hypodensity in the region of the right cerebellum/inferior aspect of the right middle cerebellar peduncle. This may represent a subacute infarct. Short-term follow-up imaging is recommended, given the nonspecificity of this finding. 2. No evidence of acute hemorrhage. No evidence of hydrocephalus. Electronically signed by: Rupesh Piedra M.D. 01/06/2018 5:13 PM Dictated Date/Time: 01/06/2018 5:07 PM
[2018-01-06] MEDS: CEFTRIAXONE SOD INJ 2 GM in DEXTROSE 5% ADD-VANTAGE 50ML 50 ML IV SCH (17:24)
[2018-01-06] MEDS ORDERED: D5W AND 1/2NSS 1,000 ML IV SCH (17:45)
[2018-01-06] MEDS ORDERED: DEXTROSE 50% 50 ML SYR ONE (19:49)
[2018-01-06] MEDS ORDERED: GLUCOSE 10 TABS/TUBE PO PRN (20:00)
[2018-01-06] MEDS ORDERED: DEXTROSE 50% 50 ML SYR IV PRN (20:00)
[2018-01-06] MEDS ORDERED: GLUCAGON FOR INJ 1 MG VIAL SQ PRN (20:00)
[2018-01-06] MEDS ORDERED: GLUCOSE 40% GEL 15 GM TUBE PO PRN (20:00)
[2018-01-06] MEDS ORDERED: INSULIN GLARGINE SOLOSTAR 100 UNITS/ML 3 ML PEN SC SCH (21:00)
--- NOTE | 2018-01-06 22:34 | Progress Note ---
Internal Med Progress Note Date of Service: Jan 06, 2018. Provider Documentation: Made aware by RN of CT head official read. Subacute infarct, R cerebellum SBP 190s as per RN, episodic agitation AP Subacute CVA hx AF (Eliquis currently on hold secondary to n.p.o. status/swallowing concerns as per RN) HTN urgency 2 to above Low dose IV heparin for stroke prophylaxis while Eliquis on hold as per Neurology recommendations. Permissive hypertension for now, IV Lopressor [id number] while p.o. meds cannot be given. Will relay to AM provider. Vital Signs: Date Time Temp Pulse Resp B/P (MAP) Pulse Ox O2 Delivery O2 Flow Rate FiO2 01/07/18 07:34 36.9 78 18 154/79 (104) 95 Nasal Cannula 01/07/18 05:29 81 172/94 01/07/18 04:15 77 159/85 (109) 01/07/18 04:00 Nasal Cannula 2.0 01/07/18 03:00 36.9 75 20 179/112 (134) 99 01/07/18 02:00 75 19 162/87 (112) 97 Nasal Cannula 2.0 01/07/18 01:09 70 188/99 (128) 01/07/18 00:25 29 212/111 (144) 94 Nasal Cannula 2.0 01/07/18 00:13 75 22 100 Nasal Cannula 2.0 01/06/18 23:59 36.9 74 32 194/117 (142) 98 Nasal Cannula 2.0 01/06/18 23:59 Nasal Cannula 2.0 01/06/18 23:45 86 216/122 01/06/18 21:38 78 191/107 (135) 190/114 (139) 01/06/18 20:00 Nasal Cannula 2.0 01/06/18 19:40 36.4 68 22 175/95 (121) 95 Room Air 01/06/18 16:18 36.4 63 22 172/93 (119) 100 Nasal Cannula 2.0 01/06/18 16:00 Nasal Cannula 2.0 01/06/18 12:00 Nasal Cannula 2.0 01/06/18 12:00 36.6 62 22 146/87 (106) 98 Nasal Cannula 2.0 01/06/18 08:47 60 22 146/84 (104) 95 Nasal Cannula 25.0 Lab Results: Results Past 24 Hours Test 01/06/18 10:03 01/06/18 13:27 01/06/18 16:20 01/06/18 19:46 Range/Units Bedside Glucose 296 236 96 52 70-90 mg/dl Test 01/06/18 20:23 01/06/18 23:02 01/06/18 23:42 01/07/18 02:25 Range/Units Bedside Glucose 146 83 91 70-90 mg/dl White Blood Count 20.41 4.8-10.8 K/uL Red Blood Count 4.41 4.2-5.4 M/uL Hemoglobin 12.3 12.0-16.0 g/dL Hematocrit 37.0 37-47 % Mean Corpuscular Volume 83.9 80-100 fL Mean Corpuscular Hemoglobin 27.9 25-34 pg Mean Corpuscular Hemoglobin Concent 33.2 32-36 g/dl Platelet Count 533 130-400 K/uL Mean Platelet Volume 10.3 7.4-10.4 fL Neutrophils (%) (Auto) 71.9 % Lymphocytes (%) (Auto) 14.8 % Monocytes (%) (Auto) 8.2 % Eosinophils (%) (Auto) 1.2 % Basophils (%) (Auto) 0.1 % Neutrophils # (Auto) 14.66 1.4-6.5 K/uL Lymphocytes # (Auto) 3.03 1.2-3.4 K/uL Monocytes # (Auto) 1.67 0.11-0.59 K/uL Eosinophils # (Auto) 0.25 0-0.5 K/uL Basophils # (Auto) 0.03 0-0.2 K/uL RDW Standard Deviation 43.4 36.4-46.3 fL RDW Coefficient of Variation 14.3 11.5-14.5 % Immature Granulocyte % (Auto) 3.8 % Immature Granulocyte # (Auto) 0.77 0.00-0.02 K/uL Prothrombin Time 14.7 9.0-12.0 SECONDS Prothromb Time International Ratio 1.4 0.9-1.1 Activated Partial Thromboplast Time 36.4 21.0-31.0 SECONDS Partial Thromboplastin Ratio 1.4 Sodium Level 143 136-145 mmol/L Potassium Level 4.5 3.5-5.1 mmol/L Chloride Level 111 98-107 mmol/L Carbon Dioxide Level 26 21-32 mmol/L Anion Gap 6.0 3-11 mmol/L Blood Urea Nitrogen 34 7-18 mg/dl Creatinine 0.78 0.60-1.20 mg/dl Est Creatinine Clear Calc Drug Dose 66.2 ml/min Estimated GFR () 95.8 Estimated GFR (Non- 82.6 BUN/Creatinine Ratio 43.6 10-20 Random Glucose 104 70-99 mg/dl Estimated Average Glucose 140 mg/dl Hemoglobin A1c 6.5 4.5-5.6 % Calcium Level 9.0 8.5-10.1 mg/dl Magnesium Level 1.9 1.8-2.4 mg/dl Test 01/07/18 03:59 01/07/18 06:26 Range/Units Bedside Glucose 90 70-90 mg/dl White Blood Count 23.96 4.8-10.8 K/uL Red Blood Count 4.38 4.2-5.4 M/uL Hemoglobin 12.2 12.0-16.0 g/dL Hematocrit 36.7 37-47 % Mean Corpuscular Volume 83.8 80-100 fL Mean Corpuscular Hemoglobin 27.9 25-34 pg Mean Corpuscular Hemoglobin Concent 33.2 32-36 g/dl RDW Standard Deviation 42.5 36.4-46.3 fL RDW Coefficient of Variation 14.3 11.5-14.5 % Platelet Count 565 130-400 K/uL Mean Platelet Volume 10.6 7.4-10.4 fL Activated Partial Thromboplast Time 68.9 21.0-31.0 SECONDS Partial Thromboplastin Ratio 2.7
[2018-01-06] MEDS ORDERED: HEPARIN IV LOW DOSE NO BOLUS SCH (23:00)
[2018-01-06 23:15] LABS: BASO % 0.1 %; BASO ABS # 0.03 K/uL (0-0.2); EOS % 1.2 %; EOS ABS # 0.25 K/uL (0-0.5); HEMOGLOBIN 12.3 g/dL (12.0-16.0); IG# 0.77 K/uL (0.00-0.02); LYMPH % 14.8 %; LYMPH ABS # 3.03 K/uL (1.2-3.4); MEAN CELL VOLUME 83.9 fL (80-100); MEAN CORPUSCULAR HEMOGLOBIN 27.9 pg (25-34); MEAN CORPUSCULAR HGB CONC 33.2 g/dl (32-36); MEAN PLATELET VOLUME 10.3 fL (7.4-10.4); MONO % 8.2 %; MONO ABS # 1.67 K/uL (0.11-0.59); NEUT % 71.9 %; NEUT ABS # 14.66 K/uL (1.4-6.5); PLATELET COUNT 533 K/uL (130-400); RED CELL DISTRIBUTION WIDTH CV 14.3 % (11.5-14.5); RED CELL DISTRIBUTION WIDTH SD 43.4 fL (36.4-46.3); WHITE BLOOD COUNT 20.41 K/uL (4.8-10.8)
[2018-01-06 23:25] LABS: INR 1.4 (0.9-1.1); PTT PATIENT 36.4 SECONDS (21.0-31.0)
[2018-01-06] MEDS ORDERED: MoRPHine SULFATE 2 MG/ML CARP IV ONE (23:30)
[2018-01-06] MEDS ORDERED: PROCHLORPERAZINE INJ 5 MG in SYRINGE 4 ML IV ONE (23:35)
[2018-01-06] MEDS: METOPROLOL TARTRATE 1 MG/ML VIAL IV. SCH (23:45)
[2018-01-06] MEDS ORDERED: ACETAMINOPHEN IV 650 MG in EMPTY BAG 0 ML IV PRN (23:45)
[2018-01-06] MEDS: HEPARIN 25,000 UNIT/500ML D5W 500 ML IV SCH (23:53)
[2018-01-06] MEDS ORDERED: LEVALBUTEROL/IPRATROPIUM NEB INH STA (23:56)
[2018-01-07] VITALS (10 sets, daily range): BP systolic 146–212; BP diastolic 70–112; PULSE 70–87; TEMP 36.7–37; O2SAT 94–100; Ht 162.6 cm; Wt 47.7 kg
[2018-01-07] MEDS ORDERED: LEVALBUTEROL/IPRATROPIUM NEB INH PRN
[2018-01-07] MEDS ORDERED: OLANZAPINE 10 MG/2.1 ML SDV IM STA (00:04)
[2018-01-07] MEDS ORDERED: FUROSEMIDE 40 MG/4 ML VIAL ONE (00:07)
[2018-01-07] MEDS ORDERED: FUROSEMIDE INJ 40 MG in SYRINGE 0 ML IV STA (00:10)
[2018-01-07] MEDS ORDERED: IPRATROPIUM BROMIDE NEB SOLN 0.02% 2.5 ML VIAL INH STA (00:13)
[2018-01-07] MEDS ORDERED: LEVALBUTEROL 1.25MG/0.5ML NEB INH STA (00:13)
[2018-01-07] MEDS ORDERED: IPRATROPIUM BROMIDE NEB SOLN 0.02% 2.5 ML VIAL INH PRN (00:15)
[2018-01-07] MEDS ORDERED: LEVALBUTEROL 1.25MG/0.5ML NEB INH PRN (00:15)
[2018-01-07] MEDS: DEXTROSE 5% 1000ML 1,000 ML IV SCH (00:21)
[2018-01-07 00:32] LABS: CREATININE 0.78 mg/dl (0.60-1.20); POTASSIUM 4.5 mmol/L (3.5-5.1)
[2018-01-07] MEDS ORDERED: MAGNESIUM SULFATE 1GM / D5W 1 GM in PREMIXED IN D5W 100 ML IV ONE (01:00)
[2018-01-07] MEDS: INSULIN ASPART 100 UNITS/ML 3 ML PEN SC SCH ×3 (04:00→18:00)
[2018-01-07] MEDS: NITROGLYCERIN 2% OINTMENT 30GM TUBE EXT SCH ×4 (04:06→22:00)
[2018-01-07] MEDS: METRONIDAZOLE / NSS 500 MG in PREMIXED NSS 100 ML IV SCH ×3 (05:29→22:00)
[2018-01-07] MEDS: METOPROLOL TARTRATE 1 MG/ML VIAL IV. SCH ×2 (05:29→10:52)
[2018-01-07 06:41] LABS: HEMATOCRIT 36.7 % (37-47); HEMOGLOBIN 12.2 g/dL (12.0-16.0); MEAN CELL VOLUME 83.8 fL (80-100); MEAN CORPUSCULAR HEMOGLOBIN 27.9 pg (25-34); MEAN CORPUSCULAR HGB CONC 33.2 g/dl (32-36); MEAN PLATELET VOLUME 10.6 fL (7.4-10.4); PLATELET COUNT 565 K/uL (130-400); RED CELL DISTRIBUTION WIDTH CV 14.3 % (11.5-14.5); RED CELL DISTRIBUTION WIDTH SD 42.5 fL (36.4-46.3); WHITE BLOOD COUNT 23.96 K/uL (4.8-10.8)
--- NOTE | 2018-01-07 06:59 | DIAGNOSTIC IMAGING REPORT ---
SINGLE VIEW CHEST CLINICAL HISTORY: Dyspnea. FINDINGS: An AP, portable, upright chest radiograph is compared to study dated 01/06/2018. Correlation is made with chest CT dated 12/30/2017. The examination is degraded by portable technique and patient rotation. An enteric tube has been removed. The heart is enlarged. Pulmonary vascular congestion persists. There are layering pleural effusions with bibasilar consolidation. No pneumothorax is seen. The skeletal structures are osteopenic. The bony thorax is grossly intact. IMPRESSION: 1. Cardiomegaly with evidence of congestive failure. This is unchanged from yesterday. 2. Layering pleural effusions with bibasilar consolidation. This likely represents atelectasis. Clinical correlation will be required. Electronically signed by: Kamran Potter M.D. 01/07/2018 6:58 AM Dictated Date/Time: 01/07/2018 6:57 AM
[2018-01-07 07:04] LABS: PTT PATIENT 68.9 SECONDS (21.0-31.0)
[2018-01-07 07:19] LABS: HEMOGLOBIN A1C 6.5 % (4.5-5.6)
[2018-01-07] MEDS: PROSOURCE NOCARB 30ML/PKT NG SCH (07:52)
[2018-01-07] MEDS: NYSTATIN SUSP 500,000 U/5 ML UDC PO SCH ×4 (07:53→21:45)
[2018-01-07] MEDS: VANCOMYCIN HCL 500 MG/10ML SOLN PO SCH ×4 (07:53→21:45)
[2018-01-07] MEDS: RASPBERRY SYRUP 5 ML UDP PO SCH ×4 (07:53→21:45)
--- NOTE | 2018-01-07 08:25 | Progress Note ---
Subjective Date of Service: Jan 07, 2018. Subjective Pt evaluation today including: conversation w/ patient, physical exam, lab review, review of studies, review of inpatient medication list Saw/examined the patient in room 201 Yesterday, she pulled the NG tube out She is much more alert and oriented today, able to have a conversation States she wants some food; I let her know about her failing the swallow evaluation yesterday She does not have any complaints at this time Problem List Medical Problems: (1) Anasarca Status: Acute (2) Atrial fibrillation with RVR Status: Acute (3) C. difficile diarrhea Status: Acute (4) Elevated troponin Status: Acute (5) Hyperthyroidism Status: Acute (6) Hypotension Status: Acute (7) Left leg cellulitis Status: Acute (8) Left leg pain Status: Acute (9) Right-sided heart failure Status: Acute (10) Sepsis Status: Acute Review of Systems Respiratory: No shortness of breath Cardiac: No chest pain Abdomen: No pain, No nausea, No vomiting, No diarrhea Limited ROS due to mental status Medications Current Inpatient Medications Medications (Trade) Dose Ordered Sig/Sera Route Start Time Stop Time Status Last Admin Dose Admin Acetaminophen (Tylenol Tab) 325 mg Q6H PRN PO 12/30/17 03:15 01/29/18 03:14 12/30/17 23:29 325 MG Prochlorperazine Edisylate 5 mg/ Syringe 5 ml @ 5 mls/min Q6H PRN IV 12/30/17 03:15 01/29/18 03:14 01/06/18 07:57 5 MLS/MIN Metronidazole 500 mg/Prmx 100 ml @ 100 mls/hr Q8H IV 12/30/17 14:00 01/07/18 23:59 01/07/18 05:29 100 MLS/HR Pantoprazole Sodium 40 mg/ Syringe 10 ml @ 5 mls/min DAILY@11 IV 12/31/17 11:00 01/30/18 10:59 01/06/18 08:01 5 MLS/MIN Raspberry (Raspberry Syrup 5ml Cup) 5 ml QID PO 12/31/17 09:30 01/14/18 09:29 01/06/18 13:13 5 ML Vancomycin HCl (Vancomycin Oral Soln) 500 mg QID PO 01/01/18 17:00 4/5/18 16:59 01/06/18 13:42 500 MG Hydromorphone HCl (Dilaudid Inj) 0.5 mg Q3H PRN IV 01/02/18 10:45 01/16/18 10:44 01/06/18 07:56 0.5 MG Ceftriaxone Sodium 2 gm/ Dextrose 50 ml @ 100 mls/hr Q24H IV 01/02/18 18:00 01/11/18 17:59 01/06/18 17:24 100 MLS/HR Enteral Nutritional Formula (Peptamen 1.5) 1,000 ml UD NG 01/03/18 11:45 02/02/18 11:44 01/06/18 08:09 1,000 ML Enteral Nutritional Formula (Prosource No Carb) 30 ml DAILY@0900 NG 01/03/18 12:30 02/02/18 12:29 01/06/18 08:03 30 ML Nystatin (Mycostatin Susp) 5 ml QID PO 01/03/18 19:30 01/10/18 19:29 01/06/18 13:13 5 ML Ondansetron HCl 6 mg/Dextrose 53 ml @ 200 mls/hr Q6H PRN IV 01/04/18 00:30 02/03/18 00:29 01/04/18 07:48 200 MLS/HR Potassium Chloride (Elvia Ciel Elix) 40 meq BID PO 01/04/18 21:00 02/03/18 20:59 Future Hold 01/06/18 08:00 40 MEQ Apixaban (Eliquis Tab) 5 mg BID PO 01/04/18 16:00 02/03/18 15:59 Future Hold 01/06/18 08:00 5 MG Metoprolol Tartrate (Lopressor Tab) 50 mg Q6 PO 01/05/18 12:00 02/02/18 20:59 Future Hold 01/06/18 11:28 50 MG Nitroglycerin (Nitroglycerin 2% Oint) 1 inch Q6H EXT 01/05/18 10:00 02/04/18 09:59 01/07/18 04:06 1 INCH Miscellaneous Information (Consult Glycemic Management Pharmacy) 1 ea UD PRN N/A 01/06/18 09:32 02/05/18 09:31 Dextrose/Sodium Chloride 1,000 ml @ 75 mls/hr [id number] IV 01/06/18 17:45 02/05/18 17:44 Future Hold 01/06/18 17:50 75 MLS/HR Glucose (Glucose 40% Gel) 15-30 GRAMS 15 GRAMS... UD PRN PO 01/06/18 20:00 02/05/18 19:59 Glucose (Glucose Chew Tab) 4-8 Tablets 4 Tabl... UD PRN PO 01/06/18 20:00 02/05/18 19:59 Dextrose (Dextrose 50% 50ML Syringe) 25-50ML OF 50% DW IV FOR... UD PRN IV 01/06/18 20:00 02/05/18 19:59 Glucagon (Glucagon Inj) 1 mg UD PRN SQ 01/06/18 20:00 02/05/18 19:59 Metoprolol Tartrate (Lopressor Iv) 2.5 mg Q6H IV. 01/07/18 00:00 02/06/18 00:00 01/07/18 05:29 2.5 MG Heparin Sodium/ Dextrose 500 ml @ 13 mls/hr Q24H IV 01/06/18 23:30 02/05/18 23:29 01/06/18 23:53 13 MLS/HR Acetaminophen 650 mg/Empty Bag 65 ml @ 260 mls/hr Q6H PRN IV 01/06/18 23:45 02/05/18 23:44 Dextrose 1,000 ml @ 40 mls/hr Q24H IV 01/07/18 00:15 02/06/18 00:14 01/07/18 00:21 40 MLS/HR Ipratropium [place] (Atrovent 0.02% 0.5MG/2.5ML Neb) 0.5 mg Q4H PRN INH 01/07/18 00:15 02/06/18 00:14 Levalbuterol (Xopenex 1.25MG/ 0.5ML Neb) 1.25 mg Q4H PRN INH 01/07/18 00:15 02/06/18 00:14 Insulin Aspart (novoLOG ASPART) SLIDING SCALE Q6 SC 01/07/18 12:00 02/06/18 10:59 Objective Vital Signs Date Time Temp Pulse Resp B/P (MAP) Pulse Ox O2 Delivery O2 Flow Rate FiO2 01/07/18 07:34 36.9 78 18 154/79 (104) 95 Nasal Cannula 01/07/18 05:29 81 172/94 01/07/18 04:15 77 159/85 (109) 01/07/18 04:00 Nasal Cannula 2.0 01/07/18 03:00 36.9 75 20 179/112 (134) 99 01/07/18 02:00 75 19 162/87 (112) 97 Nasal Cannula 2.0 01/07/18 01:09 70 188/99 (128) 01/07/18 00:25 29 212/111 (144) 94 Nasal Cannula 2.0 01/07/18 00:13 75 22 100 Nasal Cannula 2.0 01/06/18 23:59 36.9 74 32 194/117 (142) 98 Nasal Cannula 2.0 01/06/18 23:59 Nasal Cannula 2.0 01/06/18 23:45 86 216/122 01/06/18 21:38 78 191/107 (135) 190/114 (139) 01/06/18 20:00 Nasal Cannula 2.0 01/06/18 19:40 36.4 68 22 175/95 (121) 95 Room Air 01/06/18 16:18 36.4 63 22 172/93 (119) 100 Nasal Cannula 2.0 01/06/18 16:00 Nasal Cannula 2.0 01/06/18 12:00 Nasal Cannula 2.0 01/06/18 12:00 36.6 62 22 146/87 (106) 98 Nasal Cannula 2.0 01/06/18 08:47 60 22 146/84 (104) 95 Nasal Cannula 25.0 Physical Exam General Appearance: + pertinent finding (acutely ill, improving) Respiratory/Chest: no respiratory distress, no accessory muscle use, + decreased breath sounds Cardiovascular: regular rate, rhythm, no edema, no murmur Abdomen: normal bowel sounds, non tender, soft Extremities: normal inspection, no pedal edema Neurologic/Psychiatric: alert, + disoriented, + pertinent finding (more oriented than yesterday, difficult to understand, possible slurring of speech?) Laboratory Results Last 24 Hours Test 01/06/18 10:03 01/06/18 13:27 01/06/18 16:20 01/06/18 19:46 Bedside Glucose 296 mg/dl 236 mg/dl 96 mg/dl 52 mg/dl Test 01/06/18 20:23 01/06/18 23:02 01/06/18 23:42 01/07/18 02:25 Bedside Glucose 146 mg/dl 83 mg/dl 91 mg/dl White Blood Count 20.41 K/uL Red Blood Count 4.41 M/uL Hemoglobin 12.3 g/dL Hematocrit 37.0 % Mean Corpuscular Volume 83.9 fL Mean Corpuscular Hemoglobin 27.9 pg Mean Corpuscular Hemoglobin Concent 33.2 g/dl Platelet Count 533 K/uL Mean Platelet Volume 10.3 fL Neutrophils (%) (Auto) 71.9 % Lymphocytes (%) (Auto) 14.8 % Monocytes (%) (Auto) 8.2 % Eosinophils (%) (Auto) 1.2 % Basophils (%) (Auto) 0.1 % Neutrophils # (Auto) 14.66 K/uL Lymphocytes # (Auto) 3.03 K/uL Monocytes # (Auto) 1.67 K/uL Eosinophils # (Auto) 0.25 K/uL Basophils # (Auto) 0.03 K/uL RDW Standard Deviation 43.4 fL RDW Coefficient of Variation 14.3 % Immature Granulocyte % (Auto) 3.8 % Immature Granulocyte # (Auto) 0.77 K/uL Prothrombin Time 14.7 SECONDS Prothromb Time International Ratio 1.4 Activated Partial Thromboplast Time 36.4 SECONDS Partial Thromboplastin Ratio 1.4 Sodium Level 143 mmol/L Potassium Level 4.5 mmol/L Chloride Level 111 mmol/L Carbon Dioxide Level 26 mmol/L Anion Gap 6.0 mmol/L Blood Urea Nitrogen 34 mg/dl Creatinine 0.78 mg/dl Est Creatinine Clear Calc Drug Dose 66.2 ml/min Estimated GFR () 95.8 Estimated GFR (Non- 82.6 BUN/Creatinine Ratio 43.6 Random Glucose 104 mg/dl Estimated Average Glucose 140 mg/dl Hemoglobin A1c 6.5 % Calcium Level 9.0 mg/dl Magnesium Level 1.9 mg/dl Test 01/07/18 03:59 01/07/18 06:26 Bedside Glucose 90 mg/dl White Blood Count 23.96 K/uL Red Blood Count 4.38 M/uL Hemoglobin 12.2 g/dL Hematocrit 36.7 % Mean Corpuscular Volume 83.8 fL Mean Corpuscular Hemoglobin 27.9 pg Mean Corpuscular Hemoglobin Concent 33.2 g/dl RDW Standard Deviation 42.5 fL RDW Coefficient of Variation 14.3 % Platelet Count 565 K/uL Mean Platelet Volume 10.6 fL Activated Partial Thromboplast Time 68.9 SECONDS Partial Thromboplastin Ratio 2.7 Assessment and Plan This is a 62 year old female with no past medical history prior to arrival. Metabolic Encephalopathy Possible Subacute R Cerebellar Infarct 01/07 - Head CT performed late on 01/06, suggesting possible subacute infarct - Brain MRI could not be performed; dental implant? - repeat Head CT in 1-2 days - appreciate neurology input - started on IV heparin at this time due to pulling of NGT and failing swallow evaluation - speech eval - PT/OT 01/06 - patient with confusion, disorientation - possibly related to Dilaudid use, also has had sepsis, hypotension episodes, YI earlier in the admission - appreciate neurology input on this matter, no need for further imaging - Brain MRI, Head CT already performed, EEG reviewed by neurology - slow improvement - may need Ativan for significant anxiety as well Severe Sepsis, E. coli Septicemia Severe C. Diff Colitis 01/07 - WBC increasing - will repeat abdomen/pelvis CT - general surgery for further input - continue IV Rocephin; unfortunately, pulled NGT, so can't do oral Vanco, currently on IV Flagyl 01/06 - blood cultures positive for E. coli; repeat blood cultures - no growth - C. Diff positive, colitis noted on imaging - started on IV Flagyl initially, converted to PO Vanco - appreciate ID input - will need PO Vanco for 28 days total - will need Rocephin for 14 days since the negative blood culture on 01/01 - appreciate general surgery input regarding C. Diff - no surgical intervention at this time - will monitor abdominal firmness/distention - if no improvement, repeat abd/ pelvis CT can be done Paroxysmal A. Fib with RVR 01/07 - Eliquis stopped - awaiting speech evaluation - IV heparin started - will need either IV Lopressor or re-insertion of NGT 01/06 - intermittent A. fib and rapid ventricular response; likely from sepsis - currently in NSR - appreciate cardiology input - continue Lopressor for rate control - Eliquis for anticoagulation - had required IV Lopressor and Cardizem ggt - no longer should receive Cardizem due to pauses noted earlier in the admission Biventricular Heart Failure 01/07 - required IV Lasix yesterday - monitor fluid status 01/06 - patient presented with worsening lower extremity edema, hepatic congestion - echo initially suggested significant R ventricular systolic function and decreased LVEF - started on b-luis, treated for infection, etc. - repeat echo was performed on 01/05 with improvement of both ventricular function - further management as per cardiology Type 2 Demand Ischemia - troponin elevation when she first came in - likely secondary to infection, anemia, etc. - initially was on IV heparin, now discontinued - currently on Eliquis for A. fib episodes - continue b-luis - treating underlying infection Hypertensive Urgency - BP yesterday >200/100 - appreciate cardiology input - started on Lopressor 50mg q6, Hydralazine and topical nitrates added - anxiety may also be playing a part in elevated blood pressure - will add low dose Ativan PRN Hyperglycemia - likely due to dextrose in tube feeds - consult speech - consult pharmacy glycemic control Acute Kidney Injury - resolved now; initially due to acute tubular necrosis, possible medication or IV contrast induced - was given IVFs due to sepsis Hepatic Congestion - from biventricular heart failure - monitor for fluid overload Anemia - improving - likely iron deficiency - H/H stable Thrombocytopenia - resolved Abnormal Thyroid Function Test - possibly due to acute illness, severe sepsis, etc. - initially on methimazole; now d/c'd - will need outpatient TSH, Free T4, T3; may need thyroid ultrasound and further testing - outpatient endocrinology input DVT ppx - IV heparin FULL CODE PT/OT/speech ordered Clinical course obtained from chart review: December 29, 2017 Presented on 12/29 with significant bilateral lower extremity edema, fevers, chills, abdominal distention, nausea. December 30, 2017 Patient admitted on 12/30 due to meeting severe sepsis criteria. She had significant lactic acidosis, tachycardia; later developed hypotension, leukocytosis, and elevated procalcitonin. She was started on broad spectrum antibiotics, initially to cover cellulitis. Imaging suggested shock bowel, hypotensive bowel - initial concern of liver cirrhosis. Further testing suggested significant R heart failure with hepatic congestion. Edematous lower extremities likely from the biventricular heart failure noted. Echo was done to confirm this diagnosis. LVEF at the time noted to be 35-40%. Dilatation of R atrium and R ventricle noted as well. Late on 12/30 , patient developed A. Fib with RVR and transferred to the ICU. December 31, 2017 Patient spontaneously converted to sinus rhythm after being given IV Lopressor x2 and Cardizem ggt, which had to be stopped due to low blood pressure. Troponin elevation noted, likely type 2 demand ischemia from infection, arrhythmia, sepsis. Patient was started on IV heparin. Patient was found to be positive for C. Diff Infection; CT suggested colitis. NGT was placed in the ICU and Vanco solution was given to treat this. Blood cultures were positive at this time for gram negative organism. Patient's mental status acutely worsened. Neurology was consulted and an MRI and EEG were performed. Attributed mental status change to metabolic encephalopathy. Kidney function also acutely worsened; possibly from IV contrast from imaging done prior. January 01, 2018 Nephrology consulted due to acute kidney injury and acute tubular necrosis. Consideration made for dialysis; though this was never required. ID consulted - E. coli septicemia noted on blood cultures x2, repeat cultures were ordered. Nephrology consulted - metabolic acidosis - possibly from sepsis and YI. January 02, 2018 General surgery consulted regarding C. Diff colitis, conservative management decided. Patient at this time was going in and out of A. fib; initially started on IV Cardizem, but due to post-conversion pauses, this was stopped. Was started on bicarb drip due to acidosis. ID following for UTI, C. Diff colitis, E. coli septicemia. January 03, 2018 Clinical improvement made on January 03 mentally. Hypertension was still an issue and cardiology worked on getting this down by increasing b-luis dose and adding hydralazine. January 04, 2018 continuing PO Vancomycin and IV Rocephin IV heparin stopped at this time. Eliquis had been started. clinical picture continued to improve as per records. January 05, 2018 Repeat TTE was done; improving biventricular heart failure noted. Hypertensive Urgency still an issue on this day; cardiology adjusted meds to add nitropaste and Hydralazine, as well as an increase in Lopressor dose.
[2018-01-07] MEDS ORDERED: OPTIRAY 320 IV PRN (08:45)
--- NOTE | 2018-01-07 10:29 | Surgery Progress Note ---
Surgery Progress Note Date of Service Jan 07, 2018. Subjective Post OP Day: HD # 8 More alert and oriented today, answers questions however softly spoken hard to understand at times. Denies of any abdominal pain, nausea or vomiting passing gas and + bowel movements Breathing improved today, no respiratory accessory muscle use. NGT pulled out by patient last evening Objective Vital Signs: Date Time Temp Pulse Resp B/P (MAP) Pulse Ox O2 Delivery O2 Flow Rate FiO2 01/07/18 08:00 Nasal Cannula 2.0 01/07/18 07:34 36.9 78 18 154/79 (104) 95 Nasal Cannula 01/07/18 05:29 81 172/94 01/07/18 04:15 77 159/85 (109) 01/07/18 04:00 Nasal Cannula 2.0 01/07/18 03:00 36.9 75 20 179/112 (134) 99 01/07/18 02:00 75 19 162/87 (112) 97 Nasal Cannula 2.0 01/07/18 01:09 70 188/99 (128) 01/07/18 00:25 29 212/111 (144) 94 Nasal Cannula 2.0 01/07/18 00:13 75 22 100 Nasal Cannula 2.0 01/06/18 23:59 36.9 74 32 194/117 (142) 98 Nasal Cannula 2.0 01/06/18 23:59 Nasal Cannula 2.0 01/06/18 23:45 86 216/122 01/06/18 21:38 78 191/107 (135) 190/114 (139) 01/06/18 20:00 Nasal Cannula 2.0 01/06/18 19:40 36.4 68 22 175/95 (121) 95 Room Air 01/06/18 16:18 36.4 63 22 172/93 (119) 100 Nasal Cannula 2.0 01/06/18 16:00 Nasal Cannula 2.0 01/06/18 12:00 Nasal Cannula 2.0 01/06/18 12:00 36.6 62 22 146/87 (106) 98 Nasal Cannula 2.0 General Appearance: no apparent distress, + thin Head: normocephalic, atraumatic Neck: trachea midline Respiratory/Chest: no respiratory distress, no accessory muscle use Abdomen: non tender, non distended, soft, no organomegaly, no pulsatile mass Laboratory Results: Results Past 24 Hours Test 01/06/18 13:27 01/06/18 16:20 01/06/18 19:46 01/06/18 20:23 Range/Units Bedside Glucose 236 96 52 146 70-90 mg/dl Test 01/06/18 23:02 01/06/18 23:42 01/07/18 02:25 01/07/18 03:59 Range/Units White Blood Count 20.41 4.8-10.8 K/uL Red Blood Count 4.41 4.2-5.4 M/uL Hemoglobin 12.3 12.0-16.0 g/dL Hematocrit 37.0 37-47 % Mean Corpuscular Volume 83.9 80-100 fL Mean Corpuscular Hemoglobin 27.9 25-34 pg Mean Corpuscular Hemoglobin Concent 33.2 32-36 g/dl Platelet Count 533 130-400 K/uL Mean Platelet Volume 10.3 7.4-10.4 fL Neutrophils (%) (Auto) 71.9 % Lymphocytes (%) (Auto) 14.8 % Monocytes (%) (Auto) 8.2 % Eosinophils (%) (Auto) 1.2 % Basophils (%) (Auto) 0.1 % Neutrophils # (Auto) 14.66 1.4-6.5 K/uL Lymphocytes # (Auto) 3.03 1.2-3.4 K/uL Monocytes # (Auto) 1.67 0.11-0.59 K/uL Eosinophils # (Auto) 0.25 0-0.5 K/uL Basophils # (Auto) 0.03 0-0.2 K/uL RDW Standard Deviation 43.4 36.4-46.3 fL RDW Coefficient of Variation 14.3 11.5-14.5 % Immature Granulocyte % (Auto) 3.8 % Immature Granulocyte # (Auto) 0.77 0.00-0.02 K/uL Prothrombin Time 14.7 9.0-12.0 SECONDS Prothromb Time International Ratio 1.4 0.9-1.1 Activated Partial Thromboplast Time 36.4 21.0-31.0 SECONDS Partial Thromboplastin Ratio 1.4 Sodium Level 143 136-145 mmol/L Potassium Level 4.5 3.5-5.1 mmol/L Chloride Level 111 98-107 mmol/L Carbon Dioxide Level 26 21-32 mmol/L Anion Gap 6.0 3-11 mmol/L Blood Urea Nitrogen 34 7-18 mg/dl Creatinine 0.78 0.60-1.20 mg/dl Est Creatinine Clear Calc Drug Dose 66.2 ml/min Estimated GFR () 95.8 Estimated GFR (Non- 82.6 BUN/Creatinine Ratio 43.6 10-20 Random Glucose 104 70-99 mg/dl Estimated Average Glucose 140 mg/dl Hemoglobin A1c 6.5 4.5-5.6 % Calcium Level 9.0 8.5-10.1 mg/dl Magnesium Level 1.9 1.8-2.4 mg/dl Bedside Glucose 83 91 90 70-90 mg/dl Test 01/07/18 06:26 Range/Units White Blood Count 23.96 4.8-10.8 K/uL Red Blood Count 4.38 4.2-5.4 M/uL Hemoglobin 12.2 12.0-16.0 g/dL Hematocrit 36.7 37-47 % Mean Corpuscular Volume 83.8 80-100 fL Mean Corpuscular Hemoglobin 27.9 25-34 pg Mean Corpuscular Hemoglobin Concent 33.2 32-36 g/dl RDW Standard Deviation 42.5 36.4-46.3 fL RDW Coefficient of Variation 14.3 11.5-14.5 % Platelet Count 565 130-400 K/uL Mean Platelet Volume 10.6 7.4-10.4 fL Activated Partial Thromboplast Time 68.9 21.0-31.0 SECONDS Partial Thromboplastin Ratio 2.7 Assessment & Plan C. Diff Colitis - increase in leukocytosis however patient afebrile - no abdominal pain, distention, or pain on examination - H& H stable - + bowel function, no blood in stools per nursing staff Plan: No acute surgical indication, benign abdomen Obtain UA to rule out UTI given increase in leukocytosis Obtain repeat CT scan of abdomen and pelvis Given NGT has been pulled out, speech evaluation to see if patient can tolerate oral intake , if patient does not pass speech eval consider nasal feeding tube for nutrition and administration of oral vancomycin Continue IV Ceftriaxone and Flagyl, await eval by infectious disease today in regards to their recs since NGT removed Continue current medical management Continue PT/OT Will follow Dr. Still has seen and examined patient, agrees with above
--- NOTE | 2018-01-07 10:36 | Pharmacy Progress Note ---
Pharmacy Glycemic Short Note 2 Date of Service Jan 07, 2018. OUTPATIENT ANTIDIABETIC REGIMEN: * n/a ASSESSMENT: * Ms Recinos is a 62 y/o F with no significant PMH who presented with abdominal pain and lower extremity swelling. She has had a complicated hospitalization with Afib with RVR, development of severe Clostridium difficile infection, E coli bacteremia on Rocephin, and now severe hyperglycemia. Yesterday morning's blood sugar was 292 mg/dL on PRP. She received 22 units of insulin as a loading dose (full day's weight-based stress of 2 Lantus). The patient did have a low blood sugar afterwards (96 - 52 mg/dL). The patient pulled out her NG tube and is NPO. * The patient remained stable throughout the night. She was started on dextrose @ 40 cc/hr around midnight. Since the patient's HbA1C indicates that her diabetes is well controlled as an outpatient it is reasonable to assume the patient's infections are causing the spike in blood sugar along with the stress of her hospitalization. Provide loose scales for both Lantus and Novolog to prevent any recurrent hyperglycemia. PLAN FOR INPATIENT GLYCEMIC CONTROL: * Basal insulin * Lantus 5 units SQ HS if blood sugar greater than 180 mg/dL * Bolus insulin * NovoLog per scale ACHS or Q6hrs while NPO * Goal Range: Low 140 mg/dL - High 180 mg/dL * Correction Factor: 45 mg/dL/unit * Nutritional / Prandial insulin per carb ratio of 1 unit per 15 grams CHO consumed
[2018-01-07] MEDS: PANTOprazole INJ 40 MG in SYRINGE 0 ML IV SCH (10:52)
[2018-01-07] MEDS ORDERED: INSULIN ASPART 100 UNITS/ML 3 ML PEN SC SCH (11:00)
--- NOTE | 2018-01-07 11:39 | DIAGNOSTIC IMAGING REPORT ---
ABD/PELVIS IV CONTRAST ONLY CLINICAL HISTORY: 62 years-old Female presenting with worsening infection? f/u c. diff, sepsis. TECHNIQUE: Multidetector CT of the abdomen and pelvis was performed after the administration of intravenous contrast. IV contrast: 92 mL of Optiray 320. A dose lowering technique was used consistent with the principles of ALARA (as low as reasonably achievable). COMPARISON: 01/02/2018. CT DOSE (mGy.cm): The estimated cumulative dose is 247.26 mGycm. 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 Lung bases: Extensive lower lobe predominant consolidation volume loss. Biatrial enlargement of the heart. Moderate to large bilateral pleural effusions, stable to increased from prior. Liver: Normal morphology. No liver lesion. Periportal edema suggested. Patent hepatic vasculature. Biliary: No intrahepatic or extrahepatic biliary ductal dilatation. Nonspecific mild gallbladder wall thickening or pericholecystic fluid. No abnormal distention of the gallbladder. Pancreas: Normal. Spleen: Normal. Adrenal glands: Hyperenhancing adrenal glands. Kidneys and ureters: Normal. No hydronephrosis. Ureters poorly visualized. Bladder: Partially decompressed with a Andrade catheter. Intraluminal gas related to the catheter. Pelvic organs: Lobular uterus with distortion of the endometrial cavity likely due to the presence of multiple fibroids. Prominent right ovary for the patient's expected postmenopausal status. Left ovary poorly visualized. Bowel: Fluid in the rectum suggests a diarrheal state. Redundant transverse colon. The appendix is grossly normal. No bowel obstruction. Mucosal hyperenhancement of the stomach. Peritoneal cavity: Small abdominal pelvic ascites. Diffuse mesenteric edema. No free intraperitoneal gas. Lymph nodes: Enlarged bilateral external iliac lymph nodes in the obturator regions, which measure 7 mm in short axis on the right and 9 mm in short axis on the left. Vasculature: Normal caliber patent abdominal aorta. IVC is dilated. Abdominal wall: Diffuse anasarca. Musculoskeletal: Normal. IMPRESSION: 1. Volume overload evidenced by increasing pleural effusions, anasarca, periportal edema, ascites, and mesenteric edema. 2. Biatrial enlargement suggests heart failure. Relatedly, findings suggestive of hypoperfusion complex including hyperenhancement of the adrenal glands and mucosal hyperenhancement of the stomach. No gross evidence of shock bowel. These findings are relate to poor left cardiac output. 3. Findings suggest a diarrheal state. 4. Extensive bilateral lower lobe atelectasis secondary to the bilateral effusions. Electronically signed by: Bill Branch M.D. 01/07/2018 11:38 AM Dictated Date/Time: 01/07/2018 11:26 AM
--- NOTE | 2018-01-07 12:09 | DIAGNOSTIC IMAGING REPORT ---
ULTRASOUND OF THE CAROTID ARTERIES CLINICAL HISTORY: Strokelike symptoms. COMPARISON STUDY: No priors. TECHNIQUE: Real-time, grayscale, and color Doppler sonography of the carotid arteries is performed. Images are reviewed in the transverse and longitudinal planes. FINDINGS: Blood pressures were not assessed due to the presence of IV catheters. The carotid arteries are patent bilaterally and demonstrate antegrade flow. There is no significant atherosclerotic plaque identified. Normal doppler arterial waveforms are seen throughout. Velocity measurements are listed below. Common carotid peak systolic velocity (cm/sec): RIGHT: 127 LEFT: 137 ICA proximal peak systolic velocity (cm/sec): RIGHT: 59 LEFT: 54 ICA mid peak systolic velocity (cm/sec): RIGHT: 59 LEFT: 74 ICA distal peak systolic velocity (cm/sec): RIGHT: 63 LEFT: 74 ICA/CC peak systolic ratio: RIGHT: 0.5 LEFT: 0.5 Antegrade flow was shown in the vertebral arteries. The external carotid arteries are patent. IMPRESSION: 1. There is no sonographic evidence of hemodynamically significant stenosis in the right or left carotid arterial system. 2. Antegrade flow is shown in the vertebral arteries. Electronically signed by: Kamran Potter M.D. 01/07/2018 12:08 PM Dictated Date/Time: 01/07/2018 12:07 PM
--- NOTE | 2018-01-07 13:12 | ELECTROENCEPHALOGRAPH REPORT ---
CLINICAL DIAGNOSES: Sepsis, paroxysmal atrial fibrillation and now recurrent lethargy and confusion and agitation, question encephalopathy, seizure activity, etc. ELECTROENCEPHALOGRAPHY DIAGNOSIS: Abnormal EEG with increased slow wave activity, left hemisphere, maximum in the central regions during apparent wakefulness. DESCRIPTION OF TRACING: This EEG was done as a bedside recording and is of reasonable technical quality with few muscle movement artifacts, recorded episodically and correlating with the patient movements seen on video analysis. Most of the time, the patient is quiet and the EEG activity is not marred by muscle artifact. Under these conditions, there is evidence for what appears to be a background rhythm in the alpha range of up to 9-10 Hz of maximum frequency and of up to 50-60 microvolts of maximum amplitude. This is slightly higher in amplitude over the left hemisphere, but is present bilaterally and symmetrically otherwise. Polymorphic mid frequency modest amplitude theta activity is seen over the right hemisphere in amounts that would appear to be essentially normal, but over the left hemisphere this activity shifts into the lower spectrum and is intermixed with higher amplitude at times, almost rhythmic delta activity without any clinical manifestation being seen on video analysis and without any clear cut potentially epileptogenic features otherwise. Beta activity is seen bifrontally and a fairly symmetrical fashion but is difficult to dissect from the effects of muscle activity in the same areas. At no time during the waking tracing is there clear evidence for potentially epileptogenic discharges. INTERPRETATION: This electroencephalography is abnormal in a focal fashion suggesting the presence of structural disease involving the left hemisphere. Correlation with imaging studies is suggested. Currently, there is nothing; however, to suggest ongoing potentially epileptogenic activity.
--- NOTE | 2018-01-07 13:35 | Neurology Progress Notes ---
Neurology Progress Note Date of Service Jan 07, 2018. Sekou Coleman is a 62 year old female who presented to the ED with c/o L leg pain and swelling. She was also having generalized body ache symptoms, nausea, lower abd pain and was febrile, L leg suspected to have cellulitis. Her blood culture is growing gram negative bacilli. She was started on Cefepime, Flagyl, Doxycycline. She had imaging studies including CT chest/abd/pelvis which is concerning for R heart congestion, pulmonary HTN, anasarca, abd ascites. CT hypoperfusion complex suspected and enlarged retroperitoneal and pelvic lymph nodes unclear etiology and may be related to congestive change or malignancy/ lymphoproliferative disease. She moved several years ago to [place] and lives with daughter. She used to be a [place] resident but lost insurance and hasn't had medical care for years. Today she is awake and answering simple questions. denies pain. There is no family in the room. She had an NG tube which she self removed. She is now on a heparin drip and is taking orals crushed in pureed foods. poor appetite. Objective Date Time Temp Pulse Resp B/P (MAP) Pulse Ox O2 Delivery O2 Flow Rate FiO2 01/07/18 12:00 Nasal Cannula 2.0 01/07/18 11:39 37.0 83 18 165/90 (115) 96 01/07/18 10:52 85 165/90 01/07/18 08:00 Nasal Cannula 2.0 01/07/18 07:34 36.9 78 18 154/79 (104) 95 Nasal Cannula 01/07/18 05:29 81 172/94 01/07/18 04:15 77 159/85 (109) 01/07/18 04:00 Nasal Cannula 2.0 01/07/18 03:00 36.9 75 20 179/112 (134) 99 01/07/18 02:00 75 19 162/87 (112) 97 Nasal Cannula 2.0 01/07/18 01:09 70 188/99 (128) 01/07/18 00:25 29 212/111 (144) 94 Nasal Cannula 2.0 01/07/18 00:13 75 22 100 Nasal Cannula 2.0 01/06/18 23:59 36.9 74 32 194/117 (142) 98 Nasal Cannula 2.0 01/06/18 23:59 Nasal Cannula 2.0 01/06/18 23:45 86 216/122 01/06/18 21:38 78 191/107 (135) 190/114 (139) 01/06/18 20:00 Nasal Cannula 2.0 01/06/18 19:40 36.4 68 22 175/95 (121) 95 Room Air 01/06/18 16:18 36.4 63 22 172/93 (119) 100 Nasal Cannula 2.0 01/06/18 16:00 Nasal Cannula 2.0 Last 24 Hours Test 01/06/18 13:27 01/06/18 16:20 01/06/18 19:46 01/06/18 20:23 Bedside Glucose 236 mg/dl 96 mg/dl 52 mg/dl 146 mg/dl Test 01/06/18 23:02 01/06/18 23:42 01/07/18 02:25 01/07/18 03:59 White Blood Count 20.41 K/uL Red Blood Count 4.41 M/uL Hemoglobin 12.3 g/dL Hematocrit 37.0 % Mean Corpuscular Volume 83.9 fL Mean Corpuscular Hemoglobin 27.9 pg Mean Corpuscular Hemoglobin Concent 33.2 g/dl Platelet Count 533 K/uL Mean Platelet Volume 10.3 fL Neutrophils (%) (Auto) 71.9 % Lymphocytes (%) (Auto) 14.8 % Monocytes (%) (Auto) 8.2 % Eosinophils (%) (Auto) 1.2 % Basophils (%) (Auto) 0.1 % Neutrophils # (Auto) 14.66 K/uL Lymphocytes # (Auto) 3.03 K/uL Monocytes # (Auto) 1.67 K/uL Eosinophils # (Auto) 0.25 K/uL Basophils # (Auto) 0.03 K/uL RDW Standard Deviation 43.4 fL RDW Coefficient of Variation 14.3 % Immature Granulocyte % (Auto) 3.8 % Immature Granulocyte # (Auto) 0.77 K/uL Prothrombin Time 14.7 SECONDS Prothromb Time International Ratio 1.4 Activated Partial Thromboplast Time 36.4 SECONDS Partial Thromboplastin Ratio 1.4 Sodium Level 143 mmol/L Potassium Level 4.5 mmol/L Chloride Level 111 mmol/L Carbon Dioxide Level 26 mmol/L Anion Gap 6.0 mmol/L Blood Urea Nitrogen 34 mg/dl Creatinine 0.78 mg/dl Est Creatinine Clear Calc Drug Dose 66.2 ml/min Estimated GFR () 95.8 Estimated GFR (Non- 82.6 BUN/Creatinine Ratio 43.6 Random Glucose 104 mg/dl Estimated Average Glucose 140 mg/dl Hemoglobin A1c 6.5 % Calcium Level 9.0 mg/dl Magnesium Level 1.9 mg/dl Bedside Glucose 83 mg/dl 91 mg/dl 90 mg/dl Test 01/07/18 06:26 White Blood Count 23.96 K/uL Red Blood Count 4.38 M/uL Hemoglobin 12.2 g/dL Hematocrit 36.7 % Mean Corpuscular Volume 83.8 fL Mean Corpuscular Hemoglobin 27.9 pg Mean Corpuscular Hemoglobin Concent 33.2 g/dl RDW Standard Deviation 42.5 fL RDW Coefficient of Variation 14.3 % Platelet Count 565 K/uL Mean Platelet Volume 10.6 fL Activated Partial Thromboplast Time 68.9 SECONDS Partial Thromboplastin Ratio 2.7 Imaging: carotid doppler- . There is no sonographic evidence of hemodynamically significant stenosis in the right or left carotid arterial system. Antegrade flow is shown in the vertebral arteries. CT head- 14 mm focal hypodensity in the region of the right cerebellum/inferior aspect of the right middle cerebellar peduncle. This may represent a subacute infarct. Short-term follow-up imaging is recommended, given the non specificity of this finding. No evidence of acute hemorrhage. No evidence of hydrocephalus. EEG- This electroencephalography is abnormal in a focal fashion suggesting the presence of structural disease involving the left hemisphere. Correlation with imaging studies is suggested. Currently, there is nothing; however, to suggest ongoing potentially epileptogenic activity. Exam: Gen: alert with voice command lungs course breath sounds CV irregular follow commands but unable to communicate where she is, states "your hands are cold" squeezes with both hands and pulls against resistance lifts legs against gravity but not against resistance Current Inpatient Medications Medications (Trade) Dose Ordered Sig/Sera Route Start Time Stop Time Status Last Admin Dose Admin Acetaminophen (Tylenol Tab) 325 mg Q6H PRN PO 12/30/17 03:15 01/29/18 03:14 12/30/17 23:29 325 MG Prochlorperazine Edisylate 5 mg/ Syringe 5 ml @ 5 mls/min Q6H PRN IV 12/30/17 03:15 01/29/18 03:14 01/06/18 07:57 5 MLS/MIN Metronidazole 500 mg/Prmx 100 ml @ 100 mls/hr Q8H IV 12/30/17 14:00 01/07/18 23:59 01/07/18 05:29 100 MLS/HR Pantoprazole Sodium 40 mg/ Syringe 10 ml @ 5 mls/min DAILY@11 IV 12/31/17 11:00 01/30/18 10:59 01/07/18 10:52 5 MLS/MIN Raspberry (Raspberry Syrup 5ml Cup) 5 ml QID PO 12/31/17 09:30 01/14/18 09:29 01/07/18 12:29 5 ML Vancomycin HCl (Vancomycin Oral Soln) 500 mg QID PO 01/01/18 17:00 01/15/18 16:59 01/07/18 12:29 500 MG Hydromorphone HCl (Dilaudid Inj) 0.5 mg Q3H PRN IV 01/02/18 10:45 01/16/18 10:44 01/06/18 07:56 0.5 MG Ceftriaxone Sodium 2 gm/ Dextrose 50 ml @ 100 mls/hr Q24H IV 01/02/18 18:00 01/11/18 17:59 01/06/18 17:24 100 MLS/HR Enteral Nutritional Formula (Peptamen 1.5) 1,000 ml UD NG 01/03/18 11:45 02/02/18 11:44 01/06/18 08:09 1,000 ML Enteral Nutritional Formula (Prosource No Carb) 30 ml DAILY@0900 NG 01/03/18 12:30 02/02/18 12:29 01/06/18 08:03 30 ML Nystatin (Mycostatin Susp) 5 ml QID PO 01/03/18 19:30 01/10/18 19:29 01/07/18 12:30 5 ML Ondansetron HCl 6 mg/Dextrose 53 ml @ 200 mls/hr Q6H PRN IV 01/04/18 00:30 02/03/18 00:29 01/04/18 07:48 200 MLS/HR Potassium Chloride (Elvia Ciel Elix) 40 meq BID PO 01/04/18 21:00 02/03/18 20:59 Future Hold 01/06/18 08:00 40 MEQ Apixaban (Eliquis Tab) 5 mg BID PO 01/04/18 16:00 02/03/18 15:59 Future Hold 01/06/18 08:00 5 MG Metoprolol Tartrate (Lopressor Tab) 50 mg Q6 PO 01/05/18 12:00 02/02/18 20:59 Future Hold 01/06/18 11:28 50 MG Nitroglycerin (Nitroglycerin 2% Oint) 1 inch Q6H EXT 01/05/18 10:00 02/04/18 09:59 01/07/18 10:52 1 INCH Miscellaneous Information (Consult Glycemic Management Pharmacy) 1 ea UD PRN N/A 01/06/18 09:32 02/05/18 09:31 Dextrose/Sodium Chloride 1,000 ml @ 75 mls/hr [id number] IV 01/06/18 17:45 02/05/18 17:44 Future Hold 01/06/18 17:50 75 MLS/HR Glucose (Glucose 40% Gel) 15-30 GRAMS 15 GRAMS... UD PRN PO 01/06/18 20:00 02/05/18 19:59 Glucose (Glucose Chew Tab) 4-8 Tablets 4 Tabl... UD PRN PO 01/06/18 20:00 02/05/18 19:59 Dextrose (Dextrose 50% 50ML Syringe) 25-50ML OF 50% DW IV FOR... UD PRN IV 01/06/18 20:00 02/05/18 19:59 Glucagon (Glucagon Inj) 1 mg UD PRN SQ 01/06/18 20:00 02/05/18 19:59 Metoprolol Tartrate (Lopressor Iv) 2.5 mg Q6H IV. 01/07/18 00:00 02/06/18 00:00 01/07/18 10:52 2.5 MG Heparin Sodium/ Dextrose 500 ml @ 13 mls/hr Q24H IV 01/06/18 23:30 02/05/18 23:29 01/06/18 23:53 13 MLS/HR Acetaminophen 650 mg/Empty Bag 65 ml @ 260 mls/hr Q6H PRN IV 01/06/18 23:45 02/05/18 23:44 Dextrose 1,000 ml @ 40 mls/hr Q24H IV 01/07/18 00:15 02/06/18 00:14 01/07/18 00:21 40 MLS/HR Ipratropium [place] (Atrovent 0.02% 0.5MG/2.5ML Neb) 0.5 mg Q4H PRN INH 01/07/18 00:15 02/06/18 00:14 Levalbuterol (Xopenex 1.25MG/ 0.5ML Neb) 1.25 mg Q4H PRN INH 01/07/18 00:15 02/06/18 00:14 Insulin Aspart (novoLOG ASPART) SLIDING SCALE Q6 SC 01/07/18 12:00 02/06/18 10:59 Ioversol (Optiray 320) 100 ml UD PRN IV 01/07/18 08:45 01/11/18 08:44 Insulin Glargine (Lantus Solostar Pen) SEE PROTOCOL TEXT HS SC 01/07/18 21:00 02/06/18 20:59 Impression 62 year old female with complex medical issues -confusion Plan 1. medical management per primary team and ICU 2. EEG no clear epileptic activity increased slowing on left 3. metabolic encephalopathy 4. currently on heparin gtt due to new infarct on CT head 5. taking orals but not good appetite may need supplemental nutrition 6. repeat MRI brain without contrast to identify and further areas of infarct 7. unclear what her baseline is but she does seem more responsive today I have seen and discussed above patient with Dr Rayo Aragon , neurology Pateint seen and is a bit better than yesterday but worse than over the weekend and eeg shows slowing left hemisphere with ct showing infarct right deep cerebellum nee mri to assess for other potential embolic events and heparin until she can get back on her oral agents exam non helpful due to lack of cooperatin and is still dysarthric perhaps some aphasic elements as well and has a soft right facial asymmetry but no clear cerebellar signs despite the ct report and images will see tomorrow hopefully after mri is done Rayo Aragon MD
[2018-01-07 14:44] LABS: CREATININE 0.72 mg/dl (0.60-1.20)
[2018-01-07 14:45] LABS: POTASSIUM 4.2 mmol/L (3.5-5.1)
[2018-01-07 14:46] LABS: CALCIUM 8.4 mg/dl (8.5-10.1)
--- NOTE | 2018-01-07 17:00 | CARDIOLOGY PROGRESS NOTE ---
DATE: 01/07/2018 CARDIOLOGY CONSULTATION FOLLOWUP NOTE The patient was seen and examined. Chart, medications, and telemetry were reviewed. SUBJECTIVE: The patient was more conversant and alert this afternoon. Anticipates being able to eat and take medications orally. Denies any chest pains. Still mildly breathless. Notes no abdominal discomfort. OBJECTIVE: VITAL SIGNS: Heart rate is 87-90 and blood pressure is 164/92. NECK: Thin. There is no distinct jugular venous distention. LUNGS: Reveal diminished breath sounds bibasilar. CARDIOVASCULAR: Regular with forceful apical impulse. ABDOMEN: Soft. EXTREMITIES: Without cyanosis or clubbing. There is trace pedal edema. LABORATORY DATA: This afternoon, sodium is 142, potassium is 4.2, chloride is 108, bicarbonate is 28, BUN is 25, creatinine 0.72, and calcium is 8.4. IMPRESSION: A 62-year-old female admitted with acute sepsis, course complicated by paroxysmal atrial fibrillation, and acute renal insufficiency. Renal function returning to baseline and LV function improving. PLAN: Resume oral metoprolol. Discontinue IV metoprolol. Pleural effusion may be continued to be an issue. The patient has been switched from apixaban to IV heparin appropriately. Consideration may be made for thoracentesis if persistent. The patient will likely require at least intermittent diuretic dosing to maintain a negative fluid balance. We will continue to follow the patient.
[2018-01-07] MEDS: CEFTRIAXONE SOD INJ 2 GM in DEXTROSE 5% ADD-VANTAGE 50ML 50 ML IV SCH (17:27)
[2018-01-07] MEDS: METOPROLOL TARTRATE 25 MG TAB PO SCH (18:00)
[2018-01-07] MEDS: INSULIN GLARGINE SOLOSTAR 100 UNITS/ML 3 ML PEN SC SCH (21:45)
[2018-01-07] MEDS: HEPARIN 25,000 UNIT/500ML D5W 500 ML IV SCH (23:30)
[2018-01-08] VITALS (9 sets, daily range): BP systolic 122–173; BP diastolic 69–109; PULSE 62–82; TEMP 36.4–37.1; O2SAT 91–94
[2018-01-08] MEDS: METOPROLOL TARTRATE 25 MG TAB PO SCH ×5 (00:01→23:39)
[2018-01-08] MEDS: DEXTROSE 5% 1000ML 1,000 ML IV SCH (00:02)
[2018-01-08] MEDS: NITROGLYCERIN 2% OINTMENT 30GM TUBE EXT SCH ×4 (04:43→21:32)
--- NOTE | 2018-01-08 06:39 | DIAGNOSTIC IMAGING REPORT ---
MRI OF THE BRAIN WITHOUT CONTRAST CLINICAL HISTORY: Stroke. Atrial fibrillation. COMPARISON STUDY: CT scan dated 01/06/2018, MRI the brain dated 12/31/2017 FINDINGS: Sagittal T1, axial diffusion, proton density and T2 weighted axial, coronal FLAIR, and axial T1-weighted images were acquired. No intra or extra-axial mass lesions are visualized Since the prior study, the patient has developed multiple posterior fossa infarcts involving the cerebellar hemispheres and right and left middle cerebellar peduncles. There is a stable punctate focus of restricted water diffusion within the left occipital lobe. There is no evidence of ventricular dilatation. Proton density T2-weighted and FLAIR images reveal scattered foci of increased T2 signal within the white matter, likely on a small vessel basis. In addition the multiple posterior fossa infarcts demonstrate increased T2 and FLAIR signal. There are no abnormal flow voids. IMPRESSION: Interval development of 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 Electronically signed by: Rupesh Piedra M.D. 01/08/2018 6:38 AM Dictated Date/Time: 01/08/2018 6:35 AM
[2018-01-08 06:48] LABS: HEMATOCRIT 32.9 % (37-47); HEMOGLOBIN 11.2 g/dL (12.0-16.0); MEAN CELL VOLUME 82.5 fL (80-100); MEAN CORPUSCULAR HEMOGLOBIN 28.1 pg (25-34); MEAN PLATELET VOLUME 10.2 fL (7.4-10.4); PLATELET COUNT 574 K/uL (130-400); RED CELL DISTRIBUTION WIDTH CV 14.5 % (11.5-14.5); RED CELL DISTRIBUTION WIDTH SD 42.6 fL (36.4-46.3)
[2018-01-08] MEDS: INSULIN ASPART 100 UNITS/ML 3 ML PEN SC SCH ×5 (07:00→21:00)
[2018-01-08 07:10] LABS: PTT PATIENT 82.9 SECONDS (21.0-31.0)
[2018-01-08 07:19] LABS: CALCIUM 8.1 mg/dl (8.5-10.1); CREATININE 0.69 mg/dl (0.60-1.20); POTASSIUM 3.8 mmol/L (3.5-5.1)
[2018-01-08] MEDS: RASPBERRY SYRUP 5 ML UDP PO SCH ×4 (07:52→21:19)
[2018-01-08] MEDS: VANCOMYCIN HCL 500 MG/10ML SOLN PO SCH ×4 (07:54→21:21)
[2018-01-08] MEDS: NYSTATIN SUSP 500,000 U/5 ML UDC PO SCH ×4 (07:56→21:00)
[2018-01-08] MEDS: PROSOURCE NOCARB 30ML/PKT NG SCH (08:03)
[2018-01-08] MEDS: HEPARIN 25,000 UNIT/500ML D5W 500 ML IV SCH (08:31)
--- NOTE | 2018-01-08 10:54 | DIAGNOSTIC IMAGING REPORT ---
CHEST ONE VIEW PORTABLE CLINICAL HISTORY: Pleural effusions COMPARISON STUDY: 01/07/2018 FINDINGS: The cardiac and mediastinal contours remain stable. There are persistent moderate bilateral pleural effusions. There are associated bibasal airspace opacities, likely representing compressive atelectasis. There is improving mild central pulmonary vascular congestion.[ IMPRESSION: Improving mild central pulmonary vascular congestion. Persistent moderate bilateral pleural effusions with bibasilar opacities Electronically signed by: Rupesh Piedra M.D. 01/08/2018 10:52 AM Dictated Date/Time: 01/08/2018 10:51 AM
[2018-01-08] MEDS: PANTOprazole INJ 40 MG in SYRINGE 0 ML IV SCH (11:07)
--- NOTE | 2018-01-08 12:28 | Progress Note ---
Subjective Date of Service: Jan 08, 2018. Subjective Pt evaluation today including: conversation w/ patient, physical exam, lab review, review of studies, review of inpatient medication list Saw/examined the patient in room 201 She is much more awake and alert today She is conversing well and appropriately Has some lower extremity pain; c/o LLE pain Denies chest pain/shortness of breath/palpitations As per nursing, noted to have L labial swelling Problem List Medical Problems: (1) Anasarca Status: Acute (2) Atrial fibrillation with RVR Status: Acute (3) C. difficile diarrhea Status: Acute (4) Elevated troponin Status: Acute (5) Hyperthyroidism Status: Acute (6) Hypotension Status: Acute (7) Left leg cellulitis Status: Acute (8) Left leg pain Status: Acute (9) Right-sided heart failure Status: Acute (10) Sepsis Status: Acute Review of Systems Constitutional: No fever, No chills Respiratory: No cough, No sputum, No shortness of breath Cardiac: No chest pain, No edema, No palpitations Musculoskeletal: + joint pain, + muscle pain (LLE pain) Medications Current Inpatient Medications Medications (Trade) Dose Ordered Sig/Sera Route Start Time Stop Time Status Last Admin Dose Admin Acetaminophen (Tylenol Tab) 325 mg Q6H PRN PO 12/30/17 03:15 01/29/18 03:14 12/30/17 23:29 325 MG Pantoprazole Sodium 40 mg/ Syringe 10 ml @ 5 mls/min DAILY@11 IV 12/31/17 11:00 01/30/18 10:59 01/08/18 11:07 5 MLS/MIN Raspberry (Raspberry Syrup 5ml Cup) 5 ml QID PO 12/31/17 09:30 01/14/18 09:29 01/08/18 12:02 5 ML Vancomycin HCl (Vancomycin Oral Soln) 500 mg QID PO 01/01/18 17:00 01/15/18 16:59 01/08/18 12:03 500 MG Hydromorphone HCl (Dilaudid Inj) 0.5 mg Q3H PRN IV 01/02/18 10:45 01/16/18 10:44 01/06/18 07:56 0.5 MG Ceftriaxone Sodium 2 gm/ Dextrose 50 ml @ 100 mls/hr Q24H IV 01/02/18 18:00 01/11/18 17:59 01/07/18 17:27 100 MLS/HR Nystatin (Mycostatin Susp) 5 ml QID PO 01/03/18 19:30 01/10/18 19:29 01/08/18 12:02 5 ML Ondansetron HCl 6 mg/Dextrose 53 ml @ 200 mls/hr Q6H PRN IV 01/04/18 00:30 02/03/18 00:29 01/04/18 07:48 200 MLS/HR Nitroglycerin (Nitroglycerin 2% Oint) 1 inch Q6H EXT 01/05/18 10:00 02/04/18 09:59 01/08/18 10:00 1 INCH Miscellaneous Information (Consult Glycemic Management Pharmacy) 1 ea UD PRN N/A 01/06/18 09:32 02/05/18 09:31 Glucose (Glucose 40% Gel) 15-30 GRAMS 15 GRAMS... UD PRN PO 01/06/18 20:00 02/05/18 19:59 Glucose (Glucose Chew Tab) 4-8 Tablets 4 Tabl... UD PRN PO 01/06/18 20:00 02/05/18 19:59 Dextrose (Dextrose 50% 50ML Syringe) 25-50ML OF 50% DW IV FOR... UD PRN IV 01/06/18 20:00 02/05/18 19:59 Glucagon (Glucagon Inj) 1 mg UD PRN SQ 01/06/18 20:00 02/05/18 19:59 Heparin Sodium/ Dextrose 500 ml @ 11 mls/hr Q24H IV 01/06/18 23:30 02/05/18 23:29 01/08/18 08:31 11 MLS/HR Acetaminophen 650 mg/Empty Bag 65 ml @ 260 mls/hr Q6H PRN IV 01/06/18 23:45 02/05/18 23:44 Dextrose 1,000 ml @ 40 mls/hr Q24H IV 01/07/18 00:15 02/06/18 00:14 01/08/18 00:02 40 MLS/HR Ipratropium [place] (Atrovent 0.02% 0.5MG/2.5ML Neb) 0.5 mg Q4H PRN INH 01/07/18 00:15 02/06/18 00:14 Levalbuterol (Xopenex 1.25MG/ 0.5ML Neb) 1.25 mg Q4H PRN INH 01/07/18 00:15 02/06/18 00:14 Ioversol (Optiray 320) 100 ml UD PRN IV 01/07/18 08:45 01/11/18 08:44 Insulin Glargine (Lantus Solostar Pen) SEE PROTOCOL TEXT HS SC 01/07/18 21:00 02/06/18 20:59 Metoprolol Tartrate (Lopressor Tab) 25 mg Q6 PO 01/07/18 18:00 02/02/18 20:59 01/08/18 12:02 25 MG Insulin Aspart (novoLOG ASPART) SLIDING SCALE ACHS SC 01/08/18 07:00 02/07/18 06:59 01/08/18 12:01 2 UNITS Hydralazine HCl (Apresoline Tab) 12.5 mg TID PO 01/08/18 14:00 02/07/18 13:59 Objective Vital Signs Date Time Temp Pulse Resp B/P (MAP) Pulse Ox O2 Delivery O2 Flow Rate FiO2 01/08/18 11:46 36.6 75 16 162/81 (108) 93 Room Air 01/08/18 08:00 92 Room Air 01/08/18 07:39 36.7 80 16 148/109 (122) 92 Room Air 01/08/18 05:46 37.1 82 19 173/91 (118) 91 Room Air 01/08/18 04:20 Room Air 01/08/18 00:15 Room Air 01/07/18 23:03 36.7 87 26 146/70 (95) 96 Room Air 01/07/18 15:36 36.8 87 20 164/92 (116) 95 Nasal Cannula 2.0 Physical Exam General Appearance: no apparent distress, + pertinent finding (much more awake/ alert, conversing) Respiratory/Chest: no respiratory distress, no accessory muscle use, + decreased breath sounds (b/l bases), + crackles Cardiovascular: regular rate, rhythm, no edema, no murmur Abdomen: normal bowel sounds, non tender, soft Extremities: normal inspection, no pedal edema, + pertinent finding Neurologic/Psychiatric: no motor/sensory deficits, alert Laboratory Results Last 24 Hours Test 01/07/18 13:41 01/07/18 16:17 01/07/18 20:13 01/08/18 05:53 Sodium Level 142 mmol/L 140 mmol/L Potassium Level 4.2 mmol/L 3.8 mmol/L Chloride Level 108 mmol/L 106 mmol/L Carbon Dioxide Level 28 mmol/L 28 mmol/L Anion Gap 7.0 mmol/L 6.0 mmol/L Blood Urea Nitrogen 25 mg/dl 21 mg/dl Creatinine 0.72 mg/dl 0.69 mg/dl Est Creatinine Clear Calc Drug Dose 71.8 ml/min 74.9 ml/min Estimated GFR () 105.5 109.7 Estimated GFR (Non- 91.0 94.6 BUN/Creatinine Ratio 35.4 30.3 Random Glucose 81 mg/dl 124 mg/dl Calcium Level 8.4 mg/dl 8.1 mg/dl Bedside Glucose 75 mg/dl 139 mg/dl White Blood Count 19.40 K/uL Red Blood Count 3.99 M/uL Hemoglobin 11.2 g/dL Hematocrit 32.9 % Mean Corpuscular Volume 82.5 fL Mean Corpuscular Hemoglobin 28.1 pg Mean Corpuscular Hemoglobin Concent 34.0 g/dl RDW Standard Deviation 42.6 fL RDW Coefficient of Variation 14.5 % Platelet Count 574 K/uL Mean Platelet Volume 10.2 fL Activated Partial Thromboplast Time 82.9 SECONDS Partial Thromboplastin Ratio 3.2 Test 01/08/18 06:42 Bedside Glucose 113 mg/dl Assessment and Plan This is a 62 year old female with no past medical history prior to arrival. Metabolic Encephalopathy Possible Subacute R Cerebellar Infarct 01/08 - Brain MRI suggests bilateral cerebellar infarcts - appreciate neurology evaluation - currently on IV heparin - will continue speech/PT/OT - clinically improving 01/07 - Head CT performed late on 01/06, suggesting possible subacute infarct - Brain MRI could not be performed; dental implant? - repeat Head CT in 1-2 days - appreciate neurology input - started on IV heparin at this time due to pulling of NGT and failing swallow evaluation - speech eval - PT/OT 01/06 - patient with confusion, disorientation - possibly related to Dilaudid use, also has had sepsis, hypotension episodes, YI earlier in the admission - appreciate neurology input on this matter, no need for further imaging - Brain MRI, Head CT already performed, EEG reviewed by neurology - slow improvement - may need Ativan for significant anxiety as well Severe Sepsis, E. coli Septicemia Severe C. Diff Colitis 01/08 - decrease in WBC count today - continue Rocephin for 14 days after the last negative blood culture - continue oral Vanco for the C. Diff - labial fold swelling noted; possible Bartholin abscess? - consulted tube draw helper and added warm compresses to the region 01/07 - WBC increasing - will repeat abdomen/pelvis CT - general surgery for further input - continue IV Rocephin; unfortunately, pulled NGT, so can't do oral Vanco, currently on IV Flagyl 01/06 - blood cultures positive for E. coli; repeat blood cultures - no growth - C. Diff positive, colitis noted on imaging - started on IV Flagyl initially, converted to PO Vanco - appreciate ID input - will need PO Vanco for 28 days total - will need Rocephin for 14 days since the negative blood culture on 01/01 - appreciate general surgery input regarding C. Diff - no surgical intervention at this time - will monitor abdominal firmness/distention - if no improvement, repeat abd/ pelvis CT can be done Paroxysmal A. Fib with RVR 01/08 - currently on PO Metoprolol as per cardiology, appreciate input - IV heparin at this time 01/07 - Eliquis stopped - awaiting speech evaluation - IV heparin started - will need either IV Lopressor or re-insertion of NGT 01/06 - intermittent A. fib and rapid ventricular response; likely from sepsis - currently in NSR - appreciate cardiology input - continue Lopressor for rate control - Eliquis for anticoagulation - had required IV Lopressor and Cardizem ggt - no longer should receive Cardizem due to pauses noted earlier in the admission Biventricular Heart Failure Bilateral Pleural Effusions 01/08 - persistent bilateral pleural effusions - pulmonary consulted for possible thoracentesis on one side 01/07 - required IV Lasix yesterday - monitor fluid status 01/06 - patient presented with worsening lower extremity edema, hepatic congestion - echo initially suggested significant R ventricular systolic function and decreased LVEF - started on b-luis, treated for infection, etc. - repeat echo was performed on 01/05 with improvement of both ventricular function - further management as per cardiology Type 2 Demand Ischemia - troponin elevation when she first came in - likely secondary to infection, anemia, etc. - initially was on IV heparin, now discontinued - currently on Eliquis for A. fib episodes - continue b-luis - treating underlying infection Hypertensive Urgency 01/08 - appreciate cardiology input - currently attempting nitro paste and hydralazine for blood pressure control - holding off on ALVIN-I in the short term as per nephrology 01/07 - BP yesterday >200/100 - appreciate cardiology input - started on Lopressor 50mg q6, Hydralazine and topical nitrates added - anxiety may also be playing a part in elevated blood pressure - will add low dose Ativan PRN Hyperglycemia - resolved Hypoglycemia 01/08 - blood sugar is now on the lower end - trying low dose D5, monitor blood sugars, should improve as she is eating now 01/07 - likely due to dextrose in tube feeds - consult speech - consult pharmacy glycemic control Acute Kidney Injury - resolved - resolved now; initially due to acute tubular necrosis, possible medication or IV contrast induced - was given IVFs due to sepsis Hepatic Congestion - from biventricular heart failure - monitor for fluid overload Anemia - improving - likely iron deficiency - H/H stable Thrombocytopenia - resolved Abnormal Thyroid Function Test - possibly due to acute illness, severe sepsis, etc. - initially on methimazole; now d/c'd - will need outpatient TSH, Free T4, T3; may need thyroid ultrasound and further testing - outpatient endocrinology input DVT ppx - IV heparin FULL CODE PT/OT/speech ordered Clinical course obtained from chart review: December 29, 2017 Presented on 12/29 with significant bilateral lower extremity edema, fevers, chills, abdominal distention, nausea. December 30, 2017 Patient admitted on 12/30 due to meeting severe sepsis criteria. She had significant lactic acidosis, tachycardia; later developed hypotension, leukocytosis, and elevated procalcitonin. She was started on broad spectrum antibiotics, initially to cover cellulitis. Imaging suggested shock bowel, hypotensive bowel - initial concern of liver cirrhosis. Further testing suggested significant R heart failure with hepatic congestion. Edematous lower extremities likely from the biventricular heart failure noted. Echo was done to confirm this diagnosis. LVEF at the time noted to be 35-40%. Dilatation of R atrium and R ventricle noted as well. Late on 12/30 , patient developed A. Fib with RVR and transferred to the ICU. December 31, 2017 Patient spontaneously converted to sinus rhythm after being given IV Lopressor x2 and Cardizem ggt, which had to be stopped due to low blood pressure. Troponin elevation noted, likely type 2 demand ischemia from infection, arrhythmia, sepsis. Patient was started on IV heparin. Patient was found to be positive for C. Diff Infection; CT suggested colitis. NGT was placed in the ICU and Vanco solution was given to treat this. Blood cultures were positive at this time for gram negative organism. Patient's mental status acutely worsened. Neurology was consulted and an MRI and EEG were performed. Attributed mental status change to metabolic encephalopathy. Kidney function also acutely worsened; possibly from IV contrast from imaging done prior. January 01, 2018 Nephrology consulted due to acute kidney injury and acute tubular necrosis. Consideration made for dialysis; though this was never required. ID consulted - E. coli septicemia noted on blood cultures x2, repeat cultures were ordered. Nephrology consulted - metabolic acidosis - possibly from sepsis and YI. January 02, 2018 General surgery consulted regarding C. Diff colitis, conservative management decided. Patient at this time was going in and out of A. fib; initially started on IV Cardizem, but due to post-conversion pauses, this was stopped. Was started on bicarb drip due to acidosis. ID following for UTI, C. Diff colitis, E. coli septicemia. January 03, 2018 Clinical improvement made on January 03 mentally. Hypertension was still an issue and cardiology worked on getting this down by increasing b-luis dose and adding hydralazine. January 04, 2018 continuing PO Vancomycin and IV Rocephin IV heparin stopped at this time. Eliquis had been started. clinical picture continued to improve as per records. January 05, 2018 Repeat TTE was done; improving biventricular heart failure noted. Hypertensive Urgency still an issue on this day; cardiology adjusted meds to add nitropaste and Hydralazine, as well as an increase in Lopressor dose.
--- NOTE | 2018-01-08 12:48 | Surgery Progress Note ---
Surgery Progress Note Date of Service Jan 08, 2018. Subjective Post OP Day: HD #9 patient more alert today sitting up in bed, speech therapy at bedside currently on room air Per nursing staff unable to move left leg and able to hold up right leg for a few seconds MRI of brain without contrast: IMPRESSION: Interval development of 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 Objective Vital Signs: Date Time Temp Pulse Resp B/P (MAP) Pulse Ox O2 Delivery O2 Flow Rate FiO2 01/08/18 12:00 92 Room Air 01/08/18 11:46 36.6 75 16 162/81 (108) 93 Room Air 01/08/18 08:00 92 Room Air 01/08/18 07:39 36.7 80 16 148/109 (122) 92 Room Air 01/08/18 05:46 37.1 82 19 173/91 (118) 91 Room Air 01/08/18 04:20 Room Air 01/08/18 00:15 Room Air 01/07/18 23:03 36.7 87 26 146/70 (95) 96 Room Air 01/07/18 15:36 36.8 87 20 164/92 (116) 95 Nasal Cannula 2.0 General Appearance: WD/WN, no apparent distress Head: normocephalic, atraumatic Neck: trachea midline Respiratory/Chest: no respiratory distress, no accessory muscle use Abdomen: non tender, non distended, soft, no organomegaly, no pulsatile mass Laboratory Results: Results Past 24 Hours Test 01/07/18 13:41 01/07/18 16:17 01/07/18 20:13 01/08/18 05:53 Range/Units Sodium Level 142 140 136-145 mmol/L Potassium Level 4.2 3.8 3.5-5.1 mmol/L Chloride Level 108 106 98-107 mmol/L Carbon Dioxide Level 28 28 21-32 mmol/L Anion Gap 7.0 6.0 3-11 mmol/L Blood Urea Nitrogen 25 21 7-18 mg/dl Creatinine 0.72 0.69 0.60-1.20 mg/dl Est Creatinine Clear Calc Drug Dose 71.8 74.9 ml/min Estimated GFR () 105.5 109.7 Estimated GFR (Non- 91.0 94.6 BUN/Creatinine Ratio 35.4 30.3 10-20 Random Glucose 81 124 70-99 mg/dl Calcium Level 8.4 8.1 8.5-10.1 mg/dl Bedside Glucose 75 139 70-90 mg/dl White Blood Count 19.40 4.8-10.8 K/uL Red Blood Count 3.99 4.2-5.4 M/uL Hemoglobin 11.2 12.0-16.0 g/dL Hematocrit 32.9 37-47 % Mean Corpuscular Volume 82.5 80-100 fL Mean Corpuscular Hemoglobin 28.1 25-34 pg Mean Corpuscular Hemoglobin Concent 34.0 32-36 g/dl RDW Standard Deviation 42.6 36.4-46.3 fL RDW Coefficient of Variation 14.5 11.5-14.5 % Platelet Count 574 130-400 K/uL Mean Platelet Volume 10.2 7.4-10.4 fL Activated Partial Thromboplast Time 82.9 21.0-31.0 SECONDS Partial Thromboplastin Ratio 3.2 Test 01/08/18 06:42 Range/Units Bedside Glucose 113 70-90 mg/dl Assessment & Plan C. Diff Colitis - improvement of leukocytosis 19K today, afebrile - no abdominal pain, distention, or pain on examination - H& H stable - + bowel function, no blood in stools per nursing staff - Repeat CT scan showing no signs of shock bowel Plan: No acute surgical indication, benign abdomen Continue IV Ceftriaxone and Flagyl, oral vancomycin Continue current medical management Continue PT/OT Will follow Dr. Still has seen and examined patient, agrees with above
--- NOTE | 2018-01-08 13:19 | Neurology Progress Notes ---
Neurology Progress Note Date of Service Jan 08, 2018. Sekou Coleman is a 62 year old female who presented to the ED with c/o L leg pain and swelling. She was also having generalized body ache symptoms, nausea, lower abd pain and was febrile, L leg suspected to have cellulitis. Her blood culture is growing gram negative bacilli. She was started on Cefepime, Flagyl, Doxycycline. She had imaging studies including CT chest/abd/pelvis which is concerning for R heart congestion, pulmonary HTN, anasarca, abd ascites. CT hypoperfusion complex suspected and enlarged retroperitoneal and pelvic lymph nodes unclear etiology and may be related to congestive change or malignancy/ lymphoproliferative disease. She moved several years ago to [employer] and lives with daughter. She used to be a [place] resident but lost insurance and hasn't had medical care for years. Today she is sitting up and eating pudding. She is woke this am per nursing staff on this shift conversing Objective Date Time Temp Pulse Resp B/P (MAP) Pulse Ox O2 Delivery O2 Flow Rate FiO2 01/08/18 12:00 92 Room Air 01/08/18 11:46 36.6 75 16 162/81 (108) 93 Room Air 01/08/18 08:00 92 Room Air 01/08/18 07:39 36.7 80 16 148/109 (122) 92 Room Air 01/08/18 05:46 37.1 82 19 173/91 (118) 91 Room Air 01/08/18 04:20 Room Air 01/08/18 00:15 Room Air 01/07/18 23:03 36.7 87 26 146/70 (95) 96 Room Air 01/07/18 15:36 36.8 87 20 164/92 (116) 95 Nasal Cannula 2.0 Last 24 Hours Test 01/07/18 13:41 01/07/18 16:17 01/07/18 20:13 01/08/18 05:53 Sodium Level 142 mmol/L 140 mmol/L Potassium Level 4.2 mmol/L 3.8 mmol/L Chloride Level 108 mmol/L 106 mmol/L Carbon Dioxide Level 28 mmol/L 28 mmol/L Anion Gap 7.0 mmol/L 6.0 mmol/L Blood Urea Nitrogen 25 mg/dl 21 mg/dl Creatinine 0.72 mg/dl 0.69 mg/dl Est Creatinine Clear Calc Drug Dose 71.8 ml/min 74.9 ml/min Estimated GFR () 105.5 109.7 Estimated GFR (Non- 91.0 94.6 BUN/Creatinine Ratio 35.4 30.3 Random Glucose 81 mg/dl 124 mg/dl Calcium Level 8.4 mg/dl 8.1 mg/dl Bedside Glucose 75 mg/dl 139 mg/dl White Blood Count 19.40 K/uL Red Blood Count 3.99 M/uL Hemoglobin 11.2 g/dL Hematocrit 32.9 % Mean Corpuscular Volume 82.5 fL Mean Corpuscular Hemoglobin 28.1 pg Mean Corpuscular Hemoglobin Concent 34.0 g/dl RDW Standard Deviation 42.6 fL RDW Coefficient of Variation 14.5 % Platelet Count 574 K/uL Mean Platelet Volume 10.2 fL Activated Partial Thromboplast Time 82.9 SECONDS Partial Thromboplastin Ratio 3.2 Test 01/08/18 06:42 01/08/18 12:57 Bedside Glucose 113 mg/dl Imaging: MRI without contrast- : Interval development of 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 Exam: Gen: alert and oriented to [facility], 2018. lungs course breath sounds CV regular facial symmetry follows all commands UE biceps triceps hand orthopedic physical therapist 5/5 bilaterally hip flex minimal elevation against gravity, plantar flex ext 5/5 Current Inpatient Medications Medications (Trade) Dose Ordered Sig/Sera Route Start Time Stop Time Status Last Admin Dose Admin Acetaminophen (Tylenol Tab) 325 mg Q6H PRN PO 12/30/17 03:15 01/29/18 03:14 12/30/17 23:29 325 MG Pantoprazole Sodium 40 mg/ Syringe 10 ml @ 5 mls/min DAILY@11 IV 12/31/17 11:00 01/30/18 10:59 01/08/18 11:07 5 MLS/MIN Raspberry (Raspberry Syrup 5ml Cup) 5 ml QID PO 12/31/17 09:30 01/14/18 09:29 01/08/18 12:02 5 ML Vancomycin HCl (Vancomycin Oral Soln) 500 mg QID PO 01/01/18 17:00 01/15/18 16:59 01/08/18 12:03 500 MG Hydromorphone HCl (Dilaudid Inj) 0.5 mg Q3H PRN IV 01/02/18 10:45 01/16/18 10:44 01/06/18 07:56 0.5 MG Ceftriaxone Sodium 2 gm/ Dextrose 50 ml @ 100 mls/hr Q24H IV 01/02/18 18:00 01/11/18 17:59 01/07/18 17:27 100 MLS/HR Nystatin (Mycostatin Susp) 5 ml QID PO 01/03/18 19:30 01/10/18 19:29 01/08/18 12:02 5 ML Ondansetron HCl 6 mg/Dextrose 53 ml @ 200 mls/hr Q6H PRN IV 01/04/18 00:30 02/03/18 00:29 01/04/18 07:48 200 MLS/HR Nitroglycerin (Nitroglycerin 2% Oint) 1 inch Q6H EXT 01/05/18 10:00 02/04/18 09:59 01/08/18 10:00 1 INCH Miscellaneous Information (Consult Glycemic Management Pharmacy) 1 ea UD PRN N/A 01/06/18 09:32 02/05/18 09:31 Glucose (Glucose 40% Gel) 15-30 GRAMS 15 GRAMS... UD PRN PO 01/06/18 20:00 02/05/18 19:59 Glucose (Glucose Chew Tab) 4-8 Tablets 4 Tabl... UD PRN PO 01/06/18 20:00 02/05/18 19:59 Dextrose (Dextrose 50% 50ML Syringe) 25-50ML OF 50% DW IV FOR... UD PRN IV 01/06/18 20:00 02/05/18 19:59 Glucagon (Glucagon Inj) 1 mg UD PRN SQ 01/06/18 20:00 02/05/18 19:59 Heparin Sodium/ Dextrose 500 ml @ 11 mls/hr Q24H IV 01/06/18 23:30 02/05/18 23:29 01/08/18 08:31 11 MLS/HR Acetaminophen 650 mg/Empty Bag 65 ml @ 260 mls/hr Q6H PRN IV 01/06/18 23:45 02/05/18 23:44 Ipratropium [place] (Atrovent 0.02% 0.5MG/2.5ML Neb) 0.5 mg Q4H PRN INH 01/07/18 00:15 02/06/18 00:14 Levalbuterol (Xopenex 1.25MG/ 0.5ML Neb) 1.25 mg Q4H PRN INH 01/07/18 00:15 02/06/18 00:14 Ioversol (Optiray 320) 100 ml UD PRN IV 01/07/18 08:45 01/11/18 08:44 Insulin Glargine (Lantus Solostar Pen) SEE PROTOCOL TEXT HS SC 01/07/18 21:00 02/06/18 20:59 Metoprolol Tartrate (Lopressor Tab) 25 mg Q6 PO 01/07/18 18:00 02/02/18 20:59 01/08/18 12:02 25 MG Insulin Aspart (novoLOG ASPART) SLIDING SCALE ACHS SC 01/08/18 07:00 02/07/18 06:59 01/08/18 12:01 2 UNITS Hydralazine HCl (Apresoline Tab) 12.5 mg TID PO 01/08/18 14:00 02/07/18 13:59 Impression 62 year old female with complex medical issues -confusion Plan 1. medical management per primary team and ICU 2. EEG no clear epileptic activity increased slowing on left 3. metabolic encephalopathy - much improved today 4. currently on heparin gtt due to new infarct on CT head 5. taking orals but not good appetite may need supplemental nutrition 6. repeat MRI brain without contrast to identify and further areas of infarct- multiple infarcts 7. if she continues to be alert and cooperative would transition back to orals. 8. PT/OT for discharge needs I have seen and discussed above patient with Dr Rayo Aragon , neurology Much improved minor dysartria and some clumsiness of hands which wouls be expected with the multiple embolic infarcts in the cerebellar hemispheres and probable small events in deep left hemisphere which are less evident and likely older will follow up tomorrow but for now we do not hav alot more to offer neurologically other than recommendations to continue anticoagulants Rayo Aragon MD
[2018-01-08 13:37] LABS: PTT PATIENT 52.6 SECONDS (21.0-31.0)
--- NOTE | 2018-01-08 15:30 | Medical Consult ---
Consultation Date of Consultation: Jan 08, 2018. 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 She seems to be scared from speculum and declined speculum exa. She agreed for me to look and feel from outside Past Medical/Surgical History Medical Problems: (1) Anasarca Status: Acute (2) Atrial fibrillation with RVR Status: Acute (3) C. difficile diarrhea Status: Acute (4) Elevated troponin Status: Acute (5) Hyperthyroidism Status: Acute (6) Hypotension Status: Acute (7) Left leg cellulitis Status: Acute (8) Left leg pain Status: Acute (9) Right-sided heart failure Status: Acute (10) Sepsis Status: Acute Social History Smoking Status: Never Smoker Smokeless Tobacco Use: No Alcohol Use: none Drug Use: none Marital Status: single Housing Status: lives with family Occupation Status: other Allergies Coded Allergies: Sulfa Antibiotics (Verified Allergy, Unknown, swelling, 12/29/17) Current Inpatient Medications Current Inpatient Medications Medications (Trade) Dose Ordered Sig/Sera Route Start Time Stop Time Status Last Admin Dose Admin Acetaminophen (Tylenol Tab) 325 mg Q6H PRN PO 12/30/17 03:15 01/29/18 03:14 12/30/17 23:29 325 MG Pantoprazole Sodium 40 mg/ Syringe 10 ml @ 5 mls/min DAILY@11 IV 12/31/17 11:00 01/30/18 10:59 01/08/18 11:07 5 MLS/MIN Raspberry (Raspberry Syrup 5ml Cup) 5 ml QID PO 12/31/17 09:30 01/14/18 09:29 01/08/18 12:02 5 ML Vancomycin HCl (Vancomycin Oral Soln) 500 mg QID PO 01/01/18 17:00 01/15/18 16:59 01/08/18 12:03 500 MG Hydromorphone HCl (Dilaudid Inj) 0.5 mg Q3H PRN IV 01/02/18 10:45 01/16/18 10:44 01/06/18 07:56 0.5 MG Ceftriaxone Sodium 2 gm/ Dextrose 50 ml @ 100 mls/hr Q24H IV 01/02/18 18:00 01/11/18 17:59 01/07/18 17:27 100 MLS/HR Nystatin (Mycostatin Susp) 5 ml QID PO 01/03/18 19:30 01/10/18 19:29 01/08/18 12:02 5 ML Ondansetron HCl 6 mg/Dextrose 53 ml @ 200 mls/hr Q6H PRN IV 01/04/18 00:30 02/03/18 00:29 01/04/18 07:48 200 MLS/HR Nitroglycerin (Nitroglycerin 2% Oint) 1 inch Q6H EXT 01/05/18 10:00 02/04/18 09:59 01/08/18 10:00 1 INCH Miscellaneous Information (Consult Glycemic Management Pharmacy) 1 ea UD PRN N/A 01/06/18 09:32 02/05/18 09:31 Glucose (Glucose 40% Gel) 15-30 GRAMS 15 GRAMS... UD PRN PO 01/06/18 20:00 02/05/18 19:59 Glucose (Glucose Chew Tab) 4-8 Tablets 4 Tabl... UD PRN PO 01/06/18 20:00 02/05/18 19:59 Dextrose (Dextrose 50% 50ML Syringe) 25-50ML OF 50% DW IV FOR... UD PRN IV 01/06/18 20:00 02/05/18 19:59 Glucagon (Glucagon Inj) 1 mg UD PRN SQ 01/06/18 20:00 02/05/18 19:59 Heparin Sodium/ Dextrose 500 ml @ 11 mls/hr Q24H IV 01/06/18 23:30 02/05/18 23:29 01/08/18 08:31 11 MLS/HR Acetaminophen 650 mg/Empty Bag 65 ml @ 260 mls/hr Q6H PRN IV 01/06/18 23:45 02/05/18 23:44 Ipratropium [place] (Atrovent 0.02% 0.5MG/2.5ML Neb) 0.5 mg Q4H PRN INH 01/07/18 00:15 02/06/18 00:14 Levalbuterol (Xopenex 1.25MG/ 0.5ML Neb) 1.25 mg Q4H PRN INH 01/07/18 00:15 02/06/18 00:14 Ioversol (Optiray 320) 100 ml UD PRN IV 01/07/18 08:45 01/11/18 08:44 Insulin Glargine (Lantus Solostar Pen) SEE PROTOCOL TEXT HS SC 01/07/18 21:00 02/06/18 20:59 Metoprolol Tartrate (Lopressor Tab) 25 mg Q6 PO 01/07/18 18:00 02/02/18 20:59 01/08/18 12:02 25 MG Insulin Aspart (novoLOG ASPART) SLIDING SCALE ACHS SC 01/08/18 07:00 02/07/18 06:59 01/08/18 12:01 2 UNITS Hydralazine HCl (Apresoline Tab) 12.5 mg TID PO 01/08/18 14:00 02/07/18 13:59 01/08/18 14:01 12.5 MG Physical Exam Date Time Temp Pulse Resp B/P (MAP) Pulse Ox O2 Delivery O2 Flow Rate FiO2 01/08/18 12:00 92 Room Air 01/08/18 11:46 36.6 75 16 162/81 (108) 93 Room Air 01/08/18 08:00 92 Room Air 01/08/18 07:39 36.7 80 16 148/109 (122) 92 Room Air 01/08/18 05:46 37.1 82 19 173/91 (118) 91 Room Air 01/08/18 04:20 Room Air 01/08/18 00:15 Room Air 01/07/18 23:03 36.7 87 26 146/70 (95) 96 Room Air 01/07/18 15:36 36.8 87 20 164/92 (116) 95 Nasal Cannula 2.0 General Appearance: + thin Head: normocephalic Eyes: normal inspection Abdomen/GI: non tender, + guarding, + pertinent finding (non distended) Genitourinary - Female: + pertinent finding (Left labia swollen diffusely, mild to moderate, soft, NT, no erythema or exudate, no abscess, no Bartholin cyst, it seems to have non specific soft tissue swelling. Right labia normal. Introitus normal. No cyst or swelling on Bartholin gland area. Patient declined speculum exam and cervix, vagina were not visualised.) Laboratory Results Last 24 Hours Test 01/07/18 16:17 01/07/18 20:13 01/08/18 05:53 01/08/18 06:42 Bedside Glucose 75 mg/dl 139 mg/dl 113 mg/dl White Blood Count 19.40 K/uL Red Blood Count 3.99 M/uL Hemoglobin 11.2 g/dL Hematocrit 32.9 % Mean Corpuscular Volume 82.5 fL Mean Corpuscular Hemoglobin 28.1 pg Mean Corpuscular Hemoglobin Concent 34.0 g/dl RDW Standard Deviation 42.6 fL RDW Coefficient of Variation 14.5 % Platelet Count 574 K/uL Mean Platelet Volume 10.2 fL Activated Partial Thromboplast Time 82.9 SECONDS Partial Thromboplastin Ratio 3.2 Sodium Level 140 mmol/L Potassium Level 3.8 mmol/L Chloride Level 106 mmol/L Carbon Dioxide Level 28 mmol/L Anion Gap 6.0 mmol/L Blood Urea Nitrogen 21 mg/dl Creatinine 0.69 mg/dl Est Creatinine Clear Calc Drug Dose 74.9 ml/min Estimated GFR () 109.7 Estimated GFR (Non- 94.6 BUN/Creatinine Ratio 30.3 Random Glucose 124 mg/dl Calcium Level 8.1 mg/dl Test 01/08/18 11:04 01/08/18 12:57 01/08/18 14:10 Bedside Glucose 142 mg/dl Activated Partial Thromboplast Time 52.6 SECONDS Partial Thromboplastin Ratio 2.0 Urine Color DK YELLOW Urine Appearance CLEAR Urine pH 6.0 Urine Specific [place] 1.026 Urine Protein NEG Urine Glucose (UA) NEG Urine Ketones NEG Urine Occult Blood NEG Urine Nitrite POS Urine Bilirubin NEG Urine Urobilinogen NEG Urine Leukocyte Esterase TRACE Urine WBC (Auto) 5-10 /hpf Urine RBC (Auto) 5-10 /hpf Urine Hyaline Casts (Auto) 5-10 /lpf Urine Epithelial Cells (Auto) 20-30 /lpf Urine Bacteria (Auto) NEG Urine Crystals TALC Urine Yeast (Auto) BUDDING Assessment & Plan 62 yo postmenopausal female admitted for severe sepsis, E. Coli bacteremia, on IV AB Incidental finding of left labial swelling Asymptomatic Appears to be soft tissue swelling No s/s of abscess neither cyst No s/s Bartholin cyst/ abscess Recommend cold compresses and expectant management Should resolve on its own If able recommend outpatient follow up for complete pelvic exam and pap smear Thank you for the consult
--- NOTE | 2018-01-08 15:57 | PROGRESS NOTE ---
DATE: 01/08/2018 CARDIOLOGY CONSULTATION FOLLOWUP NOTE The patient seen and examined. Chart, medications, telemetry reviewed. SUBJECTIVE: The patient alert, more conversant today. Denies any chest pain or discomfort. Notes no dizziness or lightheadedness. Has been able to take orals without difficulty. OBJECTIVE: VITAL SIGNS: Heart rate is 75, blood pressure is 162/81. Telemetry reveals no further atrial arrhythmias. NECK: Thin. There is no distinct jugular venous distention. LUNGS: Reveal diminished breath sounds bibasilar. CARDIOVASCULAR: Regular. There is no S3 gallop. ABDOMEN: Soft. EXTREMITIES: Reveal no edema. LABORATORY DATA: White cell count is 19.4, hemoglobin is 11.2. Sodium is 140, potassium is 3.8, chloride is 106, bicarbonate is 28, BUN is 21, and creatinine is 0.69. PTT is 52.6 today. IMPRESSION AND PLAN: A 62-year-old female with complex history of acute illness in association with Escherichia coli sepsis, Clostridium difficile colitis, paroxysmal atrial fibrillation and acute renal insufficiency. She is gradually making recovery, blood pressures are trending higher once again. Now the patient is taking orals, oral metoprolol as ordered. In addition, we will resume oral hydralazine 12.5 mg 3 times per day initially. I suspect patient will continue to require doses of oral or IV furosemide to balance fluid status. Pulmonary is evaluating patient's bilateral pleural effusions for possible thoracentesis. MTDD
[2018-01-08] MEDS ORDERED: FUROSEMIDE 20 MG TAB PO STA (16:55)
[2018-01-08] MEDS: CEFTRIAXONE SOD INJ 2 GM in DEXTROSE 5% ADD-VANTAGE 50ML 50 ML IV SCH (17:29)
[2018-01-08] MEDS: INSULIN GLARGINE SOLOSTAR 100 UNITS/ML 3 ML PEN SC SCH (21:00)
[2018-01-09] VITALS (9 sets, daily range): BP systolic 152–172; BP diastolic 85–96; PULSE 56–73; TEMP 36.6–37.1; O2SAT 95–98
[2018-01-09] MEDS: NITROGLYCERIN 2% OINTMENT 30GM TUBE EXT SCH ×4 (04:31→21:23)
[2018-01-09 05:58] LABS: BASO % 0.2 %; BASO ABS # 0.03 K/uL (0-0.2); EOS % 1.1 %; EOS ABS # 0.18 K/uL (0-0.5); HEMATOCRIT 36.3 % (37-47); HEMOGLOBIN 12.1 g/dL (12.0-16.0); IG# 0.11 K/uL (0.00-0.02); LYMPH ABS # 4.19 K/uL (1.2-3.4); MEAN CELL VOLUME 81.9 fL (80-100); MEAN CORPUSCULAR HEMOGLOBIN 27.3 pg (25-34); MEAN CORPUSCULAR HGB CONC 33.3 g/dl (32-36); MEAN PLATELET VOLUME 10.9 fL (7.4-10.4); MONO % 7.5 %; MONO ABS # 1.21 K/uL (0.11-0.59); NEUT % 64.5 %; NEUT ABS # 10.37 K/uL (1.4-6.5); PLATELET COUNT 624 K/uL (130-400); RED CELL DISTRIBUTION WIDTH CV 14.4 % (11.5-14.5); RED CELL DISTRIBUTION WIDTH SD 42.5 fL (36.4-46.3); WHITE BLOOD COUNT 16.09 K/uL (4.8-10.8)
[2018-01-09 06:07] LABS: PTT PATIENT 42.7 SECONDS (21.0-31.0)
[2018-01-09 06:29] LABS: CALCIUM 8.4 mg/dl (8.5-10.1); CREATININE 0.71 mg/dl (0.60-1.20); POTASSIUM 3.6 mmol/L (3.5-5.1)
[2018-01-09] MEDS: METOPROLOL TARTRATE 25 MG TAB PO SCH ×4 (06:37→23:15)
[2018-01-09] MEDS ORDERED: HEPARIN IV BOLUS 2,000 UNIT in SYRINGE 0 ML IV ONE (07:30)
[2018-01-09] MEDS ORDERED: FLUCONAZOLE 50 MG TAB PO ONE (08:15)
--- NOTE | 2018-01-09 08:31 | Progress Note ---
Subjective Date of Service: Jan 09, 2018. Subjective Pt evaluation today including: conversation w/ patient, physical exam, lab review, review of studies, review of inpatient medication list Saw/examined the patient in room 201 She is feeling much better, awake, alert, oriented x3 She has been eating breakfast prior to my arrival Denies any pain; does relay that she feels her L lower extremity is swollen Does not c/o shortness of breath, but does appear to get winded when talking Problem List Medical Problems: (1) Anasarca Status: Acute (2) Atrial fibrillation with RVR Status: Acute (3) C. difficile diarrhea Status: Acute (4) Elevated troponin Status: Acute (5) Hyperthyroidism Status: Acute (6) Hypotension Status: Acute (7) Left leg cellulitis Status: Acute (8) Left leg pain Status: Acute (9) Right-sided heart failure Status: Acute (10) Sepsis Status: Acute Review of Systems Respiratory: No cough, No sputum, No shortness of breath Cardiac: No chest pain, No edema, No palpitations Medications Current Inpatient Medications Medications (Trade) Dose Ordered Sig/Sera Route Start Time Stop Time Status Last Admin Dose Admin Acetaminophen (Tylenol Tab) 325 mg Q6H PRN PO 12/30/17 03:15 01/29/18 03:14 12/30/17 23:29 325 MG Pantoprazole Sodium 40 mg/ Syringe 10 ml @ 5 mls/min DAILY@11 IV 12/31/17 11:00 01/30/18 10:59 01/08/18 11:07 5 MLS/MIN Raspberry (Raspberry Syrup 5ml Cup) 5 ml QID PO 12/31/17 09:30 01/14/18 09:29 01/08/18 21:19 5 ML Vancomycin HCl (Vancomycin Oral Soln) 500 mg QID PO 01/01/18 17:00 01/15/18 16:59 01/08/18 21:21 500 MG Hydromorphone HCl (Dilaudid Inj) 0.5 mg Q3H PRN IV 01/02/18 10:45 01/16/18 10:44 01/06/18 07:56 0.5 MG Ceftriaxone Sodium 2 gm/ Dextrose 50 ml @ 100 mls/hr Q24H IV 01/02/18 18:00 01/11/18 17:59 01/08/18 17:29 100 MLS/HR Nystatin (Mycostatin Susp) 5 ml QID PO 01/03/18 19:30 01/10/18 19:29 01/08/18 17:30 5 ML Ondansetron HCl 6 mg/Dextrose 53 ml @ 200 mls/hr Q6H PRN IV 01/04/18 00:30 02/03/18 00:29 01/04/18 07:48 200 MLS/HR Nitroglycerin (Nitroglycerin 2% Oint) 1 inch Q6H EXT 01/05/18 10:00 02/04/18 09:59 01/09/18 04:31 1 INCH Miscellaneous Information (Consult Glycemic Management Pharmacy) 1 ea UD PRN N/A 01/06/18 09:32 02/05/18 09:31 Glucose (Glucose 40% Gel) 15-30 GRAMS 15 GRAMS... UD PRN PO 01/06/18 20:00 02/05/18 19:59 Glucose (Glucose Chew Tab) 4-8 Tablets 4 Tabl... UD PRN PO 01/06/18 20:00 02/05/18 19:59 Dextrose (Dextrose 50% 50ML Syringe) 25-50ML OF 50% DW IV FOR... UD PRN IV 01/06/18 20:00 02/05/18 19:59 Glucagon (Glucagon Inj) 1 mg UD PRN SQ 01/06/18 20:00 02/05/18 19:59 Heparin Sodium/ Dextrose 500 ml @ 12 mls/hr Q24H IV 01/06/18 23:30 02/05/18 23:29 01/08/18 08:31 11 MLS/HR Acetaminophen 650 mg/Empty Bag 65 ml @ 260 mls/hr Q6H PRN IV 01/06/18 23:45 02/05/18 23:44 Ipratropium [place] (Atrovent 0.02% 0.5MG/2.5ML Neb) 0.5 mg Q4H PRN INH 01/07/18 00:15 02/06/18 00:14 Levalbuterol (Xopenex 1.25MG/ 0.5ML Neb) 1.25 mg Q4H PRN INH 01/07/18 00:15 02/06/18 00:14 Ioversol (Optiray 320) 100 ml UD PRN IV 01/07/18 08:45 01/11/18 08:44 Metoprolol Tartrate (Lopressor Tab) 25 mg Q6 PO 01/07/18 18:00 02/02/18 20:59 01/09/18 06:37 25 MG Insulin Aspart (novoLOG ASPART) SLIDING SCALE ACHS SC 01/08/18 07:00 02/07/18 06:59 01/08/18 17:34 3 UNITS Insulin Glargine (Lantus Solostar Pen) SEE PROTOCOL TEXT QAM SC 01/09/18 09:00 02/08/18 08:59 Hydralazine HCl (Apresoline Tab) 25 mg TID PO 01/09/18 09:00 02/07/18 13:59 Objective Vital Signs Date Time Temp Pulse Resp B/P (MAP) Pulse Ox O2 Delivery O2 Flow Rate FiO2 01/09/18 07:49 37.1 73 22 165/96 (119) 95 01/09/18 06:35 70 168/95 (119) 01/09/18 04:00 Room Air 01/09/18 02:45 36.9 66 27 167/90 (115) 95 Room Air 01/08/18 23:59 Room Air 01/08/18 23:17 36.5 63 21 146/90 (108) 94 Room Air 01/08/18 20:32 36.4 62 22 122/69 (86) 94 Room Air 01/08/18 20:00 Room Air 01/08/18 16:29 36.4 70 24 128/88 (101) 94 Room Air 01/08/18 16:00 92 Room Air 01/08/18 12:00 92 Room Air 01/08/18 11:46 36.6 75 16 162/81 (108) 93 Room Air Physical Exam General Appearance: no apparent distress, + pertinent finding (awake, alert, more talkative) Respiratory/Chest: no respiratory distress, no accessory muscle use, + decreased breath sounds (bilateral bases), + pertinent finding (shortness of breath while speaking) Cardiovascular: regular rate, rhythm, no edema, no murmur Extremities: no pedal edema, + pertinent finding (tenderness, L lower extremity ; skin tightening, there is not pitting, but does appear slightly swollen throughout) Neurologic/Psychiatric: no motor/sensory deficits, alert, normal mood/affect, oriented x 3 Skin: normal color Lymphatic: no adenopathy Laboratory Results Last 24 Hours Test 01/08/18 11:04 01/08/18 12:57 01/08/18 14:10 01/08/18 16:31 Bedside Glucose 142 mg/dl 164 mg/dl Activated Partial Thromboplast Time 52.6 SECONDS Partial Thromboplastin Ratio 2.0 Urine Color DK YELLOW Urine Appearance CLEAR Urine pH 6.0 Urine Specific [place] 1.026 Urine Protein NEG Urine Glucose (UA) NEG Urine Ketones NEG Urine Occult Blood NEG Urine Nitrite POS Urine Bilirubin NEG Urine Urobilinogen NEG Urine Leukocyte Esterase TRACE Urine WBC (Auto) 5-10 /hpf Urine RBC (Auto) 5-10 /hpf Urine Hyaline Casts (Auto) 5-10 /lpf Urine Epithelial Cells (Auto) 20-30 /lpf Urine Bacteria (Auto) NEG Urine Crystals TALC Urine Yeast (Auto) BUDDING Test 01/08/18 20:35 01/09/18 05:15 01/09/18 06:35 Bedside Glucose 151 mg/dl 143 mg/dl White Blood Count 16.09 K/uL Red Blood Count 4.43 M/uL Hemoglobin 12.1 g/dL Hematocrit 36.3 % Mean Corpuscular Volume 81.9 fL Mean Corpuscular Hemoglobin 27.3 pg Mean Corpuscular Hemoglobin Concent 33.3 g/dl Platelet Count 624 K/uL Mean Platelet Volume 10.9 fL Neutrophils (%) (Auto) 64.5 % Lymphocytes (%) (Auto) 26.0 % Monocytes (%) (Auto) 7.5 % Eosinophils (%) (Auto) 1.1 % Basophils (%) (Auto) 0.2 % Neutrophils # (Auto) 10.37 K/uL Lymphocytes # (Auto) 4.19 K/uL Monocytes # (Auto) 1.21 K/uL Eosinophils # (Auto) 0.18 K/uL Basophils # (Auto) 0.03 K/uL RDW Standard Deviation 42.5 fL RDW Coefficient of Variation 14.4 % Immature Granulocyte % (Auto) 0.7 % Immature Granulocyte # (Auto) 0.11 K/uL Activated Partial Thromboplast Time 42.7 SECONDS Partial Thromboplastin Ratio 1.6 Sodium Level 136 mmol/L Potassium Level 3.6 mmol/L Chloride Level 103 mmol/L Carbon Dioxide Level 28 mmol/L Anion Gap 5.0 mmol/L Blood Urea Nitrogen 19 mg/dl Creatinine 0.71 mg/dl Est Creatinine Clear Calc Drug Dose 70.1 ml/min Estimated GFR () 107.3 Estimated GFR (Non- 92.6 BUN/Creatinine Ratio 26.3 Random Glucose 174 mg/dl Calcium Level 8.4 mg/dl Assessment and Plan This is a 62 year old female with no past medical history prior to arrival. Metabolic Encephalopathy Bilateral Cerebellar Hemisphere Infarcts 01/09 - appreciate neurology input - will need continued PT/OT/speech evaluations - currently on IV heparin; will transition to oral anticoagulant prior to discharge 01/08 - Brain MRI suggests bilateral cerebellar infarcts - appreciate neurology evaluation - currently on IV heparin - will continue speech/PT/OT - clinically improving 01/07 - Head CT performed late on 01/06, suggesting possible subacute infarct - Brain MRI could not be performed; dental implant? - repeat Head CT in 1-2 days - appreciate neurology input - started on IV heparin at this time due to pulling of NGT and failing swallow evaluation - speech eval - PT/OT 01/06 - patient with confusion, disorientation - possibly related to Dilaudid use, also has had sepsis, hypotension episodes, YI earlier in the admission - appreciate neurology input on this matter, no need for further imaging - Brain MRI, Head CT already performed, EEG reviewed by neurology - slow improvement - may need Ativan for significant anxiety as well Severe Sepsis, E. coli Septicemia Severe C. Diff Colitis - improving 01/09 - white count improving to 16k from 19k - will need Rocephin x14 days from last negative blood culture (day #8) - for the C. Diff patient is on oral Vanco and IV Flagyl; will d/c Flagyl in AM (01/10) 01/08 - decrease in WBC count today - continue Rocephin for 14 days after the last negative blood culture - continue oral Vanco for the C. Diff - labial fold swelling noted; possible Bartholin abscess? - consulted director of corporate sponsorships and added warm compresses to the region 01/07 - WBC increasing - will repeat abdomen/pelvis CT - general surgery for further input - continue IV Rocephin; unfortunately, pulled NGT, so can't do oral Vanco, currently on IV Flagyl 01/06 - blood cultures positive for E. coli; repeat blood cultures - no growth - C. Diff positive, colitis noted on imaging - started on IV Flagyl initially, converted to PO Vanco - appreciate ID input - will need PO Vanco for 28 days total - will need Rocephin for 14 days since the negative blood culture on 01/01 - appreciate general surgery input regarding C. Diff - no surgical intervention at this time - will monitor abdominal firmness/distention - if no improvement, repeat abd/ pelvis CT can be done Paroxysmal A. Fib with RVR - resolved 01/09 - currently in NSR, rate controlled with b-luis - IV heparin ggt at this time 01/08 - currently on PO Metoprolol as per cardiology, appreciate input - IV heparin at this time 01/07 - Eliquis stopped - awaiting speech evaluation - IV heparin started - will need either IV Lopressor or re-insertion of NGT 01/06 - intermittent A. fib and rapid ventricular response; likely from sepsis - currently in NSR - appreciate cardiology input - continue Lopressor for rate control - Eliquis for anticoagulation - had required IV Lopressor and Cardizem ggt - no longer should receive Cardizem due to pauses noted earlier in the admission Biventricular Heart Failure Bilateral Pleural Effusions 01/09 - will consult pulm regarding bilateral pleural effusion and possible need for thoracentesis - appreciate cardiology input - intermittently receiving Lasix, received some last evening 01/08 - persistent bilateral pleural effusions - pulmonary consulted for possible thoracentesis on one side 01/07 - required IV Lasix yesterday - monitor fluid status 01/06 - patient presented with worsening lower extremity edema, hepatic congestion - echo initially suggested significant R ventricular systolic function and decreased LVEF - started on b-luis, treated for infection, etc. - repeat echo was performed on 01/05 with improvement of both ventricular function - further management as per cardiology Type 2 Demand Ischemia - troponin elevation when she first came in - likely secondary to infection, anemia, etc. - initially was on IV heparin, now back on it - now off of Eliquis - continue b-luis - treating underlying infection Hypertensive Urgency - improving 01/09 - appreciate cardio input regarding blood pressure - on nitro paste and Hydralazine as well as b-luis - will increase hydralazine dose at this time 01/08 - appreciate cardiology input - currently attempting nitro paste and hydralazine for blood pressure control - holding off on ALVIN-I in the short term as per nephrology 01/07 - BP yesterday >200/100 - appreciate cardiology input - started on Lopressor 50mg q6, Hydralazine and topical nitrates added - anxiety may also be playing a part in elevated blood pressure - will add low dose Ativan PRN Hyperglycemia - resolved Hypoglycemia 01/09 - off of D5 fluid - sugars are improving and within goal range - appreciate pharmacy input 01/08 - blood sugar is now on the lower end - trying low dose D5, monitor blood sugars, should improve as she is eating now 01/07 - likely due to dextrose in tube feeds - consult speech - consult pharmacy glycemic control Acute Kidney Injury - resolved - resolved now; initially due to acute tubular necrosis, possible medication or IV contrast induced - was given IVFs due to sepsis Hepatic Congestion - from biventricular heart failure - monitor for fluid overload Anemia - improving - likely iron deficiency - H/H stable Thrombocytopenia - resolved Abnormal Thyroid Function Test - possibly due to acute illness, severe sepsis, etc. - initially on methimazole; now d/c'd - will need outpatient TSH, Free T4, T3; may need thyroid ultrasound and further testing - outpatient endocrinology input DVT ppx - IV heparin FULL CODE PT/OT/speech ordered Clinical course obtained from chart review: December 29, 2017 Presented on 12/29 with significant bilateral lower extremity edema, fevers, chills, abdominal distention, nausea. December 30, 2017 Patient admitted on 12/30 due to meeting severe sepsis criteria. She had significant lactic acidosis, tachycardia; later developed hypotension, leukocytosis, and elevated procalcitonin. She was started on broad spectrum antibiotics, initially to cover cellulitis. Imaging suggested shock bowel, hypotensive bowel - initial concern of liver cirrhosis. Further testing suggested significant R heart failure with hepatic congestion. Edematous lower extremities likely from the biventricular heart failure noted. Echo was done to confirm this diagnosis. LVEF at the time noted to be 35-40%. Dilatation of R atrium and R ventricle noted as well. Late on 12/30 , patient developed A. Fib with RVR and transferred to the ICU. December 31, 2017 Patient spontaneously converted to sinus rhythm after being given IV Lopressor x2 and Cardizem ggt, which had to be stopped due to low blood pressure. Troponin elevation noted, likely type 2 demand ischemia from infection, arrhythmia, sepsis. Patient was started on IV heparin. Patient was found to be positive for C. Diff Infection; CT suggested colitis. NGT was placed in the ICU and Vanco solution was given to treat this. Blood cultures were positive at this time for gram negative organism. Patient's mental status acutely worsened. Neurology was consulted and an MRI and EEG were performed. Attributed mental status change to metabolic encephalopathy. Kidney function also acutely worsened; possibly from IV contrast from imaging done prior. January 01, 2018 Nephrology consulted due to acute kidney injury and acute tubular necrosis. Consideration made for dialysis; though this was never required. ID consulted - E. coli septicemia noted on blood cultures x2, repeat cultures were ordered. Nephrology consulted - metabolic acidosis - possibly from sepsis and YI. January 02, 2018 General surgery consulted regarding C. Diff colitis, conservative management decided. Patient at this time was going in and out of A. fib; initially started on IV Cardizem, but due to post-conversion pauses, this was stopped. Was started on bicarb drip due to acidosis. ID following for UTI, C. Diff colitis, E. coli septicemia. January 03, 2018 Clinical improvement made on January 03 mentally. Hypertension was still an issue and cardiology worked on getting this down by increasing b-luis dose and adding hydralazine. January 04, 2018 continuing PO Vancomycin and IV Rocephin IV heparin stopped at this time. Eliquis had been started. clinical picture continued to improve as per records. January 05, 2018 Repeat TTE was done; improving biventricular heart failure noted. Hypertensive Urgency still an issue on this day; cardiology adjusted meds to add nitropaste and Hydralazine, as well as an increase in Lopressor dose.
[2018-01-09] MEDS: INSULIN ASPART 100 UNITS/ML 3 ML PEN SC SCH ×4 (08:49→21:30)
[2018-01-09] MEDS: NYSTATIN SUSP 500,000 U/5 ML UDC PO SCH ×4 (08:53→21:23)
[2018-01-09] MEDS: VANCOMYCIN HCL 500 MG/10ML SOLN PO SCH ×4 (08:55→21:22)
[2018-01-09] MEDS ORDERED: INSULIN GLARGINE SOLOSTAR 100 UNITS/ML 3 ML PEN SC SCH (09:00)
--- NOTE | 2018-01-09 09:11 | Surgery Progress Note ---
Surgery Progress Note Date of Service Jan 09, 2018. Subjective Post OP Day: HD#10 Feeling okay Eating breakfast on her own No abdominal pain but some "abdominal irritation with antibiotics" still having loose stools Objective Vital Signs: Date Time Temp Pulse Resp B/P (MAP) Pulse Ox O2 Delivery O2 Flow Rate FiO2 01/09/18 07:49 37.1 73 22 165/96 (119) 95 01/09/18 06:35 70 168/95 (119) 01/09/18 04:00 Room Air 01/09/18 02:45 36.9 66 27 167/90 (115) 95 Room Air 01/08/18 23:59 Room Air 01/08/18 23:17 36.5 63 21 146/90 (108) 94 Room Air 01/08/18 20:32 36.4 62 22 122/69 (86) 94 Room Air 01/08/18 20:00 Room Air 01/08/18 16:29 36.4 70 24 128/88 (101) 94 Room Air 01/08/18 16:00 92 Room Air 01/08/18 12:00 92 Room Air 01/08/18 11:46 36.6 75 16 162/81 (108) 93 Room Air General Appearance: WD/WN, no apparent distress Head: normocephalic, atraumatic Neck: trachea midline Respiratory/Chest: no respiratory distress, no accessory muscle use Abdomen: non tender, non distended, soft, no organomegaly, no pulsatile mass Laboratory Results: Results Past 24 Hours Test 01/08/18 11:04 01/08/18 12:57 01/08/18 14:10 01/08/18 16:31 Range/Units Bedside Glucose 142 164 70-90 mg/dl Activated Partial Thromboplast Time 52.6 21.0-31.0 SECONDS Partial Thromboplastin Ratio 2.0 Urine Color DK YELLOW Urine Appearance CLEAR CLEAR Urine pH 6.0 4.5-7.5 Urine Specific [place] 1.026 1.000-1.030 Urine Protein NEG NEG Urine Glucose (UA) NEG NEG Urine Ketones NEG NEG Urine Occult Blood NEG NEG Urine Nitrite POS NEG Urine Bilirubin NEG NEG Urine Urobilinogen NEG NEG Urine Leukocyte Esterase TRACE NEG Urine WBC (Auto) 5-10 0-5 /hpf Urine RBC (Auto) 5-10 0-4 /hpf Urine Hyaline Casts (Auto) 5-10 0-5 /lpf Urine Epithelial Cells (Auto) 20-30 0-5 /lpf Urine Bacteria (Auto) NEG NEG Urine Crystals TALC NONE PRSENT Urine Yeast (Auto) BUDDING NONE PRSENT Test 01/08/18 20:35 01/09/18 05:15 01/09/18 06:35 Range/Units Bedside Glucose 151 143 70-90 mg/dl White Blood Count 16.09 4.8-10.8 K/uL Red Blood Count 4.43 4.2-5.4 M/uL Hemoglobin 12.1 12.0-16.0 g/dL Hematocrit 36.3 37-47 % Mean Corpuscular Volume 81.9 80-100 fL Mean Corpuscular Hemoglobin 27.3 25-34 pg Mean Corpuscular Hemoglobin Concent 33.3 32-36 g/dl Platelet Count 624 130-400 K/uL Mean Platelet Volume 10.9 7.4-10.4 fL Neutrophils (%) (Auto) 64.5 % Lymphocytes (%) (Auto) 26.0 % Monocytes (%) (Auto) 7.5 % Eosinophils (%) (Auto) 1.1 % Basophils (%) (Auto) 0.2 % Neutrophils # (Auto) 10.37 1.4-6.5 K/uL Lymphocytes # (Auto) 4.19 1.2-3.4 K/uL Monocytes # (Auto) 1.21 0.11-0.59 K/uL Eosinophils # (Auto) 0.18 0-0.5 K/uL Basophils # (Auto) 0.03 0-0.2 K/uL RDW Standard Deviation 42.5 36.4-46.3 fL RDW Coefficient of Variation 14.4 11.5-14.5 % Immature Granulocyte % (Auto) 0.7 % Immature Granulocyte # (Auto) 0.11 0.00-0.02 K/uL Activated Partial Thromboplast Time 42.7 21.0-31.0 SECONDS Partial Thromboplastin Ratio 1.6 Sodium Level 136 136-145 mmol/L Potassium Level 3.6 3.5-5.1 mmol/L Chloride Level 103 98-107 mmol/L Carbon Dioxide Level 28 21-32 mmol/L Anion Gap 5.0 3-11 mmol/L Blood Urea Nitrogen 19 7-18 mg/dl Creatinine 0.71 0.60-1.20 mg/dl Est Creatinine Clear Calc Drug Dose 70.1 ml/min Estimated GFR () 107.3 Estimated GFR (Non- 92.6 BUN/Creatinine Ratio 26.3 10-20 Random Glucose 174 70-99 mg/dl Calcium Level 8.4 8.5-10.1 mg/dl Microbiology Results 01/08/18 Urine Culture, Received Pending Assessment & Plan C. Diff Colitis - improvement of leukocytosis 16K today, afebrile - no abdominal pain, distention, or pain on examination - H& H stable - + bowel function, no blood in stools per nursing staff - Repeat CT scan showing no signs of shock bowel Plan: No acute surgical indication, benign abdomen Continue Abx regimen per Infectious disease Continue current medical management Continue PT/OT/Speech therapy Our services signing off Dr. Still has seen and examined patient, agrees with above
[2018-01-09] MEDS: RASPBERRY SYRUP 5 ML UDP PO SCH ×4 (09:19→21:22)
--- NOTE | 2018-01-09 09:39 | Pharmacy Progress Note ---
Pharmacy Glycemic Short Note 2 Date of Service Jan 09, 2018. OUTPATIENT ANTIDIABETIC REGIMEN: * n/a ASSESSMENT: * Ms Recinos is a 62 y/o F with no significant PMH who presented with abdominal pain and lower extremity swelling. She has had a complicated hospitalization with Afib with RVR, development of severe Clostridium difficile infection, E coli bacteremia on Rocephin. * Yesterday the patient's blood sugars were [phone] mg/dL ... she received 5 units of bolus insulin. Fasting today is 143 mg/dL which is up signficiantly from yesterday's fasting blood sugar. Gave Lantus weight-based stress of 1 which was 5 units and established twice daily scale. Tightened scale slightly as the patient's blood sugar increased throughout the day. PLAN FOR INPATIENT GLYCEMIC CONTROL: * Basal insulin * Lantus 0-10 units SQ BID (0 units if blood sugar less than 120 mg/dL; 5 units if blood sugar 120-180 mg/dl; 10 units if blood sugar greater tahn 180 mg/ dL) * Bolus insulin * NovoLog per scale ACHS or Q6hrs while NPO * Goal Range: Low 140 mg/dL - High 180 mg/dL * Correction Factor: 30 mg/dL/unit * Nutritional / Prandial insulin per carb ratio of 1 unit per 10 grams CHO consumed OUTPATIENT RECOMMENDATIONS * Recommend starting oral therapy for patient as an outpatient. First line therapies include metformin, SGLT-2 inhibitors, and injectables such as Victoza. Patient may also try diet modification and exercise.
--- NOTE | 2018-01-09 10:14 | CARDIOLOGY PROGRESS NOTE ---
DATE: 01/09/2018 The patient seen and examined. Chart, medications, telemetry reviewed. SUBJECTIVE: The patient appears substantially brighter today, answering questions appropriately. OBJECTIVE: VITAL SIGNS: Heart rate 73, blood pressure 165/96. NECK: Thin. There is no distinct jugular venous distention. LUNGS: Reveal diminished breath sounds bibasilar. CARDIOVASCULAR: Regular. There is no S3 gallop. ABDOMEN: Soft, nontender. EXTREMITIES: Reveal 1+ lower extremity edema. DATA: Telemetry reveals no further atrial arrhythmias. Chest x-ray on 01/08/2018 demonstrated bilateral pleural effusions. White cell count today is down to 16.0, hemoglobin 12.1. Sodium is 136, potassium 3.6, chloride is 103, bicarb is 28, BUN is 19, creatinine is 0.7. IMPRESSION: A 62-year-old female admitted with complex history of acute Escherichia coli and Clostridium difficile sepsis complicated by acute renal insufficiency, paroxysmal atrial arrhythmias. The patient once again demonstrating clinical improvement. I agree with titration upward of hydralazine for hypertension control. We will switch nitrates to oral. The patient is able to take medications. The patient is being evaluated for thoracentesis appropriately. Intermittent diuretic dosing or addition of low-dose furosemide may be warranted in the future. Would resume oral anticoagulation once decision regarding thoracentesis has been made.
[2018-01-09] MEDS: PANTOprazole INJ 40 MG in SYRINGE 0 ML IV SCH (11:00)
--- NOTE | 2018-01-09 11:47 | Medical Consult ---
Consultation Note Date of Service Jan 09, 2018. Consultation Note Consult Dictated #[id number]
--- NOTE | 2018-01-09 12:10 | CONSULTATION REPORT ---
DATE OF CONSULTATION: 01/09/2018 HISTORY OF PRESENT ILLNESS: Pleural effusions. HISTORY OF PRESENT ILLNESS: This is a 62-year-old female who is visiting her daughter in [place], who formally resides in [facility]. The patient has been admitted to [facility] since December 30 of this year and has undergone a very complicated hospital course. The patient was admitted due to nausea, vomiting and generalized abdominal pain along with leg pain, although she denied any diarrhea at the time of admission. The patient was felt to be septic, so the patient was started on broad spectrum antibiotics and admitted to the hospital. During the course of the patient's hospital course, she has had blood cultures that were drawn initially on the evening of December 29, the evening prior to admission and 2 out of 2 blood cultures were positive for E. coli, resistant only to ampicillin. In addition, she did have development of diarrhea, where the patient had a stool sent for C. diff, which was noted to be positive for C. diff. A nasal MRSA swab is noted to be negative. It is noteworthy to mention that she has had repeat blood cultures on January 01, which were negative for growth and urine culture has been sent on 2 occasions and both are negative at the time of this dictation. During the patient's postoperative course, she did develop atrial fibrillation with rapid ventricular response. She was seen by cardiology and the patient underwent an echocardiogram that did show slightly diminished ejection fraction with an ejection fraction of 40%. Moderate global hypokinesis of left ventricle was noted. No mitral stenosis or mitral regurgitation was noted. There is no significant aortic stenosis or aortic regurgitation. Cardiac catheterization was undertaken by cardiology and the patient was noted to have single vessel coronary artery disease with an 80% proximal lesion of an obtuse marginal artery. Because of her underlying cardiac issues, she has been recommended to begin oral anticoagulation, but this is on hold as the patient is currently on a heparin drip. The patient did have acute kidney injury during her hospital course, which was felt to be due to her underlying sepsis and this had markedly improved since her admission. The patient was also noted to have metabolic encephalopathy, which is felt to be due to a combination of narcotic pain medications, sepsis, episodes of hypotension along with concern for bilateral cerebellar hemisphere infarcts. Imaging performed during the course of the patient's hospital course included numerous CAT scans and x-rays. The patient has had abdominal CAT scans, which did show the base of the patient's lungs shown that the patient had bilateral pleural effusions. These pleural effusions persisted on chest x-rays and for this reason, we are asked to see the patient. I did visit with the patient at the bedside and at the present time, she says she feels somewhat stronger than when she initially arrived in the hospital. She does not report any history of falls or head injuries. She denies any blurry or double vision. No tinnitus, sore throat or neck pain is noted. At the present time, she denies any chest pain or palpitations. She says that she has some slight shortness of breath, but is comfortable while she is resting in her bed. At the present time, she does not report any nausea, vomiting or abdominal pain, but says that she is having some frequent loose bowel movements. Currently, she has a Andrade catheter in place and so does not report any dysuria. She denies any history of DVT or PE. Her most recent labs were from today, which showed sodium, potassium and creatinine, which were all within the normal range. A CBC today revealed a white blood cell count of 16.0 with a hemoglobin and hematocrit of 12.1 and 36.3 and platelet count of 624,000. Chest x-ray performed on January 08, which was yesterday showed moderate bilateral pleural effusions. PAST MEDICAL HISTORY: Prior to this admission was significant only for anemia. PAST SURGICAL HISTORY: She denies prior surgeries prior to this admission. ALLERGIES: SHE HAS LISTED ALLERGIES TO SULFA. INPATIENT MEDICATIONS: Include the followin. Lantus insulin per protocol. 2. Hydralazine 25 mg 3 times daily. 3. Sliding scale NovoLog insulin. 4. Lopressor 25 mg every 6 hours. 5. Atrovent and Xopenex nebulizers as needed. 6. Tylenol as needed. 7. Heparin drip. 8. Rocephin 2 grams daily. 9. Vancomycin 500 mg orally 4 times daily. 10. Protonix 40 mg daily. SOCIAL HISTORY: The patient is a nonsmoker. She originally resides in [place], but currently lives in [facility]. FAMILY HISTORY: Positive for hypertension. REVIEW OF SYSTEMS: As noted above. PHYSICAL EXAMINATION: VITAL SIGNS: The patient is afebrile with temperature 37.0, pulse is 70 and regular, respirations are 22 and nonlabored, blood pressure is 162/94, and pulse ox 95% on room air. SKIN: Warm with good turgor. GENERAL: She is alert to time, place and person at the time of my exam. She is in no distress. HEENT: Head is atraumatic and normocephalic. EYES: Pupils equal, round, and reactive to light and accommodation. Extraocular motions are intact. EARS: Auditory acuity is grossly intact. NOSE: Nasal patency was intact. Sinuses are nontender. Mouth is moist without exudates. NECK: Supple. No JVD is noted. CARDIOVASCULAR: Regular rate and rhythm. LUNGS: The patient's lungs revealed decreased breath sounds at the bases bilaterally. She was not using accessory muscles and no signs of respiratory distress were noted. ABDOMEN: Soft and nontender. EXTREMITIES: Revealed no cyanosis, clubbing, or edema. The patient did have some tenderness with palpation over the shins of her extremities with the left being greater than the right. She did have palpable radial and DP pulses bilaterally. NEUROLOGIC: Revealed cranial nerves II through XII are grossly intact. No focal deficits are noted. DIAGNOSTIC DATA: As noted above. IMPRESSION: A 62-year-old female with bilateral pleural effusions. PLAN: We will tentatively plan on performing a thoracentesis for diagnostic as well as therapeutic purposes. This will have to be coordinated with cessation of the patient's heparin drip as ideally we would like to stop the heparin drip for several hours prior to performing a thoracentesis in order to minimize chance of the patient having any bleeding complications. We will determine the timing of the patient's thoracentesis and then make recommendations as when to stop the heparin drip. The above was discussed with the patient as well as her nurse. Further recommendations will be forthcoming as the clinical course unfolds.
--- NOTE | 2018-01-09 12:24 | PULMONARY CONSULTATION ---
DATE OF CONSULTATION: 01/09/2018 TIME: 11:00 a.m. REPORT OF CONSULTATION: The patient was seen in room 201. She is a 62-year-old female who was admitted to the hospital on the late hours of December 29. Her presenting complaints were left leg pain, abdominal pain, nausea and vomiting. She was thought to be septic. Indeed, she did have blood cultures positive for E. coli. She was treated with antibiotics immediately. The patient had been looking very acutely ill. She apparently had had some associated fevers and chills. Subsequently, she was found to be positive for C. diff. She was given IV fluids as well as antibiotics. It was thought that she might have a cellulitis from the left leg. She was complaining of pain throughout the left leg area. She still has some of that pain. On December 31, she developed atrial fibrillation. She was transferred to ICU. She was found to have an ejection fraction decreased to between 35% and 40% and she had a dilated IVC. She was also found to have a diastolic dysfunction level 2. The patient also developed worsening renal function. She has had an episode of confusion. Subsequent tests have suggested that she has had a CVA since admission. The patient has had a very extensive course. She had severe metabolic acidosis with a blood gas on January 01 showing a pH of 7.27 with a pCO2 of 28 and a pO2 of 61. Most of these things have improved. She underwent a cardiac catheterization on January 05. She was found to have severe single-vessel coronary artery disease with a decreased left ventricular systolic function. She has been followed by Dr. Newell from the cardiology division. Consultation is requested for evaluation of bilateral pleural effusions. When the patient was first admitted, she did have a CTA of the chest that showed no significant effusion. Subsequently, she has developed at least moderate-sized bilateral pleural effusions. Surprisingly, she is not very short of breath, but she has not been active at all. I do not believe they had had her walking at all thus far. She has had significant peripheral edema, which has improved. Review of her intakes and outputs for the past several days shows that she had had a significant urine outputs on certain days. For instance on January 02, her output was 6475. On January 03, the output was 3900. For the next few days, she did not have that much urine output. On the , the output was 3950. Her weights have been decreasing by bed scale analysis. Nonetheless, the pleural fluids have been still significant. The case was discussed with Dr. Norman, who tells me that Dr. Newell felt that a thoracentesis might be of benefit at this point in time. The patient denies any cough. She denies chest pains. She states her appetite is improving. Her sense of wellbeing is better. She denies prior pulmonary problems such as asthma, emphysema, tuberculosis, pneumonia, etc. PAST SURGICAL HISTORY: None. PAST MEDICAL HISTORY: Positive for some type of thyroid problem as well as anemia. ALLERGIES: LISTED ALLERGY TO SULFA. FAMILY HISTORY: Listed as positive for hypertension. SOCIAL HISTORY: The patient does not smoke. Alcohol use is none. REVIEW OF SYSTEMS: As per the history of present illness noted above. Otherwise, negative. PHYSICAL EXAMINATION: GENERAL: The patient is a 62-year-old female who was cooperative, alert and oriented. VITAL SIGNS: She is small in stature and very thin. Her BMI is 19.9. HEENT: Pupils were reactive. Nares were clear. Mouth exam shows she has missing numerous teeth, but apparently she does have a partial plate that is not currently in. NECK: Veins did not appear distended. No lymph nodes were palpable. CARDIOVASCULAR: The cardiac rate is 69 per minute. The rhythm is regular. Blood pressure 162/94. RESPIRATORY: Percussion of the chest reveals dullness in both the lower and mid lung wolfe posteriorly bilaterally. LUNGS: Breath sounds are severely diminished in these areas. Respiratory rate was 22 breaths per minute at rest. It was not labored. Saturation was 95%. ABDOMEN: Soft. Bowel sounds were present. EXTREMITIES: There was no focal tenderness. No definite mass was palpable. Examination of the left leg reveals some tenderness to palpation in the calf and thigh regions. No significant edema was noted. She had previously had venous Dopplers done on the left and it was negative. CT angio of the chest on 12/30/2017 showed no evidence of pulmonary embolic disease. Pulmonary arterial enlargement was noted suggesting possible pulmonary hypertension. The right heart was enlarged. Anasarca and periportal edema was reported. CAT scan of the head done on 12/30/2017 showed no acute intracranial abnormality. Repeat head CT done on January 06 showed a focal hypodensity in the right cerebellum/inferior aspect of the right middle cerebellar peduncle. She then had a brain MRI done on January 08 that showed interval development of 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 CAT scan of the abdomen and pelvis done on December 30 showed enlarged retroperitoneal and pelvic lymph nodes of uncertain etiology. Repeat abdomen and pelvis CT on January 02 showed [id number] bilateral pleural effusions with moderate diffuse body wall edema and abdominal pelvic ascites. Atelectatic changes were noted at the lung bases where the fluid was located. Liver ultrasound was negative. Chest x-ray on January 06 showed [id number] bilateral pleural effusions. Chest x-ray done on the looked similar. LABORATORY DATA: White count today is 16.09. It had been 23.96 as of January 07. Hemoglobin is 12.1. Platelets are 624,000. The patient's initial white count on December 29 was only 4.36. PTT today is 42.7. Urinalysis on admission showed +2 protein. Urinalysis on January 08 reported budding yeast. Electrolytes today show sodium 136, potassium 3.6, chloride 103, bicarbonate 28. BUN was 19 with creatinine 0.71. Initial blood culture showed E. coli x2. Repeat blood cultures on the was negative. IMPRESSION: 1. Bilateral pleural effusions. 2. Escherichia coli sepsis. 3. C. diff infection. 4. Tiny nodule in the right upper lung field, subpleural. COMMENTS AND RECOMMENDATIONS: The patient is a very complex case. The question at hand is whether she would benefit from a thoracentesis. I have discussed the case with Dr. Norman, her hospitalist. She tells me that Dr. Acevedo thought the patient would benefit from a cardiac perspective. We did discuss the pros and cons of doing thoracentesis, currently versus the patient hopefully having a natural diuresis as she overall clinically improves. There is some concern about giving her too much of a diuretic with her kidney issues, etc. Dr. Norman said he had discussed the case with the patient's daughter, who is a physician and she was agreeable to a thoracentesis if desired. The patient is on IV heparin and this would need to be held. We are going to ask Dr. Palacio to see the patient. I did discuss the case with him. He is anticipating doing a thoracentesis perhaps later today after the heparin is held or tomorrow morning if need be. The pleural fluid should be sent for all the appropriate studies. Thank you for asking me to assist in her care.
--- NOTE | 2018-01-09 12:51 | SURGICAL CONSULTATION ---
DATE OF CONSULTATION: 01/09/2018 REASON FOR CONSULTATION: Bilateral pleural effusions. HISTORY OF PRESENT ILLNESS: Virginia Recinos is a 62-year-old [place] born female who has been hospitalized since 12/30/2017 with sepsis of unknown etiology. It should be noted she grew E. coli in her blood from cultures done on 12/29/2017 late in the evening. There has been no growth most recently. She was extremely ill with her septic onset and had renal failure; however, this all improved. Her kidney function has normalized. The reason I was asked to see her is because she has bilateral pleural effusions, right larger than left. I discussed this with Dr. Christian Raya and he did feel from a cardiology standpoint she would be improved if we were to perform a thoracentesis. She had one episode of paroxysmal atrial fibrillation, has been anticoagulated since that time. She is currently on a heparin drip. I discussed this in detail with Dr. Raya as well as the patient. I think a thoracentesis would be in order. I reviewed her x-ray and she has more fluid on the right. We will do an ultrasound in the morning, but I have offered her a right thoracentesis tomorrow. We will stop her heparin early in the morning to try to mitigate the chances of bleeding. Thank you very much.
--- NOTE | 2018-01-09 14:43 | Neurology Progress Notes ---
Neurology Progress Note Date of Service Jan 09, 2018. Sekou Coleman is a 62 year old female who presented to the ED with c/o L leg pain and swelling. She was also having generalized body ache symptoms, nausea, lower abd pain and was febrile, L leg suspected to have cellulitis. Her blood culture is growing gram negative bacilli. She was started on Cefepime, Flagyl, Doxycycline. She had imaging studies including CT chest/abd/pelvis which is concerning for R heart congestion, pulmonary HTN, anasarca, abd ascites. CT hypoperfusion complex suspected and enlarged retroperitoneal and pelvic lymph nodes unclear etiology and may be related to congestive change or malignancy/ lymphoproliferative disease. She moved several years ago to [place] and lives with daughter. [place] used to be a [place] resident but lost insurance and hasn't had medical care for years. Today she is sitting up states she is doing ok. denies CP, SOB, abdominal pain, +some LE weakness Objective Date Time Temp Pulse Resp B/P (MAP) Pulse Ox O2 Delivery O2 Flow Rate FiO2 01/09/18 12:00 Room Air 01/09/18 11:08 37.0 70 22 162/94 (116) 95 01/09/18 08:00 Room Air 01/09/18 07:49 37.1 73 22 165/96 (119) 95 01/09/18 06:35 70 168/95 (119) 01/09/18 04:00 Room Air 01/09/18 02:45 36.9 66 27 167/90 (115) 95 Room Air 01/08/18 23:59 Room Air 01/08/18 23:17 36.5 63 21 146/90 (108) 94 Room Air 01/08/18 20:32 36.4 62 22 122/69 (86) 94 Room Air 01/08/18 20:00 Room Air 01/08/18 16:29 36.4 70 24 128/88 (101) 94 Room Air 01/08/18 16:00 92 Room Air Last 24 Hours Test 01/08/18 16:31 01/08/18 20:35 01/09/18 05:15 01/09/18 06:35 Bedside Glucose 164 mg/dl 151 mg/dl 143 mg/dl White Blood Count 16.09 K/uL Red Blood Count 4.43 M/uL Hemoglobin 12.1 g/dL Hematocrit 36.3 % Mean Corpuscular Volume 81.9 fL Mean Corpuscular Hemoglobin 27.3 pg Mean Corpuscular Hemoglobin Concent 33.3 g/dl Platelet Count 624 K/uL Mean Platelet Volume 10.9 fL Neutrophils (%) (Auto) 64.5 % Lymphocytes (%) (Auto) 26.0 % Monocytes (%) (Auto) 7.5 % Eosinophils (%) (Auto) 1.1 % Basophils (%) (Auto) 0.2 % Neutrophils # (Auto) 10.37 K/uL Lymphocytes # (Auto) 4.19 K/uL Monocytes # (Auto) 1.21 K/uL Eosinophils # (Auto) 0.18 K/uL Basophils # (Auto) 0.03 K/uL RDW Standard Deviation 42.5 fL RDW Coefficient of Variation 14.4 % Immature Granulocyte % (Auto) 0.7 % Immature Granulocyte # (Auto) 0.11 K/uL Activated Partial Thromboplast Time 42.7 SECONDS Partial Thromboplastin Ratio 1.6 Sodium Level 136 mmol/L Potassium Level 3.6 mmol/L Chloride Level 103 mmol/L Carbon Dioxide Level 28 mmol/L Anion Gap 5.0 mmol/L Blood Urea Nitrogen 19 mg/dl Creatinine 0.71 mg/dl Est Creatinine Clear Calc Drug Dose 70.1 ml/min Estimated GFR () 107.3 Estimated GFR (Non- 92.6 BUN/Creatinine Ratio 26.3 Random Glucose 174 mg/dl Uric Acid 5.1 mg/dl Calcium Level 8.4 mg/dl Test 01/09/18 11:16 Bedside Glucose 154 mg/dl Imaging: no new imaging Exam: gen: alert and oriented x 3 lungs course breath sounds CV RRR biceps 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, lifts bilaterally legs against gravity and plantar flex ext 4+/5 bilaterally skin: heel break down bilaterally oriented to person , [facility] , 2018 Current Inpatient Medications Medications (Trade) Dose Ordered Sig/Sera Route Start Time Stop Time Status Last Admin Dose Admin Acetaminophen (Tylenol Tab) 325 mg Q6H PRN PO 12/30/17 03:15 01/29/18 03:14 12/30/17 23:29 325 MG Pantoprazole Sodium 40 mg/ Syringe 10 ml @ 5 mls/min DAILY@11 IV 12/31/17 11:00 01/30/18 10:59 01/09/18 11:00 5 MLS/MIN Vancomycin HCl (Vancomycin Oral Soln) 500 mg QID PO 01/01/18 17:00 01/15/18 16:59 01/09/18 12:12 500 MG Hydromorphone HCl (Dilaudid Inj) 0.5 mg Q3H PRN IV 01/02/18 10:45 01/16/18 10:44 01/06/18 07:56 0.5 MG Ceftriaxone Sodium 2 gm/ Dextrose 50 ml @ 100 mls/hr Q24H IV 01/02/18 18:00 01/11/18 17:59 01/08/18 17:29 100 MLS/HR Nystatin (Mycostatin Susp) 5 ml QID PO 01/03/18 19:30 01/10/18 19:29 01/09/18 12:12 5 ML Ondansetron HCl 6 mg/Dextrose 53 ml @ 200 mls/hr Q6H PRN IV 01/04/18 00:30 02/03/18 00:29 01/04/18 07:48 200 MLS/HR Nitroglycerin (Nitroglycerin 2% Oint) 1 inch Q6H EXT 01/05/18 10:00 02/04/18 09:59 01/09/18 10:00 1 INCH Miscellaneous Information (Consult Glycemic Management Pharmacy) 1 ea UD PRN N/A 01/06/18 09:32 02/05/18 09:31 Glucose (Glucose 40% Gel) 15-30 GRAMS 15 GRAMS... UD PRN PO 01/06/18 20:00 02/05/18 19:59 Glucose (Glucose Chew Tab) 4-8 Tablets 4 Tabl... UD PRN PO 01/06/18 20:00 02/05/18 19:59 Dextrose (Dextrose 50% 50ML Syringe) 25-50ML OF 50% DW IV FOR... UD PRN IV 01/06/18 20:00 02/05/18 19:59 Glucagon (Glucagon Inj) 1 mg UD PRN SQ 01/06/18 20:00 02/05/18 19:59 Heparin Sodium/ Dextrose 500 ml @ 12 mls/hr Q24H IV 01/06/18 23:30 02/05/18 23:29 01/08/18 08:31 11 MLS/HR Acetaminophen 650 mg/Empty Bag 65 ml @ 260 mls/hr Q6H PRN IV 01/06/18 23:45 02/05/18 23:44 Ipratropium [place]wood (Atrovent 0.02% 0.5MG/2.5ML Neb) 0.5 mg Q4H PRN INH 01/07/18 00:15 02/06/18 00:14 Levalbuterol (Xopenex 1.25MG/ 0.5ML Neb) 1.25 mg Q4H PRN INH 01/07/18 00:15 02/06/18 00:14 Ioversol (Optiray 320) 100 ml UD PRN IV 01/07/18 08:45 01/11/18 08:44 Metoprolol Tartrate (Lopressor Tab) 25 mg Q6 PO 01/07/18 18:00 02/02/18 20:59 01/09/18 12:12 25 MG Insulin Aspart (novoLOG ASPART) SLIDING SCALE ACHS SC 01/08/18 07:00 02/07/18 06:59 01/09/18 08:49 3 UNITS Hydralazine HCl (Apresoline Tab) 25 mg TID PO 01/09/18 09:00 02/07/18 13:59 01/09/18 08:53 25 MG Raspberry (Raspberry Syrup 5ml Cup) 2.5 ml QID PO 01/09/18 09:00 01/23/18 08:59 01/09/18 12:12 2.5 ML Insulin Glargine (Lantus Solostar Pen) SEE PROTOCOL TEXT BID SC 01/09/18 21:00 02/08/18 20:59 Impression 62 year old female with complex medical issues -confusion Plan 1. medical management per primary team and ICU 2. EEG no clear epileptic activity increased slowing on left 3. metabolic encephalopathy - much improved today 4. currently on heparin gtt due to new infarct on CT head 5. taking orals but not good appetite may need supplemental nutrition 6. MRI brain without contrast to identify and further areas of infarct- multiple infarcts 7. if she continues to be alert and cooperative would transition back to orals. 8. PT/OT for discharge needs will sign off for now will be available for questions concerns as needed I have seen and discussed above patient with Dr Rayo Aragon , neurology Remarkable turnaround alert conversant no clear signs of the posterior circulation and deep left brain embolic shower starting oral meds so hopefully she can get back on the oral novel anticoagulation protocol soon and the duration of this will have to be decided by her internists and cardiology we are going to sign off for now but of course can revisit as needed if things change Rayo Aragon MD
[2018-01-09] MEDS: CEFTRIAXONE SOD INJ 2 GM in DEXTROSE 5% ADD-VANTAGE 50ML 50 ML IV SCH (18:37)
[2018-01-09] MEDS: HEPARIN 25,000 UNIT/500ML D5W 500 ML IV SCH (18:37)
[2018-01-09] MEDS: INSULIN GLARGINE SOLOSTAR 100 UNITS/ML 3 ML PEN SC SCH (21:30)
[2018-01-10] VITALS (13 sets, daily range): BP systolic 134–195; BP diastolic 73–99; PULSE 50–94; TEMP 36.4–37.3; O2SAT 94–96
[2018-01-10] MEDS: NITROGLYCERIN 2% OINTMENT 30GM TUBE EXT SCH ×2 (04:04→09:35)
[2018-01-10] MEDS: METOPROLOL TARTRATE 25 MG TAB PO SCH ×3 (05:37→17:59)
[2018-01-10 06:12] LABS: HEMATOCRIT 35.4 % (37-47); HEMOGLOBIN 11.9 g/dL (12.0-16.0); MEAN CELL VOLUME 82.9 fL (80-100); MEAN CORPUSCULAR HEMOGLOBIN 27.9 pg (25-34); MEAN CORPUSCULAR HGB CONC 33.6 g/dl (32-36); MEAN PLATELET VOLUME 10.3 fL (7.4-10.4); PLATELET COUNT 600 K/uL (130-400); RED CELL DISTRIBUTION WIDTH CV 14.5 % (11.5-14.5); RED CELL DISTRIBUTION WIDTH SD 42.9 fL (36.4-46.3); WHITE BLOOD COUNT 15.82 K/uL (4.8-10.8)
[2018-01-10 06:19] LABS: PTT PATIENT 31.6 SECONDS (21.0-31.0)
[2018-01-10 06:53] LABS: CALCIUM 8.3 mg/dl (8.5-10.1); CREATININE 0.6 mg/dl (0.60-1.20); POTASSIUM 3.5 mmol/L (3.5-5.1)
[2018-01-10] MEDS: INSULIN ASPART 100 UNITS/ML 3 ML PEN SC SCH ×4 (07:00→21:15)
--- NOTE | 2018-01-10 08:17 | Progress Note ---
Subjective Date of Service: Jan 10, 2018. Subjective Pt evaluation today including: conversation w/ patient, physical exam, lab review, review of studies, conversation w/ change management consultant, review of inpatient medication list Saw/examined the patient in room 201 this morning IV heparin was stopped last evening; in preparation for thoracentesis this morning, as of yet, not performed She is doing fine, talking and conversing well, mentally back to baseline +weakness persists Problem List Medical Problems: (1) Anasarca Status: Acute (2) Atrial fibrillation with RVR Status: Acute (3) C. difficile diarrhea Status: Acute (4) Elevated troponin Status: Acute (5) Hyperthyroidism Status: Acute (6) Hypotension Status: Acute (7) Left leg cellulitis Status: Acute (8) Left leg pain Status: Acute (9) Right-sided heart failure Status: Acute (10) Sepsis Status: Acute Review of Systems Constitutional: + weakness Respiratory: No cough, No sputum, No shortness of breath Cardiac: No chest pain, No edema, No palpitations Abdomen: No pain, No nausea, No vomiting, No diarrhea Musculoskeletal: + joint pain (LLE) Heme: No abnormal bleeding/bruising Medications Current Inpatient Medications Medications (Trade) Dose Ordered Sig/Sera Route Start Time Stop Time Status Last Admin Dose Admin Acetaminophen (Tylenol Tab) 325 mg Q6H PRN PO 12/30/17 03:15 01/29/18 03:14 12/30/17 23:29 325 MG Pantoprazole Sodium 40 mg/ Syringe 10 ml @ 5 mls/min DAILY@11 IV 12/31/17 11:00 01/30/18 10:59 01/09/18 11:00 5 MLS/MIN Vancomycin HCl (Vancomycin Oral Soln) 500 mg QID PO 01/01/18 17:00 01/15/18 16:59 01/09/18 21:22 500 MG Hydromorphone HCl (Dilaudid Inj) 0.5 mg Q3H PRN IV 01/02/18 10:45 01/16/18 10:44 01/06/18 07:56 0.5 MG Ceftriaxone Sodium 2 gm/ Dextrose 50 ml @ 100 mls/hr Q24H IV 01/02/18 18:00 01/11/18 17:59 01/09/18 18:37 100 MLS/HR Nystatin (Mycostatin Susp) 5 ml QID PO 01/03/18 19:30 01/10/18 19:29 01/09/18 21:23 5 ML Ondansetron HCl 6 mg/Dextrose 53 ml @ 200 mls/hr Q6H PRN IV 01/04/18 00:30 02/03/18 00:29 01/04/18 07:48 200 MLS/HR Nitroglycerin (Nitroglycerin 2% Oint) 1 inch Q6H EXT 01/05/18 10:00 02/04/18 09:59 01/10/18 04:04 1 INCH Miscellaneous Information (Consult Glycemic Management Pharmacy) 1 ea UD PRN N/A 01/06/18 09:32 02/05/18 09:31 Glucose (Glucose 40% Gel) 15-30 GRAMS 15 GRAMS... UD PRN PO 01/06/18 20:00 02/05/18 19:59 Glucose (Glucose Chew Tab) 4-8 Tablets 4 Tabl... UD PRN PO 01/06/18 20:00 02/05/18 19:59 Dextrose (Dextrose 50% 50ML Syringe) 25-50ML OF 50% DW IV FOR... UD PRN IV 01/06/18 20:00 02/05/18 19:59 Glucagon (Glucagon Inj) 1 mg UD PRN SQ 01/06/18 20:00 02/05/18 19:59 Heparin Sodium/ Dextrose 500 ml @ 12 mls/hr Q24H IV 01/06/18 23:30 02/05/18 23:29 01/09/18 18:37 12 MLS/HR Acetaminophen 650 mg/Empty Bag 65 ml @ 260 mls/hr Q6H PRN IV 01/06/18 23:45 02/05/18 23:44 Ipratropium [place] (Atrovent 0.02% 0.5MG/2.5ML Neb) 0.5 mg Q4H PRN INH 01/07/18 00:15 02/06/18 00:14 Levalbuterol (Xopenex 1.25MG/ 0.5ML Neb) 1.25 mg Q4H PRN INH 01/07/18 00:15 02/06/18 00:14 Ioversol (Optiray 320) 100 ml UD PRN IV 01/07/18 08:45 01/11/18 08:44 Metoprolol Tartrate (Lopressor Tab) 25 mg Q6 PO 01/07/18 18:00 02/02/18 20:59 01/09/18 23:15 25 MG Insulin Aspart (novoLOG ASPART) SLIDING SCALE ACHS SC 01/08/18 07:00 02/07/18 06:59 01/09/18 21:30 1 UNITS Hydralazine HCl (Apresoline Tab) 25 mg TID PO 01/09/18 09:00 02/07/18 13:59 01/09/18 21:23 25 MG Raspberry (Raspberry Syrup 5ml Cup) 2.5 ml QID PO 01/09/18 09:00 01/23/18 08:59 01/09/18 21:22 2.5 ML Insulin Glargine (Lantus Solostar Pen) SEE PROTOCOL TEXT BID SC 01/09/18 21:00 02/08/18 20:59 01/09/18 21:30 10 UNITS Objective Vital Signs Date Time Temp Pulse Resp B/P (MAP) Pulse Ox O2 Delivery O2 Flow Rate FiO2 01/10/18 07:37 36.4 68 16 195/99 (131) 96 Room Air 01/10/18 05:30 50 140/80 (100) Room Air 01/10/18 04:00 96 Room Air 01/10/18 03:53 36.7 65 16 157/83 (107) 94 Room Air 01/10/18 00:00 95 Room Air 01/09/18 23:53 56 18 152/85 (107) 98 Room Air 01/09/18 23:06 36.8 64 20 172/94 (120) 97 Room Air 01/09/18 20:00 95 Room Air 01/09/18 19:36 36.8 70 20 163/88 (113) 95 Room Air 01/09/18 16:15 36.6 61 22 166/91 (116) 95 Room Air 01/09/18 16:00 Room Air 01/09/18 12:00 Room Air 01/09/18 11:08 37.0 70 22 162/94 (116) 95 Physical Exam General Appearance: no apparent distress, + cachetic, + thin Eyes: normal inspection ENT: hearing grossly normal Respiratory/Chest: no respiratory distress, no accessory muscle use, + decreased breath sounds (bilateral bases) Cardiovascular: regular rate, rhythm, no edema, no murmur Abdomen: normal bowel sounds, non tender, soft Extremities: normal inspection, no pedal edema, + pertinent finding (tender LLE ) Neurologic/Psychiatric: no motor/sensory deficits, alert, normal mood/affect Laboratory Results Last 24 Hours Test 01/09/18 11:16 01/09/18 16:17 01/09/18 20:55 01/10/18 05:24 Bedside Glucose 154 mg/dl 183 mg/dl 177 mg/dl White Blood Count 15.82 K/uL Red Blood Count 4.27 M/uL Hemoglobin 11.9 g/dL Hematocrit 35.4 % Mean Corpuscular Volume 82.9 fL Mean Corpuscular Hemoglobin 27.9 pg Mean Corpuscular Hemoglobin Concent 33.6 g/dl RDW Standard Deviation 42.9 fL RDW Coefficient of Variation 14.5 % Platelet Count 600 K/uL Mean Platelet Volume 10.3 fL Activated Partial Thromboplast Time 31.6 SECONDS Partial Thromboplastin Ratio 1.2 Sodium Level 141 mmol/L Potassium Level 3.5 mmol/L Chloride Level 107 mmol/L Carbon Dioxide Level 28 mmol/L Anion Gap 6.0 mmol/L Blood Urea Nitrogen 13 mg/dl Creatinine 0.60 mg/dl Est Creatinine Clear Calc Drug Dose 79.5 ml/min Estimated GFR () 114.8 Estimated GFR (Non- 99.1 BUN/Creatinine Ratio 21.4 Random Glucose 47 mg/dl Calcium Level 8.3 mg/dl Test 01/10/18 06:44 Bedside Glucose 53 mg/dl Assessment and Plan This is a 62 year old female with no past medical history prior to arrival. Metabolic Encephalopathy Bilateral Cerebellar Hemisphere Infarcts 01/10 - neurology has signed off - currently heparin ggt on hold due to thoracentesis - will restart IV Heparin after tap when okay with cardiothoracic surgery - eventual plan to place her on Eliquis 01/09 - appreciate neurology input - will need continued PT/OT/speech evaluations - currently on IV heparin; will transition to oral anticoagulant prior to discharge 01/08 - Brain MRI suggests bilateral cerebellar infarcts - appreciate neurology evaluation - currently on IV heparin - will continue speech/PT/OT - clinically improving 01/07 - Head CT performed late on 01/06, suggesting possible subacute infarct - Brain MRI could not be performed; dental implant? - repeat Head CT in 1-2 days - appreciate neurology input - started on IV heparin at this time due to pulling of NGT and failing swallow evaluation - speech eval - PT/OT 01/06 - patient with confusion, disorientation - possibly related to Dilaudid use, also has had sepsis, hypotension episodes, YI earlier in the admission - appreciate neurology input on this matter, no need for further imaging - Brain MRI, Head CT already performed, EEG reviewed by neurology - slow improvement - may need Ativan for significant anxiety as well Severe Sepsis, E. coli Septicemia Severe C. Diff Colitis - improving 01/10 - white count continues to improve - continue Rocephin plus PO Vanco 01/09 - white count improving to 16k from 19k - will need Rocephin x14 days from last negative blood culture (day #8/14) - for the C. Diff patient is on oral Vanco and IV Flagyl; will d/c Flagyl in AM (01/10) 01/08 - decrease in WBC count today - continue Rocephin for 14 days after the last negative blood culture - continue oral Vanco for the C. Diff - labial fold swelling noted; possible Bartholin abscess? - consulted assistant professor of geography and added warm compresses to the region 01/07 - WBC increasing - will repeat abdomen/pelvis CT - general surgery for further input - continue IV Rocephin; unfortunately, pulled NGT, so can't do oral Vanco, currently on IV Flagyl 01/06 - blood cultures positive for E. coli; repeat blood cultures - no growth - C. Diff positive, colitis noted on imaging - started on IV Flagyl initially, converted to PO Vanco - appreciate ID input - will need PO Vanco for 28 days total - will need Rocephin for 14 days since the negative blood culture on 01/01 - appreciate general surgery input regarding C. Diff - no surgical intervention at this time - will monitor abdominal firmness/distention - if no improvement, repeat abd/ pelvis CT can be done Paroxysmal A. Fib with RVR - resolved 01/10 - continue b-luis, currently NSR 01/09 - currently in NSR, rate controlled with b-luis - IV heparin ggt at this time 01/08 - currently on PO Metoprolol as per cardiology, appreciate input - IV heparin at this time 01/07 - Eliquis stopped - awaiting speech evaluation - IV heparin started - will need either IV Lopressor or re-insertion of NGT 01/06 - intermittent A. fib and rapid ventricular response; likely from sepsis - currently in NSR - appreciate cardiology input - continue Lopressor for rate control - Eliquis for anticoagulation - had required IV Lopressor and Cardizem ggt - no longer should receive Cardizem due to pauses noted earlier in the admission Biventricular Heart Failure Bilateral Pleural Effusions 01/10 - plan for thoracentesis - intermittent Lasix may be needed - as outpatient, should start ALVIN-I 01/09 - will consult pulm regarding bilateral pleural effusion and possible need for thoracentesis - appreciate cardiology input - intermittently receiving Lasix, received some last evening 01/08 - persistent bilateral pleural effusions - pulmonary consulted for possible thoracentesis on one side 01/07 - required IV Lasix yesterday - monitor fluid status 01/06 - patient presented with worsening lower extremity edema, hepatic congestion - echo initially suggested significant R ventricular systolic function and decreased LVEF - started on b-luis, treated for infection, etc. - repeat echo was performed on 01/05 with improvement of both ventricular function - further management as per cardiology Type 2 Demand Ischemia - troponin elevation when she first came in - likely secondary to infection, anemia, etc. - initially was on IV heparin, now back on it - now off of Eliquis - continue b-luis - treating underlying infection Hypertensive Urgency - improving 01/09 - appreciate cardio input regarding blood pressure - on nitro paste and Hydralazine as well as b-luis - will increase hydralazine dose at this time 01/08 - appreciate cardiology input - currently attempting nitro paste and hydralazine for blood pressure control - holding off on ALVIN-I in the short term as per nephrology 01/07 - BP yesterday >200/100 - appreciate cardiology input - started on Lopressor 50mg q6, Hydralazine and topical nitrates added - anxiety may also be playing a part in elevated blood pressure - will add low dose Ativan PRN Hyperglycemia - resolved Hypoglycemia 01/10 - will likely need metformin on discharge due to multiple co-morbidities and Ha1c of 6.5% 01/09 - off of D5 fluid - sugars are improving and within goal range - appreciate pharmacy input 01/08 - blood sugar is now on the lower end - trying low dose D5, monitor blood sugars, should improve as she is eating now 01/07 - likely due to dextrose in tube feeds - consult speech - consult pharmacy glycemic control Acute Kidney Injury - resolved - resolved now; initially due to acute tubular necrosis, possible medication or IV contrast induced - was given IVFs due to sepsis Hepatic Congestion - from biventricular heart failure - monitor for fluid overload Anemia - improving - likely iron deficiency - H/H stable Thrombocytopenia - resolved Abnormal Thyroid Function Test - possibly due to acute illness, severe sepsis, etc. - initially on methimazole; now d/c'd - will need outpatient TSH, Free T4, T3; may need thyroid ultrasound and further testing - outpatient endocrinology input DVT ppx - IV heparin FULL CODE PT/OT/speech ordered Clinical course obtained from chart review: December 29, 2017 Presented on 12/29 with significant bilateral lower extremity edema, fevers, chills, abdominal distention, nausea. December 30, 2017 Patient admitted on 12/30 due to meeting severe sepsis criteria. She had significant lactic acidosis, tachycardia; later developed hypotension, leukocytosis, and elevated procalcitonin. She was started on broad spectrum antibiotics, initially to cover cellulitis. Imaging suggested shock bowel, hypotensive bowel - initial concern of liver cirrhosis. Further testing suggested significant R heart failure with hepatic congestion. Edematous lower extremities likely from the biventricular heart failure noted. Echo was done to confirm this diagnosis. LVEF at the time noted to be 35-40%. Dilatation of R atrium and R ventricle noted as well. Late on 12/30 , patient developed A. Fib with RVR and transferred to the ICU. December 31, 2017 Patient spontaneously converted to sinus rhythm after being given IV Lopressor x2 and Cardizem ggt, which had to be stopped due to low blood pressure. Troponin elevation noted, likely type 2 demand ischemia from infection, arrhythmia, sepsis. Patient was started on IV heparin. Patient was found to be positive for C. Diff Infection; CT suggested colitis. NGT was placed in the ICU and Vanco solution was given to treat this. Blood cultures were positive at this time for gram negative organism. Patient's mental status acutely worsened. Neurology was consulted and an MRI and EEG were performed. Attributed mental status change to metabolic encephalopathy. Kidney function also acutely worsened; possibly from IV contrast from imaging done prior. January 01, 2018 Nephrology consulted due to acute kidney injury and acute tubular necrosis. Consideration made for dialysis; though this was never required. ID consulted - E. coli septicemia noted on blood cultures x2, repeat cultures were ordered. Nephrology consulted - metabolic acidosis - possibly from sepsis and YI. January 02, 2018 General surgery consulted regarding C. Diff colitis, conservative management decided. Patient at this time was going in and out of A. fib; initially started on IV Cardizem, but due to post-conversion pauses, this was stopped. Was started on bicarb drip due to acidosis. ID following for UTI, C. Diff colitis, E. coli septicemia. January 03, 2018 Clinical improvement made on January 03 mentally. Hypertension was still an issue and cardiology worked on getting this down by increasing b-luis dose and adding hydralazine. January 04, 2018 continuing PO Vancomycin and IV Rocephin IV heparin stopped at this time. Eliquis had been started. clinical picture continued to improve as per records. January 05, 2018 Repeat TTE was done; improving biventricular heart failure noted. Hypertensive Urgency still an issue on this day; cardiology adjusted meds to add nitropaste and Hydralazine, as well as an increase in Lopressor dose.
--- NOTE | 2018-01-10 08:48 | DIAGNOSTIC IMAGING REPORT ---
SINGLE VIEW CHEST CLINICAL HISTORY: Pleural effusions. FINDINGS: An AP, portable, upright chest radiograph is compared to study dated 01/08/2018. Correlation is made with chest CT dated 12/30/2017. The examination is significantly degraded by portable technique and patient rotation. The heart is enlarged. Mild pulmonary vascular congestion persists. There are layering pleural effusions with bibasilar consolidation. No pneumothorax is seen. The skeletal structures are osteopenic. The bony thorax is grossly intact. IMPRESSION: 1. Cardiomegaly with evidence of mild pulmonary vascular congestion. This has modestly improved from previous. 2. Layering pleural effusions with bibasilar consolidation which likely represents atelectasis. This is unchanged from 01/08/2018. Electronically signed by: Kamran Potter M.D. 01/10/2018 8:46 AM Dictated Date/Time: 01/10/2018 8:45 AM
[2018-01-10] MEDS: INSULIN GLARGINE SOLOSTAR 100 UNITS/ML 3 ML PEN SC SCH ×2 (09:00→21:16)
[2018-01-10] MEDS ORDERED: NURSING VERBAL MED ORDER ONE ×2 (09:30→16:45)
[2018-01-10] MEDS: VANCOMYCIN HCL 500 MG/10ML SOLN PO SCH ×4 (09:35→21:09)
[2018-01-10] MEDS: NYSTATIN SUSP 500,000 U/5 ML UDC PO SCH ×3 (09:35→17:58)
[2018-01-10] MEDS: RASPBERRY SYRUP 5 ML UDP PO SCH ×4 (09:36→21:09)
--- NOTE | 2018-01-10 09:40 | SURGERY PROGRESS NOTE ---
DATE: 01/10/2018 Mrs. Recinos was seen today. She feels better. She is on room air with excellent saturations. Her vital signs are stable. She sounded better to me. I repeated an x-ray today and I see improvement, particularly on the left side. I discussed this case with Dr. Raya, Dr. Curtis Newell and Dr. Hayes. She has areas of lung which are attached on the right side. It is improved on the left. The patient is reticent to have a tap and at this point I would have to agree with her. She looks improved. I think we should continue doing what we are doing. She is complaining of pain in her left ankle. It is unclear to me why she is having this. Her uric acid is normal. She does have evidence of venous insufficiency. At any rate, I think she has improved and at this point I would not offer her anything different. We will continue following along. I have told the nurses to resume her heparin and we will get her up trying to ambulate today.
[2018-01-10] MEDS ORDERED: POTASSIUM CHLORIDE 10 MEQ TABCR PO STA (11:38)
--- NOTE | 2018-01-10 11:41 | DIAGNOSTIC IMAGING REPORT ---
LEFT ANKLE 3 VIEWS CLINICAL HISTORY: Left ankle pain. FINDINGS: 3 portable views of left ankle are obtained. No prior studies are available for comparison at the time of dictation. The skeletal structures are osteopenic. No fracture is seen. The ankle mortise is intact. There is no joint effusion. A tiny dorsal calcaneal enthesophyte is noted. Mild soft tissue swelling is present around the ankle. IMPRESSION: Mild soft tissue swelling with no radiographic evidence of left ankle fracture. Electronically signed by: Kamran Potter M.D. 01/10/2018 11:40 AM Dictated Date/Time: 01/10/2018 11:39 AM
[2018-01-10] MEDS ORDERED: FUROSEMIDE 40 MG TAB PO ONE (11:45)
[2018-01-10] MEDS ORDERED: ISOSORBIDE MONONITRATE 30 MG TABCR PO ONE (12:00)
[2018-01-10] MEDS: PANTOprazole INJ 40 MG in SYRINGE 0 ML IV SCH (12:02)
--- NOTE | 2018-01-10 12:04 | Cardiology Follow-Up ---
Subjective Subjective Date of Service: Jan 10, 2018. Pt evaluation today including: conversation w/ patient, physical exam, chart review, lab review, review of studies, review of inpatient medication list Additional Details: Pt seen and examined, my first encounter with patient, appears rather weakened but improving per other provider notes. Pt denies cp, sob, palpitations, lightheadedness or dizziness. States that breathing is about the same as yesterday despite radiographic improvement of volume. Tele reviewed: sinus rhythm without arrhythmia or significant ectopy. Problem List Medical Problems: (1) Anasarca Status: Acute (2) Atrial fibrillation with RVR Status: Acute (3) C. difficile diarrhea Status: Acute (4) Elevated troponin Status: Acute (5) Hyperthyroidism Status: Acute (6) Hypotension Status: Acute (7) Left leg cellulitis Status: Acute (8) Left leg pain Status: Acute (9) Right-sided heart failure Status: Acute (10) Sepsis Status: Acute Review of Systems Constitutional: + weakness Respiratory: No see HPI, No cough, No sputum, No wheezing, No shortness of breath, No dyspnea on exertion, No dyspnea at rest, No hemoptysis, No problem reported Cardiac: No see HPI, No chest pain, No orthopnea, No PND, No edema, No claudication, No palpitations, No problem reported Abdomen: No pain, No nausea, No vomiting, No diarrhea Musculoskeletal: + joint pain (LLE) Heme: No abnormal bleeding/bruising Objective Vital Signs Last Vital Signs Documentation Date Time Temp Pulse Resp B/P (MAP) Pulse Ox O2 Delivery O2 Flow Rate FiO2 01/10/18 11:34 36.6 94 18 162/84 (110) 94 Room Air 01/07/18 15:36 2.0 Physical Exam: General Appearance: WD/WN, no apparent distress, + cachetic, + thin Eyes: bilateral eyes normal inspection, bilateral eyes PERRL, bilateral eyes EOMI ENT: normal ENT inspection, hearing grossly normal, pharynx normal Neck: supple, no adenopathy, thyroid normal, no JVD, no carotid bruits, trachea midline Respiratory/Chest: no respiratory distress, no accessory muscle use, + decreased breath sounds (bilateral bases) Cardiovascular: regular rate, rhythm, no edema, no JVD, no murmur Abdomen: normal bowel sounds, non tender, soft Neurologic/Psychiatric: pediatrics hospitalist II-XII nml as tested, no motor/sensory deficits, alert, normal mood/affect, oriented x 3 Skin: normal color, warm/dry, no rash Lymphatic: no adenopathy Assessment and Plan 1. pleural effusions improved on chest xray agree with thoracic medicine's decision not to tap she will likely require diuresis clinically I believe she is a little wet will give lasix 40mg po x 1 now along with potassium supplementation and follow for clinical response 2. PAF has remained in sinus now tolerating heparin gtt I would prefer to hold off on restarting Eliquis until we see how her pleural effusions may progress, cont heparin for now cont metoprolol, will change to 50mg po bid starting 01/11 for ease of use given multiple comorbidities not an ideal antiarrhythmic candidate at this time 3. HTN continues to remain elevated will uptitrate hydralazine to 50mg TID and will adjust as necessary will also change nitrates to oral ok to d/c tele from cardiac standpoint
--- NOTE | 2018-01-10 14:03 | Pharmacy Progress Note ---
Pharmacy Glycemic Short Note 2 Date of Service Jan 10, 2018. OUTPATIENT ANTIDIABETIC REGIMEN: * n/a ASSESSMENT: * Ms Recinos is a 62 y/o F with no significant PMH who presented with abdominal pain and lower extremity swelling. She has had a complicated hospitalization with Afib with RVR, development of severe Clostridium difficile infection, E coli bacteremia on Rocephin. * Yesterday the patient's blood sugars were [phone] mg/dL ... she received 26 units of insulin (15 units of basal insulin + 11 units of bolus insulin) * Pt with LOW BSG/hypoglycemia this morning. Will reduce basal insulin accordingly. PLAN FOR INPATIENT GLYCEMIC CONTROL: * Basal insulin: decrease dosing secondary to hypo * Lantus 0-5 units SQ BID (0 units if blood sugar less than 160 mg/dL; 5 units if blood sugar greater than 160 mg/dL) * Bolus insulin: no change * NovoLog per scale ACHS or Q6hrs while NPO * Goal Range: Low 140 mg/dL - High 180 mg/dL * Correction Factor: 30 mg/dL/unit * Nutritional / Prandial insulin per carb ratio of 1 unit per 10 grams CHO consumed OUTPATIENT RECOMMENDATIONS * A1c of 6.5% is diagnostic for diabetes. * Recommend initiating Metformin as it is first line therapy for diabetes/pre- diabetes. This is in addition to healthy eating, weight control, increased physical activity, and diabetes education.
[2018-01-10 16:12] LABS: PTT PATIENT 46.2 SECONDS (21.0-31.0)
[2018-01-10] MEDS: HEPARIN 25,000 UNIT/500ML D5W 500 ML IV SCH ×3 (16:30→23:34)
[2018-01-10] MEDS: CEFTRIAXONE SOD INJ 2 GM in DEXTROSE 5% ADD-VANTAGE 50ML 50 ML IV SCH (17:58)
[2018-01-10 23:09] LABS: PTT PATIENT 54.6 SECONDS (21.0-31.0)
[2018-01-11 06:59] LABS: HEMATOCRIT 34.5 % (37-47); HEMOGLOBIN 11.6 g/dL (12.0-16.0); MEAN CELL VOLUME 83.1 fL (80-100); MEAN CORPUSCULAR HGB CONC 33.6 g/dl (32-36); MEAN PLATELET VOLUME 10.7 fL (7.4-10.4); PLATELET COUNT 611 K/uL (130-400); RED CELL DISTRIBUTION WIDTH CV 14.7 % (11.5-14.5); RED CELL DISTRIBUTION WIDTH SD 43.4 fL (36.4-46.3); WHITE BLOOD COUNT 16.83 K/uL (4.8-10.8)
[2018-01-11] MEDS: HEPARIN 25,000 UNIT/500ML D5W 500 ML IV SCH ×3 (07:09→20:56)
[2018-01-11 07:24] VITALS: BP 178/86; PULSE 71; TEMP 37.2; O2SAT 94
[2018-01-11 07:33] LABS: BLOOD UREA NITROGEN 13 mg/dl (7-18); CALCIUM 8.4 mg/dl (8.5-10.1); CARBON DIOXIDE 27 mmol/L (21-32); CREATININE 0.69 mg/dl (0.60-1.20); GLUCOSE 64 mg/dl (70-99); POTASSIUM 3.9 mmol/L (3.5-5.1); SODIUM 141 mmol/L (136-145)
[2018-01-11 07:44] LABS: CHOLESTEROL 110 mg/dl (0-200); LDL CHOLESTEROL CALCULATED 59 mg/dl
[2018-01-11] MEDS ORDERED: MAGNESIUM SULFATE 1GM / D5W 1 GM in PREMIXED IN D5W 100 ML IV STA (07:52)
[2018-01-11] MEDS: INSULIN ASPART 100 UNITS/ML 3 ML PEN SC SCH ×4 (08:00→21:00)
[2018-01-11] MEDS: ACETAMINOPHEN 325 MG TAB PO PRN (08:10)
[2018-01-11] MEDS: ISOSORBIDE MONONITRATE 30 MG TABCR PO SCH (08:10)
[2018-01-11] MEDS: METOPROLOL TARTRATE 50 MG TAB PO SCH ×2 (08:11→21:09)
--- NOTE | 2018-01-11 08:49 | DIAGNOSTIC IMAGING REPORT ---
SINGLE VIEW CHEST CLINICAL HISTORY: Pleural effusions. FINDINGS: An AP, portable, upright chest radiograph is compared to study dated 01/10/2018. Correlation is made with chest CT dated 12/30/2017. The examination is degraded by portable technique and patient rotation. The heart is enlarged. Mild pulmonary vascular congestion persists. There are layering pleural effusions with bibasilar consolidation. No pneumothorax is seen. The skeletal structures are osteopenic. The bony thorax is grossly intact. IMPRESSION: 1. Cardiomegaly with evidence of mild pulmonary vascular congestion. This is unchanged from yesterday. 2. Layering pleural effusions with bibasilar consolidation is also unchanged. Electronically signed by: Kamran Potter M.D. 01/11/2018 8:48 AM Dictated Date/Time: 01/11/2018 8:47 AM
[2018-01-11 09:30] VITALS: TEMP 37
[2018-01-11] MEDS: RASPBERRY SYRUP 5 ML UDP PO SCH ×4 (10:31→21:04)
[2018-01-11] MEDS: VANCOMYCIN HCL 500 MG/10ML SOLN PO SCH ×4 (10:31→21:04)
--- NOTE | 2018-01-11 11:37 | Cardiology Follow-Up ---
Subjective Subjective Date of Service: Jan 11, 2018. Pt evaluation today including: conversation w/ patient, physical exam, chart review, lab review, review of studies, review of inpatient medication list Additional Details: Pt seen and examined, appears to be more alert today. States that she doesn't feel much different from yesterday. No change in sob. Still weak and fatigued. Denies cp or palpitations. Problem List Medical Problems: (1) Anasarca Status: Acute (2) Atrial fibrillation with RVR Status: Acute (3) C. difficile diarrhea Status: Acute (4) Elevated troponin Status: Acute (5) Hyperthyroidism Status: Acute (6) Hypotension Status: Acute (7) Left leg cellulitis Status: Acute (8) Left leg pain Status: Acute (9) Right-sided heart failure Status: Acute (10) Sepsis Status: Acute Review of Systems Constitutional: + weakness Respiratory: No see HPI, No cough, No sputum, No wheezing, No shortness of breath, No dyspnea on exertion, No dyspnea at rest, No hemoptysis, No problem reported Cardiac: No see HPI, No chest pain, No orthopnea, No PND, No edema, No claudication, No palpitations, No problem reported Abdomen: No pain, No nausea, No vomiting, No diarrhea Musculoskeletal: + joint pain (LLE) Heme: No abnormal bleeding/bruising Objective Vital Signs Last Vital Signs Documentation Date Time Temp Pulse Resp B/P (MAP) Pulse Ox O2 Delivery O2 Flow Rate FiO2 01/11/18 09:30 37.0 01/11/18 07:30 Room Air 01/11/18 07:24 71 16 178/86 (116) 94 01/10/18 16:48 2.0 Physical Exam: General Appearance: WD/WN, no apparent distress, + cachetic, + thin Eyes: bilateral eyes normal inspection, bilateral eyes PERRL, bilateral eyes EOMI ENT: normal ENT inspection, hearing grossly normal, pharynx normal Neck: supple, no adenopathy, thyroid normal, no JVD, no carotid bruits, trachea midline Respiratory/Chest: no respiratory distress, no accessory muscle use, + decreased breath sounds (bilateral bases) Cardiovascular: regular rate, rhythm, no edema, no JVD, no murmur Abdomen: normal bowel sounds, non tender, soft Neurologic/Psychiatric: showroom manager II-XII nml as tested, no motor/sensory deficits, alert, normal mood/affect, oriented x 3 Skin: normal color, warm/dry, no rash Lymphatic: no adenopathy Assessment and Plan 1. pleural effusions improved on chest xray agree with thoracic medicine's decision not to tap over 2L negative overnight after receiving po lasix denies clinical improvement though and cxr unchanged will hold lasix today, likely start her on 20mg every other day starting tomorrow 2. PAF has remained in sinus now tolerating heparin gtt I would prefer to hold off on restarting Eliquis until we see how her pleural effusions may progress, cont heparin for now cont metoprolol, will change to 50mg po bid starting 01/11 for ease of use given multiple comorbidities not an ideal antiarrhythmic candidate at this time 3. HTN continues to remain elevated despite uptitration of hydralazine pt found to be hyperthyroid, will start treatment today as per Dr. Emerson sandoval to further uptitrate hydralazine as needed encouraged patient to participate with PT/OT
--- NOTE | 2018-01-11 12:22 | Surgery Progress Note ---
Subjective Date of Service: Jan 11, 2018. Pt. notes her breathing continues to improve. Objective Vitals Date Time Temp Pulse Resp B/P (MAP) Pulse Ox O2 Delivery O2 Flow Rate FiO2 01/11/18 09:30 37.0 01/11/18 07:30 Room Air 01/11/18 07:24 37.2 71 16 178/86 (116) 94 Room Air 01/11/18 00:53 Room Air 01/10/18 22:52 37.3 69 16 155/81 (105) 94 Room Air 01/10/18 21:17 37.1 71 16 155/73 (100) 94 Room Air 01/10/18 19:30 Room Air 01/10/18 16:48 36.7 64 20 96 2.0 01/10/18 16:21 36.7 64 20 134/89 (104) 96 Room Air 01/10/18 16:00 36.7 64 20 96 2.0 Physical Exam General: + well developed, + well nourished, No distress CV: + RRR Pulmonary: + pertinent finding (BS are decreased at bases), No accessory muscle use, No respiratory distress Neurologic: + alert & oriented x 3 Radiology CXR today shows bilateral pleural effusions; improvement noted from CXR 2 days ago Assessment & Plan 62 year old female with pleural effusion -as CXR has improved and pt. without dyspnea on room air, thoracentesis not performed -continue to monitor clinically and intervene if needed
[2018-01-11] MEDS: PANTOprazole INJ 40 MG in SYRINGE 0 ML IV SCH (13:33)
--- NOTE | 2018-01-11 14:09 | Pharmacy Progress Note ---
Pharmacy Glycemic Short Note 2 Date of Service Jan 11, 2018. OUTPATIENT ANTIDIABETIC REGIMEN: * n/a ASSESSMENT: * 62yo new diagnosis of diabetes. * Pt initiated on weight based SQ basal bolus insulin regimen on 01/06/18. Doses of insulin have been titrated daily based on BSG trends. * Pt with hypo 12/31/17: basal insulin dosing decreased by 67% dosing decreased from 15 units to 5 units * Pt with repeat hypo on 01/11/18: will stop basal insulin * Post-prandial BSGs in range. No changes needed. PLAN FOR INPATIENT GLYCEMIC CONTROL: * Basal insulin: D/C secondary to hypo * Bolus insulin: no change * NovoLog per scale ACHS or Q6hrs while NPO * Goal Range: Low 110 mg/dL - High 140 mg/dL * Correction Factor: 30 mg/dL/unit * Nutritional / Prandial insulin per carb ratio of 1 unit per 10 grams CHO consumed OUTPATIENT RECOMMENDATIONS * A1c of 6.5% is diagnostic for diabetes. * Pt will need f/u with PCP post discharge for medication titration * Recommend initiating Metformin as it is first line therapy for diabetes/pre- diabetes. This is in addition to healthy eating, weight control, increased physical activity, and diabetes education. * Typically the XR version of metformin is best tolerated in terms of GI symptoms. * Recommend starting metformin XR 500mg PO daily with evening meal. Continue to titrate metformin dosing upwards as recommended. Dosage increases should be made in increments of 500 mg weekly, up to 2,000 mg/day PO, given in divided doses. Doses above 2000 mg/day may be better tolerated if divided and given 3 times per day with meals. Max: 2,550 mg/day PO, in divided doses
[2018-01-11] MEDS: METHIMAZOLE 5 MG TAB PO SCH ×2 (14:33→21:09)
--- NOTE | 2018-01-11 14:38 | Progress Note ---
Subjective Date of Service: Jan 11, 2018. Subjective Pt evaluation today including: conversation w/ patient, conversation w/ family , physical exam, lab review, review of studies, conversation w/ fitness sales consultant, review of inpatient medication list Saw/examined the patient in room 376 No problems/issues today, she is much more alert and awake today and does not c/ o pain Problem List Medical Problems: (1) Anasarca Status: Acute (2) Atrial fibrillation with RVR Status: Acute (3) C. difficile diarrhea Status: Acute (4) Elevated troponin Status: Acute (5) Hyperthyroidism Status: Acute (6) Hypotension Status: Acute (7) Left leg cellulitis Status: Acute (8) Left leg pain Status: Acute (9) Right-sided heart failure Status: Acute (10) Sepsis Status: Acute Review of Systems Constitutional: + weakness, No fever, No chills Respiratory: No cough, No sputum, No wheezing, No shortness of breath, No dyspnea on exertion, No dyspnea at rest, No hemoptysis Cardiac: No chest pain, No edema, No palpitations Abdomen: No pain, No nausea, No vomiting, No diarrhea Musculoskeletal: + joint pain Medications Current Inpatient Medications Medications (Trade) Dose Ordered Sig/Sera Route Start Time Stop Time Status Last Admin Dose Admin Acetaminophen (Tylenol Tab) 325 mg Q6H PRN PO 12/30/17 03:15 01/29/18 03:14 01/11/18 08:10 325 MG Pantoprazole Sodium 40 mg/ Syringe 10 ml @ 5 mls/min DAILY@11 IV 12/31/17 11:00 01/30/18 10:59 01/11/18 13:33 5 MLS/MIN Vancomycin HCl (Vancomycin Oral Soln) 500 mg QID PO 01/01/18 17:00 01/15/18 16:59 01/11/18 13:32 500 MG Hydromorphone HCl (Dilaudid Inj) 0.5 mg Q3H PRN IV 01/02/18 10:45 01/16/18 10:44 01/06/18 07:56 0.5 MG Ceftriaxone Sodium 2 gm/ Dextrose 50 ml @ 100 mls/hr Q24H IV 01/02/18 18:00 01/11/18 17:59 01/10/18 17:58 100 MLS/HR Ondansetron HCl 6 mg/Dextrose 53 ml @ 200 mls/hr Q6H PRN IV 01/04/18 00:30 02/03/18 00:29 01/04/18 07:48 200 MLS/HR Miscellaneous Information (Consult Glycemic Management Pharmacy) 1 ea UD PRN N/A 01/06/18 09:32 02/05/18 09:31 Glucose (Glucose 40% Gel) 15-30 GRAMS 15 GRAMS... UD PRN PO 01/06/18 20:00 02/05/18 19:59 Glucose (Glucose Chew Tab) 4-8 Tablets 4 Tabl... UD PRN PO 01/06/18 20:00 02/05/18 19:59 Dextrose (Dextrose 50% 50ML Syringe) 25-50ML OF 50% DW IV FOR... UD PRN IV 01/06/18 20:00 02/05/18 19:59 Glucagon (Glucagon Inj) 1 mg UD PRN SQ 01/06/18 20:00 02/05/18 19:59 Heparin Sodium/ Dextrose 500 ml @ 13 mls/hr Q24H IV 01/06/18 23:30 02/05/18 23:29 01/11/18 07:09 13 MLS/HR Ipratropium [place] (Atrovent 0.02% 0.5MG/2.5ML Neb) 0.5 mg Q4H PRN INH 01/07/18 00:15 02/06/18 00:14 Levalbuterol (Xopenex 1.25MG/ 0.5ML Neb) 1.25 mg Q4H PRN INH 01/07/18 00:15 02/06/18 00:14 Insulin Aspart (novoLOG ASPART) SLIDING SCALE ACHS SC 01/08/18 07:00 02/07/18 06:59 01/10/18 21:15 2 UNITS Raspberry (Raspberry Syrup 5ml Cup) 2.5 ml QID PO 01/09/18 09:00 01/23/18 08:59 01/11/18 13:32 2.5 ML Hydralazine HCl (Apresoline Tab) 50 mg TID PO 01/10/18 14:00 02/07/18 13:59 01/11/18 08:11 50 MG Isosorbide Mononitrate (Imdur Ext Rel Tab) 30 mg QAM PO 01/11/18 09:00 02/10/18 08:59 01/11/18 08:10 30 MG Metoprolol Tartrate (Lopressor Tab) 50 mg BID PO 01/11/18 09:00 02/10/18 08:59 01/11/18 08:11 50 MG Methimazole (Methimazole Tab) 5 mg TID PO 01/11/18 14:00 02/10/18 13:59 Objective Vital Signs Date Time Temp Pulse Resp B/P (MAP) Pulse Ox O2 Delivery O2 Flow Rate FiO2 01/11/18 09:30 37.0 01/11/18 07:30 Room Air 01/11/18 07:24 37.2 71 16 178/86 (116) 94 Room Air 01/11/18 00:53 Room Air 01/10/18 22:52 37.3 69 16 155/81 (105) 94 Room Air 01/10/18 21:17 37.1 71 16 155/73 (100) 94 Room Air 01/10/18 19:30 Room Air 01/10/18 16:48 36.7 64 20 96 2.0 01/10/18 16:21 36.7 64 20 134/89 (104) 96 Room Air 01/10/18 16:00 36.7 64 20 96 2.0 Physical Exam General Appearance: no apparent distress Eyes: normal inspection ENT: hearing grossly normal Neck: supple Respiratory/Chest: no respiratory distress, no accessory muscle use, + decreased breath sounds Cardiovascular: regular rate, rhythm, no edema, no murmur Abdomen: normal bowel sounds, non tender, soft Extremities: normal inspection, no pedal edema, + pertinent finding (LLE pain) Neurologic/Psychiatric: no motor/sensory deficits, alert, normal mood/affect Laboratory Results Last 24 Hours Test 01/10/18 15:39 01/10/18 16:23 01/10/18 20:34 01/10/18 22:42 Activated Partial Thromboplast Time 46.2 SECONDS 54.6 SECONDS Partial Thromboplastin Ratio 1.8 2.1 Bedside Glucose 158 mg/dl 196 mg/dl Test 01/11/18 05:54 01/11/18 09:23 01/11/18 12:26 White Blood Count 16.83 K/uL Red Blood Count 4.15 M/uL Hemoglobin 11.6 g/dL Hematocrit 34.5 % Mean Corpuscular Volume 83.1 fL Mean Corpuscular Hemoglobin 28.0 pg Mean Corpuscular Hemoglobin Concent 33.6 g/dl RDW Standard Deviation 43.4 fL RDW Coefficient of Variation 14.7 % Platelet Count 611 K/uL Mean Platelet Volume 10.7 fL Activated Partial Thromboplast Time 49.0 SECONDS Partial Thromboplastin Ratio 1.9 Sodium Level 141 mmol/L Potassium Level 3.9 mmol/L Chloride Level 107 mmol/L Carbon Dioxide Level 27 mmol/L Anion Gap 7.0 mmol/L Blood Urea Nitrogen 13 mg/dl Creatinine 0.69 mg/dl Est Creatinine Clear Calc Drug Dose 69.1 ml/min Estimated GFR () 109.7 Estimated GFR (Non- 94.6 BUN/Creatinine Ratio 18.4 Random Glucose 64 mg/dl Calcium Level 8.4 mg/dl Magnesium Level 1.6 mg/dl Triglycerides Level 68 mg/dl Cholesterol Level 110 mg/dl HDL Cholesterol 37 mg/dl LDL Cholesterol, Calculated 59 mg/dl VLDL Cholesterol, Calculated 14 mg/dl Cholesterol/HDL Ratio 3.0 Thyroid Stimulating Hormone (TSH) < 0.005 uIu/ml Free Thyroxine 0.58 ng/dl Bedside Glucose 118 mg/dl 114 mg/dl Assessment and Plan This is a 62 year old female with no past medical history prior to arrival. Biventricular Heart Failure Bilateral Pleural Effusions - improving 01/11 - thoracentesis canceled; will continue Lasix - will likely need Lasix 20mg every other day as outpatient - appreciate cardiology input - as outpatient begin ALVIN-I 01/10 - plan for thoracentesis - intermittent Lasix may be needed - as outpatient, should start ALVIN-I 01/09 - will consult pulm regarding bilateral pleural effusion and possible need for thoracentesis - appreciate cardiology input - intermittently receiving Lasix , received some last evening 01/08 - persistent bilateral pleural effusions - pulmonary consulted for possible thoracentesis on one side 01/07 - required IV Lasix yesterday - monitor fluid status 01/06 - patient presented with worsening lower extremity edema, hepatic congestion - echo initially suggested significant R ventricular systolic function and decreased LVEF - started on b-luis, treated for infection, etc. - repeat echo was performed on 01/05 with improvement of both ventricular function - further management as per cardiology Metabolic Encephalopathy - resolved Bilateral Cerebellar Hemisphere Infarcts 01/11 - continue IV heparin for now - transition to Eliquis prior to discharge - PT/OT - outpatient neurology input 01/10 - neurology has signed off - currently heparin ggt on hold due to thoracentesis - will restart IV Heparin after tap when okay with cardiothoracic surgery - eventual plan to place her on Eliquis 01/09 - appreciate neurology input - will need continued PT/OT/speech evaluations - currently on IV heparin; will transition to oral anticoagulant prior to discharge 01/08 - Brain MRI suggests bilateral cerebellar infarcts - appreciate neurology evaluation - currently on IV heparin - will continue speech/PT/OT - clinically improving 01/07 - Head CT performed late on 01/06, suggesting possible subacute infarct - Brain MRI could not be performed; dental implant? - repeat Head CT in 1-2 days - appreciate neurology input - started on IV heparin at this time due to pulling of NGT and failing swallow evaluation - speech eval - PT/OT 01/06 - patient with confusion, disorientation - possibly related to Dilaudid use , also has had sepsis, hypotension episodes, YI earlier in the admission - appreciate neurology input on this matter, no need for further imaging - Brain MRI, Head CT already performed, EEG reviewed by neurology - slow improvement - may need Ativan for significant anxiety as well Severe Sepsis, E. coli Septicemia Severe C. Diff Colitis - improving 01/11 - continue Rocephin for the E. coli septicemia (day #9/14) - continue PO Vancomycin for C. diff - continue for a total of 28 days 01/10 - white count continues to improve - continue Rocephin plus PO Vanco 01/09 - white count improving to 16k from 19k - will need Rocephin x14 days from last negative blood culture (day #8) - for the C. Diff patient is on oral Vanco and IV Flagyl; will d/c Flagyl in AM (01/10) 01/08 - decrease in WBC count today - continue Rocephin for 14 days after the last negative blood culture - continue oral Vanco for the C. Diff - labial fold swelling noted; possible Bartholin abscess? - consulted cafeteria cook and added warm compresses to the region 01/07 - WBC increasing - will repeat abdomen/pelvis CT - general surgery for further input - continue IV Rocephin; unfortunately, pulled NGT, so can't do oral Vanco, currently on IV Flagyl 01/06 - blood cultures positive for E. coli; repeat blood cultures - no growth - C. Diff positive, colitis noted on imaging - started on IV Flagyl initially, converted to PO Vanco - appreciate ID input - will need PO Vanco for 28 days total - will need Rocephin for 14 days since the negative blood culture on 01/01 - appreciate general surgery input regarding C. Diff - no surgical intervention at this time - will monitor abdominal firmness/distention - if no improvement, repeat abd/pelvis CT can be done Paroxysmal A. Fib with RVR - resolved 01/11 - continue IV heparin, transition to Eliquis - continue Lopressor 01/10 - continue b-luis, currently NSR 01/09 - currently in NSR, rate controlled with b-luis - IV heparin ggt at this time 01/08 - currently on PO Metoprolol as per cardiology, appreciate input - IV heparin at this time 01/07 - Eliquis stopped - awaiting speech evaluation - IV heparin started - will need either IV Lopressor or re-insertion of NGT 01/06 - intermittent A. fib and rapid ventricular response; likely from sepsis - currently in NSR - appreciate cardiology input - continue Lopressor for rate control - Eliquis for anticoagulation - had required IV Lopressor and Cardizem ggt - no longer should receive Cardizem due to pauses noted earlier in the admission Type 2 Demand Ischemia 01/11 - continue Imdur, b-luis, likely would benefit from statin addition prior to discharge - troponin elevation when she first came in - likely secondary to infection, anemia, etc. - initially was on IV heparin, now back on it - now off of Eliquis - continue b-luis - treating underlying infection Hypertensive Urgency - improving 01/11 - blood pressure continues to be elevated - likely from hyperthyroid - starting methimazole - continue Hydralazine, Imdur, Metoprolol 01/09 - appreciate cardio input regarding blood pressure - on nitro paste and Hydralazine as well as b-luis - will increase hydralazine dose at this time 01/08 - appreciate cardiology input - currently attempting nitro paste and hydralazine for blood pressure control - holding off on ALVIN-I in the short term as per nephrology 01/07 - BP yesterday >200/100 - appreciate cardiology input - started on Lopressor 50mg q6, Hydralazine and topical nitrates added - anxiety may also be playing a part in elevated blood pressure - will add low dose Ativan PRN Hyperglycemia - resolved Hypoglycemia 01/11 - Ha1c = 6.5% - due to recent stroke and Type 2 [place], will need metformin prior to discharge - add statin - add ALVIN-I as outpatient 01/10 - will likely need metformin on discharge due to multiple co-morbidities and Ha1c of 6.5% 01/09 - off of D5 fluid - sugars are improving and within goal range - appreciate pharmacy input 01/08 - blood sugar is now on the lower end - trying low dose D5, monitor blood sugars, should improve as she is eating now 01/07 - likely due to dextrose in tube feeds - consult speech - consult pharmacy glycemic control Acute Kidney Injury - resolved - resolved now; initially due to acute tubular necrosis, possible medication or IV contrast induced - was given IVFs due to sepsis Hepatic Congestion - from biventricular heart failure - monitor for fluid overload Anemia - improving - likely iron deficiency - H/H stable Thrombocytopenia - resolved Abnormal Thyroid Function Test - TSH continues to be low on 01/11 - Free T4 is now low, initially was elevated - as per patient's daughter, who is a physician, patient's record indicate she has had issues to hyperthyroid in the past - will restart methimazole 5mg TID - may need thyroid ultrasound, thyroid scan as outpatient - outpatient endocrinology input DVT ppx - IV heparin FULL CODE PT/OT/speech ordered Clinical course obtained from chart review: December 29, 2017 Presented on 12/29 with significant bilateral lower extremity edema, fevers, chills, abdominal distention, nausea. December 30, 2017 Patient admitted on 12/30 due to meeting severe sepsis criteria. She had significant lactic acidosis, tachycardia; later developed hypotension, leukocytosis, and elevated procalcitonin. She was started on broad spectrum antibiotics, initially to cover cellulitis. Imaging suggested shock bowel, hypotensive bowel - initial concern of liver cirrhosis. Further testing suggested significant R heart failure with hepatic congestion. Edematous lower extremities likely from the biventricular heart failure noted. Echo was done to confirm this diagnosis. LVEF at the time noted to be 35-40%. Dilatation of R atrium and R ventricle noted as well. Late on 12/30 , patient developed A. Fib with RVR and transferred to the ICU. December 31, 2017 Patient spontaneously converted to sinus rhythm after being given IV Lopressor x2 and Cardizem ggt, which had to be stopped due to low blood pressure. Troponin elevation noted, likely type 2 demand ischemia from infection, arrhythmia, sepsis. Patient was started on IV heparin. Patient was found to be positive for C. Diff Infection; CT suggested colitis. NGT was placed in the ICU and Vanco solution was given to treat this. Blood cultures were positive at this time for gram negative organism. Patient's mental status acutely worsened. Neurology was consulted and an MRI and EEG were performed. Attributed mental status change to metabolic encephalopathy. Kidney function also acutely worsened; possibly from IV contrast from imaging done prior. January 01, 2018 Nephrology consulted due to acute kidney injury and acute tubular necrosis. Consideration made for dialysis; though this was never required. ID consulted - E. coli septicemia noted on blood cultures x2, repeat cultures were ordered. Nephrology consulted - metabolic acidosis - possibly from sepsis and YI. January 02, 2018 General surgery consulted regarding C. Diff colitis, conservative management decided. Patient at this time was going in and out of A. fib; initially started on IV Cardizem, but due to post-conversion pauses, this was stopped. Was started on bicarb drip due to acidosis. ID following for UTI, C. Diff colitis, E. coli septicemia. January 03, 2018 Clinical improvement made on January 03 mentally. Hypertension was still an issue and cardiology worked on getting this down by increasing b-luis dose and adding hydralazine. January 04, 2018 continuing PO Vancomycin and IV Rocephin IV heparin stopped at this time. Eliquis had been started. clinical picture continued to improve as per records. January 05, 2018 Repeat TTE was done; improving biventricular heart failure noted. Hypertensive Urgency still an issue on this day; cardiology adjusted meds to add nitropaste and Hydralazine, as well as an increase in Lopressor dose.
[2018-01-11 15:12] VITALS: BP 143/69; PULSE 61; TEMP 36.7; O2SAT 96
[2018-01-11 21:07] VITALS: BP 155/79; PULSE 70
[2018-01-11 22:52] VITALS: BP 132/80; PULSE 68; TEMP 37.2; O2SAT 94
[2018-01-12] VITALS (7 sets, daily range): BP systolic 115–180; BP diastolic 60–87; PULSE 63–68; TEMP 36.9–37.2; O2SAT 94–96
[2018-01-12] MEDS: ACETAMINOPHEN 325 MG TAB PO PRN (05:35)
[2018-01-12 07:04] LABS: HEMATOCRIT 34.9 % (37-47); HEMOGLOBIN 11.8 g/dL (12.0-16.0); MEAN CELL VOLUME 83.7 fL (80-100); MEAN CORPUSCULAR HEMOGLOBIN 28.3 pg (25-34); MEAN CORPUSCULAR HGB CONC 33.8 g/dl (32-36); MEAN PLATELET VOLUME 11.1 fL (7.4-10.4); PLATELET COUNT 635 K/uL (130-400); RED CELL DISTRIBUTION WIDTH CV 14.8 % (11.5-14.5); RED CELL DISTRIBUTION WIDTH SD 43.8 fL (36.4-46.3)
[2018-01-12 07:08] LABS: PTT PATIENT 46.9 SECONDS (21.0-31.0)
[2018-01-12 07:33] LABS: CALCIUM 8.5 mg/dl (8.5-10.1); CREATININE 0.68 mg/dl (0.60-1.20); POTASSIUM 3.9 mmol/L (3.5-5.1)
[2018-01-12] MEDS: METHIMAZOLE 5 MG TAB PO SCH ×3 (08:08→21:39)
[2018-01-12] MEDS: ISOSORBIDE MONONITRATE 30 MG TABCR PO SCH (08:09)
[2018-01-12] MEDS: METOPROLOL TARTRATE 50 MG TAB PO SCH ×2 (08:09→21:39)
[2018-01-12] MEDS: MAGNESIUM SULFATE 1GM / D5W 1 GM in PREMIXED IN D5W 100 ML IV SCH ×3 (08:17→11:20)
--- NOTE | 2018-01-12 09:31 | Surgery Progress Note ---
Subjective Date of Service: Jan 12, 2018. Pt. notes she is not SOB at the present time. Objective Vitals Date Time Temp Pulse Resp B/P (MAP) Pulse Ox O2 Delivery O2 Flow Rate FiO2 01/12/18 09:14 115/60 (78) 01/12/18 09:07 94 Room Air 01/12/18 07:39 37.1 63 18 180/87 (118) 94 Room Air 01/11/18 23:35 Room Air 01/11/18 22:52 37.2 68 20 132/80 (97) 94 Room Air 01/11/18 21:07 70 155/79 (104) 01/11/18 15:30 Room Air 01/11/18 15:12 36.7 61 16 143/69 (93) 96 Room Air Physical Exam General: No distress CV: + RRR Pulmonary: + pertinent finding (decreased BS at bases), No accessory muscle use, No respiratory distress Neurologic: + alert & oriented x 3 Assessment & Plan 62 year old female with pleural effusion -thoracentesis not performed due to clinical improvement -continue to monitor clinically and intervene if needed
[2018-01-12] MEDS: ATORVASTATIN 40 MG TAB PO SCH (09:51)
[2018-01-12] MEDS: INSULIN ASPART 100 UNITS/ML 3 ML PEN SC SCH ×4 (09:53→21:39)
--- NOTE | 2018-01-12 10:13 | Progress Note ---
Subjective Date of Service: Jan 12, 2018. Subjective Pt evaluation today including: conversation w/ patient, physical exam, lab review, review of studies, review of inpatient medication list Saw/examined the patient in room 376 +weakness and tired +L foot pain, states she was diagnosed with tendonitis in the past Denies chest pain/shortness of breath/palpitations Diarrhea improving Problem List Medical Problems: (1) Anasarca Status: Acute (2) Atrial fibrillation with RVR Status: Acute (3) C. difficile diarrhea Status: Acute (4) Elevated troponin Status: Acute (5) Hyperthyroidism Status: Acute (6) Hypotension Status: Acute (7) Left leg cellulitis Status: Acute (8) Left leg pain Status: Acute (9) Right-sided heart failure Status: Acute (10) Sepsis Status: Acute Review of Systems Constitutional: + weakness, + fatigue, No fever, No chills Respiratory: No shortness of breath Cardiac: No chest pain Abdomen: + diarrhea, No pain, No nausea, No vomiting Heme: No abnormal bleeding/bruising Medications Current Inpatient Medications Medications (Trade) Dose Ordered Sig/Sera Route Start Time Stop Time Status Last Admin Dose Admin Acetaminophen (Tylenol Tab) 325 mg Q6H PRN PO 12/30/17 03:15 01/29/18 03:14 01/12/18 05:35 325 MG Pantoprazole Sodium 40 mg/ Syringe 10 ml @ 5 mls/min DAILY@11 IV 12/31/17 11:00 01/30/18 10:59 01/11/18 13:33 5 MLS/MIN Vancomycin HCl (Vancomycin Oral Soln) 500 mg QID PO 01/01/18 17:00 01/15/18 16:59 01/11/18 21:04 500 MG Hydromorphone HCl (Dilaudid Inj) 0.5 mg Q3H PRN IV 01/02/18 10:45 01/16/18 10:44 01/06/18 07:56 0.5 MG Ondansetron HCl 6 mg/Dextrose 53 ml @ 200 mls/hr Q6H PRN IV 01/04/18 00:30 02/03/18 00:29 01/04/18 07:48 200 MLS/HR Miscellaneous Information (Consult Glycemic Management Pharmacy) 1 ea UD PRN N/A 01/06/18 09:32 02/05/18 09:31 Glucose (Glucose 40% Gel) 15-30 GRAMS 15 GRAMS... UD PRN PO 01/06/18 20:00 02/05/18 19:59 Glucose (Glucose Chew Tab) 4-8 Tablets 4 Tabl... UD PRN PO 01/06/18 20:00 02/05/18 19:59 Dextrose (Dextrose 50% 50ML Syringe) 25-50ML OF 50% DW IV FOR... UD PRN IV 01/06/18 20:00 02/05/18 19:59 Glucagon (Glucagon Inj) 1 mg UD PRN SQ 01/06/18 20:00 02/05/18 19:59 Heparin Sodium/ Dextrose 500 ml @ 13 mls/hr Q24H IV 01/06/18 23:30 02/05/18 23:29 01/11/18 20:56 13 MLS/HR Ipratropium [place] (Atrovent 0.02% 0.5MG/2.5ML Neb) 0.5 mg Q4H PRN INH 01/07/18 00:15 02/06/18 00:14 Levalbuterol (Xopenex 1.25MG/ 0.5ML Neb) 1.25 mg Q4H PRN INH 01/07/18 00:15 02/06/18 00:14 Insulin Aspart (novoLOG ASPART) SLIDING SCALE ACHS SC 01/08/18 07:00 02/07/18 06:59 01/11/18 18:56 5 UNITS Raspberry (Raspberry Syrup 5ml Cup) 2.5 ml QID PO 01/09/18 09:00 01/23/18 08:59 01/11/18 21:04 2.5 ML Hydralazine HCl (Apresoline Tab) 50 mg TID PO 01/10/18 14:00 02/07/18 13:59 01/12/18 08:10 50 MG Isosorbide Mononitrate (Imdur Ext Rel Tab) 30 mg QAM PO 01/11/18 09:00 02/10/18 08:59 01/12/18 08:09 30 MG Metoprolol Tartrate (Lopressor Tab) 50 mg BID PO 01/11/18 09:00 02/10/18 08:59 01/12/18 08:09 50 MG Methimazole (Methimazole Tab) 5 mg TID PO 01/11/18 14:00 02/10/18 13:59 01/12/18 08:08 5 MG Magnesium Sulfate 1 gm/Prmx 100 ml @ 100 mls/hr Q1H IV 01/12/18 08:30 01/12/18 10:29 01/12/18 08:17 100 MLS/HR Atorvastatin Calcium (Lipitor Tab) 40 mg QAM PO 01/12/18 09:00 02/11/18 08:59 01/12/18 09:51 40 MG Cholecalciferol (Vitamin D Tab) 1,000 inter.unit QAM PO 01/13/18 09:00 02/12/18 08:59 UNV Ceftriaxone Sodium 2 gm/ Dextrose 50 ml @ 100 mls/hr DAILY@0900 IV 01/12/18 10:00 01/15/18 23:59 Objective Vital Signs Date Time Temp Pulse Resp B/P (MAP) Pulse Ox O2 Delivery O2 Flow Rate FiO2 01/12/18 09:14 115/60 (78) 01/12/18 09:07 94 Room Air 01/12/18 07:39 37.1 63 18 180/87 (118) 94 Room Air 01/11/18 23:35 Room Air 01/11/18 22:52 37.2 68 20 132/80 (97) 94 Room Air 01/11/18 21:07 70 155/79 (104) 01/11/18 15:30 Room Air 01/11/18 15:12 36.7 61 16 143/69 (93) 96 Room Air Physical Exam General Appearance: no apparent distress Respiratory/Chest: chest non-tender, no respiratory distress, no accessory muscle use, + decreased breath sounds Cardiovascular: regular rate, rhythm, no edema, no murmur Laboratory Results Last 24 Hours Test 01/11/18 12:26 01/11/18 16:44 01/11/18 20:37 01/12/18 06:15 Bedside Glucose 114 mg/dl 163 mg/dl 137 mg/dl White Blood Count 12.00 K/uL Red Blood Count 4.17 M/uL Hemoglobin 11.8 g/dL Hematocrit 34.9 % Mean Corpuscular Volume 83.7 fL Mean Corpuscular Hemoglobin 28.3 pg Mean Corpuscular Hemoglobin Concent 33.8 g/dl RDW Standard Deviation 43.8 fL RDW Coefficient of Variation 14.8 % Platelet Count 635 K/uL Mean Platelet Volume 11.1 fL Activated Partial Thromboplast Time 46.9 SECONDS Partial Thromboplastin Ratio 1.8 Sodium Level 140 mmol/L Potassium Level 3.9 mmol/L Chloride Level 106 mmol/L Carbon Dioxide Level 26 mmol/L Anion Gap 9.0 mmol/L Blood Urea Nitrogen 12 mg/dl Creatinine 0.68 mg/dl Est Creatinine Clear Calc Drug Dose 68.9 ml/min Estimated GFR () 110.2 Estimated GFR (Non- 95.1 BUN/Creatinine Ratio 17.7 Random Glucose 99 mg/dl Calcium Level 8.5 mg/dl Magnesium Level 1.7 mg/dl 25-Hydroxy Vitamin D Total 14.5 ng/ml Test 01/12/18 08:12 Bedside Glucose 86 mg/dl Assessment and Plan This is a 62 year old female with no past medical history prior to arrival. Biventricular Heart Failure Bilateral Pleural Effusions - improving 01/12 - continue Lasix as needed - outpatient ALVIN-I in a few weeks 01/11 - thoracentesis canceled; will continue Lasix - will likely need Lasix 20mg every other day as outpatient - appreciate cardiology input - as outpatient begin ALVIN-I 01/10 - plan for thoracentesis - intermittent Lasix may be needed - as outpatient, should start ALVIN-I 01/09 - will consult pulm regarding bilateral pleural effusion and possible need for thoracentesis - appreciate cardiology input - intermittently receiving Lasix , received some last evening 01/08 - persistent bilateral pleural effusions - pulmonary consulted for possible thoracentesis on one side 01/07 - required IV Lasix yesterday - monitor fluid status 01/06 - patient presented with worsening lower extremity edema, hepatic congestion - echo initially suggested significant R ventricular systolic function and decreased LVEF - started on b-luis, treated for infection, etc. - repeat echo was performed on 01/05 with improvement of both ventricular function - further management as per cardiology Metabolic Encephalopathy - resolved Bilateral Cerebellar Hemisphere Infarcts 01/12 - transition to Eliquis when okay with cardiology - started Lipitor 01/11 - continue IV heparin for now - transition to Eliquis prior to discharge - PT/OT - outpatient neurology input 01/10 - neurology has signed off - currently heparin ggt on hold due to thoracentesis - will restart IV Heparin after tap when okay with cardiothoracic surgery - eventual plan to place her on Eliquis 01/09 - appreciate neurology input - will need continued PT/OT/speech evaluations - currently on IV heparin; will transition to oral anticoagulant prior to discharge 01/08 - Brain MRI suggests bilateral cerebellar infarcts - appreciate neurology evaluation - currently on IV heparin - will continue speech/PT/OT - clinically improving 01/07 - Head CT performed late on 01/06, suggesting possible subacute infarct - Brain MRI could not be performed; dental implant? - repeat Head CT in 1-2 days - appreciate neurology input - started on IV heparin at this time due to pulling of NGT and failing swallow evaluation - speech eval - PT/OT 01/06 - patient with confusion, disorientation - possibly related to Dilaudid use , also has had sepsis, hypotension episodes, YI earlier in the admission - appreciate neurology input on this matter, no need for further imaging - Brain MRI, Head CT already performed, EEG reviewed by neurology - slow improvement - may need Ativan for significant anxiety as well Severe Sepsis, E. coli Septicemia Severe C. Diff Colitis - improving 01/12 - continue Rocephin; will need until 01/14 - continue PO Vancomycin for a total of 28 days 01/11 - continue Rocephin for the E. coli septicemia (day #07/26) - continue PO Vancomycin for C. diff - continue for a total of 28 days 01/10 - white count continues to improve - continue Rocephin plus PO Vanco 01/09 - white count improving to 16k from 19k - will need Rocephin x14 days from last negative blood culture (day #06/26) - for the C. Diff patient is on oral Vanco and IV Flagyl; will d/c Flagyl in AM (01/10) 01/08 - decrease in WBC count today - continue Rocephin for 14 days after the last negative blood culture - continue oral Vanco for the C. Diff - labial fold swelling noted; possible Bartholin abscess? - consulted lace roller and added warm compresses to the region 01/07 - WBC increasing - will repeat abdomen/pelvis CT - general surgery for further input - continue IV Rocephin; unfortunately, pulled NGT, so can't do oral Vanco, currently on IV Flagyl 01/06 - blood cultures positive for E. coli; repeat blood cultures - no growth - C. Diff positive, colitis noted on imaging - started on IV Flagyl initially, converted to PO Vanco - appreciate ID input - will need PO Vanco for 28 days total - will need Rocephin for 14 days since the negative blood culture on 01/01 - appreciate general surgery input regarding C. Diff - no surgical intervention at this time - will monitor abdominal firmness/distention - if no improvement, repeat abd/pelvis CT can be done Paroxysmal A. Fib with RVR - resolved 01/11 - continue IV heparin, transition to Eliquis - continue Lopressor 01/10 - continue b-luis, currently NSR 01/09 - currently in NSR, rate controlled with b-luis - IV heparin ggt at this time 01/08 - currently on PO Metoprolol as per cardiology, appreciate input - IV heparin at this time 01/07 - Eliquis stopped - awaiting speech evaluation - IV heparin started - will need either IV Lopressor or re-insertion of NGT 01/06 - intermittent A. fib and rapid ventricular response; likely from sepsis - currently in NSR - appreciate cardiology input - continue Lopressor for rate control - Eliquis for anticoagulation - had required IV Lopressor and Cardizem ggt - no longer should receive Cardizem due to pauses noted earlier in the admission Type 2 Demand Ischemia 01/11 - continue Imdur, b-luis, likely would benefit from statin addition prior to discharge - troponin elevation when she first came in - likely secondary to infection, anemia, etc. - initially was on IV heparin, now back on it - now off of Eliquis - continue b-luis - treating underlying infection Hypertensive Urgency - improving 01/11 - blood pressure continues to be elevated - likely from hyperthyroid - starting methimazole - continue Hydralazine, Imdur, Metoprolol 01/09 - appreciate cardio input regarding blood pressure - on nitro paste and Hydralazine as well as b-luis - will increase hydralazine dose at this time 01/08 - appreciate cardiology input - currently attempting nitro paste and hydralazine for blood pressure control - holding off on ALVIN-I in the short term as per nephrology 01/07 - BP yesterday >200/100 - appreciate cardiology input - started on Lopressor 50mg q6, Hydralazine and topical nitrates added - anxiety may also be playing a part in elevated blood pressure - will add low dose Ativan PRN Hyperglycemia - resolved Hypoglycemia 01/11 - Ha1c = 6.5% - due to recent stroke and Type 2 FL, will need metformin prior to discharge - add statin - add ALVIN-I as outpatient 01/10 - will likely need metformin on discharge due to multiple co-morbidities and Ha1c of 6.5% 01/09 - off of D5 fluid - sugars are improving and within goal range - appreciate pharmacy input 01/08 - blood sugar is now on the lower end - trying low dose D5, monitor blood sugars, should improve as she is eating now 01/07 - likely due to dextrose in tube feeds - consult speech - consult pharmacy glycemic control Acute Kidney Injury - resolved - resolved now; initially due to acute tubular necrosis, possible medication or IV contrast induced - was given IVFs due to sepsis Hepatic Congestion - from biventricular heart failure - monitor for fluid overload Anemia - improving - likely iron deficiency - H/H stable Thrombocytopenia - resolved Abnormal Thyroid Function Test - TSH continues to be low on 01/11 - Free T4 is now low, initially was elevated - as per patient's daughter, who is a physician, patient's record indicate she has had issues to hyperthyroid in the past - will restart methimazole 5mg TID - may need thyroid ultrasound, thyroid scan as outpatient - outpatient endocrinology input Vitamin D deficiency - started on Vitamin D supplementation, repeat Vitamin D levels in 3 months DVT ppx - IV heparin FULL CODE PT/OT/speech ordered Clinical course obtained from chart review: December 29, 2017 Presented on 12/29 with significant bilateral lower extremity edema, fevers, chills, abdominal distention, nausea. December 30, 2017 Patient admitted on 12/30 due to meeting severe sepsis criteria. She had significant lactic acidosis, tachycardia; later developed hypotension, leukocytosis, and elevated procalcitonin. She was started on broad spectrum antibiotics, initially to cover cellulitis. Imaging suggested shock bowel, hypotensive bowel - initial concern of liver cirrhosis. Further testing suggested significant R heart failure with hepatic congestion. Edematous lower extremities likely from the biventricular heart failure noted. Echo was done to confirm this diagnosis. LVEF at the time noted to be 35-40%. Dilatation of R atrium and R ventricle noted as well. Late on 12/30 , patient developed A. Fib with RVR and transferred to the ICU. December 31, 2017 Patient spontaneously converted to sinus rhythm after being given IV Lopressor x2 and Cardizem ggt, which had to be stopped due to low blood pressure. Troponin elevation noted, likely type 2 demand ischemia from infection, arrhythmia, sepsis. Patient was started on IV heparin. Patient was found to be positive for C. Diff Infection; CT suggested colitis. NGT was placed in the ICU and Vanco solution was given to treat this. Blood cultures were positive at this time for gram negative organism. Patient's mental status acutely worsened. Neurology was consulted and an MRI and EEG were performed. Attributed mental status change to metabolic encephalopathy. Kidney function also acutely worsened; possibly from IV contrast from imaging done prior. January 01, 2018 Nephrology consulted due to acute kidney injury and acute tubular necrosis. Consideration made for dialysis; though this was never required. ID consulted - E. coli septicemia noted on blood cultures x2, repeat cultures were ordered. Nephrology consulted - metabolic acidosis - possibly from sepsis and YI. January 02, 2018 General surgery consulted regarding C. Diff colitis, conservative management decided. Patient at this time was going in and out of A. fib; initially started on IV Cardizem, but due to post-conversion pauses, this was stopped. Was started on bicarb drip due to acidosis. ID following for UTI, C. Diff colitis, E. coli septicemia. January 03, 2018 Clinical improvement made on January 03 mentally. Hypertension was still an issue and cardiology worked on getting this down by increasing b-luis dose and adding hydralazine. January 04, 2018 continuing PO Vancomycin and IV Rocephin IV heparin stopped at this time. Eliquis had been started. clinical picture continued to improve as per records. January 05, 2018 Repeat TTE was done; improving biventricular heart failure noted. Hypertensive Urgency still an issue on this day; cardiology adjusted meds to add nitropaste and Hydralazine, as well as an increase in Lopressor dose.
[2018-01-12] MEDS: VANCOMYCIN HCL 500 MG/10ML SOLN PO SCH ×4 (10:26→21:38)
[2018-01-12] MEDS: RASPBERRY SYRUP 5 ML UDP PO SCH ×4 (10:27→21:38)
[2018-01-12] MEDS: CEFTRIAXONE SOD INJ 2 GM in DEXTROSE 5% ADD-VANTAGE 50ML 50 ML IV SCH (10:30)
[2018-01-12] MEDS: PANTOprazole INJ 40 MG in SYRINGE 0 ML IV SCH (11:20)
[2018-01-12] MEDS ORDERED: FUROSEMIDE 20 MG TAB PO STA (12:10)
[2018-01-12] MEDS ORDERED: APIXABAN 2.5 MG TAB PO ONE (12:15)
[2018-01-12] MEDS: APIXABAN 2.5 MG TAB PO SCH (21:40)
[2018-01-13 07:36] LABS: HEMATOCRIT 33.6 % (37-47); HEMOGLOBIN 10.9 g/dL (12.0-16.0); MEAN CELL VOLUME 84.6 fL (80-100); MEAN CORPUSCULAR HEMOGLOBIN 27.5 pg (25-34); MEAN CORPUSCULAR HGB CONC 32.4 g/dl (32-36); MEAN PLATELET VOLUME 11.1 fL (7.4-10.4); PLATELET COUNT 595 K/uL (130-400); RED CELL DISTRIBUTION WIDTH SD 44.3 fL (36.4-46.3); WHITE BLOOD COUNT 9.39 K/uL (4.8-10.8)
[2018-01-13 07:44] LABS: INR 1.1 (0.9-1.1); PTT PATIENT 32.4 SECONDS (21.0-31.0)
[2018-01-13 07:48] VITALS: BP 172/85; PULSE 66; TEMP 36.8; O2SAT 95
[2018-01-13 08:01] LABS: CALCIUM 8.6 mg/dl (8.5-10.1); CREATININE 0.77 mg/dl (0.60-1.20)
[2018-01-13] MEDS: METOPROLOL TARTRATE 50 MG TAB PO SCH (08:16)
[2018-01-13] MEDS: METHIMAZOLE 5 MG TAB PO SCH (08:16)
[2018-01-13] MEDS: ISOSORBIDE MONONITRATE 30 MG TABCR PO SCH (08:16)
[2018-01-13] MEDS: ATORVASTATIN 40 MG TAB PO SCH (08:17)
[2018-01-13] MEDS: APIXABAN 2.5 MG TAB PO SCH (08:17)
[2018-01-13] MEDS: CEFTRIAXONE SOD INJ 2 GM in DEXTROSE 5% ADD-VANTAGE 50ML 50 ML IV SCH (08:28)
[2018-01-13] MEDS: RASPBERRY SYRUP 5 ML UDP PO SCH ×2 (08:29→12:59)
[2018-01-13] MEDS: VANCOMYCIN HCL 500 MG/10ML SOLN PO SCH ×2 (08:29→12:59)
[2018-01-13] MEDS: INSULIN ASPART 100 UNITS/ML 3 ML PEN SC SCH ×2 (08:45→13:03)
[2018-01-13] MEDS ORDERED: CHOLECALCIFEROL 1000 INTER.UNIT TAB PO SCH (09:00)
[2018-01-13] MEDS ORDERED: PANTOprazole SOD 40 MG TAB PO SCH (09:00)
[2018-01-13] MEDS ORDERED: PRT40 PO (11:04)
[2018-01-13] MEDS ORDERED: METO50TA16 PO (11:04)
[2018-01-13] MEDS ORDERED: TPZ5 PO (11:04)
[2018-01-13] MEDS ORDERED: RCPAV1 IV (11:04)
[2018-01-13] MEDS ORDERED: VANC1CAP3 PO (11:04)
[2018-01-13] MEDS ORDERED: LPT40 PO (11:04)
[2018-01-13] MEDS ORDERED: HYDR-4717 PO (11:04)
[2018-01-13] MEDS ORDERED: METF500T5 PO (11:04)
[2018-01-13] MEDS ORDERED: LSX20 PO (11:04)
[2018-01-13] MEDS ORDERED: IMDSR30 PO (11:04)
[2018-01-13] MEDS ORDERED: VTMD1000 PO (11:04)
[2018-01-13] MEDS ORDERED: APIX1TAB3 PO ×2 (11:04→11:30)
[2018-01-13] MEDS ORDERED: APIX1TAB PO (11:12)
--- NOTE | 2018-01-13 11:15 | Progress Note ---
Subjective Date of Service: Jan 13, 2018. Subjective Pt evaluation today including: conversation w/ patient, physical exam, lab review, review of studies, conversation w/ sap portal consultant, review of inpatient medication list Saw/examined the patient in room 376 She's doing well, denies chest pain/shortness of breath/palpitations +weakness persists +diarrhea improved Problem List Medical Problems: (1) Anasarca Status: Acute (2) Atrial fibrillation with RVR Status: Acute (3) C. difficile diarrhea Status: Acute (4) Elevated troponin Status: Acute (5) Hyperthyroidism Status: Acute (6) Hypotension Status: Acute (7) Left leg cellulitis Status: Acute (8) Left leg pain Status: Acute (9) Right-sided heart failure Status: Acute (10) Sepsis Status: Acute Review of Systems Constitutional: + weakness, + fatigue, No fever, No chills Respiratory: No cough, No sputum, No wheezing, No shortness of breath, No dyspnea on exertion, No dyspnea at rest, No hemoptysis Cardiac: No chest pain, No edema, No palpitations Abdomen: No pain, No nausea, No vomiting, No diarrhea, No constipation, No GI bleeding Medications Current Inpatient Medications Medications (Trade) Dose Ordered Sig/Sera Route Start Time Stop Time Status Last Admin Dose Admin Acetaminophen (Tylenol Tab) 325 mg Q6H PRN PO 12/30/17 03:15 01/29/18 03:14 01/12/18 05:35 325 MG Vancomycin HCl (Vancomycin Oral Soln) 500 mg QID PO 01/01/18 17:00 01/15/18 16:59 01/13/18 08:29 500 MG Hydromorphone HCl (Dilaudid Inj) 0.5 mg Q3H PRN IV 01/02/18 10:45 01/16/18 10:44 01/06/18 07:56 0.5 MG Ondansetron HCl 6 mg/Dextrose 53 ml @ 200 mls/hr Q6H PRN IV 01/04/18 00:30 02/03/18 00:29 01/04/18 07:48 200 MLS/HR Miscellaneous Information (Consult Glycemic Management Pharmacy) 1 ea UD PRN N/A 01/06/18 09:32 02/05/18 09:31 Glucose (Glucose 40% Gel) 15-30 GRAMS 15 GRAMS... UD PRN PO 01/06/18 20:00 02/05/18 19:59 Glucose (Glucose Chew Tab) 4-8 Tablets 4 Tabl... UD PRN PO 01/06/18 20:00 02/05/18 19:59 Dextrose (Dextrose 50% 50ML Syringe) 25-50ML OF 50% DW IV FOR... UD PRN IV 01/06/18 20:00 02/05/18 19:59 Glucagon (Glucagon Inj) 1 mg UD PRN SQ 01/06/18 20:00 02/05/18 19:59 Ipratropium [place] (Atrovent 0.02% 0.5MG/2.5ML Neb) 0.5 mg Q4H PRN INH 01/07/18 00:15 02/06/18 00:14 Levalbuterol (Xopenex 1.25MG/ 0.5ML Neb) 1.25 mg Q4H PRN INH 01/07/18 00:15 02/06/18 00:14 Insulin Aspart (novoLOG ASPART) SLIDING SCALE ACHS SC 01/08/18 07:00 02/07/18 06:59 01/13/18 08:45 3 UNITS Raspberry (Raspberry Syrup 5ml Cup) 2.5 ml QID PO 01/09/18 09:00 01/23/18 08:59 01/13/18 08:29 2.5 ML Hydralazine HCl (Apresoline Tab) 50 mg TID PO 01/10/18 14:00 02/07/18 13:59 01/13/18 08:17 50 MG Metoprolol Tartrate (Lopressor Tab) 50 mg BID PO 01/11/18 09:00 02/10/18 08:59 01/13/18 08:16 50 MG Methimazole (Methimazole Tab) 5 mg TID PO 01/11/18 14:00 02/10/18 13:59 01/13/18 08:16 5 MG Atorvastatin Calcium (Lipitor Tab) 40 mg QAM PO 01/12/18 09:00 02/11/18 08:59 01/13/18 08:17 40 MG Cholecalciferol (Vitamin D Tab) 1,000 inter.unit QAM PO 01/13/18 09:00 02/12/18 08:59 01/13/18 08:16 1,000 INTER.UNIT Ceftriaxone Sodium 2 gm/ Dextrose 50 ml @ 100 mls/hr DAILY@0900 IV 01/12/18 10:00 01/15/18 23:59 01/13/18 08:28 100 MLS/HR Apixaban (Eliquis Tab) 5 mg BID PO 01/12/18 23:00 02/11/18 22:59 01/13/18 08:17 5 MG Furosemide (Lasix Tab) 20 mg MoWeFr@0900 PO 01/14/18 09:00 02/13/18 08:59 Pantoprazole Sodium (Protonix Tab) 40 mg QAM PO 01/13/18 09:00 02/12/18 08:59 01/13/18 08:17 40 MG Isosorbide Mononitrate (Imdur Ext Rel Tab) 60 mg QAM PO 01/14/18 09:00 02/10/18 08:59 Objective Vital Signs Date Time Temp Pulse Resp B/P (MAP) Pulse Ox O2 Delivery O2 Flow Rate FiO2 01/13/18 08:00 Room Air 01/13/18 07:48 36.8 66 18 172/85 (114) 95 Room Air 01/12/18 23:55 Room Air 01/12/18 23:45 37.2 68 16 158/81 (106) 96 Room Air 01/12/18 19:20 66 161/83 (109) 01/12/18 16:26 36.9 65 18 141/68 (92) 95 Room Air 01/12/18 15:30 Room Air 01/12/18 13:15 137/76 (96) Physical Exam General Appearance: no apparent distress, + cachetic, + thin, + pertinent finding (ill appearing, +weak) Respiratory/Chest: no respiratory distress, no accessory muscle use, + decreased breath sounds Cardiovascular: regular rate, rhythm, no edema, no murmur Abdomen: normal bowel sounds, non tender, soft Extremities: normal inspection, no pedal edema, + pertinent finding (tender ankle/left achilles) Neurologic/Psychiatric: no motor/sensory deficits, alert, normal mood/affect Skin: normal color Laboratory Results Last 24 Hours Test 01/12/18 12:07 01/12/18 17:16 01/12/18 20:35 01/13/18 06:50 Bedside Glucose 165 mg/dl 109 mg/dl 131 mg/dl White Blood Count 9.39 K/uL Red Blood Count 3.97 M/uL Hemoglobin 10.9 g/dL Hematocrit 33.6 % Mean Corpuscular Volume 84.6 fL Mean Corpuscular Hemoglobin 27.5 pg Mean Corpuscular Hemoglobin Concent 32.4 g/dl RDW Standard Deviation 44.3 fL RDW Coefficient of Variation 15.0 % Platelet Count 595 K/uL Mean Platelet Volume 11.1 fL Prothrombin Time 11.4 SECONDS Prothromb Time International Ratio 1.1 Activated Partial Thromboplast Time 32.4 SECONDS Partial Thromboplastin Ratio 1.2 Sodium Level 141 mmol/L Potassium Level 4.0 mmol/L Chloride Level 108 mmol/L Carbon Dioxide Level 27 mmol/L Anion Gap 6.0 mmol/L Blood Urea Nitrogen 11 mg/dl Creatinine 0.77 mg/dl Est Creatinine Clear Calc Drug Dose 58.5 ml/min Estimated GFR () 97.3 Estimated GFR (Non- 83.9 BUN/Creatinine Ratio 14.8 Random Glucose 89 mg/dl Calcium Level 8.6 mg/dl Magnesium Level 2.0 mg/dl Test 01/13/18 08:09 Bedside Glucose 81 mg/dl Assessment and Plan This is a 62 year old female with no past medical history prior to arrival. Biventricular Heart Failure Bilateral Pleural Effusions - improving 01/13 - Lasix every other day for the pleural effusions and the heart failure - continue Lopressor - as outpatient start ALVIN-I on 01/28 01/12 - continue Lasix as needed - outpatient ALVIN-I in a few weeks 01/11 - thoracentesis canceled; will continue Lasix - will likely need Lasix 20mg every other day as outpatient - appreciate cardiology input - as outpatient begin ALVIN-I 01/10 - plan for thoracentesis - intermittent Lasix may be needed - as outpatient, should start ALVIN-I 01/09 - will consult pulm regarding bilateral pleural effusion and possible need for thoracentesis - appreciate cardiology input - intermittently receiving Lasix , received some last evening 01/08 - persistent bilateral pleural effusions - pulmonary consulted for possible thoracentesis on one side 01/07 - required IV Lasix yesterday - monitor fluid status 01/06 - patient presented with worsening lower extremity edema, hepatic congestion - echo initially suggested significant R ventricular systolic function and decreased LVEF - started on b-luis, treated for infection, etc. - repeat echo was performed on 01/05 with improvement of both ventricular function - further management as per cardiology Metabolic Encephalopathy - resolved Bilateral Cerebellar Hemisphere Infarcts 01/13 - patient to be on Eliquis 2.5 mg BID for A. Fib and CVA - continue Lipitor as outpatient 01/12 - transition to Eliquis when okay with cardiology - started Lipitor 01/11 - continue IV heparin for now - transition to Eliquis prior to discharge - PT/OT - outpatient neurology input 01/10 - neurology has signed off - currently heparin ggt on hold due to thoracentesis - will restart IV Heparin after tap when okay with cardiothoracic surgery - eventual plan to place her on Eliquis 01/09 - appreciate neurology input - will need continued PT/OT/speech evaluations - currently on IV heparin; will transition to oral anticoagulant prior to discharge 01/08 - Brain MRI suggests bilateral cerebellar infarcts - appreciate neurology evaluation - currently on IV heparin - will continue speech/PT/OT - clinically improving 01/07 - Head CT performed late on 01/06, suggesting possible subacute infarct - Brain MRI could not be performed; dental implant? - repeat Head CT in 1-2 days - appreciate neurology input - started on IV heparin at this time due to pulling of NGT and failing swallow evaluation - speech eval - PT/OT 01/06 - patient with confusion, disorientation - possibly related to Dilaudid use , also has had sepsis, hypotension episodes, YI earlier in the admission - appreciate neurology input on this matter, no need for further imaging - Brain MRI, Head CT already performed, EEG reviewed by neurology - slow improvement - may need Ativan for significant anxiety as well Severe Sepsis, E. coli Septicemia Severe C. Diff Colitis - improving 01/13 - Rocephin on 01/14 and 01/15 then stop - PO Vanco until January 2801/12 - continue Rocephin; will need until 01/14 - continue PO Vancomycin for a total of 28 days 01/11 - continue Rocephin for the E. coli septicemia (day #10/) - continue PO Vancomycin for C. diff - continue for a total of 28 days 01/10 - white count continues to improve - continue Rocephin plus PO Vanco 01/09 - white count improving to 16k from 19k - will need Rocephin x14 days from last negative blood culture (day #9/) - for the C. Diff patient is on oral Vanco and IV Flagyl; will d/c Flagyl in AM (01/10) 01/08 - decrease in WBC count today - continue Rocephin for 14 days after the last negative blood culture - continue oral Vanco for the C. Diff - labial fold swelling noted; possible Bartholin abscess? - consulted infantryman and added warm compresses to the region 01/07 - WBC increasing - will repeat abdomen/pelvis CT - general surgery for further input - continue IV Rocephin; unfortunately, pulled NGT, so can't do oral Vanco, currently on IV Flagyl 01/06 - blood cultures positive for E. coli; repeat blood cultures - no growth - C. Diff positive, colitis noted on imaging - started on IV Flagyl initially, converted to PO Vanco - appreciate ID input - will need PO Vanco for 28 days total - will need Rocephin for 14 days since the negative blood culture on 01/01 - appreciate general surgery input regarding C. Diff - no surgical intervention at this time - will monitor abdominal firmness/distention - if no improvement, repeat abd/pelvis CT can be done Paroxysmal A. Fib with RVR - resolved 01/13 - currently NSR - continue Eliquis and Lopressor 01/11 - continue IV heparin, transition to Eliquis - continue Lopressor 01/10 - continue b-luis, currently NSR 01/09 - currently in NSR, rate controlled with b-luis - IV heparin ggt at this time 01/08 - currently on PO Metoprolol as per cardiology, appreciate input - IV heparin at this time 01/07 - Eliquis stopped - awaiting speech evaluation - IV heparin started - will need either IV Lopressor or re-insertion of NGT 01/06 - intermittent A. fib and rapid ventricular response; likely from sepsis - currently in NSR - appreciate cardiology input - continue Lopressor for rate control - Eliquis for anticoagulation - had required IV Lopressor and Cardizem ggt - no longer should receive Cardizem due to pauses noted earlier in the admission Type 2 Demand Ischemia 01/13 - added statin, continue b-luis, Imdur 01/11 - continue Imdur, b-luis, likely would benefit from statin addition prior to discharge - troponin elevation when she first came in - likely secondary to infection, anemia, etc. - initially was on IV heparin, now back on it - now off of Eliquis - continue b-luis - treating underlying infection Hypertensive Urgency - improving 01/13 - added methimazole - Hydralazine, Imdur, Metoprolol 01/11 - blood pressure continues to be elevated - likely from hyperthyroid - starting methimazole - continue Hydralazine, Imdur, Metoprolol 01/09 - appreciate cardio input regarding blood pressure - on nitro paste and Hydralazine as well as b-luis - will increase hydralazine dose at this time 01/08 - appreciate cardiology input - currently attempting nitro paste and hydralazine for blood pressure control - holding off on ALVIN-I in the short term as per nephrology 01/07 - BP yesterday >200/100 - appreciate cardiology input - started on Lopressor 50mg q6, Hydralazine and topical nitrates added - anxiety may also be playing a part in elevated blood pressure - will add low dose Ativan PRN Hyperglycemia - resolved Hypoglycemia 01/13 - metformin started - add ALVIN-I as outpatient - monitor kidneys 01/11 - Ha1c = 6.5% - due to recent stroke and Type 2 AK, will need metformin prior to discharge - add statin - add ALVIN-I as outpatient 01/10 - will likely need metformin on discharge due to multiple co-morbidities and Ha1c of 6.5% 01/09 - off of D5 fluid - sugars are improving and within goal range - appreciate pharmacy input 01/08 - blood sugar is now on the lower end - trying low dose D5, monitor blood sugars, should improve as she is eating now 01/07 - likely due to dextrose in tube feeds - consult speech - consult pharmacy glycemic control Acute Kidney Injury - resolved - resolved now; initially due to acute tubular necrosis, possible medication or IV contrast induced - was given IVFs due to sepsis Hepatic Congestion - from biventricular heart failure - monitor for fluid overload Anemia - improving - likely iron deficiency - H/H stable Thrombocytopenia - resolved Abnormal Thyroid Function Test - TSH continues to be low on 01/11 - Free T4 is now low, initially was elevated - as per patient's daughter, who is a physician, patient's record indicate she has had issues to hyperthyroid in the past - will restart methimazole 5mg TID - may need thyroid ultrasound, thyroid scan as outpatient - outpatient endocrinology input Vitamin D deficiency - started on Vitamin D supplementation, repeat Vitamin D levels in 3 months DVT ppx - Eliquis FULL CODE PT/OT/speech ordered Clinical course obtained from chart review: December 29, 2017 Presented on 12/29 with significant bilateral lower extremity edema, fevers, chills, abdominal distention, nausea. December 30, 2017 Patient admitted on 12/30 due to meeting severe sepsis criteria. She had significant lactic acidosis, tachycardia; later developed hypotension, leukocytosis, and elevated procalcitonin. She was started on broad spectrum antibiotics, initially to cover cellulitis. Imaging suggested shock bowel, hypotensive bowel - initial concern of liver cirrhosis. Further testing suggested significant R heart failure with hepatic congestion. Edematous lower extremities likely from the biventricular heart failure noted. Echo was done to confirm this diagnosis. LVEF at the time noted to be 35-40%. Dilatation of R atrium and R ventricle noted as well. Late on 12/30 , patient developed A. Fib with RVR and transferred to the ICU. December 31, 2017 Patient spontaneously converted to sinus rhythm after being given IV Lopressor x2 and Cardizem ggt, which had to be stopped due to low blood pressure. Troponin elevation noted, likely type 2 demand ischemia from infection, arrhythmia, sepsis. Patient was started on IV heparin. Patient was found to be positive for C. Diff Infection; CT suggested colitis. NGT was placed in the ICU and Vanco solution was given to treat this. Blood cultures were positive at this time for gram negative organism. Patient's mental status acutely worsened. Neurology was consulted and an MRI and EEG were performed. Attributed mental status change to metabolic encephalopathy. Kidney function also acutely worsened; possibly from IV contrast from imaging done prior. January 01, 2018 Nephrology consulted due to acute kidney injury and acute tubular necrosis. Consideration made for dialysis; though this was never required. ID consulted - E. coli septicemia noted on blood cultures x2, repeat cultures were ordered. Nephrology consulted - metabolic acidosis - possibly from sepsis and YI. January 02, 2018 General surgery consulted regarding C. Diff colitis, conservative management decided. Patient at this time was going in and out of A. fib; initially started on IV Cardizem, but due to post-conversion pauses, this was stopped. Was started on bicarb drip due to acidosis. ID following for UTI, C. Diff colitis, E. coli septicemia. January 03, 2018 Clinical improvement made on January 03 mentally. Hypertension was still an issue and cardiology worked on getting this down by increasing b-luis dose and adding hydralazine. January 04, 2018 continuing PO Vancomycin and IV Rocephin IV heparin stopped at this time. Eliquis had been started. clinical picture continued to improve as per records. January 05, 2018 Repeat TTE was done; improving biventricular heart failure noted. Hypertensive Urgency still an issue on this day; cardiology adjusted meds to add nitropaste and Hydralazine, as well as an increase in Lopressor dose.
--- NOTE | 2018-01-13 12:09 | Discharge Instructions ---
Discharge Instructions Date of Service Jan 13, 2018. Admission Reason for Admission: Sepsis Discharge Discharge Diagnosis / Problem: Septis, stroke, A. Fib, high blood pressure, overactive thyroid Discharge Goals Goal(s): Decrease discomfort, Improve function, Diagnostic testing, Therapeutic intervention Activity Recommendations Activity Level: Up Ad Tammy Therapies: Physical Therapy, Occupational Therapy . Additional Information Patient informed of condition: Yes Advance Directives: No DNR: No Level of Care: Acute Rehab Communicable Disease: Yes (C. Diff) Prognosis: Improving Andrade Catheter: No Instructions / Follow-Up Instructions / Follow-Up Please follow-up with primary care physician after stay at [facility]. Please follow-up with cardiology for your atrial fibrillation (irregular heart rhythm), heart failure, and blood pressure. Please follow-up with neurology regarding the stroke. Please follow-up with endocrinology regarding the overactive thyroid. Will be on Rocephin 2grams (antibiotic) once daily via IV on January 14 and January 15 , then stop. You will be on Vancomycin (tablet) four times daily for stomach infection (C. Diff) until January 28 (last doses on January 27). You will be started on Eliquis (blood thinner) for stroke and Atrial fibrillation (irregular heart rhythm). You will be started on medications to protect your heart and blood pressure ( Hydralazine, Imdur, Metoprolol). You will be started on Lasix 20mg on Friday, Friday, Friday - to prevent fluid overload of the lungs. You will be started on metformin for diabetes. You will be started on Lipitor (cholesterol medication) because of stroke, diabetes and heart protection. Should start on low dose Lisinopril in 1-2 weeks if kidney function is okay; for blood pressure, heart failure, and diabetes. Repeat TSH in 4-6 weeks to check thyroid medications. Repeat Vitamin D levels in 3 months. Repeat Ha1c in 3 months; should have urinary microalbuminuria in 3 months. Repeat CBC and PRP in 1 week. Current Hospital Diet Patient's current hospital diet: Low Sodium Diet (2gm Na), Diabetes Type 2 Diet Discharge Diet Recommended Diet: Diabetes Type 2 Diet Pending Studies Studies pending at discharge: no Laboratory Results Hemoglobin A1c Test 01/06/18 23:02 Range/Units Estimated Average Glucose 140 mg/dl Hemoglobin A1c 6.5 H 4.5-5.6 % Lipid Panel Test 01/11/18 05:54 Range/Units Triglycerides Level 68 0-150 mg/dl Cholesterol Level 110 0-200 mg/dl HDL Cholesterol 37 mg/dl Cholesterol/HDL Ratio 3.0 LDL Cholesterol, Calculated 59 mg/dl Medical Emergencies . Who to Call and When: Medical Emergencies: If at any time you feel your situation is an emergency, please call 911 immediately. . Non-Emergent Contact Non-Emergency issues call your: Primary Care Provider, Work Distributor, Neurologist, Specialist (bar machine operator production) . . "Provider Documentation" section prepared by Geno Norman. . Core Measure Problem Core Measures: Stroke AMI Core Measures Reason no ASA as I/P: Treatment not indicated Reason no ASA at D/C: Treatment not indicated Reason no statin as I/P: Treatment provided - N/A Reason no statin at D/C: Treatment provided - N/A Stroke Core Measures Reason no t-PA for Stroke: Treatment not indicated Reason no antithrom by day 2: Treatment not indicated Reason no antithrom at D/C: Treatment not indicated Reason no statin at D/C: Treatment provided - N/A Reason no anticoag w/a fib: Treatment provided - N/A
--- NOTE | 2018-01-13 12:13 | Discharge Summary ---
Discharge Summary Date of Service Jan 13, 2018. Discharge Summary Admission Date: Dec 30, 2017 at 02:36 Discharge Date: Jan 13, 2018 Discharge Disposition: Rehab Principal Diagnosis: Biventricular Heart Failure Bilateral Pleural Effusions - improving Metabolic Encephalopathy - resolved Bilateral Cerebellar Hemisphere Infarcts Severe Sepsis, E. coli Septicemia Severe C. Diff Colitis - improving Paroxysmal A. Fib with RVR - resolved Type 2 Demand Ischemia Hypertensive Urgency - improving New Onset Diabetes Mellitus, type 2 Acute Kidney Injury - resolved Hepatic Congestion - improving Anemia - improving Thrombocytopenia - resolved Abnormal Thyroid Function Test Hyperthyroidism Vitamin D deficiency Medication Reconciliation New Medications: Ceftriaxone Sod (Rocephin) 1 Gm Inj 2 GM IV DAILY for 2 Days, #4 VIAL Metformin Hcl Er (Glucophage Er) 500 Mg Tab 500 MG PO BID for 30 Days, #60 TAB 1 Refill Vancomycin Hcl (Vancomycin) 250 Mg Cap 500 MG PO QID for 14 Days, #112 CAP Apixaban (Eliquis) 5 Mg Tab 5 MG PO BID for 30 Days, #60 TAB Atorvastatin (Lipitor) 40 Mg Tab 40 MG PO QAM for 30 Days, #30 TAB 2 Refills Cholecalciferol (Vitamin D3) 1,000 Inter.unit Tab 1000 INTER.UNIT PO QAM for 30 Days, #30 TAB 2 Refills Furosemide (Furosemide) 20 Mg Tab 20 MG PO MoWeFr@0900 for 30 Days, #10 TAB Hydralazine Hcl (Apresoline) 50 Mg Tab 1 TAB PO TID for 30 Days, #90 TAB 1 Refill Isosorbide Mononitrate (Isosorbide Mononitrate ER) 30 Mg Tabcr 60 MG PO QAM for 30 Days, #60 TABS 2 Refills Methimazole (Methimazole) 5 Mg Tab 5 MG PO TID for 30 Days, #90 TAB 2 Refills Metoprolol Tartrate (Lopressor) (Lopressor) 50 Mg Tab 50 MG PO BID for 30 Days, #60 TAB 1 Refill Pantoprazole (Pantoprazole Sodium) 40 Mg Tab 40 MG PO QAM for 30 Days, #30 TAB 2 Refills Admission Information HPI (per Admitting provider): DATE OF ADMISSION: 12/30/2017 PRIMARY CARE PHYSICIAN: No primary care doctor. CHIEF COMPLAINT: Left leg pain, swelling, abdominal pain, nausea and vomiting. HISTORY OF PRESENT ILLNESS: History obtained from patient and records. Medical history significant for anemia. Patient is a resident of [facility] who has been staying with her daughter in [place] the last few months. She noted left leg swelling yesterday, achy abdominal pain all over, belly more distended than usual. Some nausea, achy headache symptoms. No chest pain, increasing shortness of breath. Denies diarrhea. No cough symptoms. No recent trauma. Patient brought to the Emergency Room. Received Zosyn, Daptomycin and Clindamycin for sepsis. MEDICAL HISTORY: As above. SURGERIES: None as per the patient. HOME MEDICATIONS: Just vitamin D supplements. ALLERGIES: SULFA. FAMILY HISTORY: Hypertension. PERSONAL AND SOCIAL HISTORY: Nonsmoker, no chronic intake of alcoholic beverages. 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 -[place] ethnicity. REVIEW OF SYSTEMS: As per HPI, all 10 systems reviewed, all other ROS negative. PHYSICAL EXAMINATION: VITAL SIGNS: Blood pressure was noted to be 159/102, later 100/70, pulse rate 110 later 90, RR 18, temperature 37.6 O2 98RA GENERAL: Noted to be hyposthenic, slightly anxious, no respiratory distress. SKIN: Pallor, warm. HEENT: Pale palpebral conjunctiva. Possible exophthalmos. Dry mucosa. NECK: Supple, short. CHEST: Decreased effort. No tenderness. HEART: RRR, no murmur. ABDOMEN: Some distention, mild tenderness on light palpation . EXTREMITIES: LLE edema/induration, tenderness. NEUROLOGIC: Coherent. no gross focality . LABORATORY DATA: Hemoglobin noted to be 11.3, hematocrit 31.7, white cell count 4.3, platelet count 128. Sodium noted to be 136, potassium 3.5, chloride 101, CO2 of 23, BUN 20, creatinine 0.9, glucose 99. Lactic acid was noted to be 3.7. AST 44, ALT 32. CT head, initially read, no acute pathology CTA, initial read, no PE, pulmonary hypertension, right heart enlargement, anasarca, periportal edema, fluid overload. CT abdomen and pelvis initial read : mild nodularity of liver contour, cirrhosis, small to moderate amount of ascites, distended IVC, colonic diverticulosis without evidence of acute diverticulitis, most colon nondistended, possible colitis, enteritis, enlarged retroperitoneal nodes. CT lower leg, small amount of pelvic fluid, fat stranding left thigh about the left knee. No abscess or soft tissue gas. EKG as per my interpretation, rate 105, sinus tachycardia, biatrial enlargement , short OK, no ischemia ASSESSMENT: 1. Severe sepsis SIRS plus lactic acidosis possible sources : left lower extremity cellulitis GI (colitis, SBP-ascites on CT) ro UTI 2. new diagnosis of cirrhosis. possibly from RSHF, passive congestion (unknown duration) 3. Hyperthyroidism (possible Graves disease) new diagnosis 4. Chronic anemia, unknown baseline. 5. Thrombocytopenia secondary to sepsis, cirrhosis. PLAN: GMF cultures, stool C. diff. ff UA Doxycycline for cellulitis Cefepime and Flagyl for abdominal sepsis IVF, follow lactic acid diagnostic/therapeutic paracentesis GI consult. Ascites. new diagnosis of cirrhosis. Initiate Methimazole outpatient Endocrinology follow-up Anemia workup. DVT prophylaxis, SCDs RE thrombocytopenia. Full code. Attempted to update the patient's daughter, Argelia Llamas over listed contact number ([phone]). No response. Hospital Course This is a 62 year old female with no past medical history prior to arrival. Biventricular Heart Failure Bilateral Pleural Effusions - improving 01/13 - Lasix every other day for the pleural effusions and the heart failure - continue Lopressor - as outpatient start ALVIN-I on 01/28 01/12 - continue Lasix as needed - outpatient ALVIN-I in a few weeks 01/11 - thoracentesis canceled; will continue Lasix - will likely need Lasix 20mg every other day as outpatient - appreciate cardiology input - as outpatient begin ALVIN-I 01/10 - plan for thoracentesis - intermittent Lasix may be needed - as outpatient, should start ALVIN-I 01/09 - will consult pulm regarding bilateral pleural effusion and possible need for thoracentesis - appreciate cardiology input - intermittently receiving Lasix , received some last evening 01/08 - persistent bilateral pleural effusions - pulmonary consulted for possible thoracentesis on one side 01/07 - required IV Lasix yesterday - monitor fluid status 01/06 - patient presented with worsening lower extremity edema, hepatic congestion - echo initially suggested significant R ventricular systolic function and decreased LVEF - started on b-luis, treated for infection, etc. - repeat echo was performed on 01/05 with improvement of both ventricular function - further management as per cardiology Metabolic Encephalopathy - resolved Bilateral Cerebellar Hemisphere Infarcts 01/13 - patient to be on Eliquis 2.5 mg BID for A. Fib and CVA - continue Lipitor as outpatient 01/12 - transition to Eliquis when okay with cardiology - started Lipitor 01/11 - continue IV heparin for now - transition to Eliquis prior to discharge - PT/OT - outpatient neurology input 01/10 - neurology has signed off - currently heparin ggt on hold due to thoracentesis - will restart IV Heparin after tap when okay with cardiothoracic surgery - eventual plan to place her on Eliquis 01/09 - appreciate neurology input - will need continued PT/OT/speech evaluations - currently on IV heparin; will transition to oral anticoagulant prior to discharge 01/08 - Brain MRI suggests bilateral cerebellar infarcts - appreciate neurology evaluation - currently on IV heparin - will continue speech/PT/OT - clinically improving 01/07 - Head CT performed late on 01/06, suggesting possible subacute infarct - Brain MRI could not be performed; dental implant? - repeat Head CT in 1-2 days - appreciate neurology input - started on IV heparin at this time due to pulling of NGT and failing swallow evaluation - speech eval - PT/OT 01/06 - patient with confusion, disorientation - possibly related to Dilaudid use , also has had sepsis, hypotension episodes, YI earlier in the admission - appreciate neurology input on this matter, no need for further imaging - Brain MRI, Head CT already performed, EEG reviewed by neurology - slow improvement - may need Ativan for significant anxiety as well Severe Sepsis, E. coli Septicemia Severe C. Diff Colitis - improving 01/13 - Rocephin on 01/14 and 01/15 then stop - PO Vanco until January 2801/12 - continue Rocephin; will need until 01/14 - continue PO Vancomycin for a total of 28 days 01/11 - continue Rocephin for the E. coli septicemia (day #07/26) - continue PO Vancomycin for C. diff - continue for a total of 28 days 01/10 - white count continues to improve - continue Rocephin plus PO Vanco 01/09 - white count improving to 16k from 19k - will need Rocephin x14 days from last negative blood culture (day #06/26) - for the C. Diff patient is on oral Vanco and IV Flagyl; will d/c Flagyl in AM (01/10) 01/08 - decrease in WBC count today - continue Rocephin for 14 days after the last negative blood culture - continue oral Vanco for the C. Diff - labial fold swelling noted; possible Bartholin abscess? - consulted lcpc and added warm compresses to the region 01/07 - WBC increasing - will repeat abdomen/pelvis CT - general surgery for further input - continue IV Rocephin; unfortunately, pulled NGT, so can't do oral Vanco, currently on IV Flagyl 01/06 - blood cultures positive for E. coli; repeat blood cultures - no growth - C. Diff positive, colitis noted on imaging - started on IV Flagyl initially, converted to PO Vanco - appreciate ID input - will need PO Vanco for 28 days total - will need Rocephin for 14 days since the negative blood culture on 01/01 - appreciate general surgery input regarding C. Diff - no surgical intervention at this time - will monitor abdominal firmness/distention - if no improvement, repeat abd/pelvis CT can be done Paroxysmal A. Fib with RVR - resolved 01/13 - currently NSR - continue Eliquis and Lopressor 01/11 - continue IV heparin, transition to Eliquis - continue Lopressor 01/10 - continue b-luis, currently NSR 01/09 - currently in NSR, rate controlled with b-luis - IV heparin ggt at this time 01/08 - currently on PO Metoprolol as per cardiology, appreciate input - IV heparin at this time 01/07 - Eliquis stopped - awaiting speech evaluation - IV heparin started - will need either IV Lopressor or re-insertion of NGT 01/06 - intermittent A. fib and rapid ventricular response; likely from sepsis - currently in NSR - appreciate cardiology input - continue Lopressor for rate control - Eliquis for anticoagulation - had required IV Lopressor and Cardizem ggt - no longer should receive Cardizem due to pauses noted earlier in the admission Type 2 Demand Ischemia 01/13 - added statin, continue b-luis, Imdur 01/11 - continue Imdur, b-luis, likely would benefit from statin addition prior to discharge - troponin elevation when she first came in - likely secondary to infection, anemia, etc. - initially was on IV heparin, now back on it - now off of Eliquis - continue b-luis - treating underlying infection Hypertensive Urgency - improving 01/13 - added methimazole - Hydralazine, Imdur, Metoprolol 01/11 - blood pressure continues to be elevated - likely from hyperthyroid - starting methimazole - continue Hydralazine, Imdur, Metoprolol 01/09 - appreciate cardio input regarding blood pressure - on nitro paste and Hydralazine as well as b-luis - will increase hydralazine dose at this time 01/08 - appreciate cardiology input - currently attempting nitro paste and hydralazine for blood pressure control - holding off on ALVIN-I in the short term as per nephrology 01/07 - BP yesterday >200/100 - appreciate cardiology input - started on Lopressor 50mg q6, Hydralazine and topical nitrates added - anxiety may also be playing a part in elevated blood pressure - will add low dose Ativan PRN Hyperglycemia - resolved Hypoglycemia 01/13 - metformin started - add ALVIN-I as outpatient - monitor kidneys 01/11 - Ha1c = 6.5% - due to recent stroke and Type 2 IA, will need metformin prior to discharge - add statin - add ALVIN-I as outpatient 01/10 - will likely need metformin on discharge due to multiple co-morbidities and Ha1c of 6.5% 01/09 - off of D5 fluid - sugars are improving and within goal range - appreciate pharmacy input 01/08 - blood sugar is now on the lower end - trying low dose D5, monitor blood sugars, should improve as she is eating now 01/07 - likely due to dextrose in tube feeds - consult speech - consult pharmacy glycemic control Acute Kidney Injury - resolved - resolved now; initially due to acute tubular necrosis, possible medication or IV contrast induced - was given IVFs due to sepsis Hepatic Congestion - from biventricular heart failure - monitor for fluid overload Anemia - improving - likely iron deficiency - H/H stable Thrombocytopenia - resolved Abnormal Thyroid Function Test - TSH continues to be low on 01/11 - Free T4 is now low, initially was elevated - as per patient's daughter, who is a physician, patient's record indicate she has had issues to hyperthyroid in the past - will restart methimazole 5mg TID - may need thyroid ultrasound, thyroid scan as outpatient - outpatient endocrinology input Vitamin D deficiency - started on Vitamin D supplementation, repeat Vitamin D levels in 3 months DVT ppx - Eliquis FULL CODE PT/OT/speech ordered Clinical course obtained from chart review: December 29, 2017 Presented on 12/29 with significant bilateral lower extremity edema, fevers, chills, abdominal distention, nausea. December 30, 2017 Patient admitted on 12/30 due to meeting severe sepsis criteria. She had significant lactic acidosis, tachycardia; later developed hypotension, leukocytosis, and elevated procalcitonin. She was started on broad spectrum antibiotics, initially to cover cellulitis. Imaging suggested shock bowel, hypotensive bowel - initial concern of liver cirrhosis. Further testing suggested significant R heart failure with hepatic congestion. Edematous lower extremities likely from the biventricular heart failure noted. Echo was done to confirm this diagnosis. LVEF at the time noted to be 35-40%. Dilatation of R atrium and R ventricle noted as well. Late on 12/30 , patient developed A. Fib with RVR and transferred to the ICU. December 31, 2017 Patient spontaneously converted to sinus rhythm after being given IV Lopressor x2 and Cardizem ggt, which had to be stopped due to low blood pressure. Troponin elevation noted, likely type 2 demand ischemia from infection, arrhythmia, sepsis. Patient was started on IV heparin. Patient was found to be positive for C. Diff Infection; CT suggested colitis. NGT was placed in the ICU and Vanco solution was given to treat this. Blood cultures were positive at this time for gram negative organism. Patient's mental status acutely worsened. Neurology was consulted and an MRI and EEG were performed. Attributed mental status change to metabolic encephalopathy. Kidney function also acutely worsened; possibly from IV contrast from imaging done prior. January 01, 2018 Nephrology consulted due to acute kidney injury and acute tubular necrosis. Consideration made for dialysis; though this was never required. ID consulted - E. coli septicemia noted on blood cultures x2, repeat cultures were ordered. Nephrology consulted - metabolic acidosis - possibly from sepsis and YI. January 02, 2018 General surgery consulted regarding C. Diff colitis, conservative management decided. Patient at this time was going in and out of A. fib; initially started on IV Cardizem, but due to post-conversion pauses, this was stopped. Was started on bicarb drip due to acidosis. ID following for UTI, C. Diff colitis, E. coli septicemia. January 03, 2018 Clinical improvement made on January 03 mentally. Hypertension was still an issue and cardiology worked on getting this down by increasing b-luis dose and adding hydralazine. January 04, 2018 continuing PO Vancomycin and IV Rocephin IV heparin stopped at this time. Eliquis had been started. clinical picture continued to improve as per records. January 05, 2018 Repeat TTE was done; improving biventricular heart failure noted. Hypertensive Urgency still an issue on this day; cardiology adjusted meds to add nitropaste and Hydralazine, as well as an increase in Lopressor dose. Total time spent on discharge = 60 minutes This includes examination of the patient, discharge planning, medication reconciliation, and communication with other providers. Discharge Instructions Please follow-up with primary care physician after stay at [facility]. Please follow-up with cardiology for your atrial fibrillation (irregular heart rhythm), heart failure, and blood pressure. Please follow-up with neurology regarding the stroke. Please follow-up with endocrinology regarding the overactive thyroid. Will be on Rocephin 2grams (antibiotic) once daily via IV on January 14 and January 15 , then stop. You will be on Vancomycin (tablet) four times daily for stomach infection (C. Diff) until January 28 (last doses on January 27). You will be started on Eliquis (blood thinner) for stroke and Atrial fibrillation (irregular heart rhythm). You will be started on medications to protect your heart and blood pressure ( Hydralazine, Imdur, Metoprolol). You will be started on Lasix 20mg on Friday, Friday, Friday - to prevent fluid overload of the lungs. You will be started on metformin for diabetes. You will be started on Lipitor (cholesterol medication) because of stroke, diabetes and heart protection. Should start on low dose Lisinopril in 1-2 weeks if kidney function is okay; for blood pressure, heart failure, and diabetes. Repeat TSH in 4-6 weeks to check thyroid medications. Repeat Vitamin D levels in 3 months. Repeat Ha1c in 3 months; should have urinary microalbuminuria in 3 months. Repeat CBC and PRP in 1 week.
[2018-01-13 13:14] VITALS: BP 172/85; PULSE 66; TEMP 36.8; O2SAT 95
--- NOTE | 2018-01-13 14:12 | SURGERY PROGRESS NOTE ---
DATE: 01/13/2018 SUBJECTIVE: Virginia Recinos was seen today on 01/13/2018. We elected to hold off on a thoracentesis as the patient was reticent to have it done and her x-ray had improved. She is still on room air. She is really not pushing herself to the point where she gets dyspneic. She is complaining of pain in her left ankle. She does have findings of venous insufficiency, but no evidence of a cellulitis. I would hold off as the patient is improving from the septic episode she suffered. We will refer her back to the [facility] and if her pleural effusion remains problematic, we will be glad to see her back.
[2018-01-14] MEDS ORDERED: FUROSEMIDE 20 MG TAB PO SCH (09:00)
[2018-01-14] MEDS ORDERED: ISOSORBIDE MONONITRATE 30 MG TABCR PO SCH (09:00)
== END 2018-01-13 14:25 | DRG 871 ==
LOC: EDBD 22:26 → C.EDB 22:28 → C.4E 12-30 02:36 → UNDOADMIN 12-30 02:36 → ENRESERV 12-30 02:44 → EDBEDREQ 12-30 15:34 → ENRESERV 12-30 15:48 → C.2T 12-30 16:47 → C.4E 12-30 16:47 → C.2T 12-31 00:19 → C.MSICU 12-31 01:15 → C.2T 12-31 01:15 → ENRESERV 01-04 15:47 → C.MSICU 01-04 17:17 → C.2E 01-04 17:17 → EDBEDREQ 01-10 17:07 → ENRESERV 01-10 17:07 → EDBEDREQ 01-10 17:09 → C.2E 01-10 19:29 → C.MSN 01-10 19:29
PROVIDERS: ADMIT Internal Medicine; ATTEND Family Medicine
DX: A41.51 Sepsis due to Escherichia coli [E. coli] (principal); R65.21 Severe sepsis with septic shock; I42.9 Cardiomyopathy, unspecified; I63.9 Cerebral infarction, unspecified; N39.0 Urinary tract infection, site not specified; L03.116 Cellulitis of left lower limb; I24.8 Other forms of acute ischemic heart disease; J90 Pleural effusion, not elsewhere classified; N17.0 Acute kidney failure with tubular necrosis; E87.2 Acidosis; R18.8 Other ascites; G93.41 Metabolic encephalopathy; I50.20 Unspecified systolic (congestive) heart failure; A41.89 Other specified sepsis; E05.90 Thyrotoxicosis, unspecified without thyrotoxic crisis or storm; D64.9 Anemia, unspecified; I48.0 Paroxysmal atrial fibrillation; I16.0 Hypertensive urgency; E55.9 Vitamin D deficiency, unspecified; R56.9 Unspecified convulsions; I11.0 Hypertensive heart disease with heart failure; R91.1 Solitary pulmonary nodule; K74.60 Unspecified cirrhosis of liver; D69.59 Other secondary thrombocytopenia; E86.0 Dehydration; R73.9 Hyperglycemia, unspecified; E16.2 Hypoglycemia, unspecified; Z88.2 Allergy status to sulfonamides

== ENCOUNTER → 2018-01-16 | Outpatient (CLI) | payer OTHER ==
[~2018-01-16] MED LIST: APIX1TAB3 PO; HYDR-4717 PO; IMDSR30 PO; LPT40 PO; LSX20 PO; METF500T5 PO; METO50TA16 PO; PRT40 PO; RCPAV1 IV; TPZ5 PO; VANC1CAP3 PO; VTMD1000 PO
--- NOTE | 2018-01-16 15:54 | DIAGNOSTIC IMAGING REPORT ---
ULTRASOUND L VENOUS DOPP LOWER EXT UNILAT CLINICAL HISTORY: Left leg pain and swelling COMPARISON STUDY: December 30, 2017 FINDINGS: Real-time and color flow Doppler imaging were performed. Flow was seen within the femoral, popliteal and calf veins with no intraluminal thrombus demonstrated. The saphenous vein is patent. IMPRESSION: No evidence of left lower extremity DVT Electronically signed by: Rupesh Piedra M.D. 01/16/2018 3:53 PM Dictated Date/Time: 01/16/2018 3:52 PM
--- NOTE | 2018-01-16 16:31 | DIAGNOSTIC IMAGING REPORT ---
L ANKLE MIN 3 VIEWS ROUTINE CLINICAL HISTORY: 62 years-old Female presenting with SOFT TISSUE DISORDERS. TECHNIQUE: Frontal, mortise, and lateral views of the left ankle were obtained. COMPARISON: 01/10/2018. FINDINGS: Osteopenia suspected. Ankle mortise intact. No acute fracture or malalignment. Mild diffuse soft tissue swelling noted. No advanced degenerative change. IMPRESSION: Allowing for osteopenia, no evidence of acute osseous injury or advanced degenerative change. Electronically signed by: Bill Branch M.D. 01/16/2018 4:30 PM Dictated Date/Time: 01/16/2018 4:29 PM
== END | disposition home or self-care (01) ==
LOC: C.ULTR 15:09
PROVIDERS: ATTEND Orthopaedic Surgery
DX: M79.89 Other specified soft tissue disorders (principal)

== ENCOUNTER → 2018-02-26 | Outpatient (CLI) | payer OTHER ==
[~2018-02-26] MED LIST changes: -APIX1TAB3 PO; -RCPAV1 IV
[2018-02-26 08:33] LABS: INR 1.1 (0.9-1.1)
--- NOTE | 2018-02-27 12:32 | CODING QUERY NO DIAGNOSIS ---
TREATMENT RENDERED WITHOUT A DIAGNOSIS To promote full compliance with coding requirements relating to patient care, physician participation is requested in all cases of central supply assistant uncertainty. Please assist us with providing a diagnosis/symptom for the test(s) below: A diagnosis/symptom was not documented on your Order. A valid diagnosis/symptom is required to bill all insurances. Please remember that we are unable to code a diagnosis of rule out, probable, possible, questionable, or suspected. Tests that require a diagnosis: DOS: 02/26/18 * PT/INR DIAGNOSIS: Provider Signature: Date: Thank you Shazia Yun Health Information Management Once completed, please kindly fax back to [phone] For questions please call [phone]
== END | disposition home or self-care (01) ==
LOC: C.LABWYN 07:55
PROVIDERS: ATTEND Pharmacist Pharmacotherapy
DX: I48.91 Unspecified atrial fibrillation (principal)

== ENCOUNTER → 2018-03-05 | Outpatient (CLI) | payer OTHER ==
[~2018-03-05] MED LIST changes: +ATOR-24 PO; +ENOX80IN SQ; +FURO-85 PO; +GABA-112 PO; +ISOS60TA25 PO; +METH10TA2 PO; +METH10TA6 PO; +PANT40TA PO; +TRAM-10 PO; +WARF4TAB PO; +WARF6TAB PO; +WARF6TAB5 PO
[2018-03-05 08:15] LABS: INR 1.1 (0.9-1.1)
== END | disposition home or self-care (01) ==
LOC: C.LABWYN 07:41
PROVIDERS: ATTEND Pharmacist Pharmacotherapy
DX: Z79.01 Long term (current) use of anticoagulants (principal)

== ENCOUNTER 2018-03-07 15:16 | Emergency (ER) | payer OTHER ==
[~2018-03-07] VITALS: Ht 162.6 cm; Wt 48.6 kg
[~2018-03-07 15:16] MED LIST changes: -ATOR-24 PO; -ENOX80IN SQ; -FURO-85 PO; -GABA-112 PO; -ISOS60TA25 PO; -METH10TA2 PO; -METH10TA6 PO; -PANT40TA PO; -TRAM-10 PO; -WARF4TAB PO; -WARF6TAB PO; -WARF6TAB5 PO
[2018-03-07 15:18] VITALS: TEMP 36.6
[2018-03-07] MEDS ORDERED: SODIUM CHLORIDE 0.9% 1000ML 1,000 ML IV STA (15:37)
[2018-03-07 15:50] VITALS: Ht 162.6 cm; Wt 48.6 kg
--- NOTE | 2018-03-07 16:07 | DIAGNOSTIC IMAGING REPORT ---
CHEST ONE VIEW PORTABLE CLINICAL HISTORY: EVALUATE ALTERED MENTAL STATUS/WEAKNESS COMPARISON STUDY: Chest radiograph January 11, 2018. FINDINGS: A nipple shadow projects over the left lower lung. Moderate cardiomegaly is noted. There is moderate elevation of the right hemidiaphragm. There is no evidence for pulmonary edema. No consolidation is identified. IMPRESSION: 1. No acute cardiopulmonary findings. 2. Moderate cardiomegaly. 3. Moderate elevation of the right hemidiaphragm. Electronically signed by: Andrés Charles M.D. 03/07/2018 4:05 PM Dictated Date/Time: 03/07/2018 4:04 PM
[2018-03-07 16:40] LABS: BASO % 0.3 %; BASO ABS # 0.02 K/uL (0-0.2); EOS % 2.6 %; EOS ABS # 0.18 K/uL (0-0.5); HEMATOCRIT 32.9 % (37-47); HEMOGLOBIN 10.7 g/dL (12.0-16.0); LYMPH % 37.1 %; MEAN CELL VOLUME 86.8 fL (80-100); MEAN CORPUSCULAR HEMOGLOBIN 28.2 pg (25-34); MEAN CORPUSCULAR HGB CONC 32.5 g/dl (32-36); MEAN PLATELET VOLUME 10.1 fL (7.4-10.4); MONO % 7.3 %; MONO ABS # 0.51 K/uL (0.11-0.59); NEUT % 52.7 %; NEUT ABS # 3.69 K/uL (1.4-6.5); PLATELET COUNT 186 K/uL (130-400); RED CELL DISTRIBUTION WIDTH CV 15.9 % (11.5-14.5); RED CELL DISTRIBUTION WIDTH SD 50.4 fL (36.4-46.3)
[2018-03-07] MEDS ORDERED: WARF4TAB PO ×2 (16:44→17:03)
[2018-03-07] MEDS ORDERED: ISOS60TA25 PO (16:44)
[2018-03-07] MEDS ORDERED: METO50TA16 PO (16:44)
[2018-03-07] MEDS ORDERED: ATOR-24 PO (16:44)
[2018-03-07] MEDS ORDERED: METH10TA2 PO (16:44)
[2018-03-07] MEDS ORDERED: FURO-85 PO (16:44)
[2018-03-07] MEDS ORDERED: WARF6TAB5 PO (16:44)
[2018-03-07] MEDS ORDERED: HYDR-4717 PO (16:44)
[2018-03-07] MEDS ORDERED: GABA-112 PO (16:44)
[2018-03-07] MEDS ORDERED: ENOX80IN SQ (16:44)
[2018-03-07] MEDS ORDERED: PANT40TA PO (16:44)
[2018-03-07] MEDS ORDERED: TRAM-10 PO (16:44)
[2018-03-07 16:56] LABS: INR 1.6 (0.9-1.1)
[2018-03-07] MEDS ORDERED: METH10TA6 PO (17:04)
[2018-03-07] MEDS ORDERED: WARF6TAB PO (17:06)
[2018-03-07 17:07] LABS: BLOOD UREA NITROGEN 18 mg/dl (7-18); CARBON DIOXIDE 29 mmol/L (21-32); CREATININE 0.99 mg/dl (0.60-1.20); GLUCOSE 85 mg/dl (70-99); POTASSIUM 4.2 mmol/L (3.5-5.1); SODIUM 139 mmol/L (136-145)
[2018-03-07 17:08] LABS: ALBUMIN 3.3 gm/dl (3.4-5.0); ALKALINE PHOSPHATASE 160 U/L (45-117); ALT/SGPT 24 U/L (12-78); AST/SGOT 27 U/L (15-37); CALCIUM 8.4 mg/dl (8.5-10.1); CKMB 5.2 ng/ml (0.5-3.6); LIPASE 346 U/L (73-393); TOTAL PROTEIN 8.1 gm/dl (6.4-8.2)
[2018-03-07 17:11] LABS: PTT PATIENT 47.2 SECONDS (21.0-31.0)
--- NOTE | 2018-03-07 17:18 | DIAGNOSTIC IMAGING REPORT ---
CT OF THE ABDOMEN AND PELVIS WITHOUT CONTRAST CLINICAL HISTORY: RLQ pain, patient refusing contrast, recent Lovenox shots in abdomen. COMPARISON STUDY: CT of the abdomen and pelvis January 07, 2018. TECHNIQUE: Axial images of the abdomen and pelvis were obtained without IV contrast. Images were reviewed in the axial, sagittal, and coronal planes. A dose lowering technique was utilized adhering to the principles of ALARA. FINDINGS: The heart is moderately enlarged. Bilateral pleural effusions and associated bibasilar opacity shown on exam of January 07, 2018 have resolved. Evaluation of the abdomen and pelvis is suboptimal on this unenhanced exam. The liver, spleen, adrenal glands and pancreas are unremarkable. There is no hydronephrosis. There is no biliary or pancreatic ductal dilatation. There is no evidence for a bowel obstruction. The appendix is normal. There are several hyperdense small hematomas within the right rectus sheath which is asymmetrically enlarged when compared to the left. The largest right rectus sheath hematoma measures 3 x 1.8 x 1.6 cm. Minimal gas is noted, likely within the posterior aspect of the left rectus sheath. This may be related to injections. There is no definite free air. No lymphadenopathy is present. There are no suspicious osseous lesions. The uterus is enlarged. Previous contrast-enhanced CT showed suspected fibroids. There is colonic diverticulosis without evidence for acute diverticulitis. IMPRESSION: 1. Two small acute right rectus sheath hematomas which measure up to 3 x 1.8 x 1.6 cm. 2. Trace gas likely within the posterior aspect of the left rectus sheath which may be related to injections. 3. No bowel obstruction. 4. Suboptimal evaluation of the abdomen and pelvis given the lack of IV and oral contrast. Electronically signed by: Andrés Charles M.D. 03/07/2018 5:16 PM Dictated Date/Time: 03/07/2018 5:07 PM
--- NOTE | 2018-03-07 18:31 | EMERGENCY ROOM VISIT NOTE ---
History Report prepared by Louis: Josefina Ayoub Under the Supervision of: Dr. Irvin Mcnulty D.O. First contact with patient: 15:29 Chief Complaint: PELVIC PAIN Stated Complaint: SWELLING TO PELVIC REGION FROM SHOTS History of Present Illness The patient is a 63 year old female who presents to the Emergency Room with complaints of worsening RLQ abdominal pain starting 3 days ago. The patient started Lovenox shots 1 week ago. She started having severe pain 3 days ago around the injection site. The pain goes into her groin and the right thigh. She has not had a fever, but was diaphoretic this morning. She denies any rectal bleeding or back pain. Yesterday morning, she complained of left breast pain. She denies any vomiting or diarrhea. The patient lives in assisted living. She is on Coumadin. She was admitted with sepsis 2 months ago. Source of History: patient, family Onset: 3 days ago Position: abdomen (RLQ) Symptom Intensity: severe Timing: worsening Associated Symptoms: + diaphoresis, + chest pain, No fevers, No vomiting, No back pain, No diarrhea Review of Systems See HPI for pertinent positives & negatives. A total of 10 systems reviewed and were otherwise negative. Past Medical & Surgical Medical Problems: (1) Sepsis Family History No pertinent family history stated. Social History Smoking Status: Never Smoker Alcohol Use: none Drug Use: none Housing Status: assisted living Current/Historical Medications Scheduled Atorvastatin (Lipitor), 40 MG PO DAILY Enoxaparin (Lovenox), 70 MG SQ Q12H Furosemide (Lasix), 20 MG PO MWF Gabapentin (Neurontin), 100 MG PO TID Hydralazine Hcl (Apresoline), 50 MG PO Q8 Isosorbide Mononitrate Ext Rel (Imdur Ext Rel), 60 MG PO QAM Methimazole (Methimazole), 10 MG PO DAILY Metoprolol Tartrate (Lopressor) (Lopressor), 50 MG PO BID Pantoprazole (Protonix), 40 MG PO DAILY Warfarin Sodium (Coumadin), 8 MG PO DAILY UD Warfarin Sodium (Coumadin), 6 MG PO UD Scheduled PRN Tramadol (Ultram), 25 MG PO Q4 PRN for Pain Allergies Coded Allergies: Sulfa Antibiotics (Verified Allergy, Unknown, swelling, 12/29/17) Physical Exam Vital Signs Date Time Temp Pulse Resp B/P (MAP) Pulse Ox O2 Delivery O2 Flow Rate FiO2 03/07/18 18:36 62 16 115/76 98 03/07/18 17:01 88 16 158/86 98 Room Air 03/07/18 15:18 36.6 53 18 195/96 97 Room Air Physical Exam GENERAL: Patient is awake, alert, non anxious appearing. EYES: The conjunctivae are clear. The pupils are round and reactive. EARS, NOSE, MOUTH AND THROAT: The nose is without any evidence of any deformity. Mucous membranes are moist tongue is midline NECK: The neck is nontender and supple. RESPIRATORY: Normal respiratory effort is noted there is no evidence of wheezing rhonchi or rales CARDIOVASCULAR: Regular rate and rhythm noted there no murmurs rubs or gallops normal S1 normal S2 GASTROINTESTINAL: The abdomen is mildly distended and soft. There was RLQ tenderness to palpation. There appears to be swelling in the right lower abdominal wall. No hernia appreciated. BACK: No midline tenderness or or step-off noted range of motion in flexion extension as well as rotation no signs of muscle spasm noted MUSCULOSKELETAL/EXTREMITIES: There is no evidence of gross deformity full range of motion is noted in the hips and shoulders SKIN: There is trace pedal edema bilaterally with venous stasis changes noted. NEUROLOGIC: Patient is at baseline according to daughter. Medical Decision & Procedures ER Provider Diagnostic Interpretation: X-ray results as stated below per interpretation by me and the radiologist. Radiology results as stated below per my review and radiologist interpretation: CHEST ONE VIEW PORTABLE CLINICAL HISTORY: EVALUATE ALTERED MENTAL STATUS/WEAKNESS COMPARISON STUDY: Chest radiograph January 11, 2018. FINDINGS: A nipple shadow projects over the left lower lung. Moderate cardiomegaly is noted. There is moderate elevation of the right hemidiaphragm. There is no evidence for pulmonary edema. No consolidation is identified. IMPRESSION: 1. No acute cardiopulmonary findings. 2. Moderate cardiomegaly. 3. Moderate elevation of the right hemidiaphragm. Electronically signed by: Andrés Charles M.D. 03/07/2018 4:05 PM Dictated Date/Time: 03/07/2018 4:[address] OF THE ABDOMEN AND PELVIS WITHOUT CONTRAST CLINICAL HISTORY: RLQ pain, patient refusing contrast, recent Lovenox shots in abdomen. COMPARISON STUDY: CT of the abdomen and pelvis January 07, 2018. TECHNIQUE: Axial images of the abdomen and pelvis were obtained without IV contrast. Images were reviewed in the axial, sagittal, and coronal planes. A dose lowering technique was utilized adhering to the principles of ALARA. FINDINGS: The heart is moderately enlarged. Bilateral pleural effusions and associated bibasilar opacity shown on exam of January 07, 2018 have resolved. Evaluation of the abdomen and pelvis is suboptimal on this unenhanced exam. The liver, spleen, adrenal glands and pancreas are unremarkable. There is no hydronephrosis. There is no biliary or pancreatic ductal dilatation. There is no evidence for a bowel obstruction. The appendix is normal. There are several hyperdense small hematomas within the right rectus sheath which is asymmetrically enlarged when compared to the left. The largest right rectus sheath hematoma measures 3 x 1.8 x 1.6 cm. Minimal gas is noted, likely within the posterior aspect of the left rectus sheath. This may be related to injections. There is no definite free air. No lymphadenopathy is present. There are no suspicious osseous lesions. The uterus is enlarged. Previous contrast-enhanced CT showed suspected fibroids. There is colonic diverticulosis without evidence for acute diverticulitis. IMPRESSION: 1. Two small acute right rectus sheath hematomas which measure up to 3 x 1.8 x 1.6 cm. 2. Trace gas likely within the posterior aspect of the left rectus sheath which may be related to injections. 3. No bowel obstruction. 4. Suboptimal evaluation of the abdomen and pelvis given the lack of IV and oral contrast. Electronically signed by: Andrés Charles M.D. 03/07/2018 5:16 PM Dictated Date/Time: 03/07/2018 5:07 PM Laboratory Results 03/07/18 16:21 Red Blood Count 3.79, Mean Corpuscular Volume 86.8, Mean Corpuscular Hemoglobin 28.2, Mean Corpuscular Hemoglobin Concent 32.5, Mean Platelet Volume 10.1, Neutrophils (%) (Auto) 52.7, Lymphocytes (%) (Auto) 37.1, Monocytes (%) (Auto) 7.3, Eosinophils (%) (Auto) 2.6, Basophils (%) (Auto) 0.3, Neutrophils # (Auto) 3.69, Lymphocytes # (Auto) 2.60, Monocytes # (Auto) 0.51, Eosinophils # (Auto) 0.18, Basophils # (Auto) 0.02 03/07/18 16:21 Test 03/07/18 15:47 03/07/18 16:21 Urine Color YELLOW Urine Appearance CLEAR (CLEAR) Urine pH 6.5 (4.5-7.5) Urine Specific [place] 1.017 (1.000-1.030) Urine Protein NEG (NEG) Urine Glucose (UA) NEG (NEG) Urine Ketones NEG (NEG) Urine Occult Blood NEG (NEG) Urine Nitrite NEG (NEG) Urine Bilirubin NEG (NEG) Urine Urobilinogen NEG (NEG) Urine Leukocyte Esterase TRACE (NEG) Urine WBC (Auto) 1-5 /hpf (0-5) Urine RBC (Auto) 0-4 /hpf (0-4) Urine Hyaline Casts (Auto) 0 /lpf (0-5) Urine Epithelial Cells (Auto) 20-30 /lpf (0-5) Urine Bacteria (Auto) NEG (NEG) White Blood Count 7.00 K/uL (4.8-10.8) Red Blood Count 3.79 M/uL (4.2-5.4) Hemoglobin 10.7 g/dL (12.0-16.0) Hematocrit 32.9 % (37-47) Mean Corpuscular Volume 86.8 fL (80-100) Mean Corpuscular Hemoglobin 28.2 pg (25-34) Mean Corpuscular Hemoglobin Concent 32.5 g/dl (32-36) Platelet Count 186 K/uL (130-400) Mean Platelet Volume 10.1 fL (7.4-10.4) Neutrophils (%) (Auto) 52.7 % Lymphocytes (%) (Auto) 37.1 % Monocytes (%) (Auto) 7.3 % Eosinophils (%) (Auto) 2.6 % Basophils (%) (Auto) 0.3 % Neutrophils # (Auto) 3.69 K/uL (1.4-6.5) Lymphocytes # (Auto) 2.60 K/uL (1.2-3.4) Monocytes # (Auto) 0.51 K/uL (0.11-0.59) Eosinophils # (Auto) 0.18 K/uL (0-0.5) Basophils # (Auto) 0.02 K/uL (0-0.2) RDW Standard Deviation 50.4 fL (36.4-46.3) RDW Coefficient of Variation 15.9 % (11.5-14.5) Immature Granulocyte % (Auto) 0.0 % Immature Granulocyte # (Auto) 0.00 K/uL (0.00-0.02) Prothrombin Time 16.7 SECONDS (9.0-12.0) Prothromb Time International Ratio 1.6 (0.9-1.1) Activated Partial Thromboplast Time 47.2 SECONDS (21.0-31.0) Partial Thromboplastin Ratio 1.8 Anion Gap 5.0 mmol/L (3-11) Est Creatinine Clear Calc Drug Dose 45.8 ml/min Estimated GFR () 71.3 Estimated GFR (Non- 61.5 BUN/Creatinine Ratio 17.9 (10-20) Calcium Level 8.4 mg/dl (8.5-10.1) Magnesium Level 2.2 mg/dl (1.8-2.4) Total Bilirubin 0.3 mg/dl (0.2-1) Direct Bilirubin 0.1 mg/dl (0-0.2) Aspartate Amino Transf (AST/SGOT) 27 U/L (15-37) Alanine Aminotransferase (ALT/SGPT) 24 U/L (12-78) Alkaline Phosphatase 160 U/L (45-117) Total Creatine Kinase 351 U/L (26-192) Creatine Kinase MB 5.2 ng/ml (0.5-3.6) Creatine Kinase MB Ratio 1.5 (0-3.0) Troponin I < 0.015 ng/ml (0-0.045) Total Protein 8.1 gm/dl (6.4-8.2) Albumin 3.3 gm/dl (3.4-5.0) Lipase 346 U/L (73-393) Thyroid Stimulating Hormone (TSH) 4.950 uIu/ml (0.300-4.500) Free Thyroxine 0.34 ng/dl (0.80-1.60) Laboratory results per my review. Medications Administered Medications (Trade) Dose Ordered Sig/Sera Route Start Time Stop Time Status Last Admin Dose Admin Sodium Chloride 1,000 ml @ 999 mls/hr Q1H1M STAT IV 03/07/18 15:37 03/07/18 16:37 DC 03/07/18 16:11 999 MLS/HR ECG Per My Interpretation Indication: chest pain Rate (beats per minute): 45 Rhythm: sinus bradycardia Findings: no ectopy, other (no acute ST segment abnormality) Comparison ECG Date: 05-Jan-2018 Change: Decreased rate, otherwise no change. ED Course 1537: NSS 1,000 ml @ 999 mls/hr IV. 154: The patient was evaluated in room A11B. A complete history and physical examination were performed. 1754: I reevaluated the patient. I updated her and her daughter on the results. 1803: Upon reevaluation, the patient is stable. I discussed the results and treatment plan with her and her daughter. They verbalized agreement of the treatment plan. She was discharged home. Medical Decision Prior records/ancillary studies reviewed. Triage Nursing notes reviewed. Additional history obtained from daughter. The patient's history was concerning for abdominal pain. Differential diagnosis: Etiologies such as appendicitis, diverticulitis, PUD, biliary pathology, UTI, pancreatitis, obstruction, mesenteric ischemia, aortic pathology, infections, inflammatory bowel disease, renal colic, as well as others were entertained. The patient is an 63-year-old female who presented to the emergency department for an evaluation of lower abdominal tenderness. The patient was recently admitted to our facility and had a very complicated course. She was diagnosed with atrial fibrillation as well as stroke. She was taking Eliquis but because of insurance purposes this had to be D/C'd and the patient was recently started on Lovenox and Coumadin. She has had lower abdominal tenderness. On physical exam she appeared to have rectus sheath hematomas in the lower abdomen. I discussed patient's laboratory and radiographic studies with her daughter. Currently she is receiving daily injections of Lovenox. Her Coumadin level is not quite therapeutic yet. I discussed this with the pharmacist in the [facility]. She does recommend continuing the Lovenox however being very aware of the injection site given the rectus sheath hematoma. I discussed this with the daughter. This appears to be the best plan at this time. I did recommend that she have the Coumadin level rechecked as soon as possible to see if she is therapeutic. Also recommended that she continue all other medications as prescribed and return to the emergency department immediately if symptoms change worsen or the need arises. Medication Reconcilliation Current Medication List: was personally reviewed by me Blood Pressure Screening Patient's blood pressure: Elevated blood pressure Blood pressure disposition: Elevated BP felt to be situational Impression Primary Impression: Abdominal pain Additional Impression: Rectus sheath hematoma Scribe Attestation The scribe's documentation has been prepared under my direction and personally reviewed by me in its entirety. I confirm that the note above accurately reflects all work, treatment, procedures, and medical decision making performed by me. Departure Information Dispostion Home / Self-Care Referrals [facility] (PCP) Forms HOME CARE DOCUMENTATION FORM, IMPORTANT VISIT INFORMATION, WORK / SCHOOL INSTRUCTIONS Patient Instructions ED Hematoma, My [facility] Additional Instructions Continue to use the Lovenox as prescribed until the Coumadin level is therapeutic. Be cautious when giving the Lovenox injections especially in the lower abdomen because you already have 2 hematomas in both sides of your lower abdomen. Follow-up with the family doctor soon as possible. Have the Coumadin level rechecked as soon as possible. Return the emergency department immediately symptoms change worsen or the need arises. Problem Qualifiers Primary Impression: Abdominal pain Abdominal location: lower abdomen, unspecified Qualified Codes: R10.30 - Lower abdominal pain, unspecified Additional Impression: Rectus sheath hematoma Encounter type: initial encounter Qualified Codes: S30.1XXA - Contusion of abdominal wall, initial encounter
[2018-03-07 18:36] VITALS: BP 115/76; PULSE 62; O2SAT 98
== END 2018-03-07 18:39 | disposition home or self-care (01) ==
LOC: C.EDB 15:17
DX: R10.30 Lower abdominal pain, unspecified (principal); S30.1XXA Contusion of abdominal wall, initial encounter; X58.XXXA Exposure to other specified factors, initial encounter; Z88.2 Allergy status to sulfonamides; Z51.81 Encounter for therapeutic drug level monitoring; Z79.01 Long term (current) use of anticoagulants

== ENCOUNTER → 2018-04-30 | Outpatient (CLI) | payer OTHER ==
[~2018-04-30] MED LIST changes: +ATOR-24 PO; +FURO-85 PO; +GABA-112 PO; -IMDSR30 PO; +ISOS60TA25 PO; -LPT40 PO; -LSX20 PO; -METF500T5 PO; +METH10TA6 PO; +MOMLX PO; +PANT40TA PO; -PRT40 PO; -TPZ5 PO; +TRAM-10 PO; -VANC1CAP3 PO; -VTMD1000 PO
== END | disposition home or self-care (01) ==
LOC: C.LAB1850 13:32
PROVIDERS: ATTEND Physician Assistant
DX: E05.90 Thyrotoxicosis, unspecified without thyrotoxic crisis or storm (principal)

== ENCOUNTER → 2018-05-05 | Outpatient (CLI) | payer OTHER ==
[2018-05-05 08:59] LABS: INR 2.7 (0.9-1.1)
--- NOTE | 2018-05-14 07:38 | CODING QUERY NO DIAGNOSIS ---
Valid Physician Order Needed A valid physician order must be submitted in order to properly bill for the service(s) provided, including date of service(s), valid diagnosis, and physician signature. If these tests are done on a recurring basis the original physician order must be submitted in order to code and bill for the service(s) provided. Please fax us the original, signed physician order so that we may expedite billing to [phone] DOS 05/05/18 ("See attached" missing) * Prothrombin Time Thank you Shazia Yun [facility]
== END | disposition home or self-care (01) ==
LOC: C.LABWYN 08:33
PROVIDERS: ATTEND Family Medicine
DX: I48.91 Unspecified atrial fibrillation (principal); Z79.01 Long term (current) use of anticoagulants

== ENCOUNTER → 2018-05-07 | Outpatient (CLI) | payer OTHER | END | disposition home or self-care (01) | LOC: C.LABWYN 08:37 | PROVIDERS: ATTEND Physician Assistant | DX: I48.91 Unspecified atrial fibrillation (principal); E05.90 Thyrotoxicosis, unspecified without thyrotoxic crisis or storm ==

== ENCOUNTER → 2018-05-12 | Outpatient (CLI) | payer OTHER ==
[2018-05-12 10:20] LABS: INR 3.9 (0.9-1.1)
--- NOTE | 2018-05-20 20:30 | CODING QUERY NO DIAGNOSIS ---
Valid Physician Order Needed A valid physician order must be submitted in order to properly bill for the service(s) provided, including date of service(s), valid diagnosis, and physician signature. If these tests are done on a recurring basis the original physician order must be submitted in order to code and bill for the service(s) provided. Please fax us the original, signed physician order so that we may expedite billing to [phone] DOS 05/12/18 * Prothrombin Time Profile Thank you Shazia Yun [facility] Information Management
== END | disposition home or self-care (01) ==
LOC: C.LABWYN 08:53
PROVIDERS: ATTEND Family Medicine
DX: I48.91 Unspecified atrial fibrillation (principal); Z79.01 Long term (current) use of anticoagulants

== ENCOUNTER → 2018-05-14 | Outpatient (CLI) | payer OTHER ==
[2018-05-14 10:22] LABS: T3 FREE 4.22 pg/ml (2.30-4.20)
[2018-05-14 10:37] LABS: HEMOGLOBIN A1C 5.5 % (4.5-5.6)
[2018-05-18 16:31] LABS: TSI 684 % baseline (<140)
== END | disposition home or self-care (01) ==
LOC: C.LABWYN 08:48
PROVIDERS: ATTEND Internal Medicine Endocrinology, Diabetes & Metabolism
DX: E05.90 Thyrotoxicosis, unspecified without thyrotoxic crisis or storm (principal); E11.9 Type 2 diabetes mellitus without complications